=== PATIENT | male | born 1955 | race Hispanic/Latino ===

== ENCOUNTER 2018-06-04 12:25 | Inpatient (IN) | payer MEDICARE, BC ==
[2018-06-04] MEDS ORDERED: Pantoprazole 40 MG VIAL ONE (12:42)
[2018-06-04] MEDS ORDERED: Ondansetron PF 4 MG/2 ML Vial ONE (12:42)
[2018-06-04 13:24] LABS: #Eosinphils 0.1 thou/uL (0.0-0.7); #Lymphocytes 0.8 thou/uL (1.20-3.40); #Monocytes 0.7 thou/uL (0.11-0.59); #Neutrophils 13.8 thou/uL (1.40-6.50); %Basophils 0.2 % (0.0-1.0); %Eosinophils 0.3 % (0.0-10.0); %Lymphocytes 5.1 % (21.0-51.0); %Monocytes 4.3 % (0.0-10.0); Mean Corpuscular Hemoglobin 29.1 pg (27.0-31.0); Mean Corpuscular Volume 88.1 fL (78.0-98.0); Mean Platelet Volume 8.3 fL (7.4-10.4); Platelet Count 312 thou/uL (130-400); RBC Distribution Width 12.7 % (11.5-14.5); Red Blood Cell (RBC) Count 5.83 mill/uL (4.70-6.10); White Blood Cell (WBC) Count 15.4 thou/uL (4.8-10.8)
[2018-06-04 13:35] LABS: INR-International Normal Ratio 0.9; PTT 30.9 SEC (22.9-36.1); Prothrombin Time 12.5 SEC (12.0-14.7)
[2018-06-04 13:43] LABS: ALT (SGPT) 250 U/L (8-55); AST (SGOT) 314 U/L (5-34); Alkaline Phosphatase 118 U/L (40-150); Anion Gap 16 mmol/L (10-20); BUN (Urea Nitrogen) 14 mg/dL (8.4-25.7); Bilirubin, Total 1.5 mg/dL (0.2-1.2); Calc. Creatinine Clearance 0 mL/min (70-130); Calcium 10.7 mg/dL (7.8-10.44); Carbon Dioxide 29 mmol/L (23-31); Chloride 96 mmol/L (98-107); Estimated GFR-MDRD 68; Globulin 4.2 g/dL (2.4-3.5); Glucose 162 mg/dL (80-115); Potassium 3.4 mmol/L (3.5-5.1); Protein, Total 9.2 g/dL (5.8-8.1); Sodium 138 mmol/L (136-145)
[2018-06-04 13:58] LABS: Lipase 2498 U/L (8-78)
--- NOTE | 2018-06-04 14:09 | CT ---
CT ABDOMEN AND PELVIS WITH IV CONTRAST: Date: 06/04/18 HISTORY: Abdominal pain, distention, emesis, constipation. FINDINGS: There are dependent changes in the lung bases. There is fatty infiltration of the liver. The spleen, pancreas, adrenal glands, and kidneys appear normal. There is mild peripancreatic inflammatory change . No free air, free fluid, or lymphadenopathy seen in the abdomen or pelvis. No portosplenic thrombos is is seen. There are vascular calcifications without evidence of aneurysmal dilatation of the abdominal aorta. T he prostate is enlarged. There are degenerative changes in the spine. The small bowel loops are not abnormally dilated. A normal appearing appendix is present. A small hia garland hernia is present. No calcified gallstones are noted. IMPRESSION: 1. Fatty liver. 2. Small hiatal hernia. 3. Findings suspicious for pancreatitis. 4. Prostatic enlargement. Discussed over the telephone with ER physician, Dr. Justine Cooper, at 1330 hours. CODE CR. POS: [facility]
--- NOTE | 2018-06-04 14:52 | PDOC.FPRHP ---
- History of Present Illness Chief Complaint: Abdominal Pain History of Present Illness: 63yo male with pmh of Multiple sclerosis with right sided weakness, insulin depended DMII, HTN. Uses power wheel chair. Pt presents with 5-6 days of abdominal pain and began vomiting this AM. Last bowel movement 1 week ago. His sister is an RN, gave him an enema this morning with resulting small BM. Pain is worse after meals, has been avoiding food due to this. Hasn't been passing gas for last couple days. Denies fevers, chills, rashes. Has some new lower leg edema and left lower leg lesion. Reports has been drinking a lot of water, this helps with the pain. No hx of abdominal surgeries or pancreatitis. Does not drink alcohol. Years since last MS flare requiring steroids. Reports DMII hasn't been well controlled. Blood sugar 140 this AM - Allergies/Adverse Reactions Allergies Allergy/AdvReac Type Severity Reaction Status Date / Time acetaminophen [From Tylenol] Allergy Verified 06/04/18 16:12 codeine Allergy Verified 06/04/18 16:12 - Home Medications Medication Instructions Recorded Confirmed Type Baclofen 20 mg PO TID 06/04/18 06/04/18 History Cholecalciferol (Vitamin D3) 1 capsule PO DAILY 06/04/18 06/04/18 History [Vitamin D] Insulin Detemir [Levemir] 15 unit SQ DAILY 06/04/18 06/04/18 History Magnesium 250 mg PO INF 06/04/18 06/04/18 History Valsartan/Hydrochlorothiazide 1 tab DAILY 06/04/18 06/04/18 History [Valsartan-Hctz 160-25 mg Tab] - History PMHx: Multiple sclerosis, Insulin depended DMII, HTN PSHx: None FHx: Brother- NE, pacemaker Father- 3 NE's Social: 22 years of 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 No hx of IV drugs - Review of Systems General: denies: fever/chills ENT: denies: nasal congestion, rhinorrhea Respiratory: denies: cough, congestion, shortness of breath Cardiovascular: reports: edema. denies: chest pain Gastrointestinal: reports: nausea, vomiting, constipation, abdominal pain. denies: diarrhea Genitourinary: reports: incontinence. denies: dysuria Skin: reports: lesions. denies: rashes Musculoskeletal: reports: pain, arthritis/arthralgias Neurological: reports: weakness. denies: numbness, syncope Psychological: denies: anxiety, depression - Vital signs BP: 135/94 HR: 128 RR: 18 Tmax: 98.6 Pox: 94% on RmAir Wt: 113 kg - Physical Exam Constitutional: NAD, awake, alert and oriented, well developed HEENT: normocephalic and atraumatic, PERRLA, conjunctiva clear, grossly normal vision, grossly normal hearing -HEENT: dry mucous membranes, appears volume depleted Neck: supple, trachea midline Heart: normal S1/S2, no murmurs/rubs/gallops, pulses present -Heart: tachycardia 1+ pitting edema bilaterally Lungs: CTAB, no respiratory distress, good air movement, no wheezing Abdomen: bowel sounds present, no masses/distention -Abdomen: bilateral upper quadrant tenderness. Positive fletcher's. -Musculoskeletal: Decreased ROM and strength 2/5 on Right. Per patient is his baseline Neurological: CN II-XII intact, normal sensation -Neurological: No myoclonus Skin: capillary refill <2 seconds -Skin: RLE venous stasis vs old abrasion lesion to anterior bedolla Heme/Lymphatic: no unusual bruising or bleeding, no purpura Psychiatric: normal mood and affect, good judgment and insight, intact recent and remote memory FMR H&P: Results - Labs Result Diagrams: 06/05/18 07:46 06/05/18 07:46 Lab results: WBC 15.4 thou/uL (4.8-10.8) H 06/04/18 13:05 Hgb 17.0 g/dL (14.0-18.0) 06/04/18 13:05 Hct 51.4 % (42.0-52.0) 06/04/18 13:05 MCV 88.1 fL (78.0-98.0) 06/04/18 13:05 Plt Count 312 thou/uL (130-400) 06/04/18 13:05 Neutrophils % 90.0 % (42.0-75.0) H 06/04/18 13:05 Sodium 138 mmol/L (136-145) 06/04/18 12:33 Potassium 3.4 mmol/L (3.5-5.1) L 06/04/18 12:33 Chloride 96 mmol/L (98-107) L 06/04/18 12:33 Carbon Dioxide 29 mmol/L (23-31) 06/04/18 12:33 BUN 14 mg/dL (8.4-25.7) 06/04/18 12:33 Creatinine 1.10 mg/dL (0.7-1.3) 06/04/18 12:33 Glucose 162 mg/dL (80-115) H 06/04/18 12:33 Calcium 10.7 mg/dL (7.8-10.44) H 06/04/18 12:33 Total Bilirubin 1.5 mg/dL (0.2-1.2) H 06/04/18 12:33 AST 314 U/L (5-34) H 06/04/18 12:33 ALT 250 U/L (8-55) H 06/04/18 12:33 Alkaline Phosphatase 118 U/L (40-150) 06/04/18 12:33 Serum Total Protein 9.2 g/dL (5.8-8.1) H 06/04/18 12:33 Albumin 5.0 g/dL (3.4-4.8) H 06/04/18 12:33 Lipase 2498 U/L (8-78) H 06/04/18 12:33 - EKG Interpretation EK lead EKG shows, sinus tachycardia, Rate (beats per minute): 130, with no ectopics, Conduction normal, ST segments normal, T waves normal, Homer normal, No other findings, Clinical impression: Normal EKG. - Radiology Interpretation CT scan - abdomen Status: report reviewed by me Additional comment: Fatty liver, small hiatal hernia, pancreatitis, prostatic enlargement FMR H&P: A/P - Problem List (1) Pancreatitis Current Visit: Yes Status: Acute Code(s): K85.90 - ACUTE PANCREATITIS WITHOUT NECROSIS OR INFECTION, UNSP - Plan 63yo male with pmh of multiple sclerosis with right sided weakness, insulin depended DMII, and HTN. Pancreatitis - Leukocytosis, afebrile - CT: evidence of pancreatitis, elevated Lipase 2498 - No hx of alcohol use, will obtain fasting lipid to eval for hypertriglyceridemia as cause - Ordered RUQ to evaluate for gallstones - Consider consult GI in AM - Morphine 8mg q4hr for pain control - LR @200 - NPO - Admit to medical - Will LDH to risk stratify with Platte score Transaminitis - likely 2/2 fatty liver vs gallstone pancreatitis - Will obtain Hep panel and RUQ US as above Insulin Dependent DMII - Will hold home Levemir 15U in AM, Metformin HS due to NPO - HgbA1c 7.2% on 05/15/18 in clinic - Accuchecks q6hr - Will monitor Blood glucose and consider switching to D5 HTN - Hold Valsartan due to NPO and low BP MS - Holding Baclofen due to NPO Code Status: DNAR Diet: NPO DVT ppx: Lovenox Dispo: Likely >2 midnights FMR H&P: Upper Level - Pertinent history 63 yo male presents with 5 day history of abdominal pain. He states that he has since recently began having constipation and vomiting as well. Patient denies fevers, chills, or cough. He states that his sister gave him an enema this AM without much output. He states that he has had a lot of pain and hasn't been able to eat much during this time. He states that he does still have his gallbladder and he has never had anything like this before. Please see auditor internal note above for further documentation. Physical Exam General: Male appears stated age. Appears to be in mild pain Vitals: HEENT: Normocephalic and atraumatic CV: Tachycardic rate, regular rhythm. No murmurs Respiratory: CTA bilaterally, no wheezing Extremities: 1+ pitting edema bilaterally. Right sided weakness at baseline 2/5 strength Neuro: Alert and Oriented x3. No focal deficits - Plan Date/Time: 06/04/18 1450 IMario, have evaluated this patient and agree with findings/plan as outlined by auditor internal resident. Pertinent changes/additions are listed here. 1. Pancreatitis: - Will rule out Gallstone vs other causes - Pain control and IVF - NPO - RUQ US pending - Consider GI consultation when more studies known - Will complete Chari's score for risk stratification - Trend CBC, CMP - FLP in AM Transaminitis - Will obtain Hepatitis panel - trend ALT and AST Insulin Dependent DMII - Will hold home Levemir 15U in AM, Metformin HS due to NPO status - Accuchecks q6hr - Will monitor Blood glucose and consider switching to D5 if hypoglycemia occurs HTN - Hold Valsartan for now - Consider IV PRN BP medications MS - Hold Baclofen Disposition: Stable, will admit to inpatient medical services and continue current plan of care. Addendum - Attending - Attending Attestation Date/Time: 06/05/18 7875 I personally evaluated the patient and discussed the management with Dr. Hough I agree with the History, Examination, Assessment and Plan documented above with any addition or exceptions noted below - 63 yo male with h/o MS with residual right sided weakness, DM, and HTN presents c/o 1 week h/o progressive abdominal pain. Also developed nausea and vomiting in the last 1-2 days. Pain worse with eating. States that he has been constipated also and not passing gas. Denies any CP, SOB, hematemesis or hematochezia. PMH/PSH/Meds/All reviewed and agree with resident's documentation. Afebrile P119 BPO 139/64 RR 20 94% on RA. Exam repeated by and agree with resident's findings. Labs: WBC=15.4, H/H = 17/51.4, Plt= 312, Lt=133, K=3.4, Cl=96, CO2=29, BUN/Cr=14/1.10, Evqx=988, Ca= 10.7, t. bili=1.5, AST/WVY=335/250, Alk qumc=475, alb=5.0, TP=9.2. Hubxzd=[id number]. CT abd/pelvis- c/w pancreatitis. A/P: 1) Acute pancreatitis - Continue IV hydration, pain medications, NPO. Will check RUQ uSG to evaluate gallbladder. 2 ) DM- monitor accuchecks. 3) HTN- BP low normal; hold BP for now.
[2018-06-04 17:06] VITALS: BMI 37.5
[2018-06-04] MEDS ORDERED: Dextrose 50% Abboject 50 ML SYRINGE SLOW IVP PRN (17:34)
[2018-06-04] MEDS ORDERED: Dextrose 5% in Water 1,000 ML IV PRN (17:34)
[2018-06-04] MEDS: Ondansetron PF 4 MG/2 ML Vial IVP PRN (18:30)
[2018-06-04] MEDS: Morphine 4 MG/ML VIAL SLOW IVP PRN ×2 (18:32→22:40)
[2018-06-04] MEDS: Lactated Ringer's 1,000 ML IV SCH ×2 (18:34→22:40)
[2018-06-05] MEDS: Ondansetron PF 4 MG/2 ML Vial IVP PRN ×6 (02:46→23:15)
[2018-06-05] MEDS: Morphine 4 MG/ML VIAL SLOW IVP PRN ×6 (02:47→23:15)
[2018-06-05] MEDS: Lactated Ringer's 1,000 ML IV SCH ×5 (03:41→21:59)
--- NOTE | 2018-06-05 07:26 | PDOC.FM ---
- Subjective Subjective: Pt reports pain is somewhat improved and controlled with IV morphine. Complains of continued nausea. no cp/palpitations, no sob no cough - Objective MAR Reviewed: Yes Vital Signs & Weight: Vital Signs (12 hours) Temp Pulse Resp BP Pulse Ox 06/05/18 04:00 98.6 F 100 18 122/66 98 06/05/18 00:00 98.5 F 106 H 18 135/76 96 06/04/18 19:41 96 06/04/18 19:39 98.9 F 111 H 18 115/59 L 96 Weight Weight 108.7 kg I&O: 06/04/18 06/05/18 06/06/18 06:59 06:59 06:59 Intake Total 2400 Balance 2400 Result Diagrams: 06/05/18 07:46 06/05/18 07:46 Phys Exam - Physical Examination Constitutional: NAD HEENT: moist MMs, sclera anicteric Neck: no JVD, full ROM Respiratory: no wheezing, clear to auscultation bilateral Cardiovascular: RRR, no significant murmur Gastrointestinal: soft epigastric TTP Musculoskeletal: no edema, pulses present Neurological: normal sensation, moves all 4 limbs Psychiatric: normal affect, A&O x 3 Skin: no rash, normal turgor Dx/Plan (1) Diabetes mellitus Code(s): E11.9 - TYPE 2 DIABETES MELLITUS WITHOUT COMPLICATIONS Status: Acute (2) Pancreatitis Code(s): K85.90 - ACUTE PANCREATITIS WITHOUT NECROSIS OR INFECTION, UNSP Status: Acute (3) Multiple sclerosis Code(s): G35 - MULTIPLE SCLEROSIS Status: Acute - Plan Plan: 63yo male with pmh of multiple sclerosis with right sided weakness, insulin depended DMII, and HTN. Pancreatitis A- Leukocytosis, afebrile. CT: evidence of pancreatitis, elevated Lipase 2498. No alcohol in 22 years P- f/u RUQ US -f/u FLP - Morphine 8mg q4hr for pain control - zofran prn for nausea - LR @200 - NPO Transaminitis A- likely 2/2 fatty liver vs gallstone pancreatitis P- f/u Hep panel and RUQ US as above Insulin Dependent DMII A- HgbA1c 7.2% on 05/15/18 in clinic P- Will hold home Levemir 15U in AM, Metformin HS due to NPO - Accuchecks q6hr, will consider D5 and adding back home levemir if uncontrolled HTN - Hold Valsartan due to NPO and low BP MS - Holding Baclofen due to NPO Code Status: DNAR Diet: NPO DVT ppx: Lovenox Addendum - Attending - Attending Attestation Date/Time: 06/05/18 [id number] I personally evaluated the patient and discussed the management with Dr. Vazquez I agree with the History, Examination, Assessment and Plan documented above with any addition or exceptions noted below- Patient without complaints. States that abdoinal pain better. Still having some nausea; no vomiting. Afebrile VSS. A/P: 1) Pancreatitis- decrease IVF; trial of clear liquids this afternoon. On thiazide for BP- will stop this as a possible etiology for his pancreatitis. 2) DM- BG stable; continue to monitor.
--- NOTE | 2018-06-05 08:24 | ULT ---
EXAM: RIGHT UPPER QUADRANT ULTRASOUND: History: 63-year-old male with history of acute pancreatitis. FINDINGS: Heterogeneously course liver echogenicity, evidence for nonspecific diffuse hepatic parenchymal proce ss. Possible debris/sludge within the gallbladder, but the patient will not allow a decubitus or upri ght evaluation to evaluate for movement. Thus, this is a very limited examination. Common bile duct i s 0.4 cm. IMPRESSION: Limited examination because of body habitus and patient unable to roll or go upright, or lie complete ly flat. Possible minimal sludge or debris within the gallbladder. Consider short term follow up stud y whenever the patient can better cooperate. Heterogeneous liver echogenicity. POS: [facility]
[2018-06-05 08:26] LABS: #Lymphocytes 0.7 thou/uL (1.20-3.40); #Monocytes 0.8 thou/uL (0.11-0.59); #Neutrophils 13.3 thou/uL (1.40-6.50); %Basophils 0.2 % (0.0-1.0); %Eosinophils 0.3 % (0.0-10.0); %Lymphocytes 4.6 % (21.0-51.0); %Monocytes 5.4 % (0.0-10.0); %Neutrophils 89.4 % (42.0-75.0); Hemoglobin 13.6 g/dL (14.0-18.0); Mean Corpuscular HGB CONC 32.5 g/dL (32.0-36.0); Mean Corpuscular Volume 89.3 fL (78.0-98.0); Mean Platelet Volume 8.2 fL (7.4-10.4); Platelet Count 245 thou/uL (130-400); RBC Distribution Width 12.7 % (11.5-14.5); Red Blood Cell (RBC) Count 4.68 mill/uL (4.70-6.10); White Blood Cell (WBC) Count 14.8 thou/uL (4.8-10.8)
[2018-06-05 08:38] LABS: ALT (SGPT) 140 U/L (8-55); AST (SGOT) 55 U/L (5-34); Albumin 3.7 g/dL (3.4-4.8); Alkaline Phosphatase 79 U/L (40-150); Anion Gap 13 mmol/L (10-20); BUN (Urea Nitrogen) 13 mg/dL (8.4-25.7); Bilirubin, Total 0.5 mg/dL (0.2-1.2); Calc. Creatinine Clearance 74 mL/min (70-130); Calcium 9.1 mg/dL (7.8-10.44); Carbon Dioxide 27 mmol/L (23-31); Cardiac Risk 3.1 (Less than 4.5); Chloride 104 mmol/L (98-107); Cholesterol 141 mg/dl (< 200 Desired); Estimated GFR-MDRD 44; Glucose 167 mg/dL (80-115); HDL Cholesterol 45 mg/dL (>60 Neg Risk); LDL Cholesterol, Calculated 86 mg/dL; Potassium 3.9 mmol/L (3.5-5.1); Protein, Total 6.7 g/dL (5.8-8.1); Sodium 140 mmol/L (136-145); Triglycerides 50 mg/dL (Less than 150)
[2018-06-05] MEDS: Enoxaparin Sodium 40 MG/0.4 ML SYRINGE SC SCH (08:40)
[2018-06-05] MEDS: Pantoprazole 40 MG VIAL IVP SCH (08:40)
[2018-06-05 08:42] LABS: Hep A IgM AB Non-Reactive (NonReactive); Hep A IgM S/CO 0.12 S/CO (0-0.79); Hep C IgG Ab Non-Reactive (NonReactive); Hep C Index 0.08 S/CO (0-0.79)
[2018-06-05] MEDS ORDERED: Nystatin Powder 15 GM BOT TOP PRN (14:36)
[2018-06-06] MEDS: Ondansetron PF 4 MG/2 ML Vial IVP PRN ×5 (03:21→20:32)
[2018-06-06] MEDS: Morphine 4 MG/ML VIAL SLOW IVP PRN ×5 (03:22→20:32)
[2018-06-06] MEDS: Lactated Ringer's 1,000 ML IV SCH ×3 (04:36→17:41)
--- NOTE | 2018-06-06 06:33 | PDOC.FM ---
- Subjective Subjective: Patient reports feeling worse this morning. Patient states that he continues to feel nauseous, no vomiting episodes. Endorses feeling bloated. Patient advanced to clear liquids and has only had water. Patient states that he is having sharp stomach pains. The morphine has helped with the pain for about 5-6hours at a time but then the pain returns. The patient states that his breathing is improved and he is not wheezing or having increased resp effort. Patient has not had a bowel movement since 05/29/18. - Objective Vital Signs & Weight: Vital Signs (12 hours) Temp Pulse Resp BP Pulse Ox 06/06/18 03:45 99.1 F 116 H 20 158/67 H 95 06/05/18 23:52 99.0 F 115 H 20 139/67 95 06/05/18 20:00 99.4 F 111 H 16 129/65 99 Weight Admit Weight 108.7 kg Weight 108.7 kg I&O: 06/04/18 06/05/18 06/06/18 06:59 06:59 06:59 Intake Total 2400 2490 Balance 2400 2490 Result Diagrams: 06/06/18 08:29 06/06/18 07:25 Phys Exam - Physical Examination mild distress HEENT: PERRLA, moist MMs, sclera anicteric Neck: no JVD, supple, full ROM Respiratory: clear to auscultation bilateral Cardiovascular: RRR, no significant murmur, no rub Gastrointestinal: positive bowel sounds tense abdomen, moderately tender diffusely, more in left lower quadrant abdomen distended diffusely Musculoskeletal: no edema, pulses present Neurological: non-focal Psychiatric: A&O x 3 Skin: no rash Dx/Plan (1) Pancreatitis Code(s): K85.90 - ACUTE PANCREATITIS WITHOUT NECROSIS OR INFECTION, UNSP Status: Acute (2) Diabetes mellitus Code(s): E11.9 - TYPE 2 DIABETES MELLITUS WITHOUT COMPLICATIONS Status: Acute (3) Multiple sclerosis Code(s): G35 - MULTIPLE SCLEROSIS Status: Acute (4) Constipation Code(s): K59.00 - CONSTIPATION, UNSPECIFIED Status: Acute - Plan Plan: 63yo male with pmh of multiple sclerosis with right sided weakness, insulin depended DMII, and HTN here for pancreatitis. Pancreatitis - Leukocytosis, febrile on 06/06. Will obtain blood and urine cultures. - CT: evidence of pancreatitis, elevated Lipase 2498->12. - RUQ US: limited exam due to body habitus and inability for patient to roll onto side; possible debri/sludge within the gallbaldder. CBD 0.4cm. - FLP wnl - Morphine 8mg q4hr for pain control; will transition to PO if well controlled - zofran prn for nausea - clear liquid diet for now, will advance diet as tolerated Transaminitis - likely 2/2 fatty liver vs gallstone pancreatitis - Hep panel negative, RUQ US as above - liver enzyme levels downtrending Constipation - No BM since 05/29 - Will administer enema today and f/u - Will get CXR and KUB as patient is still having abdominal pain/distention - Will give laxative daily - RI until taking PO ZI - Cr 1.59 -> 3.76 - Will continue fluids - Will monitor w/ QD BMPs Insulin Dependent DMII - HgbA1c 7.2% on 05/15/18 in clinic - Will hold home Levemir 15U in AM, Metformin HS due to NPO - Accuchecks q6hr, will consider D5 and adding back home levemir if uncontrolled HTN - Hold Valsartan due to NPO and low BP MS - Holding Baclofen due to NPO Code Status: DNAR Diet: clear liquid DVT ppx: Lovenox Addendum - Attending - Attending Attestation Date/Time: 06/06/18 1118 I personally evaluated the patient and discussed the management with Dr. Chen I agree with the History, Examination, Assessment and Plan documented above with any addition or exceptions noted below - Patient reports contuinued nausea. Has tried ice chips but still having abdominal pain with the nausea. Tm 101.4 P116 A/P: 1) Pancreatitis- abdominal pain appears better less tender on exam but distended and has not had a bowel movement in >1 week. Will check abd series to evaluate for ileus/SBO. May need to consider NGT for decompression. 2 ) Fever- blood and urine cultgures collected; check CXR; pulmonary toilet. 3) ZI- worsening Cr. continue IVF. Check urine studies. May need nephrology consult.
[2018-06-06 08:05] LABS: ALT (SGPT) 83 U/L (8-55); AST (SGOT) 23 U/L (5-34); Albumin 3.4 g/dL (3.4-4.8); Alkaline Phosphatase 73 U/L (40-150); Anion Gap 19 mmol/L (10-20); BUN (Urea Nitrogen) 24 mg/dL (8.4-25.7); Bilirubin, Total 0.7 mg/dL (0.2-1.2); Calc. Creatinine Clearance 31 mL/min (70-130); Calcium 9.1 mg/dL (7.8-10.44); Carbon Dioxide 22 mmol/L (23-31); Chloride 104 mmol/L (98-107); Estimated GFR-MDRD 16; Globulin 3.3 g/dL (2.4-3.5); Glucose 121 mg/dL (80-115); Lipase 12 U/L (8-78); Potassium 4.6 mmol/L (3.5-5.1); Protein, Total 6.7 g/dL (5.8-8.1); Sodium 140 mmol/L (136-145)
[2018-06-06 08:46] LABS: Hemoglobin 12.5 g/dL (14.0-18.0); Mean Corpuscular HGB CONC 32.5 g/dL (32.0-36.0); Mean Corpuscular Hemoglobin 28.7 pg (27.0-31.0); Mean Corpuscular Volume 88.3 fL (78.0-98.0); Mean Platelet Volume 9.6 fL (7.4-10.4); Platelet Count 181 thou/uL (130-400); RBC Distribution Width 12.6 % (11.5-14.5); Red Blood Cell (RBC) Count 4.36 mill/uL (4.70-6.10); White Blood Cell (WBC) Count 17.6 thou/uL (4.8-10.8)
[2018-06-06] MEDS: Enoxaparin Sodium 40 MG/0.4 ML SYRINGE SC SCH (08:47)
[2018-06-06] MEDS: Pantoprazole 40 MG VIAL IVP SCH (08:48)
[2018-06-06 09:33] LABS: Band 3 % (5-11); Lymphocytes 10 % (21-51); MDiff Complete? YES; Monocytes 6 % (0-10); Neutrophil 81 % (42-75); RBC Morphology Normal
[2018-06-06] MEDS ORDERED: Fleet Enema 133 ML BOT FS SCH (11:30)
--- NOTE | 2018-06-06 12:47 | RAD ---
FRONTAL VIEW CHEST: INDICATIONS: Abdominal pain. COMPARISON: Reference made to 09/27/2016. FINDINGS: The lungs are hypoinflated with bibasilar opacity. There is enlargement of the cardiac silhouette an d prominence of the pulmonary vasculature. Surgical anchors are again seen at the left shoulder. IMPRESSION: Hypoinflated lungs with findings to indicate pleural fluid and adjacent edema, likely related to deco mpensated congestive heart failure. Recommend continued imaging followup. POS: [facility]
--- NOTE | 2018-06-06 12:48 | RAD ---
FRONTAL VIEW ABDOMEN: KUB: INDICATIONS: Abdominal pain. History of dyspnea. FINDINGS: The imaged abdomen reveals a nonspecific bowel gas pattern. There is contrast media within a moderat denys distended urinary bladder. There is decreased penetration of the abdomen due to overlying body w all soft tissue. IMPRESSION: Nonspecific bowel gas pattern. POS: [facility]
[2018-06-06 13:00] LABS: Bilirubin Negative (Negative); Blood, Urine Moderate (Negative); Clarity CLEAR (Clear); Glucose, Urine (Dipstick) Negative (Negative); Leukocyte Negative (Negative); Nitrite Negative (Negative); Protein, Urine (Dipstick) Negative (Neg-Trace); Specific Gravity, Urine 1.021 (1.002-1.036); Urobilinogen 0.2 mg/dL (0.2-1.0); pH, Urine 5.5 (5.0-9.0)
[2018-06-06 13:03] LABS: Bacteria/HPF None Seen HPF (None Seen); Hyaline Casts/LPF 0-3 HYALINE CAST LPF (0-3 Hyaline); Squamous Epithelial None Seen HPF (0-3); WBC/HPF 0-3 HPF (0-3)
[2018-06-06 13:06] LABS: Yeast-AUWi Flag 39.3 (0-25.0)
[2018-06-06 13:17] LABS: Yeast-All Forms None Seen HPF (None Seen)
[2018-06-06] MEDS ORDERED: Bisacodyl 10 MG SUPP PR PRN (15:42)
[2018-06-06] MEDS ORDERED: GoLYTELY 4,000 ml Bottle PO SCH ×2 (16:00→18:00)
[2018-06-06] MEDS ORDERED: Baclofen 10 MG TAB PO SCH (16:00)
[2018-06-06] MEDS: Baclofen 10 MG TAB PO SCH (20:31)
--- NOTE | 2018-06-07 00:50 | PDOC.EVN ---
Event Note - Event Note Event Note: Pt resting comfortably in bed, recent large bowel movement. denies CP, SOB, abdominal pain. PE: MMM, CTAB, RRR, S1/S2, NTTP Continue to monitor fluid status, continue LR 150ml/hr
[2018-06-07] MEDS: Lactated Ringer's 1,000 ML IV SCH ×2 (01:01→07:34)
--- NOTE | 2018-06-07 06:16 | PDOC.FM ---
Addendum entered and electronically signed by Klarissa Chen MD 06/07/18 08:43 : Will restart valsartan but will discontinue home HCTZ as this could be a possible cause of pancreatitis. Original Note: - Subjective Subjective: Overnight, patient had a large bowel movement resulting in the patient feeling much better.. Tolerating clear liquids. Patient states he is feeling much better today and is hungry. Patient requesting to advance diet. Patient denies abdominal pain or tenderness. Patient states he feels he is breathing at this baseline with no issues. - Objective Vital Signs & Weight: Vital Signs (12 hours) Temp Pulse Resp BP Pulse Ox 06/07/18 04:38 99.8 F H 107 H 18 134/69 94 L 06/07/18 03:56 99.5 F 06/07/18 00:00 99.2 F 107 H 20 140/65 92 L 06/06/18 20:00 95 06/06/18 19:47 98.7 F 110 H 20 125/58 L 95 Weight Admit Weight 108.7 kg Weight 108.7 kg I&O: 06/05/18 06/06/18 06/07/18 06:59 06:59 06:59 Intake Total 2400 2490 2715 Output Total 4450 Balance 2400 2490 -1735 Result Diagrams: 06/08/18 04:11 06/08/18 04:11 Phys Exam - Physical Examination Constitutional: NAD HEENT: PERRLA, moist MMs, sclera anicteric Neck: no JVD, supple, full ROM Respiratory: clear to auscultation bilateral Cardiovascular: RRR, no significant murmur, no rub Gastrointestinal: soft, non-tender, positive bowel sounds mild distention Musculoskeletal: no edema Neurological: non-focal Psychiatric: normal affect, A&O x 3 Skin: no rash Dx/Plan (1) Pancreatitis Code(s): K85.90 - ACUTE PANCREATITIS WITHOUT NECROSIS OR INFECTION, UNSP Status: Acute (2) Diabetes mellitus Code(s): E11.9 - TYPE 2 DIABETES MELLITUS WITHOUT COMPLICATIONS Status: Acute (3) Multiple sclerosis Code(s): G35 - MULTIPLE SCLEROSIS Status: Acute (4) Constipation Code(s): K59.00 - CONSTIPATION, UNSPECIFIED Status: Acute - Plan Plan: 63yo male with pmh of multiple sclerosis with right sided weakness, insulin depended DMII, and HTN here for pancreatitis. Pancreatitis - Leukocytosis, febrile on 06/06. Blood and urine cx pending. Afebrile since yesterday. - CT: evidence of pancreatitis, elevated Lipase 2498->12. - RUQ US: limited exam due to body habitus and inability for patient to roll onto side; possible debri/sludge within the gallbaldder. CBD 0.4cm. - FLP wnl - Morphine discontinued as patient no longer in pain - zofran prn for nausea - Full liquid diet for now, will advance diet at lunch if breakfast tolerated well Transaminitis - likely 2/2 fatty liver vs gallstone pancreatitis - Hep panel negative, RUQ US as above - liver enzyme levels downtrending Constipation - No BM since 05/29-> BM on 06/06 after golytely. - Imaging yesterday showed nonspecific bowel gas pattern; CXR showed possible pleural fluid w/ edema possibly related to CHF. BNP wnl. Pt has no signs of CHF on exam. - Will give laxative daily, patient tolerating PO ZI - Cr 1.59 -> 3.76 - Will continue fluids - Will monitor w/ QD BMPs Insulin Dependent DMII - HgbA1c 7.2% on 05/15/18 in clinic - Will restart home Levemir 15U in AM, Metformin HS - Accuchecks q6hr HTN - Will restart Valsartan as patient is tolerating PO MS - Will restart baclofen as patient is tolerating PO Code Status: DNAR Diet: clear liquid DVT ppx: Lovenox DISPO: possible discharge later today if diet tolerated well Addendum - Attending - Attending Attestation Date/Time: 06/12/18 1316 I personally evaluated the patient and discussed the management with Dr. Chen on 06/07/18 I agree with the History, Examination, Assessment and Plan documented above with any addition or exceptions noted below- Patient without complaints. Feeling much better. Tolerating clears. Afebrile VSS. A/P: 1) Pancreatitis- resolved. Advance diet. 2) Constipation- resolved. 3) DM- stable; resume insulin. 4) Urinary retention - bladder training through today; plan to remove millan if able to void.
[2018-06-07 07:36] LABS: #Eosinphils 0.3 thou/uL (0.0-0.7); #Lymphocytes 0.8 thou/uL (1.20-3.40); #Monocytes 0.9 thou/uL (0.11-0.59); #Neutrophils 10.6 thou/uL (1.40-6.50); %Basophils 0.2 % (0.0-1.0); %Eosinophils 2.1 % (0.0-10.0); %Lymphocytes 6.4 % (21.0-51.0); %Monocytes 6.9 % (0.0-10.0); %Neutrophils 84.4 % (42.0-75.0); Hemoglobin 12.7 g/dL (14.0-18.0); Mean Corpuscular HGB CONC 34.5 g/dL (32.0-36.0); Mean Corpuscular Hemoglobin 30.8 pg (27.0-31.0); Mean Corpuscular Volume 89.2 fL (78.0-98.0); Mean Platelet Volume 8.2 fL (7.4-10.4); Platelet Count 216 thou/uL (130-400); RBC Distribution Width 12.4 % (11.5-14.5); Red Blood Cell (RBC) Count 4.11 mill/uL (4.70-6.10); White Blood Cell (WBC) Count 12.6 thou/uL (4.8-10.8)
[2018-06-07] MEDS ORDERED: Morphine 4 MG/ML VIAL SLOW IVP PRN (07:36)
[2018-06-07 08:00] LABS: Anion Gap 14 mmol/L (10-20); BUN (Urea Nitrogen) 12 mg/dL (8.4-25.7); Calc. Creatinine Clearance 97 mL/min (70-130); Calcium 8.9 mg/dL (7.8-10.44); Carbon Dioxide 26 mmol/L (23-31); Chloride 103 mmol/L (98-107); Estimated GFR-MDRD 61; Glucose 132 mg/dL (80-115); Potassium 3.9 mmol/L (3.5-5.1); Sodium 139 mmol/L (136-145)
[2018-06-07] MEDS: Pantoprazole 40 MG VIAL IVP SCH (08:20)
[2018-06-07] MEDS: Enoxaparin Sodium 40 MG/0.4 ML SYRINGE SC SCH (08:20)
[2018-06-07] MEDS: Baclofen 10 MG TAB PO SCH ×3 (08:21→20:08)
[2018-06-07] MEDS: Polyethylene Glycol 3350 17 GM Packet PO SCH (08:21)
[2018-06-07] MEDS ORDERED: Non-Formulary Item 1 EACH (Magnesium [Magnesium] 250 MG) PO SCH (08:45)
[2018-06-07] MEDS ORDERED: Non-Formulary Item 1 EACH (Insulin Detemir [Levemir] 15 UNIT) SQ SCH (09:00)
[2018-06-07] MEDS ORDERED: Insulin Glargine 15 UNITS in Pre-Filled Syringe 1 EACH SC SCH (11:00)
[2018-06-07] MEDS: Valsartan 80 MG TAB PO SCH (11:24)
[2018-06-07 13:13] LABS: Hep B Surface AG-Rflx Sendout Negative (Negative); Hepatitis B Core IgM AB Negative (Negative); Hepatitis B Core Total Negative (Negative); Hepatitis B Surface AB-Sendout Non Reactive (.)
[2018-06-07] MEDS ORDERED: Baclofen 10 MG TAB PO SCH (15:00)
[2018-06-07] MEDS: diphenhydrAMINE 25 MG CAP PO PRN (18:20)
[2018-06-08 05:20] LABS: #Eosinphils 0.3 thou/uL (0.0-0.7); #Lymphocytes 0.8 thou/uL (1.20-3.40); #Monocytes 0.6 thou/uL (0.11-0.59); #Neutrophils 7.7 thou/uL (1.40-6.50); %Basophils 0.5 % (0.0-1.0); %Lymphocytes 8.5 % (21.0-51.0); %Neutrophils 82.1 % (42.0-75.0); Hemoglobin 12.4 g/dL (14.0-18.0); Mean Corpuscular HGB CONC 32.8 g/dL (32.0-36.0); Mean Corpuscular Hemoglobin 29.3 pg (27.0-31.0); Mean Corpuscular Volume 89.1 fL (78.0-98.0); Mean Platelet Volume 8.5 fL (7.4-10.4); Platelet Count 250 thou/uL (130-400); RBC Distribution Width 12.2 % (11.5-14.5); Red Blood Cell (RBC) Count 4.23 mill/uL (4.70-6.10); White Blood Cell (WBC) Count 9.3 thou/uL (4.8-10.8)
[2018-06-08 05:30] LABS: Anion Gap 14 mmol/L (10-20); BUN (Urea Nitrogen) 11 mg/dL (8.4-25.7); Calc. Creatinine Clearance 134 mL/min (70-130); Calcium 9.3 mg/dL (7.8-10.44); Carbon Dioxide 29 mmol/L (23-31); Chloride 101 mmol/L (98-107); Estimated GFR-MDRD 88; Glucose 148 mg/dL (80-115); Potassium 3.7 mmol/L (3.5-5.1); Sodium 140 mmol/L (136-145)
--- NOTE | 2018-06-08 05:52 | PDOC.FM ---
- Subjective Subjective: No events overnight. Patient tolerating diet well - states he ate meatloaf and some green beans last night with no issues. Patient endorses mild sharp abdominal pain that is improved from yesterday mostly on the left side. Patient denies abdominal pain, NVD, chest pain, LE swelling. Endorses headache relieved after benadryl. - Objective Vital Signs & Weight: Vital Signs (12 hours) Temp Pulse Resp BP Pulse Ox 06/07/18 20:00 94 L 06/07/18 19:47 99.2 F 108 H 20 134/73 94 L Weight Admit Weight 108.7 kg Weight 108.7 kg I&O: 06/06/18 06/07/18 06/08/18 06:59 06:59 06:59 Intake Total 2490 4515 1690 Output Total 4450 1700 Balance 2490 65 -10 Result Diagrams: 06/08/18 04:11 06/08/18 04:11 Phys Exam - Physical Examination Constitutional: NAD HEENT: PERRLA, moist MMs, sclera anicteric Neck: no JVD, supple, full ROM Respiratory: clear to auscultation bilateral Cardiovascular: RRR, no significant murmur, no rub Gastrointestinal: soft, no distention, positive bowel sounds left side tender to deep palpation Musculoskeletal: no edema Neurological: non-focal Psychiatric: normal affect, A&O x 3 Skin: no rash Dx/Plan (1) Pancreatitis Code(s): K85.90 - ACUTE PANCREATITIS WITHOUT NECROSIS OR INFECTION, UNSP Status: Acute (2) Diabetes mellitus Code(s): E11.9 - TYPE 2 DIABETES MELLITUS WITHOUT COMPLICATIONS Status: Acute (3) Multiple sclerosis Code(s): G35 - MULTIPLE SCLEROSIS Status: Acute (4) Constipation Code(s): K59.00 - CONSTIPATION, UNSPECIFIED Status: Acute (5) Urinary retention Code(s): R33.9 - RETENTION OF URINE, UNSPECIFIED Status: Acute - Plan Plan: 63yo male with pmh of multiple sclerosis with right sided weakness, insulin depended DMII, and HTN here for pancreatitis. Pancreatitis - Leukocytosis - now resolved. Febrile on 06/06. Afebrile since yesterday. Blood cx showed 1/2 staph epi - likely contaminant so will not treat at this time. - CT: evidence of pancreatitis, elevated Lipase 2498->12. - RUQ US: limited exam due to body habitus and inability for patient to roll onto side; possible debri/sludge within the gallbaldder. CBD 0.4cm. - FLP wnl - Morphine discontinued as patient no longer in pain - zofran prn for nausea - CC diet - patient tolerating diet well Urinary retention - Millan placed on 06/06 due to patient retention - bladder training started on 06/07 - pt not feeling urge to void. Will try again today. Can consider consulting urology as our clinic does not have millan supplies if patient needs to be sent home w/ millan. - likely 2/2 to severe constipation Transaminitis - likely 2/2 fatty liver vs gallstone pancreatitis - Hep panel negative, RUQ US as above - liver enzyme levels downtrending Constipation, resolved - No BM since 05/29-> BM on 06/06 after golytely. - Imaging yesterday showed nonspecific bowel gas pattern; CXR showed possible pleural fluid w/ edema possibly related to CHF. BNP wnl. Pt has no signs of CHF on exam. - Will give laxative daily, patient tolerating PO ZI, resolved - Cr 1.59 -> 3.76 -> 1.21 -> 0.88 - Will continue fluids - Will monitor w/ QD BMPs Insulin Dependent DMII - HgbA1c 7.2% on 05/15/18 in clinic - Will restart home Levemir 15U in AM, Metformin HS - Accuchecks q6hr HTN - Will restart Valsartan as patient is tolerating PO; will not restart HCTZ MS - Will restart baclofen as patient is tolerating PO Code Status: DNAR Diet: CC DVT ppx: Lovenox DISPO: discharge today if diet tolerated well Addendum - Attending - Attending Attestation Date/Time: 06/08/18 0829 I personally evaluated the patient and discussed the management with Dr. Chen I agree with the History, Examination, Assessment and Plan documented above with any addition or exceptions noted below.Abdomen positive BS nontender epigastrium , weaning off oxygen,bladder training concern neurogenic bladder with MS, hold thiazide as probable etiology pancreatitis. Patient should be ready for dismissal if continues stable care plan discussed with patient.
[2018-06-08] MEDS: Polyethylene Glycol 3350 17 GM Packet PO SCH (09:09)
[2018-06-08] MEDS: Pantoprazole 40 MG VIAL IVP SCH (09:09)
[2018-06-08] MEDS: Valsartan 80 MG TAB PO SCH (09:09)
[2018-06-08] MEDS: Baclofen 10 MG TAB PO SCH ×3 (09:09→20:30)
[2018-06-08] MEDS: Enoxaparin Sodium 40 MG/0.4 ML SYRINGE SC SCH (09:09)
[2018-06-08] MEDS: Senokot 8.6 MG TAB PO SCH ×2 (09:10→20:30)
[2018-06-08] MEDS: Tamsulosin HCl 0.4 MG CAP PO SCH (09:10)
[2018-06-08] MEDS: Insulin Glargine 15 UNITS in Pre-Filled Syringe 1 EACH SC SCH (09:11)
--- NOTE | 2018-06-08 17:16 | EKG ---
Test Reason : Blood Pressure : / mmHG Vent. Rate : 130 BPM Atrial Rate : 130 BPM P-R Int : 152 ms QRS Dur : 086 ms QT Int : 288 ms P-R-T Axes : 017 -07 -11 degrees QTc Int : 423 ms Sinus tachycardia Otherwise normal ECG Confirmed by YURI SCHOFIELD ([id number]), videotape editor DAVID BANERJEE ([id number]) on 06/08/2018 5:16:11 PM Referred By: Confirmed By:YURI SCHOFIELD
[2018-06-08] MEDS: diphenhydrAMINE 25 MG CAP PO PRN (20:30)
[2018-06-09] MEDS ORDERED: Labetalol HCl 100 MG/20 ML VIAL SLOW IVP PRN (00:54)
--- NOTE | 2018-06-09 06:14 | PDOC.FM ---
- Subjective Subjective: No overnight events. Patient has no complaints. Patient reports not feeling the urge to void despite bladder training. Reports recent bowel movement. Denies abdominal pain, SOB, chest pain, LE edema. - Objective Vital Signs & Weight: Vital Signs (12 hours) Temp Pulse Resp BP Pulse Ox 06/09/18 04:50 99 143/76 H 06/09/18 04:22 99.6 F 106 H 18 176/88 H 93 L 06/09/18 01:43 101 H 137/71 06/09/18 01:15 98 126/89 06/09/18 00:18 99.2 F 98 18 183/97 H 94 L 06/08/18 19:31 98.8 F 94 18 175/89 H 92 L 06/08/18 18:12 142/60 H 92 L Weight Admit Weight 108.7 kg Weight 108.7 kg I&O: 06/07/18 06/08/18 06/09/18 06:59 06:59 06:59 Intake Total 4515 1930 1330 Output Total 4450 3250 3450 Balance 65 -1320 -2120 Result Diagrams: 06/08/18 04:11 06/08/18 04:11 Phys Exam - Physical Examination Constitutional: NAD HEENT: PERRLA, moist MMs, sclera anicteric Neck: no JVD, supple, full ROM Respiratory: clear to auscultation bilateral Cardiovascular: RRR, no significant murmur, no rub Gastrointestinal: soft, non-tender, no distention, positive bowel sounds Musculoskeletal: no edema Neurological: non-focal Psychiatric: normal affect, A&O x 3 Skin: no rash Dx/Plan (1) Pancreatitis Code(s): K85.90 - ACUTE PANCREATITIS WITHOUT NECROSIS OR INFECTION, UNSP Status: Acute (2) Diabetes mellitus Code(s): E11.9 - TYPE 2 DIABETES MELLITUS WITHOUT COMPLICATIONS Status: Acute (3) Multiple sclerosis Code(s): G35 - MULTIPLE SCLEROSIS Status: Acute (4) Constipation Code(s): K59.00 - CONSTIPATION, UNSPECIFIED Status: Acute (5) Urinary retention Code(s): R33.9 - RETENTION OF URINE, UNSPECIFIED Status: Acute - Plan Plan: 63yo male with pmh of multiple sclerosis with right sided weakness, insulin depended DMII, and HTN here for pancreatitis. Pancreatitis - Leukocytosis - now resolved. Febrile on 12/27. Afebrile since yesterday. Blood cx showed 1/2 staph epi - likely contaminant so will not treat at this time. - CT: evidence of pancreatitis, elevated Lipase 2498->12. - RUQ US: limited exam due to body habitus and inability for patient to roll onto side; possible debri/sludge within the gallbaldder. CBD 0.4cm. - FLP wnl - Morphine discontinued as patient no longer in pain - zofran prn for nausea - CC diet - patient tolerating diet well Urinary retention - Millan placed on 06/06 due to patient retention - bladder training started on 06/07 - pt continues to not feel urge to void. Will attempt voiding trial this morning. If unsuccessful will consult urology as our clinic does not have millan supplies and patient will need follow up with a provider for millan care. Transaminitis - likely 2/2 fatty liver vs gallstone pancreatitis - Hep panel negative, RUQ US as above - liver enzyme levels downtrending Constipation, resolved - No BM since 05/29-> BM on 06/06 after golytely. - Imaging yesterday showed nonspecific bowel gas pattern; CXR showed possible pleural fluid w/ edema possibly related to CHF. BNP wnl. Pt has no signs of CHF on exam. - Will give laxative daily, patient tolerating PO ZI, resolved - Cr 1.59 -> 3.76 -> 1.21 -> 0.88 - Will monitor w/ QD BMPs Insulin Dependent DMII - HgbA1c 7.2% on 05/15/18 in clinic - Will restart home Levemir 15U in AM, Metformin HS - Accuchecks q6hr HTN - Restarted Valsartan as patient is tolerating PO; will not restart HCTZ as it is possible cause of pancreatits MS - Restarted baclofen as patient is tolerating PO Patient has been continuously weened off O2 throughout his stay. Patient now satting 93% on 1 L NC. Will attempt to ween completely today. Code Status: DNAR Diet: CC DVT ppx: Lovenox DISPO: possible discharge today pending weening from O2 and voiding trial - may need home O2 and millan care Addendum - Attending - Attending Attestation Date/Time: 06/09/18 1145 I personally evaluated the patient and discussed the management with Dr. Chen I agree with the History, Examination, Assessment and Plan documented above with any addition or exceptions noted below. Relief of pain s/p large BM discharge pending trial of voiding.
[2018-06-09] MEDS: Baclofen 10 MG TAB PO SCH ×3 (08:30→20:52)
[2018-06-09] MEDS: Valsartan 80 MG TAB PO SCH (08:30)
[2018-06-09] MEDS: Senokot 8.6 MG TAB PO SCH ×2 (08:30→20:52)
[2018-06-09] MEDS: Tamsulosin HCl 0.4 MG CAP PO SCH (08:30)
[2018-06-09] MEDS: Insulin Glargine 15 UNITS in Pre-Filled Syringe 1 EACH SC SCH (08:31)
[2018-06-09] MEDS: Pantoprazole 40 MG VIAL IVP SCH (08:31)
[2018-06-09] MEDS: Polyethylene Glycol 3350 17 GM Packet PO SCH (08:32)
[2018-06-09] MEDS: Enoxaparin Sodium 40 MG/0.4 ML SYRINGE SC SCH (08:32)
[2018-06-09] MEDS ORDERED: Valsartan 80 MG TAB PO SCH ×2 (08:53→09:00)
--- NOTE | 2018-06-09 09:29 | RAD ---
CHEST 1 VIEW: HISTORY: Dyspnea. Followup. COMPARISON: 06/06/2018. FINDINGS: Cardiac silhouette is magnified by projection. Shallow inspiration accentuates pulmonary markings wh ich remain upper limits of normal but significantly improved. Near-complete interval resolution of p atchy bibasilar infiltrates. Mediastinum is midline. NO evidence of pneumothorax. Postoperative ch anges left shoulder. IMPRESSION: Significant interval improvement in radiographic appearance of pulmonary vascular congestion. No clarence rid edema is evident. Borderline pulmonary vascular prominence. No new abnormalities. POS: [facility]
[2018-06-09] MEDS: Ibuprofen 600 MG TAB PO PRN (15:57)
[2018-06-10] MEDS: Ibuprofen 600 MG TAB PO PRN (05:52)
--- NOTE | 2018-06-10 06:21 | PDOC.FM ---
Addendum entered and electronically signed by Klarissa Chen MD 06/10/18 08:40 : Called urology - Dr. Reyes stated to discharge patient with indwelling millan catheter and have the patient follow up with her outpatient. Original Note: - Subjective Subjective: No acute overnight events. Patient state that he had a rough night last night due to uncomfortable positioning and not being cleaned after a BM for several hours. The patient states he is comfortable this morning though and is feeling ready for discharge. Patient state that he felt much better after the millan was inserted again after his voiding trial. Denies NVD, abdominal/chest pain, LE swelling. - Objective Vital Signs & Weight: Vital Signs (12 hours) Temp Pulse Resp BP Pulse Ox 06/10/18 04:00 98.1 F 96 16 171/83 H 94 L 06/09/18 23:46 98.1 F 107 H 16 163/83 H 93 L 06/09/18 19:55 98.5 F 110 H 16 140/85 92 L Weight Admit Weight 108.7 kg Weight 108.7 kg I&O: 06/08/18 06/09/18 06/10/18 06:59 06:59 06:59 Intake Total 1930 1330 1440 Output Total 3250 3650 2450 Balance -1320 -2320 -1010 Result Diagrams: 06/08/18 04:11 06/08/18 04:11 Phys Exam - Physical Examination Constitutional: NAD HEENT: PERRLA, moist MMs, sclera anicteric Neck: full ROM Respiratory: clear to auscultation bilateral Cardiovascular: RRR Gastrointestinal: soft, non-tender, no distention, positive bowel sounds Musculoskeletal: no edema Neurological: non-focal Psychiatric: normal affect, A&O x 3 Skin: no rash Dx/Plan (1) Pancreatitis Code(s): K85.90 - ACUTE PANCREATITIS WITHOUT NECROSIS OR INFECTION, UNSP Status: Acute (2) Diabetes mellitus Code(s): E11.9 - TYPE 2 DIABETES MELLITUS WITHOUT COMPLICATIONS Status: Acute (3) Multiple sclerosis Code(s): G35 - MULTIPLE SCLEROSIS Status: Acute (4) Constipation Code(s): K59.00 - CONSTIPATION, UNSPECIFIED Status: Acute (5) Urinary retention Code(s): R33.9 - RETENTION OF URINE, UNSPECIFIED Status: Acute - Plan Plan: 63yo male with pmh of multiple sclerosis with right sided weakness, insulin depended DMII, and HTN here for pancreatitis. Pancreatitis, resolved - Leukocytosis - now resolved. Febrile on 06/06. Afebrile since. Blood cx showed 1/2 staph epi - likely contaminant so will not treat at this time. - CT: evidence of pancreatitis, elevated Lipase 2498->12. - RUQ US: limited exam due to body habitus and inability for patient to roll onto side; possible debri/sludge within the gallbaldder. CBD 0.4cm. - zofran prn for nausea - CC diet - patient tolerating diet well Urinary retention - Millan placed on 06/06 due to patient retention - bladder training started on 06/07 - pt continues to not feel urge to void. Patient has not been successful at bladder training or voiding trial. Removed millan on 06/09 and did not urinary for 6+ hours, bladder scan showed 500ml, patient was straight cathed with return of 800ml. Will consult urology today so patient can have outpatient millan care. Transaminitis - likely 2/2 fatty liver vs gallstone pancreatitis - Hep panel negative, RUQ US as above - liver enzyme levels downtrending Constipation, resolved - No BM since 05/29-> BM on 06/06 after golytely and consistently since. - Imaging yesterday showed nonspecific bowel gas pattern; CXR showed possible pleural fluid w/ edema possibly related to CHF. BNP wnl. Pt has no signs of CHF on exam. Repeat CXR showed improvement from previous and no edema present. - Will give laxative daily, patient tolerating PO ZI, resolved - Cr 1.59 -> 3.76 -> 1.21 -> 0.88 - Will monitor w/ QD BMPs Insulin Dependent DMII - HgbA1c 7.2% on 05/15/18 in clinic - Will restart home Levemir 15U in AM, Metformin HS - Accuchecks q6hr HTN - Restarted Valsartan as patient is tolerating PO - increased dose on 06/09 as patient was having elevated BPs; will not restart HCTZ as it is possible cause of pancreatitis. May consider adding amlodipine if BP remains elevated. MS - Restarted baclofen as patient is tolerating PO Patient has been continuously weened off O2 throughout his stay. Patient now satting 93% on 1 L NC. Will attempt to ween completely today. Code Status: DNAR Diet: CC DVT ppx: Lovenox DISPO: possible discharge today - no need for home O2, but will need millan care Addendum - Attending - Attending Attestation Date/Time: 06/10/18 8140 I personally evaluated the patient and discussed the management with Dr. Chen I agree with the History, Examination, Assessment and Plan documented above with any addition or exceptions noted below. Patient taking po well normal BM Abdomen soft non tender repeat RUQ US initial suboptimal pancreatitis felt secondary to thiazide however prudent to repeat suboptimal study had significant urinary retention home with millan and f/u with Urologist outpatient.
[2018-06-10 07:06] VITALS: BP 127/60; TEMP 98.4
[2018-06-10] MEDS: Baclofen 10 MG TAB PO SCH ×2 (08:31→14:55)
[2018-06-10] MEDS: Pantoprazole 40 MG VIAL IVP SCH (08:33)
[2018-06-10] MEDS: Tamsulosin HCl 0.4 MG CAP PO SCH (08:33)
[2018-06-10] MEDS: Polyethylene Glycol 3350 17 GM Packet PO SCH (08:33)
[2018-06-10] MEDS: Enoxaparin Sodium 40 MG/0.4 ML SYRINGE SC SCH (08:33)
[2018-06-10] MEDS: Senokot 8.6 MG TAB PO SCH (08:33)
[2018-06-10] MEDS: Insulin Glargine 15 UNITS in Pre-Filled Syringe 1 EACH SC SCH (08:34)
[2018-06-10] MEDS ORDERED: Valsartan 80 MG TAB PO SCH (09:00)
--- NOTE | 2018-06-11 13:41 | DIS ---
DATE OF ADMISSION: 06/04/2018 DATE OF DISCHARGE: 06/10/2018 RESIDENT: Klarissa Chen MD. ADMITTING ATTENDING: Dr. Dash. DISCHARGE ATTENDING: Dr. Chamberlain. CONSULTS: Case Management, Palliative Care, PT, Spiritual Care, Wound Care. PROCEDURES: None. DISCHARGE MEDICATIONS: 1. MiraLAX 17 g oral daily. 2. Flomax 0.4 mg oral daily. 3. Valsartan 320 mg oral daily. 4. Levemir 15 units subcutaneous daily. 5. Baclofen 20 mg oral three times daily. 6. Vitamin D3 one capsule oral daily. 7. Magnesium 250 mg oral. Discontinued medications: Valsartan/hydrochlorothiazide one tablet daily. PRIMARY DIAGNOSES: Pancreatitis, transaminitis, urinary retention. SECONDARY DIAGNOSES: Diabetes type 2, insulin dependent; hypertension; multiple sclerosis. HISTORY OF PRESENT ILLNESS/HOSPITAL COURSE: This is a 63-year-old male with past medical history significant for multiple sclerosis with right-sided weakness, insulin-dependent diabetes type 2, and hypertension, who presented to the emergency department with abdominal pain, nausea, and vomiting. The patient also reported constipation at that time of about 1 week. The patient was found to have pancreatitis with a lipase of 2498 on admission. Lipase trended down, and on 06/06/2018, was a value of 12. The patient also had resolution of abdominal pain at that time. On admission, the patient reported history of constipation of 1 week. The patient was given a Fleet Enema as well as laxative per rectum and given GoLYTELY with successful bowel movement. The patient was then given daily laxative with regular bowel movements. The patient was also found to have urinary retention during his stay that comes from the constipation. The patient was given a [place] at that time. Bladder training was attempted for 2 days as well as a voiding trial that was unsuccessful. It is suspected that this may be due to his multiple sclerosis. Urology was called for the patient's urinary retention and Urology recommended to follow up with them as outpatient. On 06/06/2018, the patient's creatinine jumped from 1.59 to 3.76. The patient was started on fluids. The Del Real was placed after this with resolution of creatinine back to baseline. On admission, the patient was given supplemental oxygen and was put on a non-rebreather. Throughout his stay, the patient was weaned off oxygen, and on day of discharge, was saturating well on room air. DISPOSITION: Stable. DISCHARGE INSTRUCTIONS: 1. Location: Home with home health. 2. Activity: Ad song. 3. Diet: Consistent carbohydrate. 4. Follow up with PCP within 7 days and with Urology within 7 days. Job ID: [id number]
== END 2018-06-10 16:05 | disposition home or self-care (01) | DRG 439 ==
LOC: ERS 12:25 → ONC 14:58
PROVIDERS: ADMIT Family Medicine; ATTEND Family Medicine
DX: K85.90 Acute pancreatitis without necrosis or infection, unspecified (principal); N17.9 Acute kidney failure, unspecified; G35 Multiple sclerosis; E11.9 Type 2 diabetes mellitus without complications; I10 Essential (primary) hypertension; R74.0 Nonspecific elevation of levels of transaminase and lactic acid dehydrogenase [LDH]; R33.9 Retention of urine, unspecified; Z66 Do not resuscitate; K59.00 Constipation, unspecified; Z79.4 Long term (current) use of insulin; Z87.891 Personal history of nicotine dependence; Z82.49 Family history of ischemic heart disease and other diseases of the circulatory system
CPT/HCPCS: 36415; 36416; 71045; 74018; 74177; 76705; 80048; 80053; 80061; 81001; 83036; 83615; 83690; 83880; 84484; 85025; 85610; 85730; 86704; 86705; 86706; 86707; 86709; 86803; 87040; 87086; 87149; 87340; 87350; 93005; 94640; 96361; 96372; 96374; 96375; C9113; G8978-GP-CN; G8979-GP-CM; J1650; J2270; J2405; J7620

== ENCOUNTER 2018-06-20 16:27 | Inpatient (IN) | payer MEDICARE, BC ==
[2018-06-20 17:44] LABS: Hemoglobin 14.6 g/dL (14.0-18.0); Mean Corpuscular HGB CONC 33.5 g/dL (32.0-36.0); Mean Corpuscular Hemoglobin 29.1 pg (27.0-31.0); Mean Corpuscular Volume 86.7 fL (78.0-98.0); Mean Platelet Volume 7.9 fL (7.4-10.4); Platelet Count 339 thou/uL (130-400); RBC Distribution Width 12.8 % (11.5-14.5); Red Blood Cell (RBC) Count 5.02 mill/uL (4.70-6.10)
[2018-06-20 17:59] LABS: Band 7 % (5-11); Eosinophils 1 % (0-10); Lymphocytes 3 % (21-51); MDiff Complete? YES; Monocytes 1 % (0-10); Neutrophil 88 % (42-75); Platelet Morphology Comment Appears Adequate; RBC Morphology Normal; White Blood Cell (WBC) Count 18.2 thou/uL (4.8-10.8)
[2018-06-20 18:09] LABS: ALT (SGPT) 28 U/L (8-55); AST (SGOT) 13 U/L (5-34); Alkaline Phosphatase 89 U/L (40-150); Anion Gap 19 mmol/L (10-20); BUN (Urea Nitrogen) 8 mg/dL (8.4-25.7); Bilirubin, Total 0.8 mg/dL (0.2-1.2); Calc. Creatinine Clearance 0 mL/min (70-130); Calcium 9.7 mg/dL (7.8-10.44); Carbon Dioxide 19 mmol/L (23-31); Chloride 101 mmol/L (98-107); Estimated GFR-MDRD 78; Globulin 3.6 g/dL (2.4-3.5); Glucose 159 mg/dL (80-115); Lipase 22 U/L (8-78); Potassium 4.3 mmol/L (3.5-5.1); Protein, Total 7.6 g/dL (5.8-8.1); Sodium 135 mmol/L (136-145)
--- NOTE | 2018-06-20 18:48 | RAD ---
PORTABLE CHEST 06/20/18 PROVIDED CLINICAL HISTORY: Chest pain. COMPARISON: 06/06/18. Lungs are hypoinflated. Evaluation is limited by patient body habitus. The cardiac silhouette appears enlarged which may be at least partially on the basis of portable technique. No focal consolidation, pleural fluid or pneumothorax apparent. IMPRESSION: Hypoinflated exam. POS: [facility]
--- NOTE | 2018-06-20 19:09 | CT ---
CT BRAIN 06/20/18 PROVIDED CLINICAL HISTORY: Headache. FINDINGS: Comparison . The ventricular system appears normal in size and morphology. There is no evidence for intracranial h emorrhage or mass effect. The extracranial soft tissues and osseous structures demonstrate an unremar kable CT appearance. IMPRESSION: No evidence for intracranial hemorrhage or mass effect. POS: [facility]
[2018-06-20 19:51] LABS: Bilirubin Negative (Negative); Blood, Urine Large (Negative); Clarity CLOUDY (Clear); Glucose, Urine (Dipstick) Negative (Negative); Leukocyte Large (Negative); Nitrite Positive (Negative); Protein, Urine (Dipstick) 100 mg/dL (Neg-Trace); Specific Gravity, Urine 1.019 (1.002-1.036); Urobilinogen 0.2 mg/dL (0.2-1.0); pH, Urine 5.5 (5.0-9.0)
[2018-06-20 19:56] LABS: Bacteria/HPF 1+ HPF (None Seen); Hyaline Casts/LPF 0-3 HYALINE CAST LPF (0-3 Hyaline); Pathc Cast-AUWi Flag 0.58 (0-2.49); RBC/HPF GREATER THAN 50-TNTC HPF (0-3); Squamous Epithelial None Seen HPF (0-3)
[2018-06-20] MEDS ORDERED: Vancomycin HCl 1.5 GM in Sodium Chloride 0.9% 250 ML 300 ML IVPB ONE (21:00)
[2018-06-20 21:44] LABS: Troponin I Less than 0.010 ng/mL (< 0.028)
--- NOTE | 2018-06-20 21:56 | PDOC.FPRHP ---
- History of Present Illness Chief Complaint: dizziness History of Present Illness: The patient is a 63YOM with a PMH significant for MS and HTN who presented to the ED via EMS with a CC of dizziness that began around 14:00. The patient stated that he was just sitting in his recliner napping and when he woke up he felt like the room was spinning. He says this sensation lasted approximately 1 hour and endorsed some associated nausea but no vomiting as well as generalized fatigue. He also reports trying to transfer from the toilet back into his wheelchair during this time frame and reports falling but denies hitting his head or losing consciousness. He also denied any associated fever/chills, decreased appetite. The patient denies having any additional episodes of dizziness since this afternoon or since arriving to the ED. Of note, the patient was recently discharged from [facility] on after being admitted for pancreatitis. During that hospitalization, a millan catheter had to be placed 2/2 urinary retention and it was recommended that the catheter remain in place until the patient could be seen by Urology as an outpatient following his discharge. Per the patient and his sister, the same millan has been in place since 06/10/18 and has not been changed since. The patient therefore denied any dysuria but did report some intermittent hematuria since the millan placement. His sister reported that today she noted his urine was a dark edwar color and appeared to have more sediment than normal. ED Course: 1L NS, IV gentamicin 5mg/kg - Allergies/Adverse Reactions Allergies Allergy/AdvReac Type Severity Reaction Status Date / Time acetaminophen [From Tylenol] Allergy Verified 06/04/18 16:12 codeine Allergy Verified 06/04/18 16:12 - Home Medications Medication Instructions Recorded Confirmed Type Baclofen 20 mg PO TID 06/04/18 06/04/18 History Cholecalciferol (Vitamin D3) 1 capsule PO DAILY 06/04/18 06/04/18 History [Vitamin D] Insulin Detemir [Levemir] 15 unit SQ DAILY 06/04/18 06/04/18 History Magnesium 250 mg PO INF 06/04/18 06/04/18 History Polyethylene Glycol 3350 [Miralax] 17 gm PO DAILY #30 pk 06/09/18 Rx Tamsulosin HCl [Flomax] 0.4 mg PO DAILY #30 cap 06/09/18 Rx Valsartan [Diovan] 320 mg PO DAILY #30 tab 06/09/18 Rx - History PMHx: MS, HTN, IDDMII, chronic back pain PSHx: left shoulder and right leg surgery FHx: DMII in sister and parents HTN in father Social: Former smoker with a 40 pack year smoking history. Also a former heavy drinker. Endorses drinking a 12-pack/day for about 20 years as well. Quit smoking and drinking 20 years ago. Tried IV meth about 20 years ago. No illicit drug use since. Lives at home in [place] with his son who is his only child. - Review of Systems General: reports: fatigue. denies: fever/chills, weight/appetite/sleep changes Eyes: denies: eye pain, vision changes ENT: reports: other (no sore throat). denies: nasal congestion Respiratory: denies: cough, shortness of breath Cardiovascular: denies: chest pain, palpitation Gastrointestinal: reports: nausea. denies: vomiting, diarrhea, constipation, abdominal pain Skin: denies: rashes, itching Musculoskeletal: reports: pain, arthritis/arthralgias Neurological: denies: numbness, syncope, seizure Psychological: denies: anxiety, depression - Vital signs BP: 116/78 HR: 116 RR: 27 Tmax: 99.3F Pox: 96% on RA Wt: 107 kg - Physical Exam Constitutional: NAD, awake, alert and oriented, well developed HEENT: normocephalic and atraumatic, grossly normal vision, grossly normal hearing, oropharynx clear, other (poor dentition with slightly dry mucus membranes) Neck: supple, FROM, no LAD Heart: normal S1/S2, pulses present, other (mild nonpitting edema in B/L LEs) Lungs: CTAB, no respiratory distress, good air movement, no rales/rhonchi, no wheezing Abdomen: soft, non-tender, bowel sounds present Musculoskeletal: normal structure, other (inability to move right extremities B/ L 2/2 MS) Neurological: CN II-XII intact (grossly), other (impaired ROM & sensation in right extremities but 5/5 strength on normal sensation on the left) Skin: no rash/lesions, good turgor, no jaundice Heme/Lymphatic: no unusual bruising or bleeding, no purpura Psychiatric: normal mood and affect, good judgment and insight, intact recent and remote memory FMR H&P: Results - Labs Result Diagrams: 06/20/18 17:31 06/20/18 17:30 Lab results: WBC 18.2 thou/uL (4.8-10.8) H 06/20/18 17:31 Hgb 14.6 g/dL (14.0-18.0) 06/20/18 17:31 Hct 43.5 % (42.0-52.0) 06/20/18 17:31 MCV 86.7 fL (78.0-98.0) 06/20/18 17:31 Plt Count 339 thou/uL (130-400) 06/20/18 17:31 Band Neuts % (Manual) 7 % (5-11) 06/20/18 17:31 Sodium 135 mmol/L (136-145) L 06/20/18 17:30 Potassium 4.3 mmol/L (3.5-5.1) 06/20/18 17:30 Chloride 101 mmol/L (98-107) 06/20/18 17:30 Carbon Dioxide 19 mmol/L (23-31) L 06/20/18 17:30 BUN 8 mg/dL (8.4-25.7) L 06/20/18 17:30 Creatinine 0.98 mg/dL (0.7-1.3) 06/20/18 17:30 Glucose 159 mg/dL (80-115) H 06/20/18 17:30 Lactic Acid 1.1 mmol/L (0.5-2.2) 06/20/18 17:31 Calcium 9.7 mg/dL (7.8-10.44) 06/20/18 17:30 Total Bilirubin 0.8 mg/dL (0.2-1.2) 06/20/18 17:30 AST 13 U/L (5-34) 06/20/18 17:30 ALT 28 U/L (8-55) 06/20/18 17:30 Alkaline Phosphatase 89 U/L (40-150) 06/20/18 17:30 B-Natriuretic Peptide 12.1 pg/mL (0-100) 06/20/18 17:31 Serum Total Protein 7.6 g/dL (5.8-8.1) 06/20/18 17:30 Albumin 4.0 g/dL (3.4-4.8) 06/20/18 17:30 Lipase 22 U/L (8-78) 06/20/18 17:30 Urine Ketones > or equal to 80 mg/dL (Negative) H 06/20/18 19:34 Urine Blood Large (Negative) H 06/20/18 19:34 Urine Nitrite Positive (Negative) H 06/20/18 19:34 Ur Leukocyte Esterase Large (Negative) H 06/20/18 19:34 Urine RBC GREATER THAN 50-TNTC HPF (0-3) H 06/20/18 19:34 Urine WBC Greater Than 50-TNTC HPF (0-3) H 06/20/18 19:34 Ur Squamous Epith Cells None Seen HPF (0-3) 06/20/18 19:34 Urine Bacteria 1+ HPF (None Seen) H 06/20/18 19:34 Additional comment: troponin I >0.010 BNP 12.1 TSH 0.63 - EKG Interpretation EKG: sinus tachycardia w/ rate of 140 - Radiology Interpretation Chest x-ray Status: report reviewed by me (hypoinflated lungs) CT scan - head Status: report reviewed by me (no ICH or mass effect noted) FMR H&P: A/P - Problem List (1) Sepsis Current Visit: Yes Status: Acute Code(s): A41.9 - SEPSIS, UNSPECIFIED ORGANISM (2) UTI (urinary tract infection) Current Visit: Yes Status: Acute (3) Tachycardia Current Visit: Yes Status: Acute Code(s): R00.0 - TACHYCARDIA, UNSPECIFIED (4) HTN (hypertension) Current Visit: Yes Status: Acute Code(s): I10 - ESSENTIAL (PRIMARY) HYPERTENSION (5) Leukocytosis Current Visit: Yes Status: Acute Code(s): D72.829 - ELEVATED WHITE BLOOD CELL COUNT, UNSPECIFIED (6) Constipation Current Visit: No Status: Acute Code(s): K59.00 - CONSTIPATION, UNSPECIFIED (7) Diabetes mellitus Current Visit: No Status: Acute Code(s): E11.9 - TYPE 2 DIABETES MELLITUS WITHOUT COMPLICATIONS (8) Multiple sclerosis Current Visit: No Status: Acute Code(s): G35 - MULTIPLE SCLEROSIS (9) Urinary retention Current Visit: No Status: Acute Code(s): R33.9 - RETENTION OF URINE, UNSPECIFIED - Plan 63YOM with a PMH significant for MS and urinary retention requiring millan catheterization who presented to the ED via EMS with a CC of dizziness and was found to be septic 2/2 a catheter-associated UTI. Sepsis 2/2 catheter associated UTI: - Patient had a WBC of 18.2 and was tachycardic in the 140s on presentation w/ a UA significant for a UTI. Was therefore determined to be septic 2/2 a UTI and was given 1L of NS & IV gentamicin in the ED. - Will start on IV rocephin and consider adding a carbapenem in the AM since sepsis and recent hospitalization qualify patient for complicated UTI. - Will also continue IVFs w/ LR @ 150mL/hr and remove the millan and try bladder training again. Will get in & out caths PRN. - Blood and urine cultures pending. Urine gram stain also pending. - Repeat CBC and BMP in the AM. Sinus Tachycardia: - Aware, per clinic chart & documentation from last hospitalization, patient is tachycardic at baseline. However, slightly worse on presentation presumably 2/2 infection. - Baseline tachycardia likely 2/2 autonomic dysregulation from MS. Will treat infection as described above and continue to monitor closely on telemetry. Urinary retention: - Likely 2/2 MS. - Patient was discharged on [facility] with a millan in place and started on tamsulosin. Has an appt scheduled with Urology next Sunday. - Will consider consulting Urology while patient is in hospital now for further recommendations. In the meantime will remove the millna on the floor and give the patient a voiding trial. Will cath PRN if retention persists. MS: - Aware, will resume home meds. DMII: - Aware, will resume home Levemir dose and start on CC diet. - Will get ACHS accuchecks and order hyperglycemia protocol. HTN: - Aware, will resume home meds. Constipation: - Aware, patient was recently discharged on MARIANNE QD Miralax but has had to cut back due to diarrhea. - Will order PO Miralax and docusate PRN. General deconditioning: - PT and OT consulted. - CM also consulted and rehab screen placed as patient will likely benefit from a short rehab stay per the patient's PCP. PCP: Lucio Earl MD Code Status: Full Diet: CC, HH, low sodium DVT ppx: lovenox GI ppx: PRN tums Abx: Rocephin Dispo: Will admit to inpatient telemetry for IV antibiotics for UTI. Suspect a 2 -3 day hospital stay and will consult CM for discharge placement. FMR H&P: Upper Level - Pertinent history 63 yr old male with PMH of MS, DM and HTN who presents to ER with c/o malaise and dizziness. Started his afternoon laying down. Improved after getting to ER and getting bolus of IV fluids. He was found to have elevated WBC nad bacteruria. He was discharged from the hospital 12 days ago with a millan catheter due to urinary retention. He was to see urology next week. Otherwise he reports no other acute or change in symptoms. He denies fever. - Pertinent findings Vital signs as noted above Gen: NAD however he does fall asleep easily during examination Heart: RRR, no murmurs, rubs, gallops Lung: CTAB, no wheezes, rhales, rhonchi Abd: soft nontender to palpation, no suprapubic tenderness Ext: no edema bilateral LE Neuo: No focal deficits URINE: WBC: TNTC, 1+ BACTERIA, POS NITRITES - Plan Date/Time: 06/20/182155 I, [Lena Gaines], have evaluated this patient and agree with findings/plan as outlined by internal revenue service agent resident. Pertinent changes/additions are listed here. 63 yr old male with sepsis and findings c/w UTI Sepsis 2/2 Catheter associated UTI, present on admission -leukocytosis, tachycardia -s/p rocephin, gent, and vanc in ER -will cont rocephin -check urine gram stain and if gram positive, will cont vanc -urine and blood culture -daily CBC, BMP -cont maintenance IV fluids Urinary retention -given acute infection, will DC millan and have voiding trial -intermittent catheterization if needed -consider consulting urology if persists Sinus Tachycardia -significantly worsened on presentation but now appears to be around baseline -possibly 2/2 autonomic dysregulation 2/2 MS Insulin dependent diabetes -cont home levemir dose -check qACHS BG -PRN SSI HTN -cont home valsartan MS -cont home pain meds -does not appear to be in acute flair -avoid Tylenol per MS physician, causes severe transaminitis PCP: Lucio Earl MD Code Status: Full Diet: CC DVT ppx: lovenox GI ppx: PRN tums Dispo: admit to inpatient telemetry, suspect a 2-3 hospital stay for IV antibiotics and will consult case mgmt. for possible rehab vs SNF placement Addendum - Attending - Attending Attestation Date/Time: 06/20/18 9963 I personally evaluated the patient and discussed the management with Dr. John I agree with the History, Examination, Assessment and Plan documented above with any addition or exceptions noted below- 63 yo male with h/o MS, DM and HTN who presents to ER with c/o malaise and dizziness that started this afternoon. Denies any fever/chills. Denies any N?V, loss of appetite. Denies any abdominal pain. Patient recently hospitalized for pancreatitis and constipation. Also had urinary retention and was discharged with millan catheter after failing voiding trials. Was scheduled to see urology next week. PMH/PSH/Meds/All reviewed and agree with resident's documentation. Afebrile P107 Exam repeated by me and agree with resident's findings. Labs: WBC=18.2, H/H=14.6/43.5, Ako=419, JZ=870, K=4.3, Rk=620, CO2=19, BUN/Cr=8/0.98, Lcom=866, AST/ALT=13/28, TSH=0.6339, lactic acid=1.1, procal=1.02, CT brain negative, U/A= 1+prot, (+)ket, lg blood, (+) nitrites, lg LE, RBC>50, WBC>50, 1+bact. A/P: 1) Sepsis secondary to catheter associated UTI present on admission - pulse improved with fluid bolus, BP stable. Has h/o sinus tachycardia (baseline HR 95-110). Urine and blood cultures obtained. Continue IV abx. 2) DM- monitor accuchecks and continue home medications, 3) Urinary retention - consider voiding trial here.
[2018-06-21 00:42] LABS: Troponin I Less than 0.010 ng/mL (< 0.028)
[2018-06-21] MEDS ORDERED: Dextrose 50% Abboject 50 ML SYRINGE SLOW IVP PRN (02:04)
[2018-06-21] MEDS ORDERED: Ondansetron ODT 4 MG TAB PO PRN (02:04)
[2018-06-21] MEDS ORDERED: Dextrose 5% in Water 1,000 ML IV PRN (02:04)
[2018-06-21] MEDS: Lactated Ringer's 1,000 ML IV SCH ×4 (02:23→23:59)
[2018-06-21] MEDS ORDERED: cefTRIAXone\\ROCEPHIN 2 GM in Sodium Chloride 0.9% 100 ML IVPB SCH (02:30)
[2018-06-21 03:53] VITALS: BMI 34.4
[2018-06-21] MEDS ORDERED: Docusate 100 MG CAP PO PRN (04:37)
[2018-06-21 04:46] LABS: #Eosinphils 0.1 thou/uL (0.0-0.7); #Lymphocytes 1.2 thou/uL (1.20-3.40); #Monocytes 0.9 thou/uL (0.11-0.59); #Neutrophils 12.9 thou/uL (1.40-6.50); %Basophils 0.3 % (0.0-1.0); %Eosinophils 0.6 % (0.0-10.0); %Lymphocytes 7.9 % (21.0-51.0); %Neutrophils 85.3 % (42.0-75.0); Hemoglobin 12.8 g/dL (14.0-18.0); Mean Corpuscular HGB CONC 33.3 g/dL (32.0-36.0); Mean Corpuscular Hemoglobin 29.2 pg (27.0-31.0); Mean Corpuscular Volume 87.7 fL (78.0-98.0); Platelet Count 288 thou/uL (130-400); RBC Distribution Width 12.8 % (11.5-14.5); Red Blood Cell (RBC) Count 4.37 mill/uL (4.70-6.10); White Blood Cell (WBC) Count 15.1 thou/uL (4.8-10.8)
[2018-06-21 04:55] LABS: Anion Gap 13 mmol/L (10-20); BUN (Urea Nitrogen) 8 mg/dL (8.4-25.7); Calc. Creatinine Clearance 125 mL/min (70-130); Calcium 8.8 mg/dL (7.8-10.44); Carbon Dioxide 24 mmol/L (23-31); Chloride 105 mmol/L (98-107); Estimated GFR-MDRD 87; Glucose 146 mg/dL (80-115); Sodium 138 mmol/L (136-145)
--- NOTE | 2018-06-21 07:19 | PDOC.FM ---
- Subjective Subjective: Mr. Hill is resting comfortably in bed, bladder US with 800mL present. he reports feeling like he needs to urinate, he is not able to. - Objective Vital Signs & Weight: Vital Signs (12 hours) Temp Pulse Resp BP Pulse Ox 06/21/18 04:00 99.4 F 116 H 19 129/63 94 L 06/21/18 00:13 97 06/21/18 00:08 98.2 F 113 H 16 145/74 H 97 Weight Weight 102.875 kg I&O: 06/20/18 06/21/18 06/22/18 06:59 06:59 06:59 Output Total 200 Balance -200 Result Diagrams: 06/21/18 04:05 06/21/18 04:05 Phys Exam - Physical Examination Constitutional: NAD HEENT: moist MMs Neck: no nodes Respiratory: no wheezing, clear to auscultation bilateral Cardiovascular: RRR, no significant murmur Gastrointestinal: soft tender over suprapubic area Musculoskeletal: no edema, pulses present LE weakness Psychiatric: normal affect Skin: no rash Dx/Plan (1) Sepsis Code(s): A41.9 - SEPSIS, UNSPECIFIED ORGANISM Status: Acute (2) Tachycardia Code(s): R00.0 - TACHYCARDIA, UNSPECIFIED Status: Acute (3) UTI (urinary tract infection) Status: Acute (4) Diabetes mellitus Code(s): E11.9 - TYPE 2 DIABETES MELLITUS WITHOUT COMPLICATIONS Status: Acute (5) Multiple sclerosis Code(s): G35 - MULTIPLE SCLEROSIS Status: Acute (6) Urinary retention Code(s): R33.9 - RETENTION OF URINE, UNSPECIFIED Status: Acute - Plan Plan: Sepsis 2/2 catheter associated UTI: - WBC of 18.2, tachycardic, w/ a UA significant for a UTI. - s/p 1L of NS & IV gentamicin in the ED. - IV rocephin, consider adding carbapenem - IVFs w/ LR @ 150mL/hr - Blood and urine cultures pending. Urine gram stain also pending. - Monitor CBC and BMP in the AM. Sinus Tachycardia: - Aware, per clinic chart & documentation from last hospitalization, patient is tachycardic at baseline. However, slightly worse on presentation presumably 2/2 infection. - Baseline tachycardia likely 2/2 autonomic dysregulation from MS. Will treat infection as described above and continue to monitor closely on telemetry. Urinary retention: - Likely 2/2 MS. - remove the millan and try bladder training again. Will get in & out caths PRN. - Patient was discharged on 06/11/[address] with [address] in [address] and started on tamsulosin. Has an appt scheduled with Urology next Sunday. - Will consider consulting Urology while patient is in hospital now for further recommendations. In the meantime will remove the millan on the floor and give the patient a voiding trial. Will cath PRN if retention persists. MS: - Aware, will resume home meds. DMII: - Aware, will resume home Levemir dose and start on CC diet. - Will get ACHS accuchecks and order hyperglycemia protocol. HTN: - Aware, will resume home meds. Constipation: - Aware, patient was recently discharged on MARIANNE QD Miralax but has had to cut back due to diarrhea. - Will order PO Miralax and docusate PRN. General deconditioning: - PT and OT consulted. - CM also consulted and rehab screen placed as patient will likely benefit from a short rehab stay per the patient's PCP. Code: Full Diet: CC, HH, low sodium ppx: lovenox Abx: Rocephin Dispo: continue to treat for UTI, monitor vitals Addendum - Attending - Attending Attestation Date/Time: 06/21/18 4031 I personally evaluated the patient and discussed the management with Dr. Celeste. I agree with the History, Examination, Assessment and Plan documented above with any addition or exceptions noted below. The patient was admitted with sepsis 2/2 uti from indwelling millan catheter. Millan was removed. Pt on IV rocephin. Awaiting cultures. Pt has persistent urinary retention. Bladder scan this morning shows over 800 ml. I/O cath was performed. The original millan was placed around 06/11/18 for retention. Consulting urology for the urinary retention as well as neurology. We are unsure if the retention is due to worsening of MS or other causes.
[2018-06-21] MEDS: Magnesium Oxide 250 MG TAB PO SCH (08:54)
[2018-06-21] MEDS: Enoxaparin Sodium 40 MG/0.4 ML SYRINGE SC SCH (08:54)
[2018-06-21] MEDS: Valsartan 80 MG TAB PO SCH (08:54)
[2018-06-21] MEDS: Baclofen 10 MG TAB PO SCH ×3 (08:54→21:16)
[2018-06-21] MEDS: Tamsulosin HCl 0.4 MG CAP PO SCH (08:55)
[2018-06-21] MEDS ORDERED: Non-Formulary Item 1 EACH (Insulin Detemir [Levemir] 15 UNIT) SQ SCH (09:00)
[2018-06-21] MEDS ORDERED: Insulin Glargine 15 UNITS in Pre-Filled Syringe 1 EACH SC SCH (09:00)
[2018-06-21] MEDS: Polyethylene Glycol 3350 17 GM Packet PO PRN (09:00)
[2018-06-21] MEDS ORDERED: methylPREDNISolone Sod Succ 1 GM in Sodium Chloride 0.9% 250 ML 250 ML IVPB SCH (10:30)
[2018-06-21] MEDS ORDERED: methylPREDNISolone Sod Succ/PF 125 MG/2 ML VIAL IVP SCH (10:30)
[2018-06-21] MEDS: HumaLOG 300 UNITS/3 ML VIAL SC PRN ×3 (12:02→21:31)
[2018-06-21] MEDS: Cefepime 1 GM in Sodium Chloride 0.9% 100 ML IVPB SCH (21:16)
--- NOTE | 2018-06-21 23:55 | CON ---
DATE OF CONSULTATION: 06/21/2018 CONSULTING: Family Medicine. AUTOMOTIVE SALES PROFESSIONAL: Dr. Kuhn with Urology. REASON FOR CONSULTATION: Urinary retention with urosepsis. HISTORY OF PRESENT ILLNESS: Mr. Hill is a 63-year-old white male with a history of MS, who presented to the ED with symptoms of dizziness, malaise, and difficulty urinating. He felt like the room was spinning. After he was admitted initially, there was a concern that he may have had a stroke, but it was subsequently found out that he was septic with a catheter associated UTI. He had been able to urinate normally for the majority of his life despite his MS other than some minor overactive bladder, which had occurred in the past. However, approximately 2 to 3 weeks ago, the patient lost his ability to urinate and ended up with a [place] catheter. He had the catheter in for about a week or two before the symptoms developed and then presented to the hospital with the above-mentioned symptoms. He was started on antibiotics and the catheter was removed, however, the patient was still not able to void. The Family Medicine service began in and out catheterizations, but the patient reports that these are painful and uncomfortable. He still is not able to void on his own, is relying on catheters for drainage. He denies any prior history of urolithiasis. He has had some hematuria since the catheter placement, but has not had hematuria before this. He denies any previous urologic surgeries. He has never had urologist previously. ALLERGIES: 1. TYLENOL. 2. CODEINE. HOME MEDICATIONS: 1. Baclofen. 2. Vitamin D. 3. Insulin. 4. Magnesium. 5. MiraLAX. 6. Flomax. 7. Valsartan. PAST MEDICAL HISTORY: 1. MS. 2. Hypertension. 3. Type 2 diabetes. 4. Chronic back pain. PAST SURGICAL HISTORY: Left shoulder surgery and right leg surgery. FAMILY HISTORY: Significant for diabetes in his sister and parents and high blood pressure. SOCIAL HISTORY: The patient is a former smoker with 40-pack year smoking history. He also previously used to be a heavy drinker for about 20 years as well. He quit smoking and drinking about 20 years ago and has been clean since. He has used methamphetamines 20 years ago, but denies any other illicit drug use since then. He lives at home in [place] with his son. REVIEW OF SYSTEMS: A 12-point review of systems is currently negative. Other than the patient's slight discomfort in his bladder area, he denies any current malaise, dizziness, or ill feelings. The remainder of 12-point review of systems was reviewed and otherwise negative. PHYSICAL EXAMINATION: VITAL SIGNS: Temperature 99.4, pulse 109, respirations 16, blood pressure 120/71, saturation 92% on room air. GENERAL: No apparent distress, communicative and alert. HEENT: Sclerae nonicteric. Pupils symmetric and round. Moist mucous membranes. Trachea midline. CARDIOVASCULAR: Sinus tachycardia. Normal S1, S2. Symmetric pulses. CHEST: No increased work of breathing. Symmetric expansion of the lungs, clear anteriorly. ABDOMEN: Soft, nontender, nondistended. Positive bowel sounds. No organomegaly, rebound, or guarding. : Deferred at this time. EXTREMITIES: Somewhat wasted lower extremities without cyanosis or edema. There is mild clubbing. SKIN: Warm, dry, good turgor. No rashes or lesions. MUSCULOSKELETAL: Aforementioned lower extremity muscle wasting without joint deformities or joint irritation. Upper extremity range of motion is normal. Patient has limited use of his lower extremities. NEUROLOGIC: Cranial nerves 2 through 12 grossly intact. Again, lower extremities are weak, but patient is able to bear weight on them. Upper extremities are normal without focal sensory or motor deficits. PSYCHIATRIC: Alert and oriented x3. Appropriate mood and affect. LABORATORY DATA: On laboratory evaluation, the full set of labs are in the [facility] system which I have reviewed. Of note, the patient's white count is down to 15.1 from 18.2. Creatinine is currently 0.89. Urine culture is currently mixed with isolations in progress. Urinalysis demonstrates nitrite positive urine with large blood, greater than 50 rbc's and wbc's and 1+ bacteria. 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 His UTI is currently being treated and with this, his bladder should resolve in the course of about 5-7 days at which time, he may regain some of his bladder function. His generalized weakness which he has experienced now is probably also contributing to impaired bladder contractility. Since he is having so much discomfort from in and out catheterizations, I would recommend just leaving an indwelling catheter and at this time since he is already on antibiotics, he should not develop any further urinary tract infections. If he is going to rehab, he can be discharged with a catheter and I can always see him either during rehab or after his rehab for a void trial in my office and I will continue to follow him for potential neurogenic bladder sphincter dyssynergia issues or any other urologic problems that he may have. I would recommend at least a 7-14 day course of antibiotics depending on final cultures. I have given the patient my card for followup and I will see him on an outpatient basis. Job ID: [id number]
[2018-06-22 04:37] LABS: #Lymphocytes 0.5 thou/uL (1.20-3.40); #Monocytes 0.1 thou/uL (0.11-0.59); #Neutrophils 14.1 thou/uL (1.40-6.50); %Eosinophils 0.1 % (0.0-10.0); %Lymphocytes 3.6 % (21.0-51.0); %Monocytes 0.9 % (0.0-10.0); %Neutrophils 95.5 % (42.0-75.0); Hemoglobin 13.2 g/dL (14.0-18.0); Mean Corpuscular HGB CONC 33.7 g/dL (32.0-36.0); Mean Corpuscular Hemoglobin 29.3 pg (27.0-31.0); Platelet Count 331 thou/uL (130-400); RBC Distribution Width 12.5 % (11.5-14.5); Red Blood Cell (RBC) Count 4.49 mill/uL (4.70-6.10); White Blood Cell (WBC) Count 14.8 thou/uL (4.8-10.8)
[2018-06-22 04:58] LABS: Anion Gap 15 mmol/L (10-20); BUN (Urea Nitrogen) 17 mg/dL (8.4-25.7); Calc. Creatinine Clearance 113 mL/min (70-130); Calcium 9.5 mg/dL (7.8-10.44); Carbon Dioxide 24 mmol/L (23-31); Chloride 104 mmol/L (98-107); Estimated GFR-MDRD 77; Glucose 251 mg/dL (80-115); Potassium 3.8 mmol/L (3.5-5.1); Sodium 139 mmol/L (136-145)
[2018-06-22] MEDS: HumaLOG 300 UNITS/3 ML VIAL SC PRN ×3 (06:09→21:32)
--- NOTE | 2018-06-22 06:15 | PDOC.FM ---
- Subjective Subjective: Mr. Hill is resting comfortably in bed, he reports he had a large bowel movement and feels much better. denies fever/chills. - Objective Vital Signs & Weight: Vital Signs (12 hours) Temp Pulse Resp BP Pulse Ox 06/22/18 04:00 97.8 F 114 H 19 143/73 H 94 L 06/22/18 00:00 98.3 F 103 H 19 144/79 H 93 L 06/21/18 20:00 98.6 F 115 H 19 132/67 94 L Weight Weight 102.875 kg I&O: 06/20/18 06/21/18 06/22/18 06:59 06:59 06:59 Intake Total 480 Output Total 200 Balance -200 480 Result Diagrams: 06/22/18 04:25 06/22/18 04:25 Phys Exam - Physical Examination Constitutional: NAD HEENT: moist MMs Neck: no JVD Respiratory: clear to auscultation bilateral Cardiovascular: RRR Gastrointestinal: soft, non-tender Musculoskeletal: no edema Psychiatric: normal affect Skin: no rash Dx/Plan (1) Sepsis Code(s): A41.9 - SEPSIS, UNSPECIFIED ORGANISM Status: Acute (2) Tachycardia Code(s): R00.0 - TACHYCARDIA, UNSPECIFIED Status: Acute (3) UTI (urinary tract infection) Status: Acute (4) Diabetes mellitus Code(s): E11.9 - TYPE 2 DIABETES MELLITUS WITHOUT COMPLICATIONS Status: Acute (5) Multiple sclerosis Code(s): G35 - MULTIPLE SCLEROSIS Status: Acute (6) Urinary retention Code(s): R33.9 - RETENTION OF URINE, UNSPECIFIED Status: Acute - Plan Plan: Sepsis 2/2 catheter associated UTI: - WBC of 18.2, tachycardic, w/ a UA significant for a UTI POA - s/p 1L of NS & IV gentamicin in the ED. - Cefepime per cultures - IVFs w/ LR @ 150mL/hr - Blood and urine cultures pending. Urine gram stain also pending. - Monitor CBC and BMP in the AM. Sinus Tachycardia: - Aware, per clinic chart & documentation from last hospitalization, patient is tachycardic at baseline. However, slightly worse on presentation presumably 2/2 infection. - Baseline tachycardia likely 2/2 autonomic dysregulation from MS. Will treat infection as described above and continue to monitor closely on telemetry. Urinary retention: - Likely 2/2 MS. - replace millan per urology, follow up outpt MS: - Aware, will resume home meds. - possibly transitioning from primary progressive to relapsing remitting vs acute flare, - s/p 1g solumedrol - neurology consulted, appreciate recs DMII: - Aware, will resume home Levemir dose and start on CC diet. - Will get ACHS accuchecks and order hyperglycemia protocol. HTN: - Aware, will resume home meds. - pressure consistently high, consider adding additional medication today Constipation: - Aware, patient was recently discharged on MARIANNE QD Miralax but has had to cut back due to diarrhea. - Will order PO Miralax and docusate PRN. General deconditioning: - PT and OT consulted. - CM also consulted and rehab screen placed as patient will likely benefit from a short rehab stay per the patient's PCP. Code: Full Diet: CC, HH, low sodium ppx: lovenox Abx: Rocephin Dispo: continue to treat for UTI, await placement at rehab facility Addendum - Attending - Attending Attestation Date/Time: 06/22/18 1005 I personally evaluated the patient and discussed the management with Dr. Celeste. I agree with the History, Examination, Assessment and Plan documented above with any addition or exceptions noted below. The patient was seen by urology and has a millan in place. Her received 1 gm solumedrol per neuro recs and he will be seen today by neurology. Rehab screen has been placed.
[2018-06-22] MEDS ORDERED: Insulin Glargine 17 UNITS in Pre-Filled Syringe 1 EACH SC SCH (09:00)
[2018-06-22] MEDS: Enoxaparin Sodium 40 MG/0.4 ML SYRINGE SC SCH ×2 (09:28→09:31)
[2018-06-22] MEDS: Baclofen 10 MG TAB PO SCH ×3 (09:29→21:32)
[2018-06-22] MEDS: Magnesium Oxide 250 MG TAB PO SCH (09:30)
[2018-06-22] MEDS: Valsartan 80 MG TAB PO SCH (09:30)
[2018-06-22] MEDS: Tamsulosin HCl 0.4 MG CAP PO SCH (09:31)
[2018-06-22] MEDS: Insulin Glargine 15 UNITS in Pre-Filled Syringe 1 EACH SC SCH (09:32)
[2018-06-22] MEDS: Cefepime 1 GM in Sodium Chloride 0.9% 100 ML IVPB SCH ×2 (09:56→21:32)
--- NOTE | 2018-06-22 11:58 | CON ---
DATE OF CONSULTATION: 06/22/2018 NEUROLOGIC FOLLOWUP NOTE CONSULTING PHYSICIAN: [facility]. IMPRESSION: 1. Chronic progressive multiple sclerosis. 2. Urosepsis. PLAN: Office followup. HISTORY OF PRESENT ILLNESS: Mr. Hill is a 63-year-old man, who was seen in the past for his multiple sclerosis, has been following up in [place] over the recent past. He was treated with Betaseron briefly, but had markedly elevated liver enzymes. He was switched over to Copaxone, which was done for about a year and did not show any clinical benefit. His neurologist discontinued treatment. He gets around with the use of a wheelchair and a roller walker for brief intervals of standing. He has been having problems with both constipation and urinary retention. He was subsequently admitted for urosepsis. PAST MEDICAL HISTORY: Hypertension, diabetes, and multiple sclerosis. ALLERGIES: ACETAMINOPHEN, CODEINE. SOCIAL HISTORY: No tobacco or alcohol use. FAMILY HISTORY: Noncontributory. MEDICATIONS: Medication list is reviewed. REVIEW OF SYSTEMS: No complaint of headache, nausea, vomiting, vertigo, chest pain, or shortness of breath. Positive for abdominal pain. PHYSICAL EXAMINATION: VITAL SIGNS: Blood pressure 138/74, pulse 110, respirations 18, and temperature 98.8. HEENT: Pupils are equal and reactive. Conjunctivae are clear. Oropharynx clear. NECK: Supple. No lymphadenopathy. EXTREMITIES: No cyanosis, clubbing, or edema. NEUROLOGIC: He was alert and cooperative. His speech is fluent and clear. Cranial nerves II through XII are intact. Motor exam shows diminished strength in distal right upper extremity more so than proximally. He is weak in both lower extremities. Sensation is intact to light touch. No tremor or dysmetria is present. Gait was not tested. No abnormal movements were seen. LABORATORY STUDIES: White blood cell count was 18.2, hemoglobin 14.6. Glucoses run in the mid 100s to 200 range. Urine was consistent with a bladder infection with rbc's and wbc's too numerous to count. SUMMARY: This is a middle-age man with multiple sclerosis and secondary urinary retention resulting in a bladder infection. He probably need intermittent straight catheterizations. He received a gram of Solu-Medrol, but I doubt that he will have a great deal of impact on his neurologic status. I will be happy to follow up with him as an outpatient. Job ID: [id number]
[2018-06-22] MEDS: Lactated Ringer's 1,000 ML IV SCH ×2 (12:32→21:34)
--- NOTE | 2018-06-22 21:59 | EKG ---
Test Reason : Blood Pressure : / mmHG Vent. Rate : 140 BPM Atrial Rate : 140 BPM P-R Int : 142 ms QRS Dur : 068 ms QT Int : 266 ms P-R-T Axes : 033 -11 006 degrees QTc Int : 406 ms Sinus tachycardia with frequent Premature ventricular complexes and Fusion complexes Possible Anterolateral infarct , age undetermined Abnormal ECG Confirmed by LISA STUBBS DO ([id number]), mapping editor DAVID BANERJEE ([id number]) on 06/22/2018 9:59:13 PM Referred By: Confirmed By:LISA STUBBS DO
[2018-06-23 05:26] LABS: #Lymphocytes 1.4 thou/uL (1.20-3.40); #Monocytes 0.6 thou/uL (0.11-0.59); #Neutrophils 11.1 thou/uL (1.40-6.50); %Basophils 0.3 % (0.0-1.0); %Eosinophils 0.4 % (0.0-10.0); %Lymphocytes 10.6 % (21.0-51.0); %Monocytes 4.2 % (0.0-10.0); %Neutrophils 84.6 % (42.0-75.0); Hemoglobin 12.2 g/dL (14.0-18.0); Mean Corpuscular HGB CONC 33.1 g/dL (32.0-36.0); Mean Corpuscular Hemoglobin 29.1 pg (27.0-31.0); Mean Corpuscular Volume 87.9 fL (78.0-98.0); Mean Platelet Volume 8.4 fL (7.4-10.4); Platelet Count 327 thou/uL (130-400); RBC Distribution Width 12.6 % (11.5-14.5); White Blood Cell (WBC) Count 13.1 thou/uL (4.8-10.8)
[2018-06-23 05:53] LABS: Anion Gap 12 mmol/L (10-20); BUN (Urea Nitrogen) 18 mg/dL (8.4-25.7); Calc. Creatinine Clearance 116 mL/min (70-130); Calcium 9.3 mg/dL (7.8-10.44); Carbon Dioxide 27 mmol/L (23-31); Chloride 107 mmol/L (98-107); Estimated GFR-MDRD 79; Glucose 148 mg/dL (80-115); Potassium 3.5 mmol/L (3.5-5.1); Sodium 142 mmol/L (136-145)
--- NOTE | 2018-06-23 06:13 | PDOC.FM ---
- Subjective Subjective: Mr. Hill is resting comfortably in bed, he denies any fever/chills. no pain. - Objective Vital Signs & Weight: Vital Signs (12 hours) Temp Pulse Resp BP Pulse Ox 06/23/18 04:00 97.8 F 84 18 140/73 95 06/22/18 20:00 98.0 F 97 17 127/74 95 Weight Weight 102.875 kg I&O: 06/21/18 06/22/18 06/23/18 06:59 06:59 06:59 Intake Total 480 Output Total 200 1100 800 Balance -200 -620 -800 Result Diagrams: 06/23/18 04:44 06/23/18 04:44 Phys Exam - Physical Examination Constitutional: NAD HEENT: moist MMs Neck: no JVD Gastrointestinal: no distention Musculoskeletal: no edema at baseline Psychiatric: normal affect Skin: no rash Dx/Plan (1) Sepsis Code(s): A41.9 - SEPSIS, UNSPECIFIED ORGANISM Status: Acute (2) Tachycardia Code(s): R00.0 - TACHYCARDIA, UNSPECIFIED Status: Acute (3) UTI (urinary tract infection) Status: Acute (4) Diabetes mellitus Code(s): E11.9 - TYPE 2 DIABETES MELLITUS WITHOUT COMPLICATIONS Status: Acute (5) Multiple sclerosis Code(s): G35 - MULTIPLE SCLEROSIS Status: Acute (6) Urinary retention Code(s): R33.9 - RETENTION OF URINE, UNSPECIFIED Status: Acute - Plan Plan: Sepsis 2/2 catheter associated UTI: - WBC of 18.2, tachycardic, w/ a UA significant for a UTI POA - s/p 1L of NS & IV gentamicin in the ED. - Cefepime per cultures - Blood and urine cultures pending. Urine gram stain also pending. - Monitor daily CBC and BMP. Sinus Tachycardia: - Aware, per clinic chart & documentation from last hospitalization, patient is tachycardic at baseline. However, slightly worse on presentation presumably 2/2 infection. - Baseline tachycardia likely 2/2 autonomic dysregulation from MS. Will treat infection as described above and continue to monitor closely on telemetry. Urinary retention: - Likely 2/2 MS. - replace millan per urology, follow up outpt MS: - Aware, will resume home meds. - chronic progressive type - s/p 1g solumedrol - neurology consulted, follow up outpatient DMII: - Aware, will resume home Levemir dose and start on CC diet. - Will get ACHS accuchecks and order hyperglycemia protocol. HTN: - Aware, will resume home meds. - pressure consistently high, consider adding additional medication today Constipation: - Aware, patient was recently discharged on MARIANNE QD Miralax but has had to cut back due to diarrhea. - Will order PO Miralax and docusate PRN. General deconditioning: - PT and OT consulted. - CM also consulted and rehab screen placed as patient will likely benefit from a short rehab stay per the patient's PCP. Code: Full Diet: CC, HH, low sodium ppx: lovenox Abx: Rocephin Dispo: continue to treat for UTI, await placement at rehab facility Addendum - Attending - Attending Attestation Date/Time: 06/23/18 8271 I personally evaluated the patient and discussed the management with Dr. Celeste. I agree with the History, Examination, Assessment and Plan documented above with any addition or exceptions noted below. The pt will transition to po antibiotics. He will keep the millan until he follows up as an outpt with urology. Pt is waiting on placement at inpatient rehab.
[2018-06-23] MEDS: Enoxaparin Sodium 40 MG/0.4 ML SYRINGE SC SCH (11:27)
[2018-06-23] MEDS: Magnesium Oxide 250 MG TAB PO SCH (11:28)
[2018-06-23] MEDS: Baclofen 10 MG TAB PO SCH ×3 (11:29→20:51)
[2018-06-23] MEDS: Tamsulosin HCl 0.4 MG CAP PO SCH (11:29)
[2018-06-23] MEDS: Cefepime 1 GM in Sodium Chloride 0.9% 100 ML IVPB SCH (11:30)
[2018-06-23] MEDS: Valsartan 80 MG TAB PO SCH (11:31)
[2018-06-23] MEDS: Insulin Glargine 15 UNITS in Pre-Filled Syringe 1 EACH SC SCH (11:32)
[2018-06-23] MEDS: HumaLOG 300 UNITS/3 ML VIAL SC PRN ×2 (13:03→18:37)
[2018-06-23] MEDS: Polyethylene Glycol 3350 17 GM Packet PO PRN (13:04)
[2018-06-23] MEDS: Cipro 250 MG TAB PO SCH (20:51)
[2018-06-24 05:24] LABS: #Eosinphils 0.2 thou/uL (0.0-0.7); #Lymphocytes 1.2 thou/uL (1.20-3.40); #Monocytes 0.4 thou/uL (0.11-0.59); #Neutrophils 4.4 thou/uL (1.40-6.50); %Basophils 0.4 % (0.0-1.0); %Eosinophils 2.4 % (0.0-10.0); %Lymphocytes 19.8 % (21.0-51.0); %Monocytes 6.4 % (0.0-10.0); %Neutrophils 71.1 % (42.0-75.0); Hemoglobin 12.6 g/dL (14.0-18.0); Mean Corpuscular HGB CONC 33.3 g/dL (32.0-36.0); Mean Corpuscular Volume 87.1 fL (78.0-98.0); Mean Platelet Volume 7.7 fL (7.4-10.4); Platelet Count 328 thou/uL (130-400); RBC Distribution Width 12.6 % (11.5-14.5); Red Blood Cell (RBC) Count 4.35 mill/uL (4.70-6.10); White Blood Cell (WBC) Count 6.2 thou/uL (4.8-10.8)
--- NOTE | 2018-06-24 05:43 | PDOC.FM ---
- Subjective Subjective: No events overnight. Patient resting comfortably in bed. No concerns or complaints this AM. Patient states he feels well. He has been working with PT and is feeling stronger. States he felt the urge to void yesterday. Denies weakness, SOB, chest pain, fever/chills, NVD. - Objective Vital Signs & Weight: Vital Signs (12 hours) Temp Pulse Resp BP Pulse Ox 06/24/18 04:00 99.0 F 85 19 146/64 H 95 06/24/18 00:00 98.5 F 81 18 148/78 H 95 06/23/18 20:15 94 L 06/23/18 20:00 98.5 F 102 H 19 135/73 94 L Weight Weight 102.875 kg I&O: 06/22/18 06/23/18 06/24/18 06:59 06:59 06:59 Intake Total 480 1822 Output Total 9659 937 4402 Balance -620 -800 472 Result Diagrams: 06/24/18 04:58 06/24/18 04:58 Phys Exam - Physical Examination Constitutional: NAD HEENT: PERRLA, moist MMs, sclera anicteric Neck: supple Respiratory: clear to auscultation bilateral Cardiovascular: RRR Gastrointestinal: soft, non-tender, no distention, positive bowel sounds Musculoskeletal: no edema Neurological: moves all 4 limbs Psychiatric: normal affect, A&O x 3 Dx/Plan (1) HTN (hypertension) Code(s): I10 - ESSENTIAL (PRIMARY) HYPERTENSION Status: Acute (2) Sepsis Code(s): A41.9 - SEPSIS, UNSPECIFIED ORGANISM Status: Acute (3) Tachycardia Code(s): R00.0 - TACHYCARDIA, UNSPECIFIED Status: Acute (4) UTI (urinary tract infection) Status: Acute (5) Constipation Code(s): K59.00 - CONSTIPATION, UNSPECIFIED Status: Acute (6) Diabetes mellitus Code(s): E11.9 - TYPE 2 DIABETES MELLITUS WITHOUT COMPLICATIONS Status: Acute (7) Multiple sclerosis Code(s): G35 - MULTIPLE SCLEROSIS Status: Acute (8) Urinary retention Code(s): R33.9 - RETENTION OF URINE, UNSPECIFIED Status: Acute - Plan Plan: Sepsis 2/2 catheter associated UTI: - WBC of 18.2, tachycardic, w/ a UA significant for a UTI POA; WBC has downtrended to 6.2 on 06/24 - s/p 1L of NS & IV gentamicin in the ED - urine cx grew enterococcus and pseudomonas - sensitive to cipro. Will continue cipro. - Blood cx no growth to date; gram stain many WBCs, gram neg rods, and gram pos cocci in chains and pairs; will tx w/ abx as above - Monitor daily CBC and BMP Sinus Tachycardia: - Aware, per clinic chart & documentation from last hospitalization, patient is tachycardic at baseline. However, slightly worse on presentation presumably 2/2 infection. - Baseline tachycardia likely 2/2 autonomic dysregulation from MS. Will treat infection as described above and continue to monitor closely on telemetry. - HR 85-102; patient denies palpitations, will continue to monitor Urinary retention: - Likely 2/2 MS. - replace millan per urology, follow up outpt for voiding trial; urology agreed to see pt at rehab as well MS: - Aware, will resume home meds. - chronic progressive type - s/p 1g solumedrol - neurology consulted, follow up outpatient DMII: - Aware, will resume home Levemir dose and start on CC diet. - Will get ACHS accuchecks and order hyperglycemia protocol; glucose controlled HTN: - Aware, will resume home meds. - pressure consistently high, consider adding additional medication today Constipation: - Aware, patient was recently discharged on MARIANNE QD Miralax but has had to cut back due to diarrhea. - PO Miralax and docusate PRN General deconditioning: - PT and OT consulted - CM also consulted and rehab screen placed as patient will likely benefit from a short rehab stay per the patient's PCP. Code: Full Diet: CC, HH, low sodium ppx: lovenox Abx: Rocephin Dispo: continue to treat for UTI, await placement at rehab facility; Will transfer to medical if not placed at rehab today
[2018-06-24 05:47] LABS: Anion Gap 11 mmol/L (10-20); BUN (Urea Nitrogen) 17 mg/dL (8.4-25.7); Calc. Creatinine Clearance 136 mL/min (70-130); Calcium 9.1 mg/dL (7.8-10.44); Carbon Dioxide 30 mmol/L (23-31); Chloride 104 mmol/L (98-107); Estimated GFR-MDRD Greater than 90; Glucose 142 mg/dL (80-115); Potassium 3.6 mmol/L (3.5-5.1); Sodium 141 mmol/L (136-145)
[2018-06-24] MEDS: Cipro 250 MG TAB PO SCH ×2 (06:39→21:27)
[2018-06-24] MEDS ORDERED: Non-Formulary Item 1 EACH (Valsartan/Hydrochlorothiazide [Valsartan-Hctz 160-25 Mg Tab] 1 PO SCH (09:00)
[2018-06-24] MEDS: Enoxaparin Sodium 40 MG/0.4 ML SYRINGE SC SCH (10:05)
[2018-06-24] MEDS: Tamsulosin HCl 0.4 MG CAP PO SCH (10:06)
[2018-06-24] MEDS: Polyethylene Glycol 3350 17 GM Packet PO PRN (10:06)
[2018-06-24] MEDS: Valsartan 80 MG TAB PO SCH (10:07)
[2018-06-24] MEDS: Magnesium Oxide 250 MG TAB PO SCH (10:08)
[2018-06-24] MEDS: Hydrochlorothiazide 25 MG TAB PO SCH (10:08)
[2018-06-24] MEDS: Baclofen 10 MG TAB PO SCH ×3 (10:09→21:27)
[2018-06-24] MEDS: Insulin Glargine 15 UNITS in Pre-Filled Syringe 1 EACH SC SCH (12:25)
[2018-06-24] MEDS: HumaLOG 300 UNITS/3 ML VIAL SC PRN ×2 (12:25→21:26)
[2018-06-25] MEDS: HumaLOG 300 UNITS/3 ML VIAL SC PRN ×2 (05:24→20:51)
[2018-06-25] MEDS: Cipro 250 MG TAB PO SCH ×2 (05:24→20:50)
--- NOTE | 2018-06-25 06:42 | PDOC.FM ---
- Subjective Subjective: No events overnight. Patient has no issues or complaints this morning. - Objective Vital Signs & Weight: Vital Signs (12 hours) Temp Pulse Resp BP Pulse Ox 06/25/18 03:42 97.8 F 99 18 120/84 96 06/24/18 23:39 97.7 F 96 18 134/87 94 L 06/24/18 19:44 97.7 F 98 18 135/77 96 06/24/18 19:38 96 Weight Weight 102.875 kg I&O: 06/23/18 06/24/18 06/25/18 06:59 06:59 06:59 Intake Total 1822 970 Output Total 800 1350 2600 Balance -800 512 1630 Result Diagrams: 06/25/18 06:56 06/25/18 06:56 Phys Exam - Physical Examination Constitutional: NAD HEENT: PERRLA, moist MMs, sclera anicteric Neck: supple, full ROM Respiratory: clear to auscultation bilateral Cardiovascular: RRR Gastrointestinal: soft, non-tender, no distention, positive bowel sounds Neurological: moves all 4 limbs Psychiatric: normal affect, A&O x 3 Dx/Plan (1) HTN (hypertension) Code(s): I10 - ESSENTIAL (PRIMARY) HYPERTENSION Status: Acute (2) Sepsis Code(s): A41.9 - SEPSIS, UNSPECIFIED ORGANISM Status: Acute (3) Tachycardia Code(s): R00.0 - TACHYCARDIA, UNSPECIFIED Status: Acute (4) UTI (urinary tract infection) Status: Acute (5) Constipation Code(s): K59.00 - CONSTIPATION, UNSPECIFIED Status: Acute (6) Diabetes mellitus Code(s): E11.9 - TYPE 2 DIABETES MELLITUS WITHOUT COMPLICATIONS Status: Acute (7) Multiple sclerosis Code(s): G35 - MULTIPLE SCLEROSIS Status: Acute (8) Urinary retention Code(s): R33.9 - RETENTION OF URINE, UNSPECIFIED Status: Acute - Plan Plan: Sepsis 2/2 catheter associated UTI: - WBC of 18.2, tachycardic, w/ a UA significant for a UTI POA; WBC has downtrended to 6.2 on 06/24 - s/p 1L of NS & IV gentamicin in the ED - urine cx grew enterococcus and pseudomonas - sensitive to cipro. Will continue cipro. Discussed risks with patient - Blood cx no growth to date; gram stain many WBCs, gram neg rods, and gram pos cocci in chains and pairs; will tx w/ abx as above Sinus Tachycardia: - Aware, per clinic chart & documentation from last hospitalization, patient is tachycardic at baseline. However, slightly worse on presentation presumably 2/2 infection. - Baseline tachycardia likely 2/2 autonomic dysregulation from MS. Will treat infection as described above and continue to monitor closely on telemetry. - HR 85-102; patient denies palpitations, will continue to monitor Urinary retention: - Likely 2/2 MS. - replace millan per urology, follow up outpt for voiding trial; urology agreed to see pt at rehab as well MS: - Aware, will resume home meds. - chronic progressive type - s/p 1g solumedrol - neurology consulted, follow up outpatient DMII: - Aware, will resume home Levemir dose and start on CC diet. - Will get ACHS accuchecks and order hyperglycemia protocol; glucose controlled HTN: - Aware, will resume home meds. - pressure consistently high, consider adding additional medication today Constipation: - Aware, patient was recently discharged on MARIANNE QD Miralax but has had to cut back due to diarrhea. - PO Miralax and docusate PRN General deconditioning: - PT and OT consulted - CM also consulted and rehab screen placed as patient will likely benefit from a short rehab stay per the patient's PCP. Code: Full Diet: CC, HH, low sodium ppx: lovenox Dispo: continue to treat for UTI, await placement at rehab facility; Will transfer to medical if not placed at rehab today Addendum - Attending - Attending Attestation Date/Time: 06/25/18 1220 I personally evaluated the patient and discussed the management with Dr. Chen I agree with the History, Examination, Assessment and Plan documented above with any addition or exceptions noted below. D/C pending placement millan and f/ u Urology d/c with flouroquinolone counseled risks benefits.
[2018-06-25 07:43] LABS: #Eosinphils 0.3 thou/uL (0.0-0.7); #Lymphocytes 1.3 thou/uL (1.20-3.40); #Monocytes 0.6 thou/uL (0.11-0.59); #Neutrophils 5.8 thou/uL (1.40-6.50); %Basophils 0.6 % (0.0-1.0); %Eosinophils 3.5 % (0.0-10.0); %Lymphocytes 16.8 % (21.0-51.0); %Neutrophils 72.2 % (42.0-75.0); Hemoglobin 14.8 g/dL (14.0-18.0); Mean Corpuscular HGB CONC 32.4 g/dL (32.0-36.0); Mean Corpuscular Hemoglobin 28.1 pg (27.0-31.0); Mean Corpuscular Volume 86.8 fL (78.0-98.0); Mean Platelet Volume 7.9 fL (7.4-10.4); Platelet Count 373 thou/uL (130-400); RBC Distribution Width 12.4 % (11.5-14.5); Red Blood Cell (RBC) Count 5.27 mill/uL (4.70-6.10)
[2018-06-25] MEDS: Enoxaparin Sodium 40 MG/0.4 ML SYRINGE SC SCH (08:13)
[2018-06-25] MEDS: Baclofen 10 MG TAB PO SCH ×3 (08:14→20:50)
[2018-06-25] MEDS: Tamsulosin HCl 0.4 MG CAP PO SCH (08:14)
[2018-06-25] MEDS: Hydrochlorothiazide 25 MG TAB PO SCH (08:14)
[2018-06-25] MEDS: Magnesium Oxide 250 MG TAB PO SCH (08:15)
[2018-06-25] MEDS: Insulin Glargine 15 UNITS in Pre-Filled Syringe 1 EACH SC SCH (08:15)
[2018-06-25 08:33] LABS: Anion Gap 13 mmol/L (10-20); BUN (Urea Nitrogen) 15 mg/dL (8.4-25.7); Calc. Creatinine Clearance 108 mL/min (70-130); Calcium 10.5 mg/dL (7.8-10.44); Carbon Dioxide 32 mmol/L (23-31); Chloride 97 mmol/L (98-107); Estimated GFR-MDRD 73; Glucose 171 mg/dL (80-115); Potassium 4.2 mmol/L (3.5-5.1); Sodium 138 mmol/L (136-145)
[2018-06-25] MEDS: Valsartan 80 MG TAB PO SCH (10:18)
[2018-06-25] MEDS ORDERED: diphenhydrAMINE 25 MG CAP PO SCH (15:45)
[2018-06-26] MEDS: Cipro 250 MG TAB PO SCH ×2 (06:08→23:07)
[2018-06-26] MEDS: HumaLOG 300 UNITS/3 ML VIAL SC PRN ×3 (06:10→23:19)
--- NOTE | 2018-06-26 06:22 | PDOC.FM ---
- Subjective Subjective: No overnight events. Patient is doing well and states he is ready to go to rehab. States he feels stronger each day with PT. No issues or complaints. - Objective MAR Reviewed: Yes Vital Signs & Weight: Vital Signs (12 hours) Temp Pulse Resp BP Pulse Ox 06/26/18 04:00 98.3 F 96 20 113/83 93 L 06/26/18 00:00 98.3 F 103 H 20 106/76 94 L 06/25/18 20:00 98.2 F 112 H 20 112/78 94 L Weight Admit Weight 102.875 kg Weight 102.875 kg I&O: 06/24/18 06/25/18 06/26/18 06:59 06:59 06:59 Intake Total 1822 970 Output Total 1350 2600 Balance 472 -1630 Result Diagrams: 06/26/18 16:58 06/26/18 16:58 Phys Exam - Physical Examination Constitutional: NAD HEENT: moist MMs, sclera anicteric Neck: supple, full ROM Respiratory: clear to auscultation bilateral Cardiovascular: RRR Gastrointestinal: soft, no distention Musculoskeletal: no edema Neurological: non-focal Psychiatric: normal affect, A&O x 3 Dx/Plan (1) HTN (hypertension) Code(s): I10 - ESSENTIAL (PRIMARY) HYPERTENSION Status: Acute (2) Sepsis Code(s): A41.9 - SEPSIS, UNSPECIFIED ORGANISM Status: Acute (3) Tachycardia Code(s): R00.0 - TACHYCARDIA, UNSPECIFIED Status: Acute (4) UTI (urinary tract infection) Status: Acute (5) Constipation Code(s): K59.00 - CONSTIPATION, UNSPECIFIED Status: Acute (6) Diabetes mellitus Code(s): E11.9 - TYPE 2 DIABETES MELLITUS WITHOUT COMPLICATIONS Status: Acute (7) Multiple sclerosis Code(s): G35 - MULTIPLE SCLEROSIS Status: Acute (8) Urinary retention Code(s): R33.9 - RETENTION OF URINE, UNSPECIFIED Status: Acute - Plan Plan: Sepsis (resolved) 2/2 catheter associated UTI - WBC of 18.2, tachycardic, w/ a UA significant for a UTI POA; WBC has downtrended to 6.2 on 06/24 - s/p 1L of NS & IV gentamicin in the ED - urine cx grew enterococcus and pseudomonas - sensitive to cipro. Will continue cipro. Discussed risks with patient - Blood cx no growth to date; gram stain many WBCs, gram neg rods, and gram pos cocci in chains and pairs; will tx w/ abx as above Sinus Tachycardia - Aware, per clinic chart & documentation from last hospitalization, patient is tachycardic at baseline. However, slightly worse on presentation presumably 2/2 infection. - Baseline tachycardia likely 2/2 autonomic dysregulation from MS. Will treat infection as described above and continue to monitor closely on telemetry. - HR 85-102; patient denies palpitations, will continue to monitor, pt remains asymptomatic Urinary retention - Likely 2/2 MS - patient endorses feeling urge to void occasionally over the last 2 days - replace millan per urology, follow up outpt for voiding trial; urology agreed to see pt at rehab as well MS - Aware, will resume home meds. - chronic progressive type - s/p 1g solumedrol - neurology consulted, follow up outpatient DMII - Aware, will resume home Levemir dose and start on CC diet. - Will get ACHS accuchecks and order hyperglycemia protocol; glucose controlled HTN - Aware, will resume home meds. - pressure consistently high, consider adding additional medication today Constipation - Aware, patient was recently discharged on MARIANNE QD Miralax but has had to cut back due to diarrhea. - PO Miralax and docusate PRN General deconditioning: - PT and OT consulted - CM consulted - pt accepted to rehab Code: Full Diet: CC, HH, low sodium ppx: lovenox Dispo: pt accepted to rehab, will be discharged today Addendum - Attending - Attending Attestation Date/Time: 06/26/182019 I personally evaluated the patient and discussed the management with Dr. Chen I agree with the History, Examination, Assessment and Plan documented above with any addition or exceptions noted below.
[2018-06-26] MEDS: Insulin Glargine 15 UNITS in Pre-Filled Syringe 1 EACH SC SCH (09:15)
[2018-06-26] MEDS: Hydrochlorothiazide 25 MG TAB PO SCH (09:15)
[2018-06-26] MEDS: Baclofen 10 MG TAB PO SCH ×3 (09:16→23:07)
[2018-06-26] MEDS: Valsartan 80 MG TAB PO SCH (09:17)
[2018-06-26] MEDS: Magnesium Oxide 250 MG TAB PO SCH (09:18)
[2018-06-26] MEDS: Tamsulosin HCl 0.4 MG CAP PO SCH (09:21)
[2018-06-26] MEDS: Enoxaparin Sodium 40 MG/0.4 ML SYRINGE SC SCH (09:26)
[2018-06-26 17:06] LABS: #Basophils 0.1 thou/uL (0.0-0.2); #Eosinphils 0.4 thou/uL (0.0-0.7); #Monocytes 0.7 thou/uL (0.11-0.59); #Neutrophils 9.7 thou/uL (1.40-6.50); %Basophils 0.5 % (0.0-1.0); %Eosinophils 2.9 % (0.0-10.0); %Lymphocytes 15.6 % (21.0-51.0); %Monocytes 5.6 % (0.0-10.0); %Neutrophils 75.4 % (42.0-75.0); Hemoglobin 16.2 g/dL (14.0-18.0); Mean Corpuscular HGB CONC 33.4 g/dL (32.0-36.0); Mean Corpuscular Hemoglobin 29.2 pg (27.0-31.0); Mean Corpuscular Volume 87.3 fL (78.0-98.0); Mean Platelet Volume 7.7 fL (7.4-10.4); Platelet Count 451 thou/uL (130-400); RBC Distribution Width 12.8 % (11.5-14.5); Red Blood Cell (RBC) Count 5.55 mill/uL (4.70-6.10); White Blood Cell (WBC) Count 12.9 thou/uL (4.8-10.8)
[2018-06-26 17:21] LABS: ALT (SGPT) 55 U/L (8-55); AST (SGOT) 23 U/L (5-34); Alkaline Phosphatase 80 U/L (40-150); Anion Gap 14 mmol/L (10-20); BUN (Urea Nitrogen) 30 mg/dL (8.4-25.7); Bilirubin, Total 0.4 mg/dL (0.2-1.2); CK (CPK) 28 U/L (30-200); Calc. Creatinine Clearance 74 mL/min (70-130); Calcium 10.6 mg/dL (7.8-10.44); Carbon Dioxide 31 mmol/L (23-31); Chloride 100 mmol/L (98-107); Estimated GFR-MDRD 47; Globulin 3.7 g/dL (2.4-3.5); Glucose 172 mg/dL (80-115); Potassium 4.7 mmol/L (3.5-5.1); Protein, Total 7.7 g/dL (5.8-8.1); Sodium 140 mmol/L (136-145)
[2018-06-26] MEDS ORDERED: Lactated Ringer's 1,000 ML IV SCH ×2 (17:45→21:30)
--- NOTE | 2018-06-26 17:54 | PDOC.EVN ---
Event Note - Event Note Event Note: Called by nursing staff patients pulse was 130 and BP was 70s/50s. Went to examine him. Patient was complaining of blurry vision an palpitations but was otherwise asymptomatic. On exam, patient had tachycardic rate regular rhythm, no new murmur, and lungs CTA bilaterally. Ordered CBC, CMP, CXR, EKG, Trop, lactic acid, BNP, D-Dimer. Evaluation thus far significant for negative D-dimer , EKG showing sinus tachycardia with no ST changes and normal intervals, WBC of 12 (elevated from last check), and Cr of 1.5 (elevated from last check). Will re -culture, check UA with reflex culture, and give LR 1L. Night team to f/u Lactic acid and CXR. TSH was normal on 06/20. Discussed with Dr. Chamberlain.
--- NOTE | 2018-06-26 19:38 | RAD ---
RADIOGRAPH CHEST 1 VIEW: HISTORY: A 63-year-old male with palpitations. FINDINGS: There is no air space density, pulmonary edema, or pneumothorax. The lateral costophrenic angles are sharp. IMPRESSION: No acute pulmonary findings. sara [] POS: KEYSHA
[2018-06-27] MEDS: HumaLOG 300 UNITS/3 ML VIAL SC PRN ×2 (05:56→11:54)
[2018-06-27 06:06] LABS: Bilirubin Negative (Negative); Blood, Urine Moderate (Negative); Clarity CLEAR (Clear); Glucose, Urine (Dipstick) Negative (Negative); Leukocyte Small (Negative); Nitrite Negative (Negative); Protein, Urine (Dipstick) Negative (Neg-Trace); Specific Gravity, Urine 1.015 (1.002-1.036); Urobilinogen 0.2 mg/dL (0.2-1.0)
[2018-06-27 06:09] LABS: Bacteria/HPF None Seen HPF (None Seen); Hyaline Casts/LPF 0-3 HYALINE CAST LPF (0-3 Hyaline); Pathc Cast-AUWi Flag 0.43 (0-2.49); Squamous Epithelial None Seen HPF (0-3)
[2018-06-27 06:21] LABS: Urine Culture Reflex Yes Yes
--- NOTE | 2018-06-27 06:29 | PDOC.FM ---
Addendum entered and electronically signed by Klarissa Chen MD 06/27/18 11:47 : Added low dose beta teresa due to patient's tachycardia. Discussed with patient to have cardiology follow up outpatient. Original Note: - Subjective Subjective: No events overnight. Yesterday afternoon, patient found to be tachycardic complaining of palpitations and blurry vision. CXR performed that was normal. CBC showed slightly elevated WBC. Patient given IVF. This morning patient reports feeling well, no issues or complaints. States his blurry vision has resolved. Roddy palpitations. - Objective MAR Reviewed: Yes Vital Signs & Weight: Vital Signs (12 hours) Temp Pulse Resp BP BP Pulse Ox 06/27/18 04:00 97.5 F L 105 H 14 134/77 97 06/27/18 00:00 97.9 F 105 H 22 H 80/61 L 95 06/26/18 20:00 95 06/26/18 19:01 123 H 87/73 L 06/26/18 19:00 98.2 F 120 H 18 90/50 L 95 06/26/18 18:35 98.6 F 127 H 18 74/48 L 92 L Weight Admit Weight 102.875 kg Weight 102.875 kg I&O: 06/25/18 06/26/18 06/27/18 06:59 06:59 06:59 Intake Total 970 300 Output Total 2600 500 Balance -1630 -200 Result Diagrams: 06/27/18 05:52 06/27/18 05:52 Phys Exam - Physical Examination Constitutional: NAD HEENT: moist MMs, sclera anicteric Neck: supple, full ROM Respiratory: clear to auscultation bilateral Cardiovascular: RRR Gastrointestinal: soft, non-tender, no distention, positive bowel sounds Musculoskeletal: no edema Neurological: non-focal, moves all 4 limbs Psychiatric: normal affect, A&O x 3 Dx/Plan (1) HTN (hypertension) Code(s): I10 - ESSENTIAL (PRIMARY) HYPERTENSION Status: Acute (2) Sepsis Code(s): A41.9 - SEPSIS, UNSPECIFIED ORGANISM Status: Acute (3) Tachycardia Code(s): R00.0 - TACHYCARDIA, UNSPECIFIED Status: Acute (4) UTI (urinary tract infection) Status: Acute (5) Constipation Code(s): K59.00 - CONSTIPATION, UNSPECIFIED Status: Acute (6) Diabetes mellitus Code(s): E11.9 - TYPE 2 DIABETES MELLITUS WITHOUT COMPLICATIONS Status: Acute (7) Multiple sclerosis Code(s): G35 - MULTIPLE SCLEROSIS Status: Acute (8) Urinary retention Code(s): R33.9 - RETENTION OF URINE, UNSPECIFIED Status: Acute - Plan Plan: Sepsis (resolved) 2/2 catheter associated UTI - WBC of 18.2, tachycardic, w/ a UA significant for a UTI POA; WBC has downtrended to 6.2 on 06/24 - s/p 1L of NS & IV gentamicin in the ED - urine cx grew enterococcus and pseudomonas - sensitive to cipro. Will continue cipro for a total 14 day course. Discussed risks with patient - Blood cx no growth to date; gram stain many WBCs, gram neg rods, and gram pos cocci in chains and pairs; will tx w/ abx as above - 06/26/18 - Cr 1.5; improved to 1.2 on 06/27. Patient given 2L IVF, encourage PO hydration. Sinus Tachycardia - Aware, per clinic chart & documentation from last hospitalization, patient is tachycardic at baseline. However, slightly worse on presentation presumably 2/2 infection. - Baseline tachycardia likely 2/2 autonomic dysregulation from MS. Will treat infection as described above and continue to monitor closely on telemetry. - HR 105-130 over the last 12 hours; patient complained of blurry vision/ palpitations which has since resolved. Patient given IVF. HR lowered this morning and resolution of symptoms. Urinary retention - Likely 2/2 MS - patient endorses feeling urge to void occasionally over the last 2 days - replace millan per urology, follow up outpt for voiding trial; urology agreed to see pt at rehab as well MS - Aware, will resume home meds. - chronic progressive type - s/p 1g solumedrol - neurology consulted, follow up outpatient DMII - Aware, will resume home Levemir dose and start on CC diet. - Will get ACHS accuchecks and order hyperglycemia protocol; glucose controlled HTN - Aware, will resume home meds. - episodes of low blood pressure; will decrease valsartan to half the dose Constipation - Aware, patient was recently discharged on MARIANNE QD Miralax but has had to cut back due to diarrhea. - PO Miralax and docusate PRN General deconditioning: - PT and OT consulted - CM consulted - pt accepted to rehab Code: Full Diet: CC, HH, low sodium ppx: lovenox Dispo: pt accepted to rehab, possible discharge later today if HR improved Addendum - Attending - Attending Attestation Date/Time: 06/27/18 [id number] I personally evaluated the patient and discussed the management with Dr. Chen I agree with the History, Examination, Assessment and Plan documented above with any addition or exceptions noted below. Patient with w/u sinus tachycardia last pm delaying dismissal responded to IV fluids He has long standing elevated pulse rate. Stable to dismiss PE,IHD, Anemia ,sepsis ruled out as underlying etiology dismiss with outpat cardiology f /u. Home with ricky
[2018-06-27 06:42] LABS: #Eosinphils 0.4 thou/uL (0.0-0.7); #Lymphocytes 1.6 thou/uL (1.20-3.40); #Monocytes 0.7 thou/uL (0.11-0.59); #Neutrophils 7.5 thou/uL (1.40-6.50); %Basophils 0.4 % (0.0-1.0); %Eosinophils 3.8 % (0.0-10.0); %Lymphocytes 15.7 % (21.0-51.0); %Monocytes 7.1 % (0.0-10.0); Hemoglobin 14.3 g/dL (14.0-18.0); Mean Corpuscular HGB CONC 33.2 g/dL (32.0-36.0); Mean Corpuscular Volume 87.4 fL (78.0-98.0); Platelet Count 361 thou/uL (130-400); RBC Distribution Width 12.9 % (11.5-14.5); Red Blood Cell (RBC) Count 4.94 mill/uL (4.70-6.10); White Blood Cell (WBC) Count 10.2 thou/uL (4.8-10.8)
[2018-06-27 06:58] LABS: Anion Gap 13 mmol/L (10-20); BUN (Urea Nitrogen) 24 mg/dL (8.4-25.7); Calc. Creatinine Clearance 93 mL/min (70-130); Carbon Dioxide 31 mmol/L (23-31); Chloride 101 mmol/L (98-107); Estimated GFR-MDRD 61; Glucose 169 mg/dL (80-115); Potassium 3.9 mmol/L (3.5-5.1); Sodium 141 mmol/L (136-145)
[2018-06-27] MEDS ORDERED: Cipro 250 MG TAB PO SCH ×2 (09:30→20:00)
[2018-06-27] MEDS: Insulin Glargine 15 UNITS in Pre-Filled Syringe 1 EACH SC SCH (09:48)
[2018-06-27] MEDS: Enoxaparin Sodium 40 MG/0.4 ML SYRINGE SC SCH (09:49)
[2018-06-27] MEDS: Tamsulosin HCl 0.4 MG CAP PO SCH (09:49)
[2018-06-27] MEDS: Baclofen 10 MG TAB PO SCH ×2 (09:49→13:50)
[2018-06-27] MEDS: Magnesium Oxide 250 MG TAB PO SCH (09:49)
[2018-06-27] MEDS: Hydrochlorothiazide 25 MG TAB PO SCH (09:50)
[2018-06-27 11:42] VITALS: TEMP 97.8
[2018-06-27 11:53] VITALS: BP 105/53
[2018-06-27] MEDS: Valsartan 80 MG TAB PO SCH (12:27)
[2018-06-28] MEDS ORDERED: Valsartan 80 MG TAB PO SCH (09:00)
--- NOTE | 2018-06-28 10:46 | DIS ---
DATE OF ADMISSION: 06/21/2018 DATE OF DISCHARGE: 06/27/2018 RESIDENT: Klarissa Chen MD ADMITTING ATTENDING: Farnaz Dash MD DISCHARGE ATTENDING: Austin Chamberlain MD. CONSULTS: Case Management, PT/OT, Rehab Screen, Wound Care, Urology, and Neurology. PROCEDURES: None. PRIMARY DIAGNOSES: 1. Sepsis, resolved, secondary to catheter associated urinary tract infection. 2. Sinus tachycardia. 3. Urinary retention. SECONDARY DIAGNOSES: 1. Multiple sclerosis. 2. Diabetes type 2. 3. Hypertension. 4. Constipation. 5. General deconditioning. DISCHARGE MEDICATIONS: 1. Cipro 250 mg oral b.i.d. 2. Levemir 15 units subcutaneous daily. 3. Baclofen 20 mg oral 3 times daily. 4. Vitamin D3 one capsule oral daily. 5. Magnesium 250 mg oral continuous infusion. 6. MiraLAX 17 g oral daily. 7. Flomax 0.4 mg oral daily. 8. Valsartan 80 mg oral daily. 9. Metoprolol 25 mg daily. DISCONTINUED MEDICATIONS: Valsartan 160. HISTORY OF PRESENT ILLNESS AND HOSPITAL COURSE: This is a 63-year-old male with a past medical history significant for multiple sclerosis and hypertension, who presented to the emergency department with a chief complaint of dizziness. The patient states that the room was spinning upon presentation. This, as per patient, lasted approximately 1 hour and the patient had associated nausea with the episode. The patient reported falling, but denies any hitting his head or losing consciousness. The patient was recently discharged from [facility] on 06/10/2018, after being admitted for pancreatitis. During that hospitalization, a Del Real catheter was placed secondary to urinary retention until the patient could be seen by Urology on an outpatient basis. The Del Real had not been changed since that discharge date. On presentation, the patient denied any dysuria and did report some intermittent hematuria since the Del Real has been placed. In the ED, the patient was given normal saline and IV gentamicin. The patient was found to have a white blood cell count of 18.2. The patient's urine was positive for blood, nitrites, leukocyte esterase, rbc's greater than 50, and wbc's greater than 50, as well as bacteria 1+. The patient was found to be tachycardic at a rate of 140 on presentation. The patient was started on IV Rocephin and was eventually transitioned to p.o. Cipro. The patient's urine culture grew back Pseudomonas aeruginosa, Enterobacter aerogenes, Enterococcus faecalis. Blood culture showed no growth after 5 days. The patient has been tachycardic on previous admission in the low 100s. The patient had an episode of tachycardia with heart rate in the 130s as well as blurry vision on 06/26/2018. This resolved within an hour. The patient was started on low-dose beta teresa for his heart rate. Discussed with patient to follow up closely with Cardiology for this issue. Urology was consulted for patient's urinary retention. Urinary retention is likely a combination of the patient's multiple sclerosis as well as BPH. Per Urology, the patient is to keep the Del Real in place until following up with Urology outpatient. Urology offered to meet patient at rehab to begin a voiding trial there. During this hospitalization, the patient's diabetes remained controlled. The patient was given MiraLAX and docusate for his constipation and had regular bowel movements. The patient participated in PT/OT throughout his stay and per the patient, improved his strength. DISPOSITION: Home. DISCHARGE INSTRUCTIONS: 1. Location: Rehab inpatient. 2. Activity: Ad-song with PT/OT. 3. Diet: Consistent carbohydrate and heart healthy. 4. Followup: With PCP within 1 week, with Urology within 1 week, and Cardiology within 1 month. Job ID: [id number]
--- NOTE | 2018-06-28 20:52 | EKG ---
Test Reason : Blood Pressure : / mmHG Vent. Rate : 129 BPM Atrial Rate : 129 BPM P-R Int : 136 ms QRS Dur : 078 ms QT Int : 300 ms P-R-T Axes : 026 004 -06 degrees QTc Int : 439 ms Sinus tachycardia Otherwise normal ECG When compared with ECG of 20-JUN-2018 16:44, Fusion complexes are no longer Present Premature ventricular complexes are no longer Present Confirmed by Iris JENSEN ([id number]) on 06/28/2018 8:51:30 PM Referred By: Confirmed By:Iris JENSEN
== END 2018-06-27 14:04 | DRG 698 ==
LOC: ERS 16:27 → 2SE 06-21 00:06 → T4-A 06-24 18:31 → 2SE 06-26 18:46
PROVIDERS: ADMIT Family Medicine; ATTEND Family Medicine
DX: T83.511A Infection and inflammatory reaction due to indwelling urethral catheter, initial encounter (principal); A41.9 Sepsis, unspecified organism; N39.0 Urinary tract infection, site not specified; I10 Essential (primary) hypertension; E11.9 Type 2 diabetes mellitus without complications; M54.9 Dorsalgia, unspecified; G89.29 Other chronic pain; K59.00 Constipation, unspecified; G35 Multiple sclerosis; R00.0 Tachycardia, unspecified; N40.1 Benign prostatic hyperplasia with lower urinary tract symptoms; R33.8 Other retention of urine; Z79.4 Long term (current) use of insulin; Z87.891 Personal history of nicotine dependence; Z83.3 Family history of diabetes mellitus
CPT/HCPCS: 36415; 36416; 70450; 71045; 80048; 80053; 81001; 81003; 81015; 82550; 83605; 83690; 83880; 84145; 84443; 84484; 85025; 85379; 87040; 87077; 87086; 87186; 87205; 93005; 93010; 96361; 96365; 96367; J0692; J0696; J1580; J1650; J2930; J3370; J7050

== ENCOUNTER 2018-07-01 17:07 | Inpatient (IN) | payer MEDICARE, BC ==
[~2018-07-01 17:07] MED LIST: ISOVUE-370 76%-LOCM 1 ML ONE
[2018-07-01 17:46] LABS: Bilirubin Negative (Negative); Blood, Urine Moderate (Negative); Clarity CLEAR (Clear); Glucose, Urine (Dipstick) 100 mg/dL (Negative); Leukocyte Negative (Negative); Nitrite Negative (Negative); Protein, Urine (Dipstick) Trace mg/dL (Neg-Trace); Specific Gravity, Urine 1.021 (1.002-1.036); Urobilinogen 0.2 mg/dL (0.2-1.0); pH, Urine 6.5 (5.0-9.0)
[2018-07-01 17:47] LABS: Bacteria/HPF None Seen HPF (None Seen); Hyaline Casts/LPF 4-6 HYALINE CAST LPF (0-3 Hyaline); Pathc Cast-AUWi Flag 0.72 (0-2.49); RBC/HPF 21-50 HPF (0-3); Squamous Epithelial 0-3 HPF (0-3); WBC/HPF 0-3 HPF (0-3)
[2018-07-01] MEDS ORDERED: Sodium Chloride 0.9% 100 ML ONE (17:51)
[2018-07-01] MEDS ORDERED: Piperacillin/Tazobactam 4.5 GM VIAL ONE (17:51)
[2018-07-01 18:08] LABS: Hemoglobin 14.6 g/dL (14.0-18.0); Mean Corpuscular HGB CONC 32.2 g/dL (32.0-36.0); Mean Corpuscular Volume 90.3 fL (78.0-98.0); Mean Platelet Volume 8.4 fL (7.4-10.4); Platelet Count 264 thou/uL (130-400); Red Blood Cell (RBC) Count 5.02 mill/uL (4.70-6.10); White Blood Cell (WBC) Count 18.2 thou/uL (4.8-10.8)
[2018-07-01 18:19] LABS: Base Excess-Venous 2.9 mmol/L (0 (+/- 2.5)); CO2 Tension (PvCO2) 49.5 mmHg (41.0-51.0); O2 Tension (PvO2) 39.4 mmHg (35.0-45.0); Potassium 3.9 mmol/L (3.4-4.7); T. Carbon Dioxide 30.6 mmol/L (1.0-85.0); pH (Venous) 7.376 (7.35-7.45); vO2 Saturation-calc 72.1 % (94-98)
[2018-07-01 18:28] LABS: ALT (SGPT) 495 U/L (8-55); AST (SGOT) 120 U/L (5-34); Albumin 3.6 g/dL (3.4-4.8); Alkaline Phosphatase 134 U/L (40-150); Anion Gap 15 mmol/L (10-20); BUN (Urea Nitrogen) 30 mg/dL (8.4-25.7); Bilirubin, Total 0.8 mg/dL (0.2-1.2); CK (CPK) 30 U/L (30-200); Calc. Creatinine Clearance 0 mL/min (70-130); Calcium 9.6 mg/dL (7.8-10.44); Carbon Dioxide 23 mmol/L (23-31); Chloride 98 mmol/L (98-107); Estimated GFR-MDRD 59; Globulin 3.3 g/dL (2.4-3.5); Glucose 226 mg/dL (80-115); Lipase 402 U/L (8-78); Potassium 4.2 mmol/L (3.5-5.1); Protein, Total 6.9 g/dL (5.8-8.1); Sodium 132 mmol/L (136-145)
[2018-07-01 18:34] LABS: Band 20 % (5-11); Eosinophils 2 % (0-10); Lymphocytes 6 % (21-51); MDiff Complete? YES; Monocytes 2 % (0-10); Neutrophil 70 % (42-75)
[2018-07-01] MEDS ORDERED: Morphine 4 MG/ML VIAL ONE (18:38)
[2018-07-01] MEDS ORDERED: Ondansetron PF 4 MG/2 ML Vial ONE (18:39)
--- NOTE | 2018-07-01 19:07 | RAD ---
FRONTAL RADIOGRAPH CHEST: 07/01/2018 HISTORY: Abdominal pain and sepsis. COMPARISON: 06/20/2018 FINDINGS: Shallow inspiration and body habitus limit detailed assessment of the lung bases. Volume loss or inf iltrate in the lung bases cannot be excluded, left more so than right. No pneumothorax or alveolar e juan. IMPRESSION: Mild nonspecific increased density in the lung bases, which could signify infiltrate, volume loss, or could be technical in nature. POS: KEYSHA
--- NOTE | 2018-07-01 19:38 | CT ---
CT ABDOMEN AND PELVIS: 07/01/2018 HISTORY: Abdominal pain. Sepsis. COMPARISON: 06/04/2018 TECHNIQUE: Axial CT imaging obtained at 5 mm intervals, from the lung bases through the pubic symphysis, with IV contrast. Coronal reformatted imaging obtained. FINDINGS: The imaged lung bases demonstrate mild increased density in both lower lobes, left greater than right , suggesting volume loss. There is no free intraperitoneal air or fluid evident. There is a Del Real c atheter within the urinary bladder. The liver, spleen, gallbladder, adrenal glands, and kidneys appear grossly unremarkable. The pancrea s is slightly ill-defined, and there is stranding of the peripancreatic fat, with small-volume peripa ncreatic fluid. These findings have worsened significantly since the prior examination and suggest p ancreatitis. Evaluation of the bowel demonstrates no evidence for focal inflammatory change or obstruction. The a ppendix appears grossly unremarkable. There is scattered atherosclerotic calcification of the infrar enal abdominal aorta. No lymphadenopathy is evident. Review of the osseous structures demonstrates no acute findings. Multilevel degenerative change noted within the imaged thoracic and lumbar spine, with disk space narrowing, degenerative endplate change, and anterior-lateral osteophyte formation. IMPRESSION: Findings suggesting interval worsening of pancreatic inflammatory change, evidence of pancreatitis. POS: KEYSHA
--- NOTE | 2018-07-01 19:58 | PDOC.FPRHP ---
- History of Present Illness Chief Complaint: abdominal pain History of Present Illness: 63yo M with pmh of MS and recent hospitalization for sepsis 2/2 millan catheter associated UTI (DC on 06/27). Today he presents from inpatient rehab with complaint of abdominal pain x1day that is diffuse, sharp in nature, and severe. Pt has associated subjective chills. No nausea/vomiting/diarrhea/constipation. ED Course: 4L IVF, vanc, zosyn, cipro, Central Line - Allergies/Adverse Reactions Allergies Allergy/AdvReac Type Severity Reaction Status Date / Time acetaminophen [From Tylenol] Allergy Verified 07/02/18 02:03 codeine Allergy Verified 07/02/18 02:03 - Home Medications Medication Instructions Recorded Confirmed Type Baclofen 20 mg PO TID 06/04/18 07/02/18 History Cholecalciferol (Vitamin D3) 1 capsule PO DAILY 06/04/18 07/02/18 History [Vitamin D] Insulin Detemir [Levemir] 15 unit SQ DAILY 06/04/18 07/02/18 History Magnesium 250 mg PO INF 06/04/18 07/01/18 History Polyethylene Glycol 3350 [Miralax] 17 gm PO DAILY #30 pk 06/09/18 07/02/18 Rx Tamsulosin HCl [Flomax] 0.4 mg PO DAILY #30 cap 06/09/18 07/02/18 Rx Metoprolol Succinate [Toprol XL] 25 mg PO DAILY #30 tab 06/27/18 07/02/18 Rx Benzocaine/Menthol [Cepacol Sore 1 hannah PO BID PRN 07/02/18 07/02/18 History Throat Lozenge] Bisacodyl [Biscolax] 10 mg ID DAILY PRN 07/02/18 07/02/18 History Calcium Carbonate [Tums] 1,000 mg PO QID PRN 07/02/18 07/02/18 History Cipro 250 mg PO ASDIR 07/02/18 07/02/18 History Dextrose 50% 50 ml IV ASDIR PRN 07/02/18 07/02/18 History Docusate [Colace] 100 mg PO BID 07/02/18 07/02/18 History Enoxaparin Sodium [Lovenox] 40 mg SC DAILY 07/02/18 07/02/18 History Famotidine [Pepcid] 20 mg PO BID 07/02/18 07/02/18 History Glucagon 1 mg IM ONE PRN 07/02/18 07/02/18 History Insulin Lispro [Humalog Chandler 100 unit SC ASDIR PRN 07/02/18 07/02/18 History Kwikpen] Lactulose 20 gm PO TID PRN 07/02/18 07/02/18 History Loperamide HCl [Loperamide] 2 mg PO ASDIR PRN 07/02/18 07/02/18 History Losartan [Cozaar] 100 mg PO DAILY 07/02/18 07/02/18 History Magnesium Hydroxide [Milk of 2,400 mg PO DAILY PRN 07/02/18 07/02/18 History Magnesia] Magnesium Oxide 400 mg PO DAILY 07/02/18 07/02/18 History Multivitamin [Multivitamins] 1 cap PO DAILY 07/02/18 07/02/18 History Ondansetron HCl [Zofran] 4 mg PO Q6H PRN 07/02/18 07/02/18 History Polyethylene Glycol 3350 1,700 gm PO DAILY 07/02/18 07/02/18 History [Laxaclear] Sennosides [Senna] 8.6 mg PO DAILY PRN 07/02/18 07/02/18 History Sodium Phosphates [Fleet Enema] 133 ml ID DAILY PRN 07/02/18 07/02/18 History Valsartan/Hydrochlorothiazide 1 each PO DAILY 07/02/18 07/02/18 History [Valsartan-Hctz 160-25 mg Tab] cloNIDine [Catapres] 1 tab PO Q6H PRN 07/02/18 07/02/18 History diphenhydrAMINE [Benadryl] 1 cap PO Q6H PRN 07/02/18 07/02/18 History guaiFENesin [Guaifenesin] 100 mg PO Q4H PRN 07/02/18 07/02/18 History traMADol HCl [Tramadol HCl] 50 mg PO Q6H PRN 07/02/18 07/02/18 History - History PMHx: MS, HTN, DMII, chronic back pain PSHx: left shoulder and right leg surgery FHx: DMII in sister and parents, HTN in father Social: Former smoker with a 40 pack year smoking history. Also a former heavy drinker. Endorses drinking a 12-pack/day for about 20 years as well. Quit smoking and drinking 20 years ago. Tried IV meth about 20 years ago. No illicit drug use since. Lives at home in [place] with his son who is his only child. - Review of Systems General: reports: fever/chills, fatigue Eyes: denies: vision changes ENT: denies: nasal congestion Respiratory: denies: cough, congestion, shortness of breath Cardiovascular: denies: chest pain, palpitation Gastrointestinal: reports: abdominal pain. denies: nausea, vomiting, diarrhea, constipation Genitourinary: denies: dysuria, polyuria Skin: denies: rashes, lesions Musculoskeletal: denies: tenderness, stiffness Neurological: denies: syncope, seizure Psychological: denies: anxiety, depression - Vital signs BP: [91/62] HR: [117] RR: [20] Tmax: [98.7] Pox: [93]% on [ra] Wt: [102kg] - Physical Exam Constitutional: awake, alert and oriented -Constitutional: moderate distress 2/2 abdominal pain HEENT: normocephalic and atraumatic, EOMI, conjunctiva clear, MMM Neck: trachea midline, no JVD Chest: no-tender to palpation Heart: RRR, normal S1/S2 Lungs: CTAB, no respiratory distress Abdomen: soft, other (diffuse TTP, no guarding, no rebound tenderness) Musculoskeletal: normal structure, normal tone -Neurological: A&O x3, vision/hearing grossly intact Skin: no rash/lesions, good turgor, capillary refill <2 seconds Heme/Lymphatic: no unusual bruising or bleeding, no purpura Psychiatric: normal mood and affect, good judgment and insight FMR H&P: Results - Labs Result Diagrams: 07/02/18 04:18 07/02/18 04:18 Lab results: WBC 18.2 thou/uL (4.8-10.8) H 07/01/18 17:49 Hgb 14.6 g/dL (14.0-18.0) 07/01/18 17:49 Hct 45.4 % (42.0-52.0) 07/01/18 17:49 MCV 90.3 fL (78.0-98.0) 07/01/18 17:49 Plt Count 264 thou/uL (130-400) 07/01/18 17:49 Band Neuts % (Manual) 20 % (5-11) H 07/01/18 17:49 VBG pCO2 49.5 mmHg (41.0-51.0) 07/01/18 18:16 VBG pO2 39.4 mmHg (35.0-45.0) 07/01/18 18:16 Sodium 132 mmol/L (136-145) L 07/01/18 17:49 Potassium 4.2 mmol/L (3.5-5.1) 07/01/18 17:49 Chloride 98 mmol/L (98-107) 07/01/18 17:49 Carbon Dioxide 23 mmol/L (23-31) 07/01/18 17:49 BUN 30 mg/dL (8.4-25.7) H 07/01/18 17:49 Creatinine 1.24 mg/dL (0.7-1.3) 07/01/18 17:49 Glucose 226 mg/dL (80-115) H 07/01/18 17:49 Lactic Acid 1.2 mmol/L (0.5-2.2) 07/01/18 17:50 Calcium 9.6 mg/dL (7.8-10.44) 07/01/18 17:49 Total Bilirubin 0.8 mg/dL (0.2-1.2) 07/01/18 17:49 AST 120 U/L (5-34) H 07/01/18 17:49 ALT 495 U/L (8-55) H 07/01/18 17:49 Alkaline Phosphatase 134 U/L (40-150) 07/01/18 17:49 Creatine Kinase 30 U/L (30-200) 07/01/18 17:49 Serum Total Protein 6.9 g/dL (5.8-8.1) 07/01/18 17:49 Albumin 3.6 g/dL (3.4-4.8) 07/01/18 17:49 Lipase 402 U/L (8-78) H 07/01/18 17:49 Urine Ketones Negative mg/dL (Negative) 07/01/18 17:20 Urine Blood Moderate (Negative) H 07/01/18 17:20 Urine Nitrite Negative (Negative) 07/01/18 17:20 Ur Leukocyte Esterase Negative (Negative) 07/01/18 17:20 Urine RBC 21-50 HPF (0-3) H 07/01/18 17:20 Urine WBC 0-3 HPF (0-3) 07/01/18 17:20 Ur Squamous Epith Cells 0-3 HPF (0-3) 07/01/18 17:20 Urine Bacteria None Seen HPF (None Seen) 07/01/18 17:20 FMR H&P: A/P - Problem List (1) Sepsis Current Visit: No Status: Acute Code(s): A41.9 - SEPSIS, UNSPECIFIED ORGANISM (2) Cholangitis Current Visit: Yes Status: Acute Code(s): K83.09 - OTHER CHOLANGITIS (3) Diabetes mellitus Current Visit: No Status: Acute Code(s): E11.9 - TYPE 2 DIABETES MELLITUS WITHOUT COMPLICATIONS (4) HTN (hypertension) Current Visit: No Status: Acute Code(s): I10 - ESSENTIAL (PRIMARY) HYPERTENSION (5) Multiple sclerosis Current Visit: No Status: Acute Code(s): G35 - MULTIPLE SCLEROSIS (6) Pancreatitis Current Visit: No Status: Acute Code(s): K85.90 - ACUTE PANCREATITIS WITHOUT NECROSIS OR INFECTION, UNSP (7) Urinary retention Current Visit: No Status: Acute Code(s): R33.9 - RETENTION OF URINE, UNSPECIFIED - Plan Sepsis 2/2 cholangitis A- Pt meeting sirs criteria on admission by tachycardia and WBC 18.2 with bandemia. Pt BPs borderline hypotensive in ED and is s/p 4L NS and Central line placement in anticipation of possible need for pressors though that is not necessary at this time. cholelithiasis seen on CT and CBD dilation noted on RUQ US up to 5mm. Pt s/p vanc, zosyn, and cipro in ED. procal .63 P- admit to IMCU - Continue Zosyn - LR at 125ml/hr - consult GI or surgery in AM Gallstone pancreatitis A- Stones seen on abdominal CT as stated above with CBD dilation. No gall bladder wall thickening or inflamation noted. Lipase 400, ALT 778->495 on admission. P- IVF per plan above -NPO -morphine to controll pain -zofran prn -GI/surgery consult per plan above MS A- MD aware P- PT and OT consulted Urinary retention A- Pt has millan as placed from last admission. Had plans for f/u with urology P- consider urology consult in AM vs voiding trial HTN -hold home meds for now DM2 -hold home insulin as pt is NPO CODE: DNAR dispo: inpt, anticipate greater than 2 midnights PPx: lovenox FMR H&P: Upper Level - Pertinent history 63 yo CM with a PMH of MS, HTN, DM2 and two recent hospitalizations for acute pancreatitis and sepsis 2/2 CAUTI presenting from inpatient rehab. Pt notes that he went for a RUQ US this AM. He returned to rehab and complained of epigastric abdominal pain and constipation. Pt had not had a BM for about 4-5 days then received an enema at rehab and had a large BM. They noted, however, that his BP was low and his HR was up so sent him for evaluation. On presentation, the pt had bouts of hypoTN, tachycardia, leukocytosis, and significant epigastric abdominal pain. Pt was given 4L of NS, Vancomycin 2g, Cipro 400 mg, Zosyn 4.5g, morphine 4mg, zofran and protonix. Pt also had left IJ CVC placed under US guidance. - Pertinent findings BP 91/67, HR 117, Tmax 99.6 Gen: obese in NAD CV: tachycardic, no murmurs Resp: unlabored, CTAB Abd: mildly distended, BS+, voluntary guarding, significant epigastric TTP, no rebound/fluid wave - Plan Date/Time: 07/01/181957 I, Fadi Panchal MD PGY3, have evaluated this patient and agree with findings/ plan as outlined by international flight attendant resident. Pertinent changes/additions are listed here. 1. Sepsis 2/2 possible mild acute cholangitis complicated by gallstone pancreatitis -Pt presents with hypoTN, tachycardia, leukocytosis, elevated LFTs, US evidence of cholelithiasis, and CT abd evidence of worsening pancreatic fat stranding consistent with pancreatitis. Although pt's alkaline phosphatase and bilirubin are within normal limits, pt meets diagnostic criteria for mild acute cholangitis. -Pt's blood pressure have improved with aggressive IVF resuscitation. Left IJ CVC has been placed. -We will continue IVF and abx coverage with Zosyn at this time for intra- abdominal infection. -Consider GI vs general surgery consultation in AM, recommendations greatly appreciated regarding ERCP vs surgical intervention. -No evidence for severe suppurative cholangitis at this time. Obtain coagulation studies to rule out hepatic dysfunction and closely monitor need for pharmacologic cardiovascular support. -Bowel rest and pain control. -Trend AM labs including CBC, CMP, and lipase. 2. ZI on CKD2 -IVF and trend. 3. Urinary retention 2/2 neurogenic bladder -Pt has indwelling millan per urology recommendations during last hospitalization. Thought to be due to BPH and worsening MS. -Pt has not yet followed up with urology outpatient, consider inpatient consultation vs voiding trial. See international flight attendant note for other chronic medical issues. DNAR Code Status PPx: Lovenox for VTE, Famotidine for GI disposition: Admit to inpatient IMCU for anticipated length of stay greater than two midnights, pending clinical course. Addendum - Attending - Attending Attestation Date/Time: 07/01/182041 I personally evaluated the patient and discussed the management with Dr. Vazquez and Dr. Panchal I agree with the History, Examination, Assessment and Plan documented above with any addition or exceptions noted below. 63 yo male with history of primary relapsing MS, HTN, DM and two recent hospitalizations for acute pancreatitis and sepsis 2/2 CAUTI presenting from inpatient rehab for evaluation of severe abdominal pain. Patient underwent RUQ imaging earlier. Returned to Rehab with abdominal pain thinking it was related to constipation. Received laxative with large BM. Initially received relief but abdominal pain returned. Intensity was worse. Quality was different than before. Reports constant. Noted to have low blood pressure and elevated HR at rehab. Transferred to ER for evaluation. Unable to tolerate PO intake. No N/V. Denies F/C. Fragoso pain. Largely epigastric and RUQ but does report generalized pain as well. VS, Labs, Imaging reviewed. Exam repeated. Agree with documentation above. -- moderate abdominal tenderness , no rebound, voluntary/involuntary guarding, no skin changes. 1. Sepsis likely 2/2 acute cholangitis, complicated by gallstone pancreatitis: Imaging reviewed (RUQ sono and CT scan). Noted to have dilated CBD, significant abdominal pain, and elevated WBC. No evidence of infectious pancreatitis. Noted to be hypotensive in ER. Responded with MAP of 70 s/p 3.5L. Sinus tachycardia noted as well. Cultures obtained. IV antibiotics for GI sources continued. Monitor in IMCU. Trend labs. Procal = 2. Trend lactic acid inorder to verfy perfusion along with BP and I/Os. Consult GI/Gen surg. 2. Primary relapsing MS: Monitor closely for flare. Continue home meds. Limited on ADLS. PT consulted. Onur
[2018-07-01] MEDS ORDERED: Ondansetron ODT 4 MG TAB PO PRN (22:19)
[2018-07-01] MEDS ORDERED: Dextrose 50% Abboject 50 ML SYRINGE SLOW IVP PRN (22:19)
[2018-07-01] MEDS ORDERED: Ondansetron PF 4 MG/2 ML Vial IVP PRN (22:19)
[2018-07-01] MEDS ORDERED: Pantoprazole 40 MG VIAL ONE (22:19)
[2018-07-01] MEDS ORDERED: Dextrose 5% in Water 1,000 ML IV PRN (22:19)
[2018-07-01] MEDS ORDERED: HumaLOG 300 UNITS/3 ML VIAL SC PRN (22:24)
[2018-07-01] MEDS ORDERED: Morphine 4 MG/ML VIAL SLOW IVP PRN (22:26)
--- NOTE | 2018-07-01 22:51 | RAD ---
SUPINE PORTABLE FRONTAL CHEST RADIOGRAPH: 07/01/2018 HISTORY: Central line placement. COMPARISON: 06/26/2018 FINDINGS: Supine imaging is provided, limiting assessment for pneumothorax and pleural fluid. There is a left- sided vascular catheter, distal tip overlying the expected location of the cavoatrial junction. IMPRESSION: Vascular catheter as above. POS: [facility]
[2018-07-01 23:20] LABS: INR-International Normal Ratio 1.1; Prothrombin Time 14.6 SEC (12.0-14.7)
[2018-07-01 23:21] LABS: PTT 38.7 SEC (22.9-36.1)
[2018-07-02] MEDS: Piperacillin/Tazobactam 3.375 GM in Sodium Chloride 0.9% 100 ML IVPB SCH ×4 (01:06→17:37)
[2018-07-02] MEDS: Lactated Ringer's 1,000 ML IV SCH ×2 (01:49→08:15)
[2018-07-02 02:06] VITALS: BMI 34.8
[2018-07-02 04:34] LABS: #Eosinphils 0.3 thou/uL (0.0-0.7); #Lymphocytes 0.9 thou/uL (1.20-3.40); #Monocytes 0.8 thou/uL (0.11-0.59); #Neutrophils 13.4 thou/uL (1.40-6.50); %Basophils 0.2 % (0.0-1.0); %Eosinophils 2.1 % (0.0-10.0); %Monocytes 5.1 % (0.0-10.0); %Neutrophils 86.6 % (42.0-75.0); Hemoglobin 12.3 g/dL (14.0-18.0); Mean Corpuscular HGB CONC 31.4 g/dL (32.0-36.0); Mean Corpuscular Hemoglobin 28.3 pg (27.0-31.0); Mean Corpuscular Volume 90.1 fL (78.0-98.0); Mean Platelet Volume 8.1 fL (7.4-10.4); Platelet Count 205 thou/uL (130-400); RBC Distribution Width 12.8 % (11.5-14.5); Red Blood Cell (RBC) Count 4.35 mill/uL (4.70-6.10); White Blood Cell (WBC) Count 15.4 thou/uL (4.8-10.8)
[2018-07-02 04:43] LABS: ALT (SGPT) 318 U/L (8-55); AST (SGOT) 50 U/L (5-34); Alkaline Phosphatase 99 U/L (40-150); Anion Gap 12 mmol/L (10-20); BUN (Urea Nitrogen) 17 mg/dL (8.4-25.7); Bilirubin, Total 0.7 mg/dL (0.2-1.2); Calc. Creatinine Clearance 114 mL/min (70-130); Calcium 8.5 mg/dL (7.8-10.44); Carbon Dioxide 22 mmol/L (23-31); Chloride 105 mmol/L (98-107); Estimated GFR-MDRD 77; Globulin 2.8 g/dL (2.4-3.5); Glucose 162 mg/dL (80-115); Lipase 101 U/L (8-78); Potassium 4.1 mmol/L (3.5-5.1); Protein, Total 5.8 g/dL (5.8-8.1); Sodium 135 mmol/L (136-145)
--- NOTE | 2018-07-02 05:46 | PDOC.FM ---
- Subjective Subjective: NAEO. Patient states that he feels tired this morning. He states that he is still experiencing abdominal pain, improved from yesterday. Denies SOB, chest pain, palpitations, NVD. - Objective MAR Reviewed: Yes Vital Signs & Weight: Vital Signs (12 hours) Temp Pulse Resp BP Pulse Ox 07/02/18 04:00 99.5 F 115 H 23 H 112/76 97 07/02/18 02:31 95 07/02/18 01:35 98.5 F 114 H 16 106/70 95 Weight Weight 103.918 kg Result Diagrams: 07/02/18 04:18 07/02/18 04:18 Phys Exam - Physical Examination Constitutional: NAD HEENT: PERRLA, moist MMs, sclera anicteric Neck: supple, full ROM Respiratory: clear to auscultation bilateral Cardiovascular: RRR Gastrointestinal: soft, no distention, positive bowel sounds tender in mid epigastrium w/ palpation Musculoskeletal: no edema Neurological: non-focal, moves all 4 limbs Psychiatric: normal affect, A&O x 3 Deviation from normal: seborrheic dermatitis on face Dx/Plan (1) Cholangitis Code(s): K83.09 - OTHER CHOLANGITIS Status: Acute (2) Constipation Code(s): K59.00 - CONSTIPATION, UNSPECIFIED Status: Acute (3) Diabetes mellitus Code(s): E11.9 - TYPE 2 DIABETES MELLITUS WITHOUT COMPLICATIONS Status: Acute (4) HTN (hypertension) Code(s): I10 - ESSENTIAL (PRIMARY) HYPERTENSION Status: Acute (5) Leukocytosis Code(s): D72.829 - ELEVATED WHITE BLOOD CELL COUNT, UNSPECIFIED Status: Acute (6) Multiple sclerosis Code(s): G35 - MULTIPLE SCLEROSIS Status: Acute (7) Pancreatitis Code(s): K85.90 - ACUTE PANCREATITIS WITHOUT NECROSIS OR INFECTION, UNSP Status: Acute (8) Sepsis Code(s): A41.9 - SEPSIS, UNSPECIFIED ORGANISM Status: Acute (9) Tachycardia Code(s): R00.0 - TACHYCARDIA, UNSPECIFIED Status: Acute (10) Urinary retention Code(s): R33.9 - RETENTION OF URINE, UNSPECIFIED Status: Acute - Plan Plan: Sepsis 2/2 cholangitis Pt meeting sirs criteria on admission by tachycardia and WBC 18.2 with bandemia. Pt BPs borderline hypotensive in ED and is s/p 4L NS and Central line placement in anticipation of possible need for pressors though that is not necessary at this time. Bp stable for now. Cholelithiasis seen on CT and CBD dilation noted on RUQ US up to 5mm. Pt s/p vanc, zosyn, and cipro in ED. Procal 0.63. - Continue Zosyn - LR at 140ml/hr - consult GI this AM, appreciate recommendations Gallstone pancreatitis Stones seen on abdominal CT as stated above with CBD dilation. No gall bladder wall thickening or inflammation noted. Lipase 400 -> 101, OTF649-> 318 - IVF per plan above - NPO in anticipation of GI procedure - morphine to control pain - zofran prn - GI consult per plan above MS aware - PT and OT consulted Urinary retention - Pt has millan as placed from last admission. Had plans for f/u with urology HTN - hold home meds for now DM2 - hold home insulin as pt is NPO Hx of Tachycardia - previous admissions patient has been in sinus tachycardia, present again this admission; sinus; HR 114-115 - Pt asymptomatic; will result metoprolol and continue to monitor CODE: DNAR dispo: GI consulted, will follow up their recommendations PPx: lovenox Addendum - Attending - Attending Attestation Date/Time: 07/02/18 [id number] I personally evaluated the patient and discussed the management with Dr. Chen I agree with the History, Examination, Assessment and Plan documented above with any addition or exceptions noted below. Sepsis secondary to acute cholecysitis and possible mild ascending cholangitis- on zosyn and IVF. Gallstone pancreatitis-NPO Elevated transaminases- secondary to above- appreciate GI recs. downtrending this am. Continue IMCU care for now.
--- NOTE | 2018-07-02 07:07 | PDOC.PULCN ---
Pulmonology Consult: HPI - Date of Consult Date: 07/02/18 Time: 13:00 - Consult Details Reason for Consult: IMCU stay for acute pancreatitis Requesting Physician: Fadi Panchal - History of Present Illness HPI: ISRAEL SANTACRUZ is a 63 year-old M 63 year old male with PMH DM type II, MS, and HTN that presented from rehab with persistent, severe epigastric pain with sudden onset yesterday. Patient reportedly started to have abdominal pain while at rehab and was sent for a RUQ ultrasound and lab work. He was found to have elevated LFT's and biliary sludge with gallstone shadowing. The abdominal pain persisted so he was taken to the ER. He was noted to be tachypneic and tachycardic. There was concern that he may become hyoptensive and in need of pressors, so a central line was placed in the ED. Patient has been afrebrile. He does have a history of pancreatitis treated during a previous hospitalization. Patient states that the only change in medications at that time was increase in dose of Valsartan. He was recently discharged from the hospital on 06/27 after being treated for catheter associated UTI. The valsartan dose at that time was decreased and patient was sent back to facility to complete course of Cipro. Patient endorses nausea and decreased appetite yesterday. However, today he states that he has a great appetite and would like to eat. He is still in a significant amount of pain, particularly with palpation. Pulmonology Consult: ROS - Review of Systems All systems: reviewed and no additional remarkable complaints except as stated Constitutional: negative: fever Cardiovascular: negative: chest pain, edema Respiratory: negative: congestion, cough, non-productive cough, short of breath Pulmonology Consult: PMH Source: patient Past Medical History: PMH: HTN, MS, DM type II, Chronic back pain, Indwelling millan catheter for urinary retention since 06/2018 Surgical History: Left shoulder surgery, Right leg surgery - Family History Family history: reviewed and not pertinent - Social History Smoking Status: Never smoker Alcohol Use: none Drug Use History: none Pulmonology Consult: Meds - Medications MAR Reviewed: Yes Medications: Current Medications Dextrose/Water (Dextrose 50%) 25 gm SLOW IVP PRN PRN PRN Reason: Hypoglycemia Enoxaparin Sodium (Lovenox) 40 mg SC 0900 [facility] Famotidine (Pepcid) 20 mg SLOW IVP Q12HR [facility] Glucagon (Glucagon) 1 mg IM PRN PRN PRN Reason: Hypoglycemia Dextrose/Water (D5w) 1,000 mls @ 0 mls/hr IV .Q0M PRN PRN Reason: Hypoglycemia Piperacillin Sod/Tazobactam (Sod 3.375 gm/ Sodium Chloride) 100 mls @ 200 mls/ hr IVPB Q6HR [facility] Last Admin: 07/02/18 05:40 Dose: 100 mls Lactated Ringer's (Lactated Ringer's) 1,000 mls @ 125 mls/hr IV .Q8H [facility] Last Admin: 07/02/18 01:49 Dose: 1,000 mls Insulin Human Lispro (Humalog) 0 units SC .MILD SLIDING SCALE PRN PRN Reason: Mild Correctional Scale Insulin Human Lispro (Humalog) 0 units SC .BEDTIME SLIDING SC PRN PRN Reason: Bedtime Correctional Scale Morphine Sulfate (Morphine) 4 mg SLOW IVP Q4H PRN PRN Reason: Moderate to Severe Pain (6-10) Ondansetron HCl (Zofran Odt) 4 mg PO Q6H PRN PRN Reason: Nausea/Vomiting Ondansetron HCl (Zofran) 4 mg IVP Q6H PRN PRN Reason: Nausea/Vomiting Sodium Chloride (Flush - Normal Saline) 10 ml IVF PRN PRN PRN Reason: Saline Flush - Allergies Allergies/Adverse Reactions: Allergies Allergy/AdvReac Type Severity Reaction Status Date / Time acetaminophen [From Tylenol] Allergy Verified 07/02/18 02:03 codeine Allergy Verified 07/02/18 02:03 Pulmonology Consult: PE - Physical Exam Constitutional: NAD HEENT: moist MMs Cardiovascular: no significant murmur Deviation from normal: Tachycardic Respiratory: clear to auscultation anteriorly. negative: accessory muscle use, respiratory distress Gastrointestinal: soft Deviation from normal: Tender to palpation diffusely, but worse in epigastric region Deviation from normal: Trace bilateral LE edema Neurological: non-focal, moves all 4 limbs Psychiatric: normal affect, A&O x 3 Skin: cap refill <2 seconds Pulmonology Consult: Results - Labs Result Diagrams: 07/04/18 05:12 07/04/18 05:12 - ABG Interpretation ABG Results: POC Bicarbonate Calc 29.0 mmol/L (22.0-29.0) 07/01/18 18:16 - Radiology Interpretation CT scan - abdomen Status: report reviewed by me Additional comments: Peripancreatic fat stranding evident US - abdomen Status: report reviewed by me Additional comments: 5 cm CBD with biliary sludge and gallstone shadowing. Pulmonology Consult: A/P - Problem (1) SIRS (systemic inflammatory response syndrome) Current Visit: Yes Code(s): R65.10 - SIRS OF NON-INFECTIOUS ORIGIN W/O ACUTE ORGAN DYSFUNCTION Status: Acute (2) Acute pancreatitis Current Visit: Yes Code(s): K85.90 - ACUTE PANCREATITIS WITHOUT NECROSIS OR INFECTION, UNSP Status: Acute (3) Cholelithiasis Current Visit: Yes Code(s): K80.20 - CALCULUS OF GALLBLADDER W/O CHOLECYSTITIS W/O OBSTRUCTION Status: Acute (4) Diabetes mellitus Current Visit: No Code(s): E11.9 - TYPE 2 DIABETES MELLITUS WITHOUT COMPLICATIONS Status: Chronic Qualifiers: Diabetes mellitus type: type 2 (5) HTN (hypertension) Current Visit: No Code(s): I10 - ESSENTIAL (PRIMARY) HYPERTENSION Status: Chronic (6) Multiple sclerosis Current Visit: No Code(s): G35 - MULTIPLE SCLEROSIS Status: Chronic (7) Urinary retention Current Visit: No Code(s): R33.9 - RETENTION OF URINE, UNSPECIFIED Status: Acute (8) Transaminitis Current Visit: Yes Code(s): R74.0 - NONSPEC ELEV OF LEVELS OF TRANSAMNS & LACTIC ACID DEHYDRGNSE Status: Acute - Time Time: 50% of the time was spent in coordination of care (as documented) at patient's floor/unit and/or counseling patient. Time with Patient: greater than 70 minutes - Plan Plan: Acute Pancreatitis Patient does not drink alcohol. TG's 64. Evidence of cholelithiasis on RUQ sono performed yesterday. GI has been consulted. Recommend aggressive fluid hydration with NS. Rate increased to 200 mL/hr. If patient starts to show signs of overload, recommend intermittent use of lasix. Early feeding within 48 hours recommended. If GI does not plan for procedure today, would recommend introduction of clear liquid diet. Would consider workup for autoimmune pancreatitis. Would consider fentanyl for pain control as opposed to morphine due to theoretical sphincter of oddi dysfunction associated with morphine. Strict I&O's. Zofran PRN for nausea. SIRS: Likely 2/2 acute pancreatitis. Does not appear to be source of infection at this time. Patient with elevated WBC, tachycardia (although tachycardic at baseline), and mildly tachypneic with RR >20. Goal is to continue IVF at aggressive rate. Will switch to NS from LR. Antibiotics may not be necessary at this time. Cholelithiasis: As evidenced by RUFern dean. GI has been consulted. Transaminitis: Likely related to acute pancreatitis 2/2 cholelithiasis. See plan as above. LFT' s have downtrended during course of stay. Type II DM: Continue home insulin regimen. Goal BG <180. HTN: Consider discontinuing valsartan as potential contributor to pancreatitis and transitioning to other BP medication. MS: Patient not currently on therapy for MS. Recent urinary retention likely 2/2 MS flare requiring indwelling millan catheter. Urinary retention: Patient with millan catheter. Monitor I&O's. Massiel Rangel, DO PGY-2 Addendum - Attending - Attending Attestation Date/Time: 07/04/18 7859 I personally evaluated the patient and discussed the management with Dr. Rangel. I agree with the History, Examination, Assessment and Plan documented above with any addition or exceptions noted below. 70 minutes have been devoted to this patient in various activities. I personally reviewed all imaging studies and laboratory data noted within this document. For fifty percent of this time, I was interacting with the patient at the bedside or coordinating care with the care team. For the remainder of the time I was immediately available to the patient in the hospital unit.
[2018-07-02] MEDS ORDERED: Lactated Ringer's 1,000 ML IV SCH (07:49)
[2018-07-02] MEDS: Famotidine/PF 20 mg/2ml Vial SLOW IVP SCH ×2 (09:07→21:53)
[2018-07-02] MEDS: Enoxaparin Sodium 40 MG/0.4 ML SYRINGE SC SCH (09:13)
[2018-07-02] MEDS: Sodium Chloride 0.9% 1,000 ML IV SCH ×2 (15:30→21:53)
--- NOTE | 2018-07-02 20:48 | CON ---
DATE OF CONSULTATION: 07/02/2018 CHIEF COMPLAINT: Abdominal pain. HISTORY OF PRESENT ILLNESS: Mr. Hill is a 63-year-old man who was admitted with abdominal pain and elevated pancreatic enzymes consistent with acute pancreatitis. He was just hospitalized back at the end of May on with acute pancreatitis and elevated liver tests at that time. He had an ultrasound of the abdomen that was of poor quality due to body habitus at that time. He had a followup ultrasound yesterday that did show cholelithiasis and fatty liver. His common bile duct was 5 mm. With the previous hospitalization, he was discharged on 06/10/2018, with resolution of his pancreatitis with medical management with IV fluids. He was having constipation and was treated with MiraLAX. His pain resolved prior to hospital discharge with his prior pancreatitis. Yesterday, he developed sharp epigastric pain that radiates down toward the right lower quadrant. The pain started yesterday morning. He had been constipated for 5-7 days and received an enema. He had a large bowel movement; however, this did not resolve the pain. The pain worsened and he came to the emergency room for further care and admitted again with acute pancreatitis and IV fluids. His pain has persisted, but is improving slowly. He feels nauseated, but he has no vomiting. No blood in the stool. No fever. He was noted to have an elevated white blood cell count. He had blood cultures obtained that were negative so far. He does report some cough. PAST MEDICAL HISTORY: MS, recent acute pancreatitis, urinary tract infection, diabetes mellitus type 2, chronic back pain. PAST SURGICAL HISTORY: Shoulder surgery and leg surgery. FAMILY HISTORY: Negative for GI malignancy. SOCIAL HISTORY: He quit alcohol 22 years ago. He drank 12-pack a day for 20 years prior to that. He is a former smoker. He experimented with drugs in the past including IV drugs in the remote past, but did test negative for hepatitis C and hepatitis B recently. ALLERGIES: ACETAMINOPHEN AND CODEINE. MEDICATIONS: Include enoxaparin, metoprolol, Zosyn. REVIEW OF SYSTEMS: Negative x10 systems reviewed except as stated in history of present illness. PHYSICAL EXAMINATION: VITAL SIGNS: Temperature 98.4, pulse 119, oxygen saturation 94%, blood pressure 113/71. GENERAL: He is in no acute distress. He is alert and oriented x3. HEENT: Eyes have no scleral icterus. Oropharynx is clear without lesions. No cervical or supraclavicular lymphadenopathy. LUNGS: Clear to auscultation bilaterally. HEART: Tachycardic, S1, S2. No murmur. ABDOMEN: Soft. He is tender to palpation in the epigastric region and right lower quadrant. He does not guard. His bowel sounds are present. EXTREMITIES: Trace lower extremity edema with some skin breaks in his lower extremities. LABORATORY DATA: White blood cell count 15.4, down from 18.2 yesterday. Hemoglobin is 12.3, down from 14.6 last night after hydration, platelets 205. INR 1.1. Creatinine 0.99, bilirubin 0.7, AST 50, ALT 318, alkaline phosphatase 99. When he was hospitalized back on June 04, his bilirubin was 1.5 associated with the lipase over 1999. His ALT was 250 at that time. Today, his lipase is 101, last night his lipase was 402, and yesterday afternoon lipase was 657. IMPRESSION: Recurrent gallstone pancreatitis. His ALT, and on previous admission, bilirubin and alkaline phosphatase bumped with the episode of acute pancreatitis. His ultrasound does show cholelithiasis. He most likely passed a stone given that his bilirubin is normal and his alkaline phosphatase is normal and I would think that cholangitis is not the most likely source for his elevated white blood cell count given the normal bilirubin. His blood cultures are negative. His common bile duct was only 5 mm by ultrasound. There was some questionable infiltrate in the lung bases. He also reports a cough. RECOMMENDATIONS: 1. Given that his bilirubin and alkaline phosphatase are normal, with only a 5-mm common bile duct, I would suspect that he passed a small stone. Next step should likely be intraoperative cholangiogram along with laparoscopic cholecystectomy. If the intraoperative cholangiogram shows the stone, then we can follow with ERCP. If he starts showing more significant signs to suggest cholangitis, then ERCP can be performed more urgently. 2. I will consult General Surgery. Job ID: [id number]
[2018-07-02] MEDS ORDERED: Ibuprofen 600 MG TAB PO PRN (21:29)
[2018-07-02] MEDS: Ibuprofen 200 MG TAB PO PRN (22:47)
--- NOTE | 2018-07-03 00:27 | CON ---
DATE OF CONSULTATION: 07/02/2018 CHIEF COMPLAINT: Gallstone pancreatitis. HISTORY OF PRESENT ILLNESS: This is a 63-year-old male, who, this is his second visit to the hospital for pancreatitis. Looking back, he had gallstone pancreatitis before. He presented this time with elevation of his liver function tests, severe epigastric pain that is now improved slightly. Now he is having more right upper quadrant pain. Previous ultrasound showed gallstones with normal common bile duct. His liver function tests have now trended down. His bilirubin is normal. He remains tachycardic, and he is having borderline temperatures. CT scan yesterday showed significant skinny-inflammatory changes to the pancreas. The patient denies previous abdominal surgery. PAST MEDICAL HISTORY: Includes hypertension, diabetes mellitus type 2, and chronic back pain. SURGICAL HISTORY: Left shoulder, right leg. FAMILY HISTORY: Noncontributory. SOCIAL HISTORY: Former smoker. Former heavy drinker, but no drinking or smoking for the past 10 years. No active illicit drug use. REVIEW OF SYSTEMS: A 10-system review of systems otherwise negative. PHYSICAL EXAMINATION: VITAL SIGNS: Pulse 117, respirations 20, temperature 99.8, and blood pressure 116/72. Urine output is adequate at 550 for shift. CHEST: Clear. HEART: Increased rate, regular rhythm. ABDOMEN: Soft with fairly significant diffuse tenderness especially in the right side of the abdomen in the epigastric area. EXTREMITIES: No edema or ischemia to extremities. LABORATORY DATA: White blood cell count is 15, hemoglobin 12, platelet count is 205, bilirubin normal 0.7. AST and ALT are 50 and 318. His lipase is 101, alkaline phosphatase 99. Previous ultrasound showed gallstones, [address] bile duct[address] CT scan shows fairly significant pancreatic inflammation. ASSESSMENT: Gallstone pancreatitis, [id number] likely with severe retroperitoneal inflammatory change. PLAN: Although his liver function test is normalized, I do not think he is ready for surgery. I think he needs more time. Surgery would be high risk at this point. Recommend supportive care. I will allow him clear liquids. Continue to follow clinically, surgery within the next few days, if his abdominal pain is significantly improved. Job ID: [id number]
[2018-07-03] MEDS: Piperacillin/Tazobactam 3.375 GM in Sodium Chloride 0.9% 100 ML IVPB SCH ×5 (01:09→23:39)
[2018-07-03] MEDS: Sodium Chloride 0.9% 1,000 ML IV SCH ×4 (04:27→16:23)
[2018-07-03 04:42] LABS: #Eosinphils 0.6 thou/uL (0.0-0.7); #Lymphocytes 1.2 thou/uL (1.20-3.40); #Monocytes 0.7 thou/uL (0.11-0.59); #Neutrophils 9.2 thou/uL (1.40-6.50); %Basophils 0.3 % (0.0-1.0); %Eosinophils 4.7 % (0.0-10.0); %Lymphocytes 10.3 % (21.0-51.0); %Monocytes 5.7 % (0.0-10.0); %Neutrophils 78.9 % (42.0-75.0); Hemoglobin 10.9 g/dL (14.0-18.0); Mean Corpuscular HGB CONC 32.2 g/dL (32.0-36.0); Mean Corpuscular Hemoglobin 29.3 pg (27.0-31.0); Mean Corpuscular Volume 90.8 fL (78.0-98.0); Mean Platelet Volume 8.2 fL (7.4-10.4); Platelet Count 176 thou/uL (130-400); RBC Distribution Width 12.8 % (11.5-14.5); Red Blood Cell (RBC) Count 3.71 mill/uL (4.70-6.10); White Blood Cell (WBC) Count 11.7 thou/uL (4.8-10.8)
[2018-07-03 05:10] LABS: ALT (SGPT) 171 U/L (8-55); AST (SGOT) 19 U/L (5-34); Albumin 2.8 g/dL (3.4-4.8); Alkaline Phosphatase 78 U/L (40-150); Anion Gap 12 mmol/L (10-20); BUN (Urea Nitrogen) 10 mg/dL (8.4-25.7); Bilirubin, Total 0.6 mg/dL (0.2-1.2); Calc. Creatinine Clearance 124 mL/min (70-130); Calcium 8.8 mg/dL (7.8-10.44); Carbon Dioxide 25 mmol/L (23-31); Chloride 105 mmol/L (98-107); Estimated GFR-MDRD 84; Globulin 2.8 g/dL (2.4-3.5); Glucose 117 mg/dL (80-115); Potassium 3.8 mmol/L (3.5-5.1); Protein, Total 5.6 g/dL (5.8-8.1); Sodium 138 mmol/L (136-145)
--- NOTE | 2018-07-03 06:12 | PDOC.FM ---
- Subjective Subjective: Patient did have a temperature of 101.2 overnight and was given ibuprofen with resolution of fever. Patient reports continued abdominal pain. Reports no appetite. States it is mildly improved from yesterday. States he has not had a BM in about 3 days. Denies chest pain, SOB, headache, fever/chills. - Objective MAR Reviewed: Yes Vital Signs & Weight: Vital Signs (12 hours) Temp Pulse Resp BP Pulse Ox 07/03/18 04:00 98.5 F 95 23 H 101/57 L 94 L 07/03/18 00:00 99.5 F 104 H 24 H 101/57 L 93 L 07/02/18 20:00 99 07/02/18 19:37 101.2 F H 110 H 26 H 103/58 L 95 Weight Weight 103.918 kg I&O: 07/01/18 07/02/18 07/03/18 06:59 06:59 06:59 Intake Total 610 2650 Output Total 550 1400 Balance 60 1250 Result Diagrams: 07/03/18 04:23 07/03/18 04:23 Phys Exam - Physical Examination Constitutional: NAD HEENT: PERRLA, moist MMs, sclera anicteric Neck: supple, full ROM Respiratory: clear to auscultation bilateral Cardiovascular: RRR Gastrointestinal: soft, no distention, positive bowel sounds TTP in RUQ and midepigastrium, guarding, no rebound tenderness Musculoskeletal: no edema Neurological: non-focal, moves all 4 limbs Psychiatric: normal affect, A&O x 3 Dx/Plan (1) Cholangitis Code(s): K83.09 - OTHER CHOLANGITIS Status: Acute (2) Constipation Code(s): K59.00 - CONSTIPATION, UNSPECIFIED Status: Acute (3) Diabetes mellitus Code(s): E11.9 - TYPE 2 DIABETES MELLITUS WITHOUT COMPLICATIONS Status: Chronic Qualifiers: Diabetes mellitus type: type 2 (4) HTN (hypertension) Code(s): I10 - ESSENTIAL (PRIMARY) HYPERTENSION Status: Chronic (5) Leukocytosis Code(s): D72.829 - ELEVATED WHITE BLOOD CELL COUNT, UNSPECIFIED Status: Acute (6) Multiple sclerosis Code(s): G35 - MULTIPLE SCLEROSIS Status: Chronic (7) Pancreatitis Code(s): K85.90 - ACUTE PANCREATITIS WITHOUT NECROSIS OR INFECTION, UNSP Status: Acute (8) Sepsis Code(s): A41.9 - SEPSIS, UNSPECIFIED ORGANISM Status: Acute (9) Tachycardia Code(s): R00.0 - TACHYCARDIA, UNSPECIFIED Status: Acute (10) Urinary retention Code(s): R33.9 - RETENTION OF URINE, UNSPECIFIED Status: Acute - Plan Plan: Acute Pancreatitis Patient does not drink alcohol. TG's 64. Evidence of cholelithiasis on RUQ sono performed yesterday. GI has been consulted. - Recommend aggressive fluid hydration with NS. Rate increased to 200 mL/hr. If patient starts to show signs of overload, recommend intermittent use of lasix. - Early feeding within 48 hours recommended. No procedure planned for today, patient started on clear liquid diet. Will monitor symptoms. - Pain is currently controlled on ibuprofen. No morphine use since 07/02 @ 10am. Will d/c morphine and use fentanyl for breakthrough pain. - Strict I&O's. - Zofran PRN for nausea. SIRS - Likely 2/2 acute pancreatitis. Does not appear to be source of infection at this time. Patient with elevated WBC, tachycardia (although tachycardic at baseline), and mildly tachypneic with RR >20. Goal is to continue IVF at aggressive rate. - Continue IVF, patient switched from LR to NS per pulm recs. Appreciate recommendations. Cholelithiasis - As evidenced by RUQ sono. GI has been consulted- recommend intraoperative cholangiogram w/ lap lucina. Gen surg has been consulted. At this point, surgery would be high risk. Will start patient on clear liquid diet with hopeful improvement in abdominal pain. Surgery within the next few days per gen surg. Appreciate recommendations. Transaminitis - Likely related to acute pancreatitis 2/2 cholelithiasis. See plan as above. - LFT's continue to downtrend; alk phos WNL Constipation chronic issue for patient - will schedule miralax and senokot Hx of Tachycardia - previous admissions patient has been in sinus tachycardia, present again this admission; sinus; HR 114-115 - Pt asymptomatic; will result metoprolol and continue to monitor Type II DM - Continue home insulin regimen. Goal BG <180. HTN - Will hold BP meds for now - Consider discontinuing valsartan as potential contributor to pancreatitis and transitioning to other BP medication. MS - Patient not currently on therapy for MS. - Recent urinary retention likely 2/2 MS flare requiring indwelling millan catheter - Pt to follow up outpatient with neurology Urinary retention - Patient with millan catheter. Monitor I&O's. - urology to follow up outpatient for voiding trial Code: DNAR Dispo: continue to monitor, surgery within the next few days Addendum - Attending - Attending Attestation Date/Time: 07/03/18 2072 I personally evaluated the patient and discussed the management with Dr. Chen I agree with the History, Examination, Assessment and Plan documented above with any addition or exceptions noted below. Sepsis secondary to acute cholecystits Gallstone pancreatitis -Continue IVF, CLD, pain control. Appreciate surgery recs. Constipation-bowel regimen.
[2018-07-03] MEDS ORDERED: Fentanyl 100 MCG/2 ML VIAL SLOW IVP PRN (06:13)
[2018-07-03] MEDS ORDERED: Senokot 8.6 MG TAB PO SCH (08:30)
[2018-07-03] MEDS: Famotidine/PF 20 mg/2ml Vial SLOW IVP SCH ×2 (09:52→21:57)
[2018-07-03] MEDS: Enoxaparin Sodium 40 MG/0.4 ML SYRINGE SC SCH (09:52)
[2018-07-03] MEDS: Polyethylene Glycol 3350 17 GM Packet PO SCH (09:52)
--- NOTE | 2018-07-03 10:05 | PRG ---
DATE OF SERVICE: 07/03/2018 SERVICE: Pulmonary Medicine. SUBJECTIVE: The patient is doing fine from respiratory standpoint. He is breathing comfortably. He is tolerating very small amounts of p.o. He has significant amount of gas last night. He has had a bowel movement, however. He denies any current fevers, chills, nausea, or vomiting. Otherwise, there were no overnight events. OBJECTIVE: VITAL SIGNS: Afebrile with a T-max of 101.2, pulse 100, blood pressure 113/71, respirations 17, and saturations 96% on room air. GENERAL: The patient is awake and alert, in no apparent distress. LUNGS: Excellent air entry. Minimal dependent crackles are noted. No prolonged expiratory phase or wheezing appreciated. HEART: Normal rate, regular. ABDOMEN: Distended, but much softer today. There is a little bit of rebound, particularly in the right lower quadrant. Epigastric discomfort, and left-sided abdominal pain have improved significantly. MUSCULOSKELETAL: No cyanosis or clubbing. There is 1 to 2+ pitting in the bilateral lower extremities. NEUROLOGIC: Grossly nonfocal. : Del Real catheter in place. LABORATORY DATA: WBC 11.7, hemoglobin 10.9, and platelets 176,000. INR 1.1. Basic metabolic profile is completely unremarkable. His creatinine is trending downward. AST and ALT are trending to a normal level, bilirubin is low. Triglyceride is unremarkable. Lipase is trended down pneumatically. Blood cultures x2 and urine culture unremarkable. ASSESSMENT: 1. Acute pancreatitis. 2. Cholelithiasis. 3. Systemic inflammatory response syndrome. 4. Multiple sclerosis. DISCUSSION AND PLAN: We will continue our supportive measures. I think he is clearing his inflammatory profile. As such, I think it is reasonable to transition him out of the IMCU to the medical unit. I will decrease his rate on his IV fluids ever so slightly. If he starts having increasing oxygen requirements, a dose of Lasix will be considered. Pulmonary Critical Care will continue to follow along for the time being. Surgical intervention and plus or minus ERCP is being considered. Job ID: [id number]
--- NOTE | 2018-07-03 13:32 | PRG ---
DATE OF SERVICE: 07/03/2018 SUBJECTIVE: Mr. Hill feel slightly improved today. He had a bowel movement. Denies nausea. He is tolerating the liquids without difficulty. OBJECTIVE: VITAL SIGNS: Pulse 107, blood pressure is 139/87, temperature 99.8. Urine output is adequate. ABDOMEN: Soft, persistently tender in the right upper side; however, it is improved. LABORATORY DATA: White blood cell count today is 11, hemoglobin is 10. LFTs still normal, except for ALT, which is 171. ASSESSMENT: Gallstone pancreatitis, resolving, although CT scan shows moderate amount of inflammatory change around the pancreas. PLAN: My plan would be to continue supportive care, allow liquid diet, laparoscopic cholecystectomy with cholangiogram once his pain improved somewhat. Job ID: [id number]
--- NOTE | 2018-07-03 16:47 | PRG ---
DATE OF SERVICE: SUBJECTIVE: Mr. Hill feels much better today. He had a couple of bowel movements today. His abdominal pain has significantly improved. OBJECTIVE: VITAL SIGNS: Temperature 99.8, pulse 104, blood pressure 139/87. GENERAL: He is in no acute distress. Alert and oriented x3. LUNGS: Clear to auscultation bilaterally. HEART: Regular rate and rhythm without murmur. ABDOMEN: Soft, bottom steep tender in the right abdomen, but significantly less so than yesterday. Bowel sounds are present. EXTREMITIES: 1+ pitting lower extremity edema. LABORATORY DATA: White blood cell count is down to 11.7 from 18.2 two days ago. His hemoglobin is down to 10.9. Creatinine 0.91. Bilirubin 0.6; AST 19; ALT 171, down from 318; alkaline phosphatase 78. IMPRESSION: 1. Gallstone pancreatitis. This appears to be mild pancreatitis overall without evidence of secondary organ failure. He is clinically improving. 2. Abnormal liver function tests. His LFTs are improving, consistent with having passed a stone. RECOMMENDATIONS: Once his pancreatitis is adequately improved, then the plan is for laparoscopic cholecystectomy with intraoperative cholangiogram. If the IOC shows choledocholithiasis, we will plan ERCP. Job ID: [id number]
[2018-07-04] MEDS: Sodium Chloride 0.9% 1,000 ML IV SCH ×2 (01:49→12:14)
[2018-07-04] MEDS: Piperacillin/Tazobactam 3.375 GM in Sodium Chloride 0.9% 100 ML IVPB SCH ×4 (05:12→23:45)
[2018-07-04 05:21] LABS: #Eosinphils 0.4 thou/uL (0.0-0.7); #Monocytes 0.5 thou/uL (0.11-0.59); #Neutrophils 7.2 thou/uL (1.40-6.50); %Basophils 0.2 % (0.0-1.0); %Eosinophils 4.7 % (0.0-10.0); %Lymphocytes 11.2 % (21.0-51.0); %Monocytes 5.1 % (0.0-10.0); %Neutrophils 78.8 % (42.0-75.0); Hemoglobin 11.1 g/dL (14.0-18.0); Mean Corpuscular HGB CONC 33.3 g/dL (32.0-36.0); Mean Corpuscular Hemoglobin 29.6 pg (27.0-31.0); Mean Platelet Volume 8.3 fL (7.4-10.4); Platelet Count 226 thou/uL (130-400); RBC Distribution Width 12.4 % (11.5-14.5); Red Blood Cell (RBC) Count 3.76 mill/uL (4.70-6.10); White Blood Cell (WBC) Count 9.2 thou/uL (4.8-10.8)
[2018-07-04 05:41] LABS: ALT (SGPT) 112 U/L (8-55); AST (SGOT) 19 U/L (5-34); Albumin 2.9 g/dL (3.4-4.8); Alkaline Phosphatase 75 U/L (40-150); Anion Gap 13 mmol/L (10-20); BUN (Urea Nitrogen) 7 mg/dL (8.4-25.7); Bilirubin, Total 0.4 mg/dL (0.2-1.2); Calc. Creatinine Clearance 120 mL/min (70-130); Calcium 9.1 mg/dL (7.8-10.44); Carbon Dioxide 24 mmol/L (23-31); Chloride 104 mmol/L (98-107); Estimated GFR-MDRD 81; Glucose 142 mg/dL (80-115); Potassium 3.4 mmol/L (3.5-5.1); Protein, Total 5.9 g/dL (5.8-8.1); Sodium 138 mmol/L (136-145)
--- NOTE | 2018-07-04 06:29 | PDOC.FM ---
- Subjective Subjective: NAEO. Patient reports he is feeling better today. States abdominal pain is minimal. He was able to eat broth and tolerated well. Denies fever/chills, chest pain, SOB. - Objective MAR Reviewed: Yes Vital Signs & Weight: Vital Signs (12 hours) Temp Pulse Resp BP Pulse Ox 07/04/18 00:15 98.5 F 104 H 16 147/84 H 96 07/03/18 21:50 98.2 F 102 H 16 166/83 H 94 L Weight Weight 103.918 kg I&O: 07/02/18 07/03/18 07/04/18 06:59 06:59 06:59 Intake Total 610 2650 3420 Output Total 550 1400 4275 Balance 60 1250 -855 Result Diagrams: 07/04/18 05:12 07/04/18 05:12 Phys Exam - Physical Examination Constitutional: NAD HEENT: PERRLA, moist MMs, sclera anicteric Neck: supple, full ROM Respiratory: clear to auscultation bilateral Cardiovascular: RRR Gastrointestinal: soft, non-tender, no distention, positive bowel sounds Musculoskeletal: no edema Neurological: non-focal Psychiatric: normal affect, A&O x 3 Dx/Plan (1) Constipation Code(s): K59.00 - CONSTIPATION, UNSPECIFIED Status: Acute (2) Diabetes mellitus Code(s): E11.9 - TYPE 2 DIABETES MELLITUS WITHOUT COMPLICATIONS Status: Chronic Qualifiers: Diabetes mellitus type: type 2 (3) HTN (hypertension) Code(s): I10 - ESSENTIAL (PRIMARY) HYPERTENSION Status: Chronic (4) Leukocytosis Code(s): D72.829 - ELEVATED WHITE BLOOD CELL COUNT, UNSPECIFIED Status: Acute (5) Multiple sclerosis Code(s): G35 - MULTIPLE SCLEROSIS Status: Chronic (6) Pancreatitis Code(s): K85.90 - ACUTE PANCREATITIS WITHOUT NECROSIS OR INFECTION, UNSP Status: Acute (7) Sepsis Code(s): A41.9 - SEPSIS, UNSPECIFIED ORGANISM Status: Acute (8) Tachycardia Code(s): R00.0 - TACHYCARDIA, UNSPECIFIED Status: Acute (9) Urinary retention Code(s): R33.9 - RETENTION OF URINE, UNSPECIFIED Status: Acute (10) Cholelithiasis Code(s): K80.20 - CALCULUS OF GALLBLADDER W/O CHOLECYSTITIS W/O OBSTRUCTION Status: Acute (11) Transaminitis Code(s): R74.0 - NONSPEC ELEV OF LEVELS OF TRANSAMNS & LACTIC ACID DEHYDRGNSE Status: Acute - Plan Plan: Acute Pancreatitis Patient does not drink alcohol. TG's 64. Evidence of cholelithiasis on RUQ sono performed yesterday. GI has been consulted. - Recommend aggressive fluid hydration with NS. Rate increased to 200 mL/hr. If patient starts to show signs of overload, recommend intermittent use of lasix. - Early feeding within 48 hours recommended. Patient started on clear liquid diet. Symptoms improved. Possible procedure 07/[address] Galvan. - Pain is currently controlled on ibuprofen. No morphine use since 07/02 @ 10am. Will d/c morphine and use fentanyl for breakthrough pain. - Strict I&O's. - Zofran PRN for nausea. SIRS - Likely 2/2 acute pancreatitis. Does not appear to be source of infection at this time. Patient with elevated WBC, tachycardia (although tachycardic at baseline), and mildly tachypneic with RR >20. Goal is to continue IVF at aggressive rate. - Continue IVF, patient switched from LR to NS per pulm recs. Appreciate recommendations. Cholelithiasis - As evidenced by RUQ sono. GI has been consulted- recommend intraoperative cholangiogram w/ lap lucina and possible ERCP. Gen surg has been consulted. At this point, surgery would be high risk. Patient on clear liquid diet with improving abdominal pain. Surgery within the next couple days per gen surg. Appreciate recommendations. Transaminitis - Likely related to acute pancreatitis 2/2 cholelithiasis. See plan as above. - LFT's continue to downtrend; alk phos WNL Constipation Chronic issue for patient - will schedule miralax and senokot Hx of Tachycardia - previous admissions patient has been in sinus tachycardia, present again this admission; sinus; HR 102-105 - Pt asymptomatic; will result metoprolol and continue to monitor Type II DM - Continue home insulin regimen. Goal BG <180. HTN - Will hold BP meds for now - Consider discontinuing valsartan as potential contributor to pancreatitis and transitioning to other BP medication. MS - Patient not currently on therapy for MS. - Recent urinary retention likely 2/2 MS flare requiring indwelling millan catheter - Pt to follow up outpatient with neurology Urinary retention - Patient with millan catheter. Monitor I&O's. - urology to follow up outpatient for voiding trial Code: DNAR Dispo: continue to monitor, surgery within the next couple days Addendum - Attending - Attending Attestation Date/Time: 07/04/18 8865 I personally evaluated the patient and discussed the management with Dr. Chen I agree with the History, Examination, Assessment and Plan documented above with any addition or exceptions noted below. Acute cystitis and gallstone pancreatitis- continue CLD, zosyn, and lap lucina when surgery approves constipation- resolved and now with loose stools tachycardia- at baseline
[2018-07-04] MEDS: Enoxaparin Sodium 40 MG/0.4 ML SYRINGE SC SCH (08:59)
[2018-07-04] MEDS: Famotidine/PF 20 mg/2ml Vial SLOW IVP SCH ×2 (08:59→20:46)
[2018-07-04] MEDS: Polyethylene Glycol 3350 17 GM Packet PO SCH (09:00)
[2018-07-04] MEDS ORDERED: Potassium Chloride 20 MEQ TAB PO SCH (10:15)
[2018-07-04] MEDS ORDERED: Cepastat Lozenges 1 LOZ PO PRN (10:16)
--- NOTE | 2018-07-04 13:00 | PRG ---
DATE OF SERVICE: 07/04/2018 SERVICE: Pulmonary Medicine. INTERVAL HISTORY: The patient is doing fine from respiratory standpoint. Breathing comfortably. There has been no interval change to his condition. He indicates his abdominal discomfort is dramatically improved. He is tolerating p.o. Otherwise, he has no complaints. PHYSICAL EXAMINATION: VITAL SIGNS: Pulse 103, blood pressure 148/94, respirations 22, and saturation 95% on room air. GENERAL: The patient is awake and alert, in no apparent distress. LUNGS: Excellent air entry without prolonged expiratory phase, wheezing, rhonchi, or crackles. HEART: Normal rate and regular. ABDOMEN: Soft. There is no rebound or guarding present. Bowel sounds are present. MUSCULOSKELETAL: No cyanosis or clubbing. No pitting in the bilateral lower extremities. NEUROLOGIC: Grossly nonfocal. LABORATORY DATA: WBC is 9.2, hemoglobin 11.1, and platelets 226,000. Potassium 3.4. Basic metabolic profile and liver function studies are otherwise unremarkable. Blood cultures x2 and urine culture are unremarkable. ASSESSMENT: 1. Acute pancreatitis. 2. Cholelithiasis. 3. Systemic inflammatory response syndrome. 4. Multiple sclerosis. DISCUSSION AND PLAN: The patient's inflammatory profile has essentially resolved. He is tolerating p.o. We will continue our mobilization efforts, pushes his diet to a full liquid diet, and interrupt his IV fluids. At this point, he has no further requirements for inpatient Pulmonary Critical Care opinion. We will follow him if he lands back in the ICU or gets into more trouble. Hopefully, he will be going for a surgical intervention in the short term. Job ID: [id number]
[2018-07-04] MEDS: Baclofen 10 MG TAB PO SCH ×2 (15:26→20:46)
--- NOTE | 2018-07-04 17:04 | PRG ---
DATE OF SERVICE: 07/04/2018 SUBJECTIVE: Mr. Hill states that his pain is much improved. He is tolerating liquid diet and he is hungry. OBJECTIVE: VITAL SIGNS: He is afebrile. Vital signs are stable. ABDOMEN: Softer, less distended with no significant abdominal pain. ASSESSMENT: Resolving pancreatitis, likely secondary to gallstones. PLAN: Laparoscopic cholecystectomy with intraoperative cholangiogram tomorrow. Risks, benefits, and alternatives were discussed, and he gives consent. Job ID: [id number]
--- NOTE | 2018-07-04 23:01 | PRG ---
DATE OF SERVICE: 07/04/2018 SUBJECTIVE: Mr. Hill has no abdominal pain. He is tolerating a full liquid diet. He has no other complaints currently. OBJECTIVE: VITAL SIGNS: Temperature is 98.5, pulse 105, blood pressure 152/84. GENERAL: He is in no acute distress. Alert and oriented x3. LUNGS: Clear to auscultation bilaterally. HEART: Regular rate and rhythm without murmur. ABDOMEN: Minimal tenderness. Bowel sounds are present. EXTREMITIES: Trace lower extremity edema. LABORATORY DATA: White blood cell count 9.2, hemoglobin 11.1, platelets 226, creatinine 0.94, bilirubin 0.4, AST 19, ALT 112, alkaline phosphatase 75, albumin 2.9. IMPRESSION: Acute recurrent gallstone pancreatitis. This is mild pancreatitis overall without secondary organ failure. His pancreatitis is improving and no plan is for surgery tomorrow. RECOMMENDATIONS: He is scheduled for laparoscopic cholecystectomy with intraoperative cholangiogram for tomorrow. If the intraoperative cholangiogram shows choledocholithiasis, we can proceed with ERCP. Job ID: [id number]
[2018-07-05] MEDS: Piperacillin/Tazobactam 3.375 GM in Sodium Chloride 0.9% 100 ML IVPB SCH ×4 (05:46→23:48)
[2018-07-05 06:14] LABS: #Eosinphils 0.5 thou/uL (0.0-0.7); #Monocytes 0.5 thou/uL (0.11-0.59); #Neutrophils 6.2 thou/uL (1.40-6.50); %Basophils 0.5 % (0.0-1.0); %Eosinophils 5.9 % (0.0-10.0); %Lymphocytes 12.2 % (21.0-51.0); %Monocytes 5.9 % (0.0-10.0); %Neutrophils 75.6 % (42.0-75.0); Hemoglobin 11.6 g/dL (14.0-18.0); Mean Corpuscular HGB CONC 32.6 g/dL (32.0-36.0); Mean Corpuscular Hemoglobin 28.9 pg (27.0-31.0); Mean Corpuscular Volume 88.7 fL (78.0-98.0); Mean Platelet Volume 7.9 fL (7.4-10.4); Platelet Count 276 thou/uL (130-400); RBC Distribution Width 12.4 % (11.5-14.5); White Blood Cell (WBC) Count 8.2 thou/uL (4.8-10.8)
[2018-07-05 06:51] LABS: ALT (SGPT) 86 U/L (8-55); AST (SGOT) 18 U/L (5-34); Alkaline Phosphatase 69 U/L (40-150); Anion Gap 13 mmol/L (10-20); BUN (Urea Nitrogen) 6 mg/dL (8.4-25.7); Bilirubin, Total 0.4 mg/dL (0.2-1.2); Calc. Creatinine Clearance 122 mL/min (70-130); Calcium 9.2 mg/dL (7.8-10.44); Carbon Dioxide 25 mmol/L (23-31); Chloride 106 mmol/L (98-107); Estimated GFR-MDRD 83; Globulin 3.3 g/dL (2.4-3.5); Glucose 121 mg/dL (80-115); Potassium 3.6 mmol/L (3.5-5.1); Protein, Total 6.3 g/dL (5.8-8.1); Sodium 140 mmol/L (136-145)
--- NOTE | 2018-07-05 06:54 | PDOC.FM ---
- Subjective Subjective: NAEO. Patient states he feels well this morning, except he is hungry. Patient is ready for surgery. Denies abdominal pain, chest pain, SOB, NVD. - Objective MAR Reviewed: Yes Vital Signs & Weight: Vital Signs (12 hours) Temp Pulse Resp BP Pulse Ox 07/05/18 04:00 97.6 F 100 20 158/91 H 98 07/05/18 00:00 98 F 110 H 20 138/87 96 07/04/18 20:46 94 L 07/04/18 20:00 98.5 F 105 H 20 152/84 H 94 L Weight Weight 103.918 kg I&O: 07/03/18 07/04/18 07/05/18 06:59 06:59 06:59 Intake Total 2650 5040 1850 Output Total 1400 5525 2100 Balance 1250 -709 -250 Result Diagrams: 07/05/18 06:07 07/05/18 06:07 Phys Exam - Physical Examination Constitutional: NAD HEENT: PERRLA, moist MMs, sclera anicteric Neck: full ROM Respiratory: clear to auscultation bilateral Cardiovascular: RRR Gastrointestinal: soft, non-tender, no distention, positive bowel sounds Musculoskeletal: no edema Neurological: non-focal Psychiatric: normal affect, A&O x 3 Skin: no rash Dx/Plan (1) Constipation Code(s): K59.00 - CONSTIPATION, UNSPECIFIED Status: Acute (2) Diabetes mellitus Code(s): E11.9 - TYPE 2 DIABETES MELLITUS WITHOUT COMPLICATIONS Status: Chronic Qualifiers: Diabetes mellitus type: type 2 (3) HTN (hypertension) Code(s): I10 - ESSENTIAL (PRIMARY) HYPERTENSION Status: Chronic (4) Leukocytosis Code(s): D72.829 - ELEVATED WHITE BLOOD CELL COUNT, UNSPECIFIED Status: Acute (5) Multiple sclerosis Code(s): G35 - MULTIPLE SCLEROSIS Status: Chronic (6) Pancreatitis Code(s): K85.90 - ACUTE PANCREATITIS WITHOUT NECROSIS OR INFECTION, UNSP Status: Acute (7) Sepsis Code(s): A41.9 - SEPSIS, UNSPECIFIED ORGANISM Status: Acute (8) Tachycardia Code(s): R00.0 - TACHYCARDIA, UNSPECIFIED Status: Acute (9) Urinary retention Code(s): R33.9 - RETENTION OF URINE, UNSPECIFIED Status: Acute (10) Cholelithiasis Code(s): K80.20 - CALCULUS OF GALLBLADDER W/O CHOLECYSTITIS W/O OBSTRUCTION Status: Acute (11) Transaminitis Code(s): R74.0 - NONSPEC ELEV OF LEVELS OF TRANSAMNS & LACTIC ACID DEHYDRGNSE Status: Acute - Plan Plan: Acute Pancreatitis Patient does not drink alcohol. TG's 64. Evidence of cholelithiasis on RUQ sono performed yesterday. GI has been consulted. - Recommend aggressive fluid hydration with NS. Rate increased to 200 mL/hr. If patient starts to show signs of overload, recommend intermittent use of lasix. - Early feeding within 48 hours recommended. Patient started on clear liquid diet. Symptoms improved. - Pain is currently controlled on ibuprofen. No morphine use since 07/02 @ 10am. Will d/c morphine and use fentanyl for breakthrough pain. - Strict I&O's. - Zofran PRN for nausea. Cholelithiasis As evidenced by RUQ sono. Likely source for pancreatitis -GI and Gen surgery have been consulted. Plan for laparoscopic cholecystectomy with intraoperative cholangiogram on 07/05 with possible ERCP if choledocholiathiasis found. All questions have been asked and answered and patient is ready to proceed with the procedure. SIRS, resolved - Likely 2/2 acute pancreatitis. Does not appear to be source of infection at this time. Patient with elevated WBC, tachycardia (although tachycardic at baseline), and mildly tachypneic with RR >20. Goal is to continue IVF at aggressive rate. - Continue IVF, patient switched from LR to NS per pulm recs. Appreciate recommendations. Transaminitis - Likely related to acute pancreatitis 2/2 cholelithiasis. See plan as above. - LFT's continue to downtrend; alk phos WNL Constipation Chronic issue for patient - will schedule miralax and senokot Hx of Tachycardia - previous admissions patient has been in sinus tachycardia, present again this admission; sinus; HR 102-105 - Pt asymptomatic; will result metoprolol and continue to monitor Type II DM - Continue home insulin regimen. Goal BG <180. HTN - Will hold BP meds for now - Consider discontinuing valsartan as potential contributor to pancreatitis and transitioning to other BP medication. MS - Patient not currently on therapy for MS. - Recent urinary retention likely 2/2 MS flare requiring indwelling millan catheter - Pt to follow up outpatient with neurology Urinary retention - Patient with millan catheter. Monitor I&O's. - urology to follow up outpatient for voiding trial Code: DNAR Dispo: continue to monitor, surgery today, d/c in 1-2 days Addendum - Attending - Attending Attestation Date/Time: 07/05/18 7077 I personally evaluated the patient and discussed the management with Dr. Chen. I agree with the History, Examination, Assessment and Plan documented above with any addition or exceptions noted below. Patient much improved and going for lap lucina today. Expect d/c in a few days back to inpatient rehab.
[2018-07-05] MEDS: Famotidine/PF 20 mg/2ml Vial SLOW IVP SCH ×2 (07:52→21:32)
[2018-07-05] MEDS: Baclofen 10 MG TAB PO SCH ×3 (07:52→21:31)
[2018-07-05] MEDS ORDERED: Bupivacaine HCl 0.25%/Epi 0.0005/PF 10 ML VIAL FS ONE (11:22)
[2018-07-05] MEDS ORDERED: Iothalamate Meglumine 60% 50 ML VIAL FS ONE (11:22)
[2018-07-05] MEDS ORDERED: Glycopyrrolate 0.2 MG/ML 5 ML SYRINGE ONE (11:35)
[2018-07-05] MEDS ORDERED: Rocuronium Bromide 10 MG/ML (10ML VIAL) ONE (11:35)
[2018-07-05] MEDS ORDERED: PROPOFOL 200 MG/20 ML VIAL ONE (11:35)
[2018-07-05] MEDS ORDERED: Lidocaine 1% PF 5 ML VIAL ONE (11:35)
[2018-07-05] MEDS ORDERED: Ondansetron PF 4 MG/2 ML Vial ONE (11:35)
[2018-07-05] MEDS ORDERED: Fentanyl 250 MCG/5 ML VIAL ONE (12:50)
--- NOTE | 2018-07-05 12:58 | PQF ---
CLINICAL DOCUMENTATION IMPROVEMENT CLARIFICATION FORM: ICD-10 Updated PLEASE DO AN ADDENDUM TO THE PROGRESS NOTE WITH ANY DOCUMENTATION UPDATES OR ADDITIONS AND CARRY THROUGH TO DC SUMMARY. THANK YOU. DATE: 07/05/18 ATTN: Dr. Chen/ Attending Dr. Vang Please exercise your independent, professional judgment in responding to the clarification form. Clinical indicators are provided on the bottom of this form for your review Please check appropriate box(es): [ X] Sepsis due to: __gallstone pancreatitis [ ] SIRS due to non-infectious process (please specify etiology) _ [ ] with organ dysfunction [ ] without organ dysfunction [ ] Localized infection without sepsis [ ] Other diagnosis [ ] Unable to determine In addition, please specify: Present on Admission (POA): [ X ] Yes [ ] No [ ] Unable to determine For continuity of documentation, please document condition throughout progress notes and discharge summary. Thank You. CLINICAL INDICATORS - SIGNS / SYMPTOMS / LABS ED Record 07/01: Pulse 133, Resp 20, Temp 99.6 Resp -24 Doctor Notes: Concern for sepsis, given 3L NS with persistent tachycardia. DX: Gallstone pancreatitis. Additional: Sepsis, Tachycardia PN 07/03: Temp 101.2 Pulse 110 Resp - Dx/Plan: Sepsis Plan: SIRS likely 2/2 acute pancreatitis. Does not appear to be source of infection at this time. Attending: Sepsis secondary to acute cholecystitis PN 07/04 (Justin): Systemic inflammatory response syndrome. The pt's inflammatory profile has essentially resolved. PN 07/05: Dx/Plan: Sepsis Plan: SIRS, resolved. Likely 2/2 acute pancreatitis. 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 UTI. Hx HTN. DM II. GI Consult 07/02: Recurrent gallstone pancreatitis. TREATMENT: Order 07/01: Zosyn 3.375 gm IV Q6 hrs. Order 07/02-07/03: NS IV 200 mls/hr Thank you, Jessica (This form is maintained as a part of the permanent medical record) 2015 [employer], [place]. All Rights Reserved Jessica Donald RN, BSN [email or web address] Office: [phone] [facility]
[2018-07-05] MEDS ORDERED: Ondansetron HCl/PF 4 MG/2 ML Vial IVP PRN (14:40)
[2018-07-05] MEDS ORDERED: Promethazine HCl 25 MG/ML VIAL IM PRN (14:40)
[2018-07-05] MEDS ORDERED: Promethazine HCl 25 MG/ML VIAL SLOW IVP PRN (14:40)
[2018-07-05] MEDS ORDERED: hydrALAZINE 20 MG/ML VIAL ONE (14:48)
[2018-07-05] MEDS ORDERED: traMADol HCl 50 MG TAB PO PRN ×2 (15:18)
--- NOTE | 2018-07-05 15:48 | PRG ---
DATE OF SERVICE: 07/05/2018 SUBJECTIVE: Mr. Hill underwent cholecystectomy today. He has minimal ongoing pain. Intraoperative cholangiogram did show persistent filling defects in the common bile duct. OBJECTIVE: VITAL SIGNS: Temperature 98.0, pulse 97, blood pressure 156/88. GENERAL: He is in no acute distress. Alert and oriented x3. LUNGS: Clear to auscultation bilaterally. He does have a prolonged expiratory phase. HEART: Regular rate and rhythm without murmur. ABDOMEN: Soft. Minimal tenderness in lower abdomen without guarding. Bowel sounds are present. LABORATORY DATA: White blood cell count is 8.2, hemoglobin of 11.6. Creatinine 0.92, bilirubin is down to 0.4, AST 18, ALT 86, alkaline phosphatase 69. IMPRESSION: 1. Gallstone pancreatitis, resolving. 2. Cholelithiasis, status post cholecystectomy. 3. Choledocholithiasis without evidence of cholangitis. His liver tests have markedly improved. RECOMMENDATIONS: ERCP tomorrow. Job ID: [id number]
--- NOTE | 2018-07-05 15:49 | RAD ---
INTRAOPERATIVE CHOLANGIOGRAM 4 VIEWS: DATE: 07/05/2018. HISTORY: A 63-year-old male with cholelithiasis and epigastric pain. FINDINGS: A total of 4 intraoperative fluoroscopic spot images obtained with C-arm. Injection of contrast material into the cystic duct stump. Tiny filling defect at the nondilated cys tic duct stump, perhaps air bubble. A cluster of a few small filling defects in the lumen of the com mon duct, slightly superior to and slightly inferior to, the cystic duct origin. There is contrast m aterial entering into the mildly dilated pancreatic duct and ampulla, and into the duodenal lumen. T he common bile duct, common hepatic duct, and the left and right hepatic ducts, are all diffusely mil dly dilated. No abrupt stenosis. No filling defect visualized in the lower portion of the common bi le duct. IMPRESSION: 1. Diffuse mild ectasia of extrahepatic bile ducts. 2. Small filling defects in the common duct. It is uncertain whether these represent air bubbles, a rtifact, or choledocholithiasis. POS: KEYSHA
[2018-07-05] MEDS: Ibuprofen 200 MG TAB PO PRN (15:56)
[2018-07-05] MEDS: Polyethylene Glycol 3350 17 GM Packet PO SCH (17:14)
[2018-07-06] MEDS: Piperacillin/Tazobactam 3.375 GM in Sodium Chloride 0.9% 100 ML IVPB SCH ×3 (06:34→19:49)
--- NOTE | 2018-07-06 06:44 | PDOC.FM ---
- Subjective Subjective: NAEO. Patient states he feels well today. Has concerns about going back to inpatient rehab. Denies chest pain, SOB, abdominal pain, NVD. States ERCP is scheduled for 1000. - Objective MAR Reviewed: Yes Vital Signs & Weight: Vital Signs (12 hours) Temp Pulse Resp BP Pulse Ox 07/06/18 04:00 98.4 F 93 16 137/86 97 07/06/18 00:00 97.8 F 104 H 16 138/77 97 07/05/18 21:32 98 07/05/18 20:00 98.9 F 111 H 14 127/79 98 Weight Weight 103.918 kg I&O: 07/04/18 07/05/18 07/06/18 06:59 06:59 06:59 Intake Total 5040 3230 780 Output Total 5525 3100 900 Balance -485 130 -120 Result Diagrams: 07/06/18 06:40 07/06/18 06:40 Phys Exam - Physical Examination Constitutional: NAD HEENT: PERRLA, moist MMs, sclera anicteric Neck: supple, full ROM Respiratory: clear to auscultation bilateral Cardiovascular: RRR Gastrointestinal: soft, non-tender Musculoskeletal: no edema Neurological: non-focal, moves all 4 limbs Psychiatric: normal affect, A&O x 3 Dx/Plan (1) Constipation Code(s): K59.00 - CONSTIPATION, UNSPECIFIED Status: Acute (2) Diabetes mellitus Code(s): E11.9 - TYPE 2 DIABETES MELLITUS WITHOUT COMPLICATIONS Status: Chronic Qualifiers: Diabetes mellitus type: type 2 (3) HTN (hypertension) Code(s): I10 - ESSENTIAL (PRIMARY) HYPERTENSION Status: Chronic (4) Leukocytosis Code(s): D72.829 - ELEVATED WHITE BLOOD CELL COUNT, UNSPECIFIED Status: Acute (5) Multiple sclerosis Code(s): G35 - MULTIPLE SCLEROSIS Status: Chronic (6) Pancreatitis Code(s): K85.90 - ACUTE PANCREATITIS WITHOUT NECROSIS OR INFECTION, UNSP Status: Acute (7) Sepsis Code(s): A41.9 - SEPSIS, UNSPECIFIED ORGANISM Status: Acute (8) Tachycardia Code(s): R00.0 - TACHYCARDIA, UNSPECIFIED Status: Acute (9) Urinary retention Code(s): R33.9 - RETENTION OF URINE, UNSPECIFIED Status: Acute (10) Cholelithiasis Code(s): K80.20 - CALCULUS OF GALLBLADDER W/O CHOLECYSTITIS W/O OBSTRUCTION Status: Acute (11) Transaminitis Code(s): R74.0 - NONSPEC ELEV OF LEVELS OF TRANSAMNS & LACTIC ACID DEHYDRGNSE Status: Acute - Plan Plan: Acute Pancreatitis Patient does not drink alcohol. TG's 64. Evidence of cholelithiasis on RUQ sono. GI has been consulted. - Pain is currently controlled on ibuprofen. No morphine use since 07/02 @ 10am. Will d/c morphine and use fentanyl for breakthrough pain. - s/p cholecystectomy on 07/05. ERCP planned for 07/06. - Strict I&O's. - Zofran PRN for nausea. Cholelithiasis As evidenced by RUQ sono. Likely source for pancreatitis -GI and Gen surgery have been consulted. Laparoscopic cholecystectomy with intraoperative cholangiogram on 07/05 with showing filling defects. ERCP planned for 07/06. SIRS, resolved - Likely 2/2 acute pancreatitis. Does not appear to be source of infection at this time. Patient with elevated WBC, tachycardia (although tachycardic at baseline), and mildly tachypneic with RR >20. Goal is to continue IVF at aggressive rate. - Continue IVF, patient switched from LR to NS per pulm recs. Appreciate recommendations. Transaminitis - Likely related to acute pancreatitis 2/2 cholelithiasis. See plan as above. - LFT's continue to downtrend; alk phos WNL Constipation Chronic issue for patient - will schedule miralax and senokot Hx of Tachycardia - previous admissions patient has been in sinus tachycardia, present again this admission; sinus; HR 102-105 - Pt asymptomatic; will result metoprolol and continue to monitor Type II DM - Continue home insulin regimen. Goal BG <180. HTN - Will hold BP meds for now - Consider discontinuing valsartan as potential contributor to pancreatitis and transitioning to other BP medication. MS - Patient not currently on therapy for MS. - Recent urinary retention likely 2/2 MS flare requiring indwelling millan catheter - Pt to follow up outpatient with neurology Urinary retention - Patient with millan catheter. Monitor I&O's. - urology to follow up outpatient for voiding trial Code: DNAR Dispo: continue to monitor, ERCP 07/06, d/c in 1-2 days Addendum - Attending - Attending Attestation Date/Time: 07/06/182131 I personally evaluated the patient and discussed the management with Dr. Chen I agree with the History, Examination, Assessment and Plan documented above with any addition or exceptions noted below. pod #1 s/p lap lucina and pod#0 from ERCP with sphincterotomy and sludge extraction- patient feels great and recovering well. Continue to monitor and expect d/c to inpatient rehab in the next few days (once bed available)
[2018-07-06 06:50] LABS: #Eosinphils 0.2 thou/uL (0.0-0.7); #Lymphocytes 0.8 thou/uL (1.20-3.40); #Monocytes 0.7 thou/uL (0.11-0.59); #Neutrophils 7.2 thou/uL (1.40-6.50); %Basophils 0.4 % (0.0-1.0); %Eosinophils 2.7 % (0.0-10.0); %Lymphocytes 9.3 % (21.0-51.0); %Monocytes 7.4 % (0.0-10.0); %Neutrophils 80.3 % (42.0-75.0); Hemoglobin 11.7 g/dL (14.0-18.0); Mean Corpuscular HGB CONC 32.3 g/dL (32.0-36.0); Mean Corpuscular Hemoglobin 28.7 pg (27.0-31.0); Mean Corpuscular Volume 88.8 fL (78.0-98.0); Mean Platelet Volume 7.6 fL (7.4-10.4); Platelet Count 302 thou/uL (130-400); RBC Distribution Width 12.5 % (11.5-14.5); Red Blood Cell (RBC) Count 4.06 mill/uL (4.70-6.10)
[2018-07-06 07:16] LABS: ALT (SGPT) 81 U/L (8-55); AST (SGOT) 30 U/L (5-34); Albumin 3.1 g/dL (3.4-4.8); Alkaline Phosphatase 63 U/L (40-150); Anion Gap 13 mmol/L (10-20); BUN (Urea Nitrogen) 6 mg/dL (8.4-25.7); Bilirubin, Total 0.4 mg/dL (0.2-1.2); Calc. Creatinine Clearance 119 mL/min (70-130); Calcium 9.3 mg/dL (7.8-10.44); Carbon Dioxide 24 mmol/L (23-31); Chloride 108 mmol/L (98-107); Estimated GFR-MDRD 80; Globulin 3.2 g/dL (2.4-3.5); Glucose 138 mg/dL (80-115); Potassium 3.8 mmol/L (3.5-5.1); Protein, Total 6.3 g/dL (5.8-8.1); Sodium 141 mmol/L (136-145)
[2018-07-06] MEDS ORDERED: Ondansetron ODT 4 MG TAB ONE (09:17)
[2018-07-06] MEDS ORDERED: Fentanyl 100 MCG/2 ML VIAL ONE (09:17)
[2018-07-06] MEDS ORDERED: Iothalamate Meglumine 60% 50 ML VIAL FS ONE (09:19)
[2018-07-06] MEDS ORDERED: Indomethacin 50 MG SUPP ONE (09:22)
[2018-07-06] MEDS ORDERED: Lidocaine 1% PF 5 ML VIAL ONE (10:35)
[2018-07-06] MEDS ORDERED: Ondansetron PF 4 MG/2 ML Vial ONE (10:35)
[2018-07-06] MEDS ORDERED: Rocuronium Bromide 10 MG/ML (10ML VIAL) ONE (10:35)
[2018-07-06] MEDS ORDERED: Glycopyrrolate 0.2 MG/ML 5 ML SYRINGE ONE (10:35)
[2018-07-06] MEDS ORDERED: PROPOFOL 200 MG/20 ML VIAL ONE (10:35)
--- NOTE | 2018-07-06 11:22 | OP ---
DATE OF PROCEDURE: 07/06/2018 This is a GI endoscopy note. 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 PROCEDURE: Endoscopic retrograde cholangiopancreatography with biliary sphincterotomy and balloon extraction of biliary sludge. INDICATION: Choledocholithiasis, based on positive intraoperative cholangiogram in the context of recent gallstone pancreatitis. MEDICATIONS: 1. See Anesthesia record. 2. Indomethacin 100 mg per rectum, for prophylaxis against post ERCP pancreatitis. FINDINGS: After discussion of the risks, benefits, and alternatives of the procedure, informed consent was obtained and witnessed. Pre-endoscopic cardiopulmonary examination was satisfactory. Time-out was performed before sedation was achieved. Sedation was achieved with Anesthesia assistance in the endoscopy unit. The patient was placed in a semi-prone position on the fluoroscopy table. A Pentax adult duodenoscope was inserted into the mouth and passed beyond the esophagus and stomach and into the second portion of the duodenum. The ampulla was brought into view with the endoscope in the short position. The ampulla is very small, but otherwise appears normal. There is spontaneous flow of bile from the ampulla. Using a triple lumen dome-tipped sphincterotome and a 0.035 guidewire, we selectively cannulated the common bile duct and the wire was passed up into the right intrahepatic system. Cholangiogram was then performed. This demonstrated very mild dilation of the common bile duct with normal intrahepatic ducts. No evidence of any bile leak. There were a few nonspecific very small possible filling defects in the distal common bile duct, but otherwise the common bile duct appeared normal. We did proceed with biliary sphincterotomy. Following sphincterotomy, I made several passes with a 12-mm balloon fully inflated. In this fashion, I was able to extract a small amount of sludge from the common bile duct. Following this, the working apparatus was completely withdrawn and the endoscope was withdrawn suctioning out excess air and fluid. Postprocedure fluoroscopic images demonstrated no retroperitoneal or subdiaphragmatic free air. The procedure was then complete. The patient tolerated the procedure well. There were no immediate postprocedure complications. IMPRESSION: Small amount of biliary sludge in the common bile duct, now successfully removed with biliary sphincterotomy and balloon extraction. RECOMMENDATIONS: 1. Advance diet as tolerated. 2. Monitor for any potential complications including post ERCP pancreatitis. Please call back anytime with questions or concerns. Job ID: [id number]
--- NOTE | 2018-07-06 12:55 | PDOC.GSPN ---
Surgery Progress Note: Subj - Subjective Narrative: Patient is feeling good. He has minimal postoperative pain. No nausea and has been tolerating liquids. He had his ERCP this morning with extraction of sludge from the distal common bile duct. His abdomen is soft and nondistended with minimal appropriate skinny-incisional tenderness. His incisions are healing well. His labs this morning are unremarkable except for very mild elevation in his ALT. Assessment and plan: Doing well status post laparoscopic cholecystectomy. Ready for discharge from a general surgical standpoint. I'm signing off and he can follow up with Dr. canseco as an outpatient. Please call if any questions or concerns Surgery Progress Note: Obj - Vital signs Vital signs: Vital Signs - Most Recent Temp Pulse Resp BP Pulse Ox 98 F 104 H 20 143/88 H 96 07/06/18 07:45 07/06/18 07:45 07/06/18 07:45 07/06/18 07:45 07/06/18 07:45 Surgery Progress Note: Results - Labs Result Diagrams: 07/06/18 06:40 07/06/18 06:40 Lab results: Laboratory Results - last 24 hr 07/06/18 07/06/18 07/06/18 05:29 06:40 06:40 WBC 9.0 RBC 4.06 L Hgb 11.7 L Hct 36.0 L MCV 88.8 MCH 28.7 MCHC 32.3 RDW 12.5 Plt Count 302 MPV 7.6 Neutrophils % 80.3 H Lymphocytes % 9.3 L Monocytes % 7.4 Eosinophils % 2.7 Basophils % 0.4 Neutrophils # 7.2 H Lymphocytes # 0.8 L Monocytes # 0.7 H Eosinophils # 0.2 Basophils # 0.0 Sodium 141 Potassium 3.8 Chloride 108 H Carbon Dioxide 24 Anion Gap 13 BUN 6 L Creatinine 0.95 Estimated GFR (MDRD) 80 Glucose 138 H POC Glucose 135 H Calcium 9.3 Total Bilirubin 0.4 AST 30 ALT 81 H Alkaline Phosphatase 63 Serum Total Protein 6.3 Albumin 3.1 L Globulin 3.2 Albumin/Globulin Ratio 1.0 L 07/06/18 11:02 WBC RBC Hgb Hct MCV MCH MCHC RDW Plt Count MPV Neutrophils % Lymphocytes % Monocytes % Eosinophils % Basophils % Neutrophils # Lymphocytes # Monocytes # Eosinophils # Basophils # Sodium Potassium Chloride Carbon Dioxide Anion Gap BUN Creatinine Estimated GFR (MDRD) Glucose POC Glucose 133 H Calcium Total Bilirubin AST ALT Alkaline Phosphatase Serum Total Protein Albumin Globulin Albumin/Globulin Ratio - Radiology Interpretation CT scan - abdomen Status: report reviewed by me US - abdomen Status: report reviewed by me
--- NOTE | 2018-07-06 13:21 | RAD ---
ERCP 1 VIEW: DATE: 07/06/2018. TIME: 10:31 a.m. HISTORY: A 63-year-old male with right upper quadrant abdominal pain and abnormal liver enzymes. FINDINGS: There is diffuse mild dilation of the common bile duct and common hepatic duct. There are cholecyste ctomy clips. There is diffuse mild dilation of what appears to be the right hepatic duct. The left hepatic duct does not fill with contrast, unlike on the intraoperative cholangiogram of yesterday. N o filling defect is identified currently. IMPRESSION: Diffuse ectasia of the common duct. POS: KEYSHA
[2018-07-06] MEDS: Baclofen 10 MG TAB PO SCH ×3 (14:36→20:07)
[2018-07-06] MEDS: Famotidine/PF 20 mg/2ml Vial SLOW IVP SCH ×2 (16:02→20:07)
[2018-07-06] MEDS: Polyethylene Glycol 3350 17 GM Packet PO SCH (16:03)
[2018-07-07] MEDS: Piperacillin/Tazobactam 3.375 GM in Sodium Chloride 0.9% 100 ML IVPB SCH ×5 (01:11→23:20)
--- NOTE | 2018-07-07 06:32 | PDOC.FM ---
- Subjective Subjective: NAEO. Patient tolerating liquids. Doing well after ERCP yesterday. Denies abdominal pain. Denies chest pain, palpitations, NVD, SOB. States he is ready to give rehab another try to gain strength. - Objective MAR Reviewed: Yes Vital Signs & Weight: Vital Signs (12 hours) Temp Pulse Resp BP Pulse Ox 07/07/18 04:30 98.3 F 102 H 20 153/93 H 95 07/07/18 00:18 98.7 F 107 H 16 143/78 H 94 L 07/06/18 20:45 98.3 F 94 20 135/84 94 L 07/06/18 20:10 94 L Weight Weight 103.918 kg I&O: 07/05/18 07/06/18 07/07/18 06:59 06:59 06:59 Intake Total 3230 780 800 Output Total 3100 900 2600 Balance 130 -120 -1800 Result Diagrams: 07/06/18 06:40 07/07/18 09:01 Phys Exam - Physical Examination Constitutional: NAD HEENT: PERRLA, moist MMs, sclera anicteric Neck: supple Respiratory: clear to auscultation bilateral Cardiovascular: RRR Gastrointestinal: soft, non-tender, no distention, positive bowel sounds appropriate tenderness to palpation of incisions Musculoskeletal: no edema Neurological: non-focal Psychiatric: normal affect, A&O x 3 Dx/Plan (1) Constipation Code(s): K59.00 - CONSTIPATION, UNSPECIFIED Status: Acute (2) Diabetes mellitus Code(s): E11.9 - TYPE 2 DIABETES MELLITUS WITHOUT COMPLICATIONS Status: Chronic Qualifiers: Diabetes mellitus type: type 2 (3) HTN (hypertension) Code(s): I10 - ESSENTIAL (PRIMARY) HYPERTENSION Status: Chronic (4) Leukocytosis Code(s): D72.829 - ELEVATED WHITE BLOOD CELL COUNT, UNSPECIFIED Status: Acute (5) Multiple sclerosis Code(s): G35 - MULTIPLE SCLEROSIS Status: Chronic (6) Pancreatitis Code(s): K85.90 - ACUTE PANCREATITIS WITHOUT NECROSIS OR INFECTION, UNSP Status: Acute (7) Sepsis Code(s): A41.9 - SEPSIS, UNSPECIFIED ORGANISM Status: Acute (8) Tachycardia Code(s): R00.0 - TACHYCARDIA, UNSPECIFIED Status: Acute (9) Urinary retention Code(s): R33.9 - RETENTION OF URINE, UNSPECIFIED Status: Acute (10) Cholelithiasis Code(s): K80.20 - CALCULUS OF GALLBLADDER W/O CHOLECYSTITIS W/O OBSTRUCTION Status: Acute (11) Transaminitis Code(s): R74.0 - NONSPEC ELEV OF LEVELS OF TRANSAMNS & LACTIC ACID DEHYDRGNSE Status: Acute - Plan Plan: Acute Pancreatitis Patient does not drink alcohol. TG's 64. Evidence of cholelithiasis on RUQ sono. GI has been consulted. - Pain is currently controlled on ibuprofen. No morphine use since 07/02 @ 10am. Will d/c morphine and use fentanyl for breakthrough pain. - s/p cholecystectomy on 07/05. ERCP planned for 07/06. Patient doing well s/p procedures. Tolerating liquids and pain controlled. Rehab pending. - Strict I&O's. - Zofran PRN for nausea. Cholelithiasis As evidenced by RUQ sono. Likely source for pancreatitis -GI and Gen surgery have been consulted. Laparoscopic cholecystectomy with intraoperative cholangiogram on 07/05 with showing filling defects. ERCP planned for 07/06. Patient tolerated procedure well. Pain controlled and tolerating liquids. Rehab pending. Gen surg has signed off. Appreciate recommendations. SIRS, resolved - Likely 2/2 acute pancreatitis. Does not appear to be source of infection at this time. Patient with elevated WBC, tachycardia (although tachycardic at baseline), and mildly tachypneic with RR >20. Goal is to continue IVF at aggressive rate. IVF d/c. PO hydration encouraged. Transaminitis - Likely related to acute pancreatitis 2/2 cholelithiasis. See plan as above. - LFT's continue to downtrend; alk phos WNL Constipation Chronic issue for patient - will schedule miralax and senokot Hx of Tachycardia - previous admissions patient has been in sinus tachycardia, present again this admission; sinus; HR 102-105 - Pt asymptomatic; will result metoprolol and continue to monitor Type II DM - Continue home insulin regimen. Goal BG <180. HTN - Will hold BP meds for now - Consider discontinuing valsartan as potential contributor to pancreatitis and transitioning to other BP medication. MS - Patient not currently on therapy for MS. - Recent urinary retention likely 2/2 MS flare requiring indwelling millan catheter - Pt to follow up outpatient with neurology Urinary retention - Patient with millan catheter. Monitor I&O's. - urology to follow up outpatient for voiding trial Code: DNAR Dispo: pending rehab placement Addendum - Attending - Attending Attestation Date/Time: 07/07/182118 I personally evaluated the patient at 0905 am and discussed the management with Dr. Chen. I agree with the History, Examination, Assessment and Plan documented above with any addition or exceptions noted below. Recovering well from surgery and ERCP- stable for transfer back to inpatient rehab once set up.
[2018-07-07] MEDS: Baclofen 10 MG TAB PO SCH ×3 (07:57→20:36)
[2018-07-07] MEDS: Famotidine/PF 20 mg/2ml Vial SLOW IVP SCH ×2 (07:58→20:36)
[2018-07-07] MEDS: Polyethylene Glycol 3350 17 GM Packet PO SCH (07:59)
[2018-07-07 09:33] LABS: ALT (SGPT) 66 U/L (8-55); AST (SGOT) 20 U/L (5-34); Albumin 3.4 g/dL (3.4-4.8); Alkaline Phosphatase 62 U/L (40-150); Anion Gap 14 mmol/L (10-20); BUN (Urea Nitrogen) 7 mg/dL (8.4-25.7); Bilirubin, Total 0.4 mg/dL (0.2-1.2); Calc. Creatinine Clearance 115 mL/min (70-130); Calcium 9.9 mg/dL (7.8-10.44); Carbon Dioxide 27 mmol/L (23-31); Chloride 104 mmol/L (98-107); Estimated GFR-MDRD 78; Globulin 3.4 g/dL (2.4-3.5); Glucose 159 mg/dL (80-115); Potassium 3.8 mmol/L (3.5-5.1); Protein, Total 6.8 g/dL (5.8-8.1); Sodium 141 mmol/L (136-145)
[2018-07-07] MEDS: HumaLOG 300 UNITS/3 ML VIAL SC PRN (11:24)
--- NOTE | 2018-07-07 12:54 | PRG ---
DATE OF SERVICE: 07/07/2018 SUBJECTIVE: Mr. Hill is feeling very well. No abdominal pain or nausea. He is tolerating his diet well. PHYSICAL EXAMINATION: VITAL SIGNS: Temperature 98.5, pulse 99, blood pressure 136/93, and 94% oxygen saturation on room air. GENERAL: No acute distress. HEART: Regular rate and rhythm. LUNGS: Clear to auscultation bilaterally. ABDOMEN: Nondistended. Bowel sounds present. Soft and nontender to palpation. EXTREMITIES: No peripheral edema. LABORATORY STUDIES: Sodium 141, potassium 3.8, BUN 7, creatinine 0.98, glucose 200, total bilirubin 0.4, alkaline phosphatase 62, AST 20, and ALT 66. ASSESSMENT AND PLAN: 1. Choledocholithiasis, now status post successful endoscopic retrograde cholangiopancreatography with biliary sphincterotomy and sludge extraction. 2. Biliary pancreatitis, resolved. The patient is doing well following endoscopic retrograde cholangiopancreatography. No evidence of post endoscopic retrograde cholangiopancreatography or pancreatitis. His initial pancreatitis appears to have resolved. GI will sign off. Please call back anytime with questions or concerns. Job ID: [id number]
--- NOTE | 2018-07-07 18:57 | PDOC.EVN ---
Event Note - Event Note Event Note: Transition of Care This is a 63 yo M here for CC of abdominal pain sent over from inpatient rehab facility. The patient has a significant PMH of MS, pancreatitis, DM2, and chronic back pain. The patient was previously admitted earlier this month with pancreatitis but it was thought to be medication induced at that time since stones were not seen on RUQ US in the gallbladder at that time. On admission, the patient was found to have a lipase of 657. AST/ALT were elevated. He was tachypneic, tachycardic, and had a an elevated white count. He was found to be septic 2/[address] abdomen/pelvis showed stranding of the peripancreatic fat and small volume peripancreatic fluid indicating worsening pancreatitis from previous studies. RUQ US showed gallbladder sludge with stones. GI and General Surgery were consulted. The patient was deemed a high surgical risk and therefore the patient was allowed to have a liquid diet while his abdominal pain improved prior to surgeyr. The patient underwent cholecystectomy w/ intraoperative cholangiogram on 07/05/18 followed by ERCP on . The patient's lipase and AST/ALT have downtrended. The patient's abdominal pain has resolved with only appropriate tenderness to the incision sites. The patient has been tolerating PO well. The plan is for the patient to return to inpatient rehab to continue PT/OT. Gen Surgery has signed off. As a side note, the patient has a hx of urinary retention and was previously sent out with a millan in place. The millan has remained in place throughout this hospitalization with the plan to follow up with urology in the outpatient setting.
--- NOTE | 2018-07-08 06:41 | PDOC.FM ---
- Subjective Subjective: Mr. Hill is resting comfortably in bed, he has no pain, fever/chills - Objective Vital Signs & Weight: Vital Signs (12 hours) Temp Pulse Resp BP Pulse Ox 07/08/18 04:00 98.2 F 92 18 148/86 H 95 07/08/18 00:00 98.5 F 93 18 143/85 H 95 07/07/18 20:00 98.4 F 97 18 153/85 H 97 Weight Weight 103.918 kg I&O: 07/06/18 07/07/18 07/08/18 06:59 06:59 06:59 Intake Total 523 500 5457 Output Total 900 2600 1500 Balance -120 -1800 -248 Result Diagrams: 07/06/18 06:40 07/07/18 09:01 Phys Exam - Physical Examination Constitutional: NAD HEENT: moist MMs Neck: no nodes Respiratory: clear to auscultation bilateral Cardiovascular: RRR, no significant murmur Gastrointestinal: soft, non-tender incision c/d/i Musculoskeletal: no edema, pulses present Neurological: moves all 4 limbs Psychiatric: normal affect Skin: no rash Dx/Plan (1) Acute pancreatitis Code(s): K85.90 - ACUTE PANCREATITIS WITHOUT NECROSIS OR INFECTION, UNSP Status: Acute (2) Cholangitis Code(s): K83.09 - OTHER CHOLANGITIS Status: Acute (3) Diabetes mellitus Code(s): E11.9 - TYPE 2 DIABETES MELLITUS WITHOUT COMPLICATIONS Status: Chronic Qualifiers: Diabetes mellitus type: type 2 (4) HTN (hypertension) Code(s): I10 - ESSENTIAL (PRIMARY) HYPERTENSION Status: Chronic (5) Multiple sclerosis Code(s): G35 - MULTIPLE SCLEROSIS Status: Chronic - Plan Plan: Acute Pancreatitis Patient does not drink alcohol. TG's 64. Evidence of cholelithiasis on RUQ sono. GI consulted. - Pain is currently controlled on ibuprofen. No morphine use since 07/02 @ 10am. Will d/c morphine and use fentanyl for breakthrough pain. - s/p cholecystectomy on 07/05. ERCP on 07/06. Patient doing well s/p procedures. Tolerating liquids and pain controlled. Rehab pending. - Strict I&O's. - Zofran PRN for nausea. Cholelithiasis As evidenced by RUQ sono. Likely source for pancreatitis -GI and Gen surgery have been consulted. Laparoscopic cholecystectomy with intraoperative cholangiogram on 07/05 with showing filling defects. ERCP 07/06. Patient tolerated procedure well. Pain controlled and tolerating liquids. Rehab pending. Gen surg has signed off. Appreciate recommendations. SIRS, resolved - Likely 2/2 acute pancreatitis. Does not appear to be source of infection at this time. Patient with elevated WBC, tachycardia (although tachycardic at baseline), and mildly tachypneic with RR >20. Goal is to continue IVF at aggressive rate. IVF d/c. PO hydration encouraged. Transaminitis - Likely related to acute pancreatitis 2/2 cholelithiasis. See plan as above. - LFT's continue to downtrend; alk phos WNL Constipation Chronic issue for patient - will schedule miralax and senokot Hx of Tachycardia - previous admissions patient has been in sinus tachycardia, present again this admission; sinus; HR 102-105 - Pt asymptomatic; will result metoprolol and continue to monitor Type II DM - Continue home insulin regimen. Goal BG <180. HTN - Will hold BP meds for now - Consider discontinuing valsartan as potential contributor to pancreatitis and transitioning to other BP medication. MS - Patient not currently on therapy for MS. - Recent urinary retention likely 2/2 MS flare requiring indwelling millan catheter - Pt to follow up outpatient with neurology Urinary retention - Patient with millan catheter. Monitor I&O's. - urology to follow up outpatient for voiding trial Code: DNAR Dispo: pending rehab placement Addendum - Attending - Attending Attestation Date/Time: 07/08/18 0118 I personally evaluated the patient and discussed the management with Dr. Celeste I agree with the History, Examination, Assessment and Plan documented above with any addition or exceptions noted below - Patient without complaints. Ready to go back to rehab. Afebrile VSS. A/P: 1) Pancreatitis secondary to cholelithiasis- resolved; tolerating diet. 2) DM- [place], 3) Urinary retention- continue millan. 4) D/C planning- awaiting acceptance by rehab. .
[2018-07-08] MEDS: Piperacillin/Tazobactam 3.375 GM in Sodium Chloride 0.9% 100 ML IVPB SCH (06:51)
[2018-07-08] MEDS: HumaLOG 300 UNITS/3 ML VIAL SC PRN ×3 (06:57→19:01)
[2018-07-08] MEDS: Baclofen 10 MG TAB PO SCH ×3 (09:33→20:10)
[2018-07-08] MEDS: Polyethylene Glycol 3350 17 GM Packet PO SCH (09:34)
[2018-07-08] MEDS: Famotidine/PF 20 mg/2ml Vial SLOW IVP SCH (09:35)
--- NOTE | 2018-07-09 06:58 | PDOC.FM ---
- Subjective Subjective: pt is resting comfortably in bed, he denies pain, fever/chills. He is ready to go to rehab, he reports he talked with Dr. Coates yesterday and he would like to see him in the hospital before he goes to rehab - Objective Vital Signs & Weight: Vital Signs (12 hours) Temp Pulse Resp BP Pulse Ox 07/09/18 04:00 98 F 91 16 152/97 H 92 L 07/09/18 00:00 98.5 F 95 16 142/82 H 95 07/08/18 20:10 95 07/08/18 20:00 98.1 F 95 16 136/89 95 Weight Weight 103.918 kg I&O: 07/07/18 07/08/18 07/09/18 06:59 06:59 06:59 Intake Total 800 1352 2920 Output Total 2600 1500 2800 Balance -1800 -148 120 Result Diagrams: 07/06/18 06:40 07/07/18 09:01 Phys Exam - Physical Examination Constitutional: NAD HEENT: moist MMs Neck: no JVD Gastrointestinal: no distention Musculoskeletal: no edema Psychiatric: normal affect Skin: no rash Dx/Plan (1) Acute pancreatitis Code(s): K85.90 - ACUTE PANCREATITIS WITHOUT NECROSIS OR INFECTION, UNSP Status: Acute (2) Cholangitis Code(s): K83.09 - OTHER CHOLANGITIS Status: Acute (3) Diabetes mellitus Code(s): E11.9 - TYPE 2 DIABETES MELLITUS WITHOUT COMPLICATIONS Status: Chronic Qualifiers: Diabetes mellitus type: type 2 (4) HTN (hypertension) Code(s): I10 - ESSENTIAL (PRIMARY) HYPERTENSION Status: Chronic (5) Multiple sclerosis Code(s): G35 - MULTIPLE SCLEROSIS Status: Chronic - Plan Plan: Acute Pancreatitis Patient does not drink alcohol. TG's 64. Evidence of cholelithiasis on RUQ sono. GI consulted. - Pain is currently controlled on ibuprofen. No morphine use since 07/02 @ 10am. Will d/c morphine and use fentanyl for breakthrough pain. - s/p cholecystectomy on 07/05. ERCP on 07/06. Patient doing well s/p procedures. Tolerating liquids and pain controlled. Rehab pending. - Strict I&O's. - Zofran PRN for nausea. Cholelithiasis As evidenced by RUQ sono. Likely source for pancreatitis -GI and Gen surgery have been consulted. Laparoscopic cholecystectomy with intraoperative cholangiogram on 07/05 with showing filling defects. ERCP 07/06. Patient tolerated procedure well. Pain controlled and tolerating liquids. Rehab pending. Gen surg has signed off. Appreciate recommendations. SIRS, resolved - Likely 2/2 acute pancreatitis. Does not appear to be source of infection at this time. Patient with elevated WBC, tachycardia (although tachycardic at baseline), and mildly tachypneic with RR >20. Goal is to continue IVF at aggressive rate. IVF d/c. PO hydration encouraged. Transaminitis - Likely related to acute pancreatitis 2/2 cholelithiasis. See plan as above. - LFT's continue to downtrend; alk phos WNL Constipation Chronic issue for patient - will schedule miralax and senokot Hx of Tachycardia - previous admissions patient has been in sinus tachycardia, present again this admission; sinus; HR 102-105 - Pt asymptomatic; will result metoprolol and continue to monitor Type II DM - Continue home insulin regimen. Goal BG <180. HTN - Will hold BP meds for now - Consider discontinuing valsartan as potential contributor to pancreatitis and transitioning to other BP medication. MS - Patient not currently on therapy for MS. - Recent urinary retention likely 2/2 MS flare requiring indwelling millan catheter - will follow up with urology 07/09 for possible consultation - Pt to follow up outpatient with neurology Urinary retention - Patient with millan catheter. Monitor I&O's. - urology to follow up outpatient for voiding trial Code: DNAR Dispo: DC to rehab today, follow up with urology Addendum - Attending - Attending Attestation Date/Time: 07/09/18 2433 I personally evaluated the patient and discussed the management with Dr. Celeste I agree with the History, Examination, Assessment and Plan documented above with any addition or exceptions noted below- Patient without complaints. Ready to go to rehab. Afebrile VSS. A/P: 1) Pancreatitis secondary to cholelithiasis - resolved. 2) Urinary retnetion- continue folwy; follow-up with urology as outpatient. 3) DM- stable. 4) D/c planning- awaiting approval for rehab.
[2018-07-09] MEDS: Polyethylene Glycol 3350 17 GM Packet PO SCH (09:12)
[2018-07-09] MEDS: Baclofen 10 MG TAB PO SCH ×3 (09:12→20:38)
--- NOTE | 2018-07-10 06:37 | PDOC.FM ---
- Subjective Subjective: Mr. Hill is resting comfortably in bed, denies CP or SOB. He is awaiting a bed to open at rehab. - Objective Vital Signs & Weight: Vital Signs (12 hours) Temp Pulse Resp BP Pulse Ox 07/10/18 04:00 98.2 F 102 H 18 136/89 96 07/10/18 00:00 98 F 100 18 140/95 H 96 07/09/18 20:38 98.5 F 104 H 16 128/92 H 95 Weight Weight 103.918 kg I&O: 07/08/18 07/09/18 07/10/18 06:59 06:59 06:59 Intake Total 1352 2920 Output Total 1500 2800 425 Balance -148 120 -425 Result Diagrams: 07/06/18 06:40 07/07/18 09:01 Phys Exam - Physical Examination Constitutional: NAD HEENT: moist MMs Neck: no JVD Gastrointestinal: no distention Musculoskeletal: no edema Psychiatric: normal affect Skin: no rash Dx/Plan (1) Acute pancreatitis Code(s): K85.90 - ACUTE PANCREATITIS WITHOUT NECROSIS OR INFECTION, UNSP Status: Acute (2) Cholangitis Code(s): K83.09 - OTHER CHOLANGITIS Status: Acute (3) Diabetes mellitus Code(s): E11.9 - TYPE 2 DIABETES MELLITUS WITHOUT COMPLICATIONS Status: Chronic Qualifiers: Diabetes mellitus type: type 2 (4) HTN (hypertension) Code(s): I10 - ESSENTIAL (PRIMARY) HYPERTENSION Status: Chronic (5) Multiple sclerosis Code(s): G35 - MULTIPLE SCLEROSIS Status: Chronic - Plan Plan: Acute Pancreatitis Patient does not drink alcohol. TG's 64. Evidence of cholelithiasis on RUQ sono. GI consulted. - Pain is currently controlled on ibuprofen. No morphine use since 07/02 @ 10am. Will d/c morphine and use fentanyl for breakthrough pain. - s/p cholecystectomy on 07/05. ERCP on 07/06. Patient doing well s/p procedures. Tolerating liquids and pain controlled. Rehab pending. - Strict I&O's. - Zofran PRN for nausea. Cholelithiasis As evidenced by RUQ sono. Likely source for pancreatitis -GI and Gen surgery have been consulted. Laparoscopic cholecystectomy with intraoperative cholangiogram on 07/05 with showing filling defects. ERCP 1/26. Patient tolerated procedure well. Pain controlled and tolerating liquids. Rehab pending. Gen surg has signed off. Appreciate recommendations. SIRS, resolved - Likely 2/2 acute pancreatitis. Does not appear to be source of infection at this time. Patient with elevated WBC, tachycardia (although tachycardic at baseline), and mildly tachypneic with RR >20. Goal is to continue IVF at aggressive rate. IVF d/c. PO hydration encouraged. Transaminitis - Likely related to acute pancreatitis 2/2 cholelithiasis. See plan as above. - LFT's continue to downtrend; alk phos WNL Constipation Chronic issue for patient - will schedule miralax and senokot Hx of Tachycardia - previous admissions patient has been in sinus tachycardia, present again this admission; sinus; HR 102-105 - Pt asymptomatic; will resume metoprolol and continue to monitor Type II DM - Continue home insulin regimen. Goal BG <180. HTN - mildly elevated - consider restarting additional home BP meds today MS - Patient not currently on therapy for MS. - Recent urinary retention likely 2/2 MS flare requiring indwelling millan catheter - will follow up with urology 07/09 for possible consultation - Pt to follow up outpatient with neurology Urinary retention - Patient with millan catheter. Monitor I&O's. - urology to follow up outpatient for voiding trial Code: DNAR Dispo: DC to rehab today, follow up with urology Addendum - Attending - Attending Attestation Date/Time: 07/11/18 [id number] I personally evaluated the patient and discussed the management with Dr. Celeste on 07/10/2018 I agree with the History, Examination, Assessment and Plan documented above with any addition or exceptions noted below - Patient without complaints. Afebrile VSS. A/P: 1) Pancreatitis -resolved. s/p cholecystectomy. 2) DM- stable. 3) Deconditioning- continue PT; awaiting SNF/rehab placement.
[2018-07-10] MEDS: Baclofen 10 MG TAB PO SCH ×2 (09:16→15:02)
[2018-07-10] MEDS ORDERED: diphenhydrAMINE 25 MG CAP PO PRN ×2 (09:17→09:44)
[2018-07-10] MEDS ORDERED: Loperamide HCl 2 MG CAP PO PRN (09:17)
[2018-07-10] MEDS ORDERED: INSULIN LISPRO 100 UNIT SC PRN (09:17)
[2018-07-10] MEDS ORDERED: Calcium Carbonate 500 MG ChewTAB PO PRN (09:17)
[2018-07-10] MEDS ORDERED: Bisacodyl 10 MG SUPP PR PRN (09:17)
[2018-07-10] MEDS ORDERED: MAGNESIUM HYDROXIDE 2400 MG PO PRN (09:17)
[2018-07-10] MEDS ORDERED: cloNIDine 0.1 MG TAB PO PRN ×2 (09:17→09:44)
[2018-07-10] MEDS ORDERED: traMADol HCl 50 MG TAB PO PRN (09:17)
[2018-07-10] MEDS ORDERED: guaiFENesin 100 MG/5 ML UDCUP PO PRN (09:17)
[2018-07-10] MEDS: Polyethylene Glycol 3350 17 GM Packet PO SCH (09:34)
[2018-07-10] MEDS ORDERED: Milk Of Magnesia 30 ML UDCUP PO PRN (09:48)
[2018-07-10] MEDS: HumaLOG 300 UNITS/3 ML VIAL SC PRN (11:10)
[2018-07-10 16:08] VITALS: BP 160/72; TEMP 98.1
[2018-07-10] MEDS ORDERED: Insulin Glargine 10 UNITS in Pre-Filled Syringe 1 EACH SC SCH (21:00)
[2018-07-10] MEDS ORDERED: Docusate 100 MG CAP PO SCH (21:00)
[2018-07-11] MEDS ORDERED: Tamsulosin HCl 0.4 MG CAP PO SCH (09:00)
[2018-07-11] MEDS ORDERED: CHOLECALCIFEROL PO SCH (09:00)
[2018-07-11] MEDS ORDERED: Losartan 25 MG TAB PO SCH (09:00)
[2018-07-11] MEDS ORDERED: Non-Formulary Item 1 EACH (Multivitamin [Multivitamins] 1 CAP) PO SCH (09:00)
[2018-07-11] MEDS ORDERED: Non-Formulary Item 1 EACH (Insulin Detemir [Levemir] 10 UNIT) SQ SCH (09:00)
[2018-07-11] MEDS ORDERED: Multivit, Therapeutic 1 TAB PO SCH (09:00)
--- NOTE | 2018-07-11 14:09 | DIS ---
DATE OF ADMISSION: 07/01/2018 DATE OF DISCHARGE: 07/10/2018 ADMITTING ATTENDING: Komal Santos MD DISCHARGE ATTENDING: Farnaz Dash MD. CONSULTS: 1. Dr. Osbaldo Anderson, Pulmonology. 2. Dr. Reynold Galvan, General Surgery. 3. Dr. Alvaro Newby, Gastroenterology. PROCEDURES: 1. Operative cholangiogram, significant for diffuse mild ectasia of the extrahepatic bile ducts. 2. Small filling defects in the common duct. It is uncertain whether these represent air bubbles or in fact a choledocholithiasis. 3. ERCP x-ray significant for diffuse ectasia of the common duct. 4. ERCP with biliary sphincterotomy and balloon extraction of biliary sludge significant for small amount of biliary sludge in the common bile duct, now successfully removed with biliary sphincterotomy and balloon extraction. 5. Laparoscopic cholecystectomy without complication. IMAGING: Abdomen/pelvis CT significant for findings suggestive of interval worsening of pancreatic inflammatory changes, evidence of pancreatitis. PRIMARY DIAGNOSES: Acute pancreatitis. SECONDARY DIAGNOSES: 1. Cholelithiasis. 2. Systemic inflammatory response syndrome. 3. Transaminitis. 4. Constipation. 5. History of tachycardia. 6. Type 2 diabetes mellitus. 7. Hypertension. 8. Multiple sclerosis. 9. Urinary retention. DISCHARGE MEDICATIONS: 1. Levemir 15 units subcutaneous daily. 2. Baclofen 20 mg p.o. t.i.d. 3. Vitamin D3 one capsule p.o. daily. 4. Magnesium 250 mg p.o. 5. MiraLAX 17 g p.o. daily. 6. Flomax 0.4 mg p.o. daily. 7. Toprol-XL 25 mg p.o. daily. 8. Fleet enema 133 mL [place] daily p.r.n. 9. Senna p.o. daily p.r.n. 10. Zofran 4 mg p.o. q.6 p.r.n. 11. LaxaClear 1700 grams p.o. daily p.r.n. 12. Multivitamins one cap p.o. daily. 13. Loperamide 2 mg p.o. as directed p.r.n. 14. Milk of magnesia 2400 mg p.o. daily p.r.n. 15. Lactulose 20 g p.o. t.i.d. p.r.n. 16. Humalog Chandler KwikPen 100 units subcutaneous as directed p.r.n. 17. Guaifenesin 100 mg p.o. q.4 p.r.n. 18. Glucagon 1 mg IM p.r.n. 19. Famotidine 20 mg p.o. b.i.d. 20. Lovenox 40 mg subcutaneous daily. 21. Benadryl 1 cap p.o. q.6 hours p.r.n. 22. Colace 100 mg p.o. b.i.d. 23. Bisacodyl 10 mg [place] daily p.r.n. 24. Clonidine one tab p.o. q.6 p.r.n. 25. Tums 1000 mg p.o. q.i.d. p.r.n. 26. Benzocaine menthol one lozenge p.o. b.i.d. p.r.n. 27. Tramadol 50 mg p.o. q.6 hours p.r.n. 28. Cozaar 100 mg p.o. daily. 29. Cipro 250 mg p.o. as directed. Discontinued medications, valsartan/hydrochlorothiazide. New medications, valsartan 160 mg p.o. daily. HISTORY OF PRESENT ILLNESS/HOSPITAL COURSE: See transition of care document by Dr. Chen on 07/07/2018. Transition of care was completed on 07/08/[address] Renny Celeste. At this time, patient has been stabilized medically. Vital signs are within normal limits. Patient does not complain of pain. Tolerating a regular diabetic diet. Awaiting bed to open up in an inpatient rehab so that he may return there. Patient continued to do well throughout his hospital stay and on 07/10/2018, was discharged in stable conditions. DISCHARGE INSTRUCTIONS: Location, inpatient rehab. Diet, diabetic. Activity, PT/OT as tolerated. Follow up with inpatient rehab and Dr. Lucio Earl, PCP in [address] Galvan in 3 to 4 weeks. Job ID: [id number] [facility]
--- NOTE | 2018-07-11 14:09 | OP ---
DATE OF PROCEDURE: 07/05/2018 PREOPERATIVE DIAGNOSIS: Gallstone pancreatitis. POSTOPERATIVE DIAGNOSIS: Gallstone pancreatitis. PROCEDURE PERFORMED: Laparoscopic cholecystectomy with intraoperative cholangiogram. ANESTHESIA: General. ESTIMATED BLOOD LOSS: Minimal. COMPLICATIONS: None. SPECIMEN: Gallbladder. FINDINGS: Multiple filling defects in the mid common duct consistent with common duct stones. There is free passage of contrast into the duodenum. DESCRIPTION OF PROCEDURE: The patient was taken to the operating room and laid supine on the operating room table. After general anesthetic was obtained, the abdomen was shaved, prepped, and draped in a sterile fashion. A curved incision was made below the umbilicus. Cautery was dissected down to and score the fascia. Abdominal cavity was entered bluntly using a Kim clamp. Holding stitch of PDS was placed on each side of the fascia. Donaldo trocar was placed. High-flow pneumoperitoneum was obtained. Upper midline 5 mm port and two right upper quadrant 5 mm ports were placed under direct visualization. Gallbladder was retracted from the gallbladder fossa. The peritoneum was opened anteriorly and posteriorly. The critical view triangle was seen showing only the cystic duct and cystic artery branching from medial to lateral. There were no other branching structures. A clip was placed on the cystic duct. A small ductotomy was made just proximal to that. A cholangiocatheter was brought in through a separate stab incision and placed in the cystic duct and cholangiogram was performed, which shows good contrast flow into the duodenum. There are few filling defects in the mid common bile duct that could not be flushed through. Two clips were placed proximally on the cystic duct and it was cut using laparoscopic scissors. Cystic artery was taken using two clips proximally and one clip distally, cut using laparoscopic scissors. Cautery was used to dissect the gallbladder out of the gallbladder fossa. The gallbladder was placed in an Endo Catch bag and brought out through the Donaldo. All port sites were infiltrated using local anesthetic. All ports were removed under direct visualization. Pneumoperitoneum was let down. Incisions were irrigated and closed using 4-0 Monocryl and Dermabond. The patient was sent to Recovery in stable condition. All sponge counts, needle counts, and lap counts were correct. Job ID: [id number]
== END 2018-07-10 18:15 | DRG 853 ==
LOC: ERS 17:07 → ERHOLD 18:45 → IMCU/EMU 07-02 01:40 → SJJU 07-03 16:03
PROVIDERS: ADMIT Student in an Organized Health Care Education/Training Program; ATTEND Student in an Organized Health Care Education/Training Program
PROC: 0FT44ZZ Resection of Gallbladder, Percutaneous Endoscopic Approach (ICD-10-PCS; principal; 2018-07-05)
PROC: BF100ZZ Fluoroscopy of Bile Ducts using High Osmolar Contrast (ICD-10-PCS; 2018-07-05)
PROC: 0F798ZZ Dilation of Common Bile Duct, Via Natural or Artificial Opening Endoscopic (ICD-10-PCS; 2018-07-06)
DX: A41.9 Sepsis, unspecified organism (principal); K85.10 Biliary acute pancreatitis without necrosis or infection; K80.20 Calculus of gallbladder without cholecystitis without obstruction; G35 Multiple sclerosis; E11.9 Type 2 diabetes mellitus without complications; G89.29 Other chronic pain; M54.9 Dorsalgia, unspecified; K59.00 Constipation, unspecified; I10 Essential (primary) hypertension; R33.9 Retention of urine, unspecified; N31.9 Neuromuscular dysfunction of bladder, unspecified; Z87.891 Personal history of nicotine dependence; Z88.6 Allergy status to analgesic agent; Z88.5 Allergy status to narcotic agent; Z79.4 Long term (current) use of insulin; Z79.899 Other long term (current) drug therapy
CPT/HCPCS: 36415; 36416; 36556; 47532; 71045; 74177; 74330; 80053; 81003; 81015; 82330; 82550; 82803; 83605; 83690; 84145; 84478; 84484; 85025; 85610; 85730; 87040; 87086; 88304; 93005; 96361; 96365; 96366; 96374; 96375; C9113; J0360; J0744; J1610; J1650; J1825; J2001; J2270; J2405; J2543; J2704; J3010; J3370; J7050; Q0162; Q9961; Q9966; S0028

== ENCOUNTER 2018-07-26 18:55 | Inpatient (IN) | payer MEDICARE, BC ==
[2018-07-26] MEDS ORDERED: Adenosine 6 MG/2 ML VIAL IVP SCH (19:15)
[2018-07-26] MEDS ORDERED: Adenosine 6 MG/2 ML VIAL ONE (19:16)
[2018-07-26] MEDS ORDERED: Ondansetron PF 4 MG/2 ML Vial ONE (19:40)
[2018-07-26 20:04] LABS: Hemoglobin 13.8 g/dL (14.0-18.0); Mean Corpuscular HGB CONC 32.4 g/dL (32.0-36.0); Mean Corpuscular Hemoglobin 28.7 pg (27.0-31.0); Mean Corpuscular Volume 88.3 fL (78.0-98.0); Mean Platelet Volume 8.4 fL (7.4-10.4); Platelet Count 325 thou/uL (130-400); Red Blood Cell (RBC) Count 4.83 mill/uL (4.70-6.10); White Blood Cell (WBC) Count 23.8 thou/uL (4.8-10.8)
[2018-07-26 20:12] LABS: ALT (SGPT) 34 U/L (8-55); AST (SGOT) 18 U/L (5-34); Alkaline Phosphatase 87 U/L (40-150); Anion Gap 16 mmol/L (10-20); BUN (Urea Nitrogen) 16 mg/dL (8.4-25.7); Bilirubin, Total 0.4 mg/dL (0.2-1.2); Calc. Creatinine Clearance 0 mL/min (70-130); Calcium 10.2 mg/dL (7.8-10.44); Carbon Dioxide 24 mmol/L (23-31); Chloride 102 mmol/L (98-107); Estimated GFR-MDRD 72; Globulin 3.6 g/dL (2.4-3.5); Glucose 174 mg/dL (80-115); Magnesium 1.9 mg/dL (1.6-2.6); Potassium 4.2 mmol/L (3.5-5.1); Protein, Total 7.6 g/dL (5.8-8.1); Sodium 138 mmol/L (136-145)
[2018-07-26 20:20] LABS: Band 12 % (5-11); Lymphocytes 5 % (21-51); MDiff Complete? YES; Monocytes 6 % (0-10); Neutrophil 77 % (42-75)
--- NOTE | 2018-07-26 20:51 | RAD ---
PORTABLE CHEST ONE VIEW: 07/26/18 at 6:58 p.m. HISTORY: Chest pain. FINDINGS/IMPRESSION: Comparison made with the exam of 07/01/18. The heart size is normal. There is elevation of the right hemidiaphragm. No lobar consolidation, pneu mothoraces, or large effusions are seen. There is mild atelectatic changes versus minimal infiltrate in the left lung base. POS: [facility]
--- NOTE | 2018-07-26 21:15 | CT ---
CT PULMONARY ANGIOGRAM WITH IV CONTRAST AND 3D POSTPROCESSING 07/26/18 HISTORY: Shortness of breath and chest pain. FINDINGS: The thoracic aorta is better opacified than the pulmonary artery vasculature. No thoracic aortic aneu rysmal dissection is seen. No filling defects are seen in the main pulmonary arteries. Possibility of embolism in the pulmonary arterial branches cannot be excluded on this study. No pleural or pericard ial effusions are seen. No pneumothoraces, lobar consolidation, or lung masses identified. There are mild dependent changes in the lung bases. There are postop changes of cholecystectomy and intrabiliar y air. Degenerative changes are seen in the spine. IMPRESSION: 1. No CT evidence of thoracic aortic aneurysm or dissection. 2. Exam limited for evaluation of pulmonary embolism. POS: [facility]
--- NOTE | 2018-07-26 22:05 | CT ---
CT ABDOMEN AND PELVIS WITHOUT CONTRAST: 07/26/18 HISTORY: Severe abdominal pain, hypotension. FINDINGS: Comparison made with exam of 07/01/18. There is contrast in the pelvicalyceal systems, ureters, and urinary bladder from recent injection du ring an earlier CT pulmonary angiogram. There are mild dependent changes in the lung bases. Absence of IV contrast reduces the sensitivity of exam particularly for evaluation of solid organs. Interval changes of cholecystectomy is seen with intrahepatic biliary air. Calcified granuloma is see n in the spleen. Peripancreatic inflammatory changes have resolved. No free air or free fluid is seen in the abdomen or pelvis. There is contrast in the urinary bladder with a suprapubic catheter in roseanne ce. A normal appearing appendix is seen. The small bowel loops are not abnormally dilated. No hydrour eteronephrosis is seen. There are vascular calcifications without evidence of aneurysmal dilatation o f the abdominal aorta. the prostate is enlarged. There are degenerative changes in the spine. IMPRESSION: 1. Interval resolution of pancreatitis since 07/01/18. 2. No evidence of urinary tract obstruction. 3. Prostatic enlargement. POS: [facility]
[2018-07-26] MEDS ORDERED: Piperacillin/Tazobactam 3.375 GM VIAL ONE (22:20)
[2018-07-26 22:28] LABS: Bilirubin Small (Negative); Blood, Urine Large (Negative); Clarity TURBID (Clear); Glucose, Urine (Dipstick) Negative (Negative); Leukocyte Large (Negative); Nitrite Positive (Negative); Protein, Urine (Dipstick) 100 mg/dL (Neg-Trace); pH, Urine 5.5 (5.0-9.0)
[2018-07-26 22:31] LABS: Hyaline Casts/LPF 0-3 HYALINE CAST LPF (0-3 Hyaline); Pathc Cast-AUWi Flag 0.73 (0-2.49); RBC/HPF GREATER THAN 50-TNTC HPF (0-3); Squamous Epithelial None Seen HPF (0-3); Yeast-AUWi Flag 2117.4 (0-25.0)
[2018-07-26 22:32] LABS: Specific Gravity, Urine Greater than 1.060 (1.002-1.036)
[2018-07-26 22:34] LABS: Bacteria/HPF 1+ HPF (None Seen); Yeast-All Forms None Seen HPF (None Seen)
[2018-07-27] MEDS ORDERED: HumaLOG 300 UNITS/3 ML VIAL SC PRN (00:26)
[2018-07-27] MEDS ORDERED: Ondansetron PF 4 MG/2 ML Vial IVP PRN (00:26)
[2018-07-27] MEDS ORDERED: Dextrose 50% Abboject 50 ML SYRINGE SLOW IVP PRN (00:26)
[2018-07-27] MEDS ORDERED: Ondansetron ODT 4 MG TAB PO PRN (00:26)
[2018-07-27] MEDS ORDERED: Dextrose 5% in Water 1,000 ML IV PRN (00:26)
[2018-07-27] MEDS ORDERED: Sodium Chloride 0.9% 1,000 ML IV SCH ×2 (00:26→08:30)
[2018-07-27] MEDS ORDERED: Ondansetron ODT 4 MG TAB SL PRN (00:26)
[2018-07-27] MEDS: Sodium Chloride 0.9% 1,000 ML IV SCH ×2 (01:21→04:57)
--- NOTE | 2018-07-27 01:42 | PDOC.FPRHP ---
- History of Present Illness Chief Complaint: Weakness History of Present Illness: 63 yo M with PMH HTN, MS and suprapubic catheter placement yesterday presents for weakness. Patient was recently hospitalized for pancreatitis and had cholecystectomy. Had urine culture 07/22 with no growth. Suprapubic cath placed 07/25/18. Was in [facility] but medicare ran out so he was discharged home today with son. Patient said he was extremely weak and cannot manage at home, considering SNF placement. Said today he was especially weak and felt confused, dizzy, hands shaking so came to ED. Denies cough, CP, SOB, fever. EMS vital were 120/78, pulse 160. In ED patient found to have SVT with pulse in 130s, given adenosine x2 doses. Patient was since in sinus tachycardia, pulse 115. BP continued to drop to 80s/60s but MAP never below 65, R femoral central line place in the case of need for pressors. Receiving 4th liter of NS. ED Course: Adenosine 6mg then 12 mg, 4L IVF, vanc, zosyn, ondansetron - Allergies/Adverse Reactions Allergies Allergy/AdvReac Type Severity Reaction Status Date / Time acetaminophen [From Tylenol] Allergy Verified 07/24/18 15:32 adhesive Allergy Verified 07/27/18 00:58 codeine Allergy Verified 07/24/18 15:32 - Home Medications Medication Instructions Recorded Confirmed Type Baclofen 20 mg PO TID 06/04/18 07/02/18 History Cholecalciferol (Vitamin D3) 1 capsule PO DAILY 06/04/18 07/24/18 History [Vitamin D] Insulin Detemir [Levemir] 15 unit SQ DAILY 06/04/18 07/24/18 History Tamsulosin HCl [Flomax] 0.4 mg PO DAILY #30 cap 06/09/18 07/24/18 Rx Metoprolol Succinate [Toprol XL] 25 mg PO DAILY #30 tab 06/27/18 07/24/18 Rx Benzocaine/Menthol [Cepacol Sore 1 hannah PO BID PRN 07/02/18 07/24/18 History Throat Lozenge] Bisacodyl [Biscolax] 10 mg CA DAILY PRN 07/02/18 07/24/18 History Calcium Carbonate [Tums] 1,000 mg PO QID PRN 07/02/18 07/24/18 History Cipro 250 mg PO ASDIR 07/02/18 07/02/18 History Dextrose 50% 50 ml IV ASDIR PRN 07/02/18 07/24/18 History Docusate [Colace] 100 mg PO BID 07/02/18 07/24/18 History Enoxaparin Sodium [Lovenox] 40 mg SC DAILY 07/02/18 07/24/18 History Famotidine [Pepcid] 20 mg PO BID 07/02/18 07/24/18 History Glucagon 1 mg IM ONE PRN 07/02/18 07/24/18 History Insulin Lispro [Humalog Chandler 100 unit SC ASDIR PRN 07/02/18 07/24/18 History Kwikpen] Lactulose 20 gm PO TID PRN 07/02/18 07/24/18 History Loperamide HCl [Loperamide] 2 mg PO ASDIR PRN 07/02/18 07/24/18 History Losartan [Cozaar] 100 mg PO DAILY 07/02/18 07/24/18 History Magnesium Hydroxide [Milk of 2,400 mg PO DAILY PRN 07/02/18 07/24/18 History Magnesia] Magnesium Oxide 400 mg PO DAILY 07/02/18 07/24/18 History Multivitamin [Multivitamins] 1 cap PO DAILY 07/02/18 07/24/18 History Ondansetron HCl [Zofran] 4 mg PO Q6H PRN 07/02/18 07/24/18 History Sennosides [Senna] 8.6 mg PO DAILY PRN 07/02/18 07/24/18 History Sodium Phosphates [Fleet Enema] 133 ml CA DAILY PRN 07/02/18 07/24/18 History Valsartan/Hydrochlorothiazide 1 each PO DAILY 07/02/18 07/24/18 History [Valsartan-Hctz 160-25 mg Tab] cloNIDine [Catapres] 1 tab PO Q6H PRN 07/02/18 07/24/18 History diphenhydrAMINE [Benadryl] 1 cap PO Q6H PRN 07/02/18 07/24/18 History guaiFENesin [Guaifenesin] 100 mg PO Q4H PRN 07/02/18 07/24/18 History traMADol HCl [Tramadol HCl] 50 mg PO Q6H PRN 07/02/18 07/24/18 History Polyethylene Glycol 3350 [Miralax] 17 gm PO DAILY #30 pk 07/08/18 07/24/18 Rx Sennosides [Senokot] 2 tab PO HSPRN #60 tab 07/08/18 07/24/18 Rx - History PMHx: MS, HTN, DM2, chronic back pain PSHx: cholecystectomy, left shoulder, R leg, suprapubic catheter (07/25/18) FHx: father-HTN, DM2 in sister and parents Social: Former heavy drinker (12 pack/day x 20 years) and smoker (40 pack years ) - quit 22 years ago. Tried IV meth 20 years ago, no drug use since. Lives at home in [place] with son who is his only child. - Review of Systems General: reports: fatigue. denies: fever/chills Eyes: denies: vision changes ENT: denies: nasal congestion, rhinorrhea Respiratory: denies: cough, shortness of breath Cardiovascular: denies: chest pain, palpitation Gastrointestinal: reports: abdominal pain (post surgical tenderness). denies: nausea, vomiting, diarrhea Genitourinary: reports: other (cloudy, bloody urine) Skin: reports: lesions (L thigh skin abrasion from surgery). denies: rashes Musculoskeletal: denies: pain, swelling Neurological: reports: weakness. denies: numbness - Vital signs BP: 87/59 HR: 113 RR: 25 Tmax: 98.0 Pox: 96% on 2: Wt: 99 kg - Physical Exam Constitutional: NAD, awake, alert and oriented, well developed (obese) HEENT: normocephalic and atraumatic, PERRLA, EOMI, MMM, oropharynx clear Heart: RRR, no murmurs/rubs/gallops, no edema Lungs: CTAB, good air movement, no wheezing Abdomen: soft, bowel sounds present, other (post-op bandage clean, dry, intact) Neurological: CN II-XII intact, other (4/5 muscle strength RLE, 5/5 strenth BUE , LLE. decreased sensation RLE. all at baseline. Normal finger to nose.) Skin: other (cap refill delayed. skin abrasion R thigh) Heme/Lymphatic: no unusual bruising or bleeding Psychiatric: normal mood and affect FMR H&P: Results - Labs Result Diagrams: 07/27/18 01:46 07/27/18 01:46 Lab results: WBC 23.8 thou/uL (4.8-10.8) H 07/26/18 18:59 Hgb 13.8 g/dL (14.0-18.0) L 07/26/18 18:59 Hct 42.6 % (42.0-52.0) 07/26/18 18:59 MCV 88.3 fL (78.0-98.0) 07/26/18 18:59 Plt Count 325 thou/uL (130-400) 07/26/18 18:59 Band Neuts % (Manual) 12 % (5-11) H 07/26/18 18:59 Sodium 138 mmol/L (136-145) 07/26/18 18:59 Potassium 4.2 mmol/L (3.5-5.1) 07/26/18 18:59 Chloride 102 mmol/L (98-107) 07/26/18 18:59 Carbon Dioxide 24 mmol/L (23-31) 07/26/18 18:59 BUN 16 mg/dL (8.4-25.7) 07/26/18 18:59 Creatinine 1.05 mg/dL (0.7-1.3) 07/26/18 18:59 Glucose 174 mg/dL (80-115) H 07/26/18 18:59 Lactic Acid 1.0 mmol/L (0.5-2.2) 07/26/18 20:08 Calcium 10.2 mg/dL (7.8-10.44) 07/26/18 18:59 Total Bilirubin 0.4 mg/dL (0.2-1.2) 07/26/18 18:59 AST 18 U/L (5-34) 07/26/18 18:59 ALT 34 U/L (8-55) 07/26/18 18:59 Alkaline Phosphatase 87 U/L (40-150) 07/26/18 18:59 Serum Total Protein 7.6 g/dL (5.8-8.1) 07/26/18 18:59 Albumin 4.0 g/dL (3.4-4.8) 07/26/18 18:59 Urine Ketones Trace mg/dL (Negative) H 07/26/18 22:14 Urine Blood Large (Negative) H 07/26/18 22:14 Urine Nitrite Positive (Negative) H 07/26/18 22:14 Ur Leukocyte Esterase Large (Negative) H 07/26/18 22:14 Urine RBC GREATER THAN 50-TNTC HPF (0-3) H 07/26/18 22:14 Urine WBC Greater Than 50-TNTC HPF (0-3) H 07/26/18 22:14 Ur Squamous Epith Cells None Seen HPF (0-3) 07/26/18 22:14 Urine Bacteria 1+ HPF (None Seen) H 07/26/18 22:14 FMR H&P: A/P - Problem List (1) Sepsis Current Visit: Yes Status: Acute Code(s): A41.9 - SEPSIS, UNSPECIFIED ORGANISM (2) Tachycardia Current Visit: Yes Status: Acute Code(s): R00.0 - TACHYCARDIA, UNSPECIFIED (3) UTI (urinary tract infection) Current Visit: Yes Status: Acute (4) Urinary retention Current Visit: Yes Status: Acute Code(s): R33.9 - RETENTION OF URINE, UNSPECIFIED (5) Diabetes mellitus Current Visit: Yes Status: Chronic Code(s): E11.9 - TYPE 2 DIABETES MELLITUS WITHOUT COMPLICATIONS Qualifiers: Diabetes mellitus type: type 2 (6) HTN (hypertension) Current Visit: Yes Status: Chronic Code(s): I10 - ESSENTIAL (PRIMARY) HYPERTENSION (7) Multiple sclerosis Current Visit: Yes Status: Chronic Code(s): G35 - MULTIPLE SCLEROSIS - Plan Sepsis 2/2 UTI - tachycardia, WBC 23.8, hypotension - POD #1 s/p suprapubic catheter placement - CXR showed mild atelectic change, small infiltrate LLL base - CTA no dissection, exam limited for PE but negative - CT abdomen resolved pancreattits, no urine tract obstruction, prostate enlargement - Urine cx 07/22 showed no growth - vanc, zosyn in ED (07/26), will continue for now - UA with large blood, large leuk esterase, positive nitrite, WBC TNTC. Urine culture pending - MAP has been > 65 since admission, however will continue to monitor BP closely and start vasopressor if necessary - s/p 4L, continue IVF @ 150 SVT, resolved - s/p adenosine 6mg, 12 mg - now in sinus tachycardia Chronic urinary retention - failed indwelling millan now s/p suprapubic catheter - consider urology consult in am DM2 - continue home insulin - SSI, acchuchecks HTN - hold home meds GERD - continue home famotidine Hx of MS Diet: CC Ppx: Lovenox PCP: UYEN Chen Dispo: admit to [facility] inpatient FMR H&P: Upper Level - Pertinent history Mr. Hill is a 63 yr old male with significant PMH of chronic indwelling catheter with recently placed suprapubic catheter yesterday 2/2 urinary retention likely 2/2 BPH and MS presenting with weakness. He states he had to go home from rehab today despite not feeling physically ready bc of medicare limitations to his stay. When he arrived home, he felt weak and like the room was spinning. He denies fever. Some abdominal pain. Suprapubic catheter placed yesterday, 07/25. Urine cx performed on 07/22 has NGTD. - Pertinent findings Gen: no acute distress, obese, unable to perform gross body movements due to generalized weakness Heart: RRR, no M/R/G Lungs: CTAB, no W/R/R Abd: mild tender near site of suprapubic catheter Neuro: alert and oriented x 4. 4/5 strength on LUE/LLE. 5/5 strength in RUE/RLE - Plan Date/Time: 07/27/18 [email or web address] I, [Lena Gaines], have evaluated this patient and agree with findings/plan as outlined by academic intern resident. Pertinent changes/additions are listed here. 63 yr od male Sepsis 2/2 UTI present on admission -leukocytosis, tachycardia, hypotension which has responded to 4 lt NS resuscitation. - map now above 65 but will continue to monitor closely and if falls < 65, will start pressors as needed -mostly likely sepsis 2/2 recently placed suprapubic catheter as aspirate reveals nitrites, LE, bacteria, TNTC WBC/RBC, and 1+ bacteria -cont on vanc and zosyn -await blood and urine cx -most recent urine cx prior to suprapubic catheter placement reveals no growth -admit to [facility] Chronic urinary retention 2/2 neurogenic bladder vs BPH -call urology in AM -may need to remove suprapubic catheter SVT on presentation -most likely 2/2 sepsis -resolved with adenosine See academic intern note for other chronic medical problems. Dispo: admit to IMCU, likely DC in 2-3 days pending clinical course PCP: Rachel Chen MD Code status: DNAR Diet:CC Addendum - Attending - Attending Attestation Date/Time: 07/27/18 [id number] I personally evaluated the patient and discussed the management with Dr. Ventura /Eder I agree with the History, Examination, Assessment and Plan documented above with any addition or exceptions noted below.63 yo male with MS recently dismissed from rehab to home with vertigo and weakness. Patient ER with SVT and severe sepsis due to urosepsis POD # 1 suprapubic cath placement. Patient fliud resuscitated and given adenosine in ER and fluid resuscitation will transfer to ICU continue monitor hemodynamic and vasopressor if develop septic shock.
[2018-07-27 02:39] LABS: Band 9 % (5-11); Hemoglobin 11.3 g/dL (14.0-18.0); Lymphocytes 7 % (21-51); MDiff Complete? YES; Mean Corpuscular HGB CONC 32.2 g/dL (32.0-36.0); Mean Corpuscular Hemoglobin 28.8 pg (27.0-31.0); Mean Corpuscular Volume 89.3 fL (78.0-98.0); Mean Platelet Volume 8.1 fL (7.4-10.4); Monocytes 6 % (0-10); Neutrophil 78 % (42-75); Platelet Count 273 thou/uL (130-400); Red Blood Cell (RBC) Count 3.92 mill/uL (4.70-6.10); White Blood Cell (WBC) Count 21.9 thou/uL (4.8-10.8)
[2018-07-27 02:49] LABS: Anion Gap 11 mmol/L (10-20); BUN (Urea Nitrogen) 12 mg/dL (8.4-25.7); Calc. Creatinine Clearance 112 mL/min (70-130); Calcium 8.6 mg/dL (7.8-10.44); Carbon Dioxide 23 mmol/L (23-31); Chloride 109 mmol/L (98-107); Estimated GFR-MDRD 79; Glucose 173 mg/dL (80-115); Potassium 4.1 mmol/L (3.5-5.1); Sodium 139 mmol/L (136-145)
[2018-07-27] MEDS: Piperacillin/Tazobactam 3.375 GM in Sodium Chloride 0.9% 100 ML IVPB SCH ×4 (03:31→23:01)
[2018-07-27] MEDS: Vancomycin HCl 1.5 GM in Sodium Chloride 0.9% 250 ML 300 ML IVPB SCH ×2 (04:56→17:11)
--- NOTE | 2018-07-27 06:26 | PDOC.FM ---
- Subjective Subjective: Not feeling well this morning. Although he is eating a muffin and reports good appetite. Sees Dr Elias outpt for urology. Reports still feeling weak. Denies fever, shortness of breath. - Objective MAR Reviewed: Yes Vital Signs & Weight: Vital Signs (12 hours) Temp 07/27/18 04:00 99.8 F H 07/26/18 23:56 98.5 F Weight Weight 99.155 kg Most Recent Monitor Data Heart Rate from ECG 112 NIBP 106/62 NIBP BP-Mean 76 Respiration from ECG 23 SpO2 99 I&O: 07/25/18 07/26/18 07/27/18 06:59 06:59 06:59 Output Total 400 Balance -400 Result Diagrams: 07/27/18 01:46 07/27/18 01:46 Phys Exam - Physical Examination Constitutional: NAD HEENT: moist MMs Neck: supple Respiratory: no wheezing, clear to auscultation bilateral Cardiovascular: RRR, no significant murmur Gastrointestinal: soft, non-tender, positive bowel sounds Musculoskeletal: no edema Neurological: non-focal, moves all 4 limbs Psychiatric: normal affect, A&O x 3 Dx/Plan (1) Sepsis Code(s): A41.9 - SEPSIS, UNSPECIFIED ORGANISM Status: Acute (2) Tachycardia Code(s): R00.0 - TACHYCARDIA, UNSPECIFIED Status: Acute (3) UTI (urinary tract infection) Status: Acute (4) Urinary retention Code(s): R33.9 - RETENTION OF URINE, UNSPECIFIED Status: Acute (5) Diabetes mellitus Code(s): E11.9 - TYPE 2 DIABETES MELLITUS WITHOUT COMPLICATIONS Status: Chronic Qualifiers: Diabetes mellitus type: type 2 (6) HTN (hypertension) Code(s): I10 - ESSENTIAL (PRIMARY) HYPERTENSION Status: Chronic (7) Leukocytosis Code(s): D72.829 - ELEVATED WHITE BLOOD CELL COUNT, UNSPECIFIED Status: Acute - Plan Plan: 63yo male presents for sepsis 2/2 UTI Sepsis 2/2 UTI - tachycardia, WBC 23.8, hypotension - POD #1 s/p suprapubic catheter placement - CXR: mild atelectic change, small infiltrate LLL base - CTA: no dissection, exam limited for PE but negative - CT abdomen: resolved pancreatitis, no urine tract obstruction, prostate enlargement - Urine cx 07/22: no growth - UA: large blood, large leuk esterase, positive nitrite, WBC TNTC. Culture pending - MAP has been > 65 since admission, Continue to monitor BP, start vasopressor if necessary - s/p 4L, continue IVF @ 150 - Curbside consult to Urology, will leave in suprapubic cath for healing and treat infection - Ordered renal US - Continue Vanc/Zosyn SVT, resolved - s/p adenosine 6mg, 12 mg - now in sinus tachycardia Chronic urinary retention - failed indwelling millan now s/p suprapubic catheter DM2 - Continue home Lantus 15U - SSI, acchuchecks - Hypoglycemic protocol - CC diet HTN - hold home meds GERD - continue home famotidine Hx of MS Lines: Right femoral central line Code Status: DNR DVT ppx: Lovenox PCP: UYEN Chen Addendum - Attending - Attending Attestation Date/Time: 07/27/18 [id number] I personally evaluated the patient and discussed the management with Dr. Hough I agree with the History, Examination, Assessment and Plan documented above with any addition or exceptions noted below. MAP borderline but staying above 65 good urine output would not change suprapubic cath this soon post op unless urology feels appropriate.
[2018-07-27] MEDS ORDERED: Non-Formulary Item 1 EACH (Insulin Detemir [Levemir] 15 UNIT) SQ SCH (09:00)
[2018-07-27] MEDS: Docusate 100 MG CAP PO SCH ×2 (09:26→22:55)
[2018-07-27] MEDS: Polyethylene Glycol 3350 17 GM Packet PO SCH (09:27)
[2018-07-27] MEDS: Enoxaparin Sodium 40 MG/0.4 ML SYRINGE SC SCH (09:27)
[2018-07-27] MEDS: Insulin Glargine 15 UNITS in Pre-Filled Syringe 1 EACH SC SCH (09:27)
[2018-07-27] MEDS: Lactated Ringer's 1,000 ML IV SCH ×3 (09:45→23:02)
--- NOTE | 2018-07-27 15:32 | ULT ---
RENAL SONOGRAM 07/27/18 HISTORY: UTI and sepsis. Suprapubic catheter in place. FINDINGS: The kidneys demonstrate a normal sonographic appearance bilaterally without evidence of hydronephrosi s, renal mass, or renal calculus. The right kidney measures 10.7 cm x 5.6 cm with the left kidney nick suring 11.8 cm x 6.2 cm. The urinary bladder is decompressed with suprapubic catheter noted in place. IMPRESSION: Normal appearance of the bilateral kidneys without evidence of hydronephrosis. POS: KEYSHA
[2018-07-28] MEDS: Piperacillin/Tazobactam 3.375 GM in Sodium Chloride 0.9% 100 ML IVPB SCH ×4 (03:41→22:01)
[2018-07-28 04:08] LABS: #Eosinphils 0.1 thou/uL (0.0-0.7); #Lymphocytes 1.4 thou/uL (1.20-3.40); #Monocytes 1.1 thou/uL (0.11-0.59); #Neutrophils 16.7 thou/uL (1.40-6.50); %Basophils 0.1 % (0.0-1.0); %Eosinophils 0.7 % (0.0-10.0); %Lymphocytes 7.3 % (21.0-51.0); %Monocytes 5.5 % (0.0-10.0); %Neutrophils 86.3 % (42.0-75.0); Hemoglobin 8.7 g/dL (14.0-18.0); Mean Corpuscular HGB CONC 32.1 g/dL (32.0-36.0); Mean Corpuscular Hemoglobin 28.7 pg (27.0-31.0); Mean Corpuscular Volume 89.7 fL (78.0-98.0); Platelet Count 250 thou/uL (130-400); RBC Distribution Width 12.9 % (11.5-14.5); Red Blood Cell (RBC) Count 3.04 mill/uL (4.70-6.10); White Blood Cell (WBC) Count 19.3 thou/uL (4.8-10.8)
[2018-07-28 04:20] LABS: Anion Gap 10 mmol/L (10-20); BUN (Urea Nitrogen) 7 mg/dL (8.4-25.7); Calc. Creatinine Clearance 125 mL/min (70-130); Carbon Dioxide 27 mmol/L (23-31); Chloride 106 mmol/L (98-107); Estimated GFR-MDRD 90; Glucose 109 mg/dL (80-115); Potassium 3.5 mmol/L (3.5-5.1); Sodium 139 mmol/L (136-145)
--- NOTE | 2018-07-28 05:49 | PDOC.FM ---
- Subjective Subjective: Feeling bad this morning. Reports not sleeping well due to subrapubic pain that starts if he doesn't "empty is catheter" by raising and lowering the drainage tube. Denies fevers, chills, SOB. Reports it takes 2-3 people out of bed and he would struggle if he went back home with ADLs. No overnight events. - Objective MAR Reviewed: Yes Vital Signs & Weight: Vital Signs (12 hours) Temp Pulse Ox 07/28/18 03:43 98.5 F 07/27/18 23:56 99.6 F 07/27/18 20:00 97 07/27/18 19:58 99.0 F Weight Admit Weight 99.155 kg Weight 99.155 kg Most Recent Monitor Data Heart Rate from ECG 112 NIBP 113/65 NIBP BP-Mean 81 Respiration from ECG 26 SpO2 93 I&O: 07/26/18 07/27/18 07/28/18 06:59 06:59 06:59 Intake Total 3900 Output Total 400 800 Balance -400 3100 Result Diagrams: 07/28/18 03:50 07/28/18 03:50 Phys Exam - Physical Examination Constitutional: NAD HEENT: moist MMs Neck: supple Respiratory: no wheezing, clear to auscultation bilateral Cardiovascular: RRR, no significant murmur Gastrointestinal: soft, non-tender, positive bowel sounds Musculoskeletal: no edema Neurological: moves all 4 limbs Psychiatric: normal affect, A&O x 3 Skin: cap refill <2 seconds Dx/Plan (1) Sepsis Code(s): A41.9 - SEPSIS, UNSPECIFIED ORGANISM Status: Acute (2) Tachycardia Code(s): R00.0 - TACHYCARDIA, UNSPECIFIED Status: Acute (3) UTI (urinary tract infection) Status: Acute (4) Urinary retention Code(s): R33.9 - RETENTION OF URINE, UNSPECIFIED Status: Acute (5) Diabetes mellitus Code(s): E11.9 - TYPE 2 DIABETES MELLITUS WITHOUT COMPLICATIONS Status: Chronic Qualifiers: Diabetes mellitus type: type 2 (6) HTN (hypertension) Code(s): I10 - ESSENTIAL (PRIMARY) HYPERTENSION Status: Chronic (7) Leukocytosis Code(s): D72.829 - ELEVATED WHITE BLOOD CELL COUNT, UNSPECIFIED Status: Acute - Plan Plan: 63yo male presents for sepsis 2/2 UTI Sepsis 2/2 UTI - Initial tachycardia, WBC 23.8, hypotension - POD #2 s/p suprapubic catheter placement - CXR: mild atelectic change, small infiltrate LLL base - CTA: no dissection, exam limited for PE but negative - CT abdomen: resolved pancreatitis, no urine tract obstruction, prostate enlargement - Urine cx 2/: no growth - UA: large blood, large leuk esterase, positive nitrite, WBC TNTC. Culture Staph Aureus 50-75K - MAP has been > 65 since admission - s/p 4L - Curbside consult to Urology, will leave in suprapubic cath for healing and treat infection - Renal US- no signs of hydronephrosis - Blood cultures- 1/2 Enterococcus, MRSA Plan: - Continue Vanc/Zosyn - Continue IVF @ 150 - Continue to monitor BP, start vasopressor if necessary - Remove Fem line, transfer to [facility] Physical Deconditioning - PT/OT - OT rec Home with - consult for placement SVT, resolved - s/p adenosine 6mg, 12 mg - now in sinus tachycardia Chronic urinary retention - failed indwelling millan now s/p suprapubic catheter DM2 - Continue home Lantus 15U - SSI, acchuchecks - Hypoglycemic protocol - CC diet HTN - hold home meds GERD - continue home famotidine Hx of MS Lines: Right femoral central line Code Status: DNR DVT ppx: Lovenox PCP: UYEN Chen Addendum - Attending - Attending Attestation Date/Time: 07/28/18 1500 I personally evaluated the patient and discussed the management with Dr. Hough I agree with the History, Examination, Assessment and Plan documented above with any addition or exceptions noted below. Patient doing well BP normal cultures noted rec f/c central femoral line ok transfer to lower level of care continue current antibiotics for now. known history SVT start back BB and expectant management
[2018-07-28] MEDS: Vancomycin HCl 1.5 GM in Sodium Chloride 0.9% 250 ML 300 ML IVPB SCH ×2 (06:05→18:26)
[2018-07-28] MEDS: Lactated Ringer's 1,000 ML IV SCH ×4 (06:49→22:01)
[2018-07-28] MEDS ORDERED: ISOVUE-370 76%-LOCM 1 ML ONE (10:00)
[2018-07-28] MEDS: Insulin Glargine 15 UNITS in Pre-Filled Syringe 1 EACH SC SCH (10:34)
[2018-07-28] MEDS: Docusate 100 MG CAP PO SCH ×2 (10:35→22:01)
[2018-07-28] MEDS: Enoxaparin Sodium 40 MG/0.4 ML SYRINGE SC SCH (10:35)
[2018-07-28] MEDS: Polyethylene Glycol 3350 17 GM Packet PO SCH (11:14)
[2018-07-28] MEDS ORDERED: Morphine 2 MG/ML SYRINGE SLOW IVP PRN (12:50)
--- NOTE | 2018-07-28 14:32 | CT ---
CT ABDOMEN AND PELVIS WITH IV CONTRAST: Date: 07/28/18 HISTORY: Lower abdominal pain post suprapubic catheter placement. COMPARISON: Study on 07/26/18 and 07/01/18. FINDINGS: There is miniscule left pleural effusion with minimal bibasilar atelectasis. There is pneumobilia again present. Post cholecystectomy changes are noted. Liver otherwise has a nor mal appearance. The pancreas, spleen, bilateral adrenal glands, and kidneys demonstrate a normal CT appearance. 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 While this does extend to near the region of the pancreas, this is not thought to be related to peripancreatic inflammatory changes related to pancreatitis, although would be better assessed with laboratory values. A suprapubic catheter is noted in place with the distal balloon within the urinary bladder. There is stranding in the subcutaneous soft tissues adjacent to the catheter with small focus of increased den sity seen just anterior to the urinary bladder at the location of the suprapubic catheter, which is u nchanged when compared to prior studies, including study on 07/25/18. The urinary bladder is distende d on today's exam. There is heterogeneity of the prostate gland with a low density area within the left aspect of the pr ostate gland measures approximately 2.4 cm x 2.2 cm. Prostate gland is mildly prominent in size, corona uring 5.0 cm in transverse dimensions. The low density areas within the left aspect of the prostate g land were not definitely seen on the prior exams, although study on 07/26/18 was obtained in a delaye d phase of imaging which limits evaluation. There is mild inflammatory stranding seen in a presacral location. There is no free fluid or fluid collection seen in the abdomen or pelvis. Postsurgical changes are seen in the midline, likely related to scarring. Degenerative changes are present in the spine. IMPRESSION: 1. Lobulated low density area within the central and left aspect of the prostate gland, not definiti vely seen on prior exams. Greatest dimension is 2.4 cm. Infection associated with the prostate gland is not entirely excluded. Clinical correlation for prostatitis/infection within the prostate gland is a consideration. 2. Suprapubic catheter noted in place with stranding adjacent to the site of the suprapubic catheter , and increased density seen anterior to the urinary bladder, which is stable compared to prior exams and is likely related to sequelae of recent catheter placement. There is slight thickening of the an terior wall of the urinary bladder. Urinary bladder is mildly distended. 3. Mild inflammatory stranding seen adjacent to the urinary bladder and in the pelvis. Developing cy stitis is a consideration, although there is no significant thickening of the urinary bladder seymour. 4. 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 This does extend to the level of the pancreas, but is not thoug ht to be related to peripancreatic stranding secondary to pancreatitis, but this would be better eval uated with evaluation of pancreatic enzymes. 5. Additional incidental findings are as described above. POS: KEYSHA
--- NOTE | 2018-07-28 16:37 | CON ---
DATE OF CONSULTATION: 07/28/2018 HISTORY OF PRESENT ILLNESS: The patient is a patient of Dr. Kuhn, who recently had an SP tube placed on the . He had it irrigated at rehab on the before being discharged to home,. Shortly thereafter he became more dizzy and confused and he was brought to the ER, where he was found to have concerns for urosepsis. The admitting team actually called me on Sunday to discuss whether the SP tube should be removed. I said it should not and they did not want a consult at that time. They called back today with concerns for further abdominal distention and pain. I asked him to get a CT scan and document that there was no concern for hematoma or some other issue; this was done just before I saw him. It showed the SP tube in good position with a full bladder. As stated, he was followed by Dr. Kuhn with urinary retention secondary to neurogenic bladder and urethral Del Real was causing difficulty and urethral erosion, so we set up for an SP tube, which he got on the and it was uncomplicated. CT scan when he arrived showed no concerns with the SP tube and it was in good position and the bladder was no distended, so the full bladder was a new finding on today 's CT. PAST MEDICAL HISTORY: Significant for hypertension, MS, gallstone pancreatitis , for which he recently had surgery, and back pain. PAST SURGICAL HISTORY: Includes gallbladder on the July 05 of this year, left shoulder surgery, and multiple surgeries on his right lower extremity for tib- fib injury. MEDICATIONS: Include; 1. Metoprolol. 2. Denies any blood thinners. 3. He also takes pravastatin and previously valsartan. ALLERGIES: INCLUDE TYLENOL, WHICH IS HARD ON HIS LIVER AND CODEINE WHICH CAUSES NAUSEA AND VOMITING. SOCIAL HISTORY: A 12 pack a day history for 20 years, but quit 22 years ago. In addition to a smoking history, which he had a 40 pack year history and he quit in 1996 as well. Remote IV meth use in the , but otherwise no IV drug abuse. REVIEW OF SYSTEMS: Reveals no chest pain. No cough. No shortness of breath. No fever, but he did have chills or shaking when he was first arrived and dizziness with confusion, but that is significantly better. He had constipation since Sunday, but he did have a bowel movement this morning and he has been eating okay. No diarrhea. His abdomen is being uncomfortable and full like he had to urinate just since this morning and reports the tube was not draining well. The patient reports he is not aware of PSAs, but he has never had a prostate biopsy. FAMILY HISTORY: Father at 93 of kidney failure secondary to diabetes and mother of diabetes complications at age 62. No cancers. PHYSICAL EXAMINATION: GENERAL: He is a little uncomfortable in the bed initially. VITAL SIGNS: T-max 101.8 when he first came in and in the past 24 hours, it is 99.6 and 98.9 now. Heart rate remains tachycardic at 115, blood pressure 116/69, and saturating 92% on room air. HEAD/NECK: normocephalic, no JVD HEART: Regular rhythm. Borderline tachycardic. No obvious murmurs, gallops, or rubs. LUNGS: Clear to auscultation bilaterally. ABDOMEN: Soft with tenderness in the left lower quadrant and partially into the left upper quadrant, but that resolved after I drained his bladder. The SP tube was a small caliber Faroese, but appeared to be kinked in the cath secure as soon as I released it from the cath secure, copious amounts of clear yellow urine started draining since a small catheter took a while, but more than 150mL had already released; it was clear with no clots. PELVIC: His testes were descended bilaterally without masses. Phallus was circumcised without lesions. He had some scabs and abrasions on his lower extremities, but no obvious edema. AVEL deferred LABORATORY DATA: CBC shows a still elevated white count that is coming down to 19.3 with bands down to 9 from 12. BUN and creatinine are 7 and 0.86. Urinalysis from admission showed too numerous to count wbc's, too numerous to count rbc's, 1+ bacteria, no squamous cells, and the culture showing MRSA. Urine culture from the was negative. Urinalysis from last month showed hematuria only and a week prior to that on 06/20/2018, there was a low-grade infection with Pseudomonas enterobacter and enterococcus faecalis. Blood culture from this day shows MRSA and enterococcus faecalis. I have no PSAs. CT scan with contrast today revealed only a full bladder without any obvious clot or hematuria and the SP tube in good position with no urethral Del Real. Renal ultrasound 07/27 showed no hydro, stones, or masses in the SP tube in a decompressed bladder. 07/26 CT scan showed delayed contrast only, but so could rule out stones, but never noticed on today's scan and there was no hydronephrosis or masses. The SP tube was in good position without any hematuria around the bladder. It was not significantly full with the SP tube in place. A CT from 05/31/2019 showed no stones, hydro, masses in the urethral Del Real in a decompressed bladder. ASSESSMENT AND PLAN: We have a 63-year-old male with sepsis and bacteremia from the urine after SP tube placement, who now had abdominal pain that was related to bladder distention because the catheter had been kinked and feels significantly better now--after draining bladder. I will relay all of this to Dr. Kuhn. For now, continue IV antibiotics and he will need a total of 4 weeks based on the positive blood cultures. Job ID: [id number] [facility]
--- NOTE | 2018-07-28 20:15 | CON ---
DATE OF CONSULTATION: 07/28/2018 HISTORY OF PRESENT ILLNESS: Mr. Hill was seen by me this morning because of his presence on the intermediate care unit. Reviewing notes, he has recently had a suprapubic catheter placed. He is complaining of feeling bad all over, but stating that his lower abdomen hurts more than he thought it should. PAST MEDICAL HISTORY: Remarkable for; 1. Pancreatitis, which led to a cholecystectomy. 2. Status post CT-guided suprapubic catheter placement on 07/25/2018. 3. Extreme deconditioning essentially bedridden from what I can tell from the notes. 4. History of multiple sclerosis. 5. History of hypertension. 6. Diabetes. 7. Recent hospitalization, discharged on July 11 and admitted July 01 with his complaints of abdominal pain. 8. History of chronic indwelling Del Real, which led to some damage to his penis, which led to a suprapubic catheter. 9. Cholangitis with his pancreatitis. 10. History of urinary retention leading to the above. FAMILY HISTORY: Negative for lung disease in early age. SOCIAL HISTORY: He is not a daily smoker. He certainly not drinking now. ALLERGIES: HE HAS A CODEINE ALLERGY. REVIEW OF SYSTEMS: Ten points are remarkable only for saying that he hurts all over. PHYSICAL EXAMINATION: GENERAL: He is afebrile. Heart rate was 112 this afternoon, oximetry is 96% on room air, and blood pressure 132/61. HEENT: Pupils are equal. Sclerae are anicteric. NECK: Supple. LUNGS: Completely clear. HEART: Regular rhythm. S1 and S2 are normal. ABDOMEN: Not tender in his upper abdomen, but he was tender in his suprapubic area around the catheter. Seems to be more tender than I would expect after suprapubic catheter placement. LABORATORY DATA: White count 19.3, hemoglobin 8.7, and platelets 250. Electrolytes are unremarkable. CT of his abdomen and pelvis was ordered. Also discussed this with the radiologist and the urologist. CT did not show any obvious abscess or hematoma. He still has air in his biliary tree. He has mesenteric stranding, which seen on past CTs, which is not felt to be related to his pancreatitis. His bladder was distended when he had his CAT scan. We ultrasounded his bladder before. He went for CT and he had a most, 290 mL urine in his bladder. He had prostate abnormalities seen on his CT. We would further review the CT report. IMPRESSION AND PLAN: 1. ? Urinary retention with suprapubic catheter may be occluded with blood clot. Urology is being consulted. 2. Abdominal discomfort out of proportion from what I would expect, but no obvious infection or hematoma in that area on CT scanning. He is stable to move out of the intermediate care unit to the Telemetry Unit. Pulmonary will sign off once he transfers out. Job ID: [id number] [facility]
[2018-07-29] MEDS: Lactated Ringer's 1,000 ML IV SCH ×5 (01:06→23:52)
[2018-07-29] MEDS ORDERED: Baclofen 10 MG TAB PO SCH (02:30)
[2018-07-29] MEDS: Vancomycin HCl 1.5 GM in Sodium Chloride 0.9% 250 ML 300 ML IVPB SCH ×2 (04:57→17:42)
[2018-07-29] MEDS: Piperacillin/Tazobactam 3.375 GM in Sodium Chloride 0.9% 100 ML IVPB SCH ×2 (04:58→10:25)
[2018-07-29 05:41] LABS: #Eosinphils 0.2 thou/uL (0.0-0.7); #Lymphocytes 0.5 thou/uL (1.20-3.40); #Monocytes 0.5 thou/uL (0.11-0.59); #Neutrophils 10.5 thou/uL (1.40-6.50); %Eosinophils 2.1 % (0.0-10.0); %Lymphocytes 4.6 % (21.0-51.0); %Monocytes 4.4 % (0.0-10.0); %Neutrophils 88.9 % (42.0-75.0); Hemoglobin 11.2 g/dL (14.0-18.0); Mean Corpuscular HGB CONC 31.5 g/dL (32.0-36.0); Mean Corpuscular Hemoglobin 28.4 pg (27.0-31.0); Mean Corpuscular Volume 90.2 fL (78.0-98.0); Mean Platelet Volume 8.4 fL (7.4-10.4); Platelet Count 246 thou/uL (130-400); RBC Distribution Width 12.7 % (11.5-14.5); Red Blood Cell (RBC) Count 3.96 mill/uL (4.70-6.10); White Blood Cell (WBC) Count 11.8 thou/uL (4.8-10.8)
[2018-07-29 05:57] LABS: Anion Gap 15 mmol/L (10-20); BUN (Urea Nitrogen) 4 mg/dL (8.4-25.7); Calc. Creatinine Clearance 130 mL/min (70-130); Calcium 9.1 mg/dL (7.8-10.44); Carbon Dioxide 22 mmol/L (23-31); Chloride 106 mmol/L (98-107); Estimated GFR-MDRD Greater than 90; Glucose 117 mg/dL (80-115); Potassium 3.8 mmol/L (3.5-5.1); Sodium 139 mmol/L (136-145)
[2018-07-29] MEDS ORDERED: Ondansetron ODT 4 MG TAB PO SCH (06:00)
--- NOTE | 2018-07-29 06:28 | PDOC.FM ---
- Subjective Subjective: Feeling better today other than diarrhea. He has had 5-6 episodes this morning. Denies fevers, chills. No overnight events. - Objective MAR Reviewed: Yes Vital Signs & Weight: Vital Signs (12 hours) Temp Pulse Resp BP Pulse Ox 07/29/18 04:50 99.7 F H 110 H 134/67 94 L 07/28/18 20:00 99.6 F 111 H 18 135/66 94 L Weight Admit Weight 99.155 kg Weight 101.65 kg Most Recent Monitor Data Heart Rate from ECG 114 NIBP 137/82 NIBP BP-Mean 100 Respiration from ECG 25 SpO2 94 I&O: 07/27/18 07/28/18 07/29/18 06:59 06:59 06:59 Intake Total 4892 1055 Output Total 400 2400 2000 Balance -400 5606 -980 Result Diagrams: 07/29/18 05:20 07/29/18 05:20 Phys Exam - Physical Examination Constitutional: NAD HEENT: moist MMs Neck: supple Respiratory: no wheezing, clear to auscultation bilateral Cardiovascular: no significant murmur Tachycardic Gastrointestinal: soft, non-tender Musculoskeletal: no edema Neurological: non-focal Psychiatric: normal affect, A&O x 3 Skin: cap refill <2 seconds Dx/Plan (1) Sepsis Code(s): A41.9 - SEPSIS, UNSPECIFIED ORGANISM Status: Acute (2) Tachycardia Code(s): R00.0 - TACHYCARDIA, UNSPECIFIED Status: Acute (3) UTI (urinary tract infection) Status: Acute (4) Urinary retention Code(s): R33.9 - RETENTION OF URINE, UNSPECIFIED Status: Acute (5) Diabetes mellitus Code(s): E11.9 - TYPE 2 DIABETES MELLITUS WITHOUT COMPLICATIONS Status: Chronic Qualifiers: Diabetes mellitus type: type 2 (6) HTN (hypertension) Code(s): I10 - ESSENTIAL (PRIMARY) HYPERTENSION Status: Chronic (7) Leukocytosis Code(s): D72.829 - ELEVATED WHITE BLOOD CELL COUNT, UNSPECIFIED Status: Acute - Plan Plan: 63yo male presents for sepsis 2/2 UTI Sepsis 2/2 UTI - Initial tachycardia, WBC 23.8, hypotension. MAPs currently >65. Fem line removed. - POD #3 s/p suprapubic catheter placement - Urine cx 07/22: no growth - UA: large blood, large leuk esterase, positive nitrite, WBC TNTC. Culture Staph Aureus 50-75K - Curbside consult to Urology, will leave in suprapubic cath for healing and treat infection - Renal US- no signs of hydronephrosis - Blood cultures- 1/2 Enterococcus, MRSA. Sensitives resulted Plan: - Discontinue Zosyn, Will attempt to switch from Vanc to oral agent today. Will need 4 weeks antibiotics - Continue IVF @150 Physical Deconditioning - PT/OT - OT rec Home with - consult for placement Diarrhea - Stool studies ordered SVT, resolved - s/p adenosine 6mg, 12 mg - now in sinus tachycardia - Continue Metoprolol 12.5mg Chronic urinary retention - failed indwelling millan now s/p suprapubic catheter DM2 - Continue home Lantus 15U - SSI, acchuchecks - Hypoglycemic protocol - CC diet HTN - hold home meds GERD - continue home famotidine Hx of MS Lines: Right femoral central line Code Status: DNR DVT ppx: Lovenox PCP: UYEN Chen Addendum - Attending - Attending Attestation Date/Time: 07/29/18 1300 I personally evaluated the patient and discussed the management with Dr. Hough. I agree with the History, Examination, Assessment and Plan documented above with any addition or exceptions noted below. Patient clinically improved but has begun having diarrhea overnight. Stool studies pending. His WBC is downtrending and has been afebrile. Continues on treatment for multi-organism UTI causing sepsis. Will work on single agent that can treat both organisms. Continues to be tachycardic which has been worked up previously. Will increase Metoprolol to get under better control.
[2018-07-29] MEDS: Baclofen 10 MG TAB PO SCH ×3 (08:42→20:44)
[2018-07-29] MEDS: Insulin Glargine 15 UNITS in Pre-Filled Syringe 1 EACH SC SCH (08:43)
[2018-07-29] MEDS: Enoxaparin Sodium 40 MG/0.4 ML SYRINGE SC SCH (08:43)
[2018-07-29] MEDS: Docusate 100 MG CAP PO SCH ×2 (08:43→20:48)
[2018-07-29] MEDS: Polyethylene Glycol 3350 17 GM Packet PO SCH (08:45)
[2018-07-29] MEDS ORDERED: Promethazine HCl 25 MG/ML VIAL IM/IV PRN (09:18)
[2018-07-29] MEDS: Ibuprofen 800 MG TAB PO PRN (14:28)
[2018-07-29] MEDS ORDERED: Loperamide HCl 2 MG CAP PO SCH (15:45)
[2018-07-30] MEDS: Vancomycin HCl 1.5 GM in Sodium Chloride 0.9% 250 ML 300 ML IVPB SCH ×2 (05:07→16:26)
[2018-07-30] MEDS: Lactated Ringer's 1,000 ML IV SCH (05:12)
[2018-07-30 06:08] LABS: #Eosinphils 0.3 thou/uL (0.0-0.7); #Monocytes 0.5 thou/uL (0.11-0.59); #Neutrophils 4.5 thou/uL (1.40-6.50); %Eosinophils 4.7 % (0.0-10.0); %Lymphocytes 15.5 % (21.0-51.0); %Monocytes 8.6 % (0.0-10.0); %Neutrophils 71.2 % (42.0-75.0); Hemoglobin 10.8 g/dL (14.0-18.0); Mean Corpuscular Hemoglobin 28.6 pg (27.0-31.0); Mean Corpuscular Volume 89.3 fL (78.0-98.0); Mean Platelet Volume 7.9 fL (7.4-10.4); Platelet Count 241 thou/uL (130-400); RBC Distribution Width 12.7 % (11.5-14.5); White Blood Cell (WBC) Count 6.3 thou/uL (4.8-10.8)
[2018-07-30 06:20] LABS: Anion Gap 13 mmol/L (10-20); BUN (Urea Nitrogen) 4 mg/dL (8.4-25.7); Calc. Creatinine Clearance 133 mL/min (70-130); Calcium 9.1 mg/dL (7.8-10.44); Carbon Dioxide 25 mmol/L (23-31); Chloride 107 mmol/L (98-107); Estimated GFR-MDRD Greater than 90; Glucose 119 mg/dL (80-115); Potassium 3.5 mmol/L (3.5-5.1); Sodium 141 mmol/L (136-145)
--- NOTE | 2018-07-30 06:42 | PDOC.FM ---
- Subjective Subjective: Feeling much better this morning. Only one BM overnight. Diarrhea resolved with imodium. Interested in SNIF placement for discharge. Denies fevers, chills. Nausea improved. - Objective MAR Reviewed: Yes Vital Signs & Weight: Vital Signs (12 hours) Temp Pulse Resp BP Pulse Ox 07/30/18 04:00 99.7 F H 103 H 18 134/73 94 L 07/30/18 00:00 98.8 F 97 20 129/59 L 95 07/29/18 20:00 98.6 F 106 H 18 137/93 H 94 L Weight Admit Weight 99.155 kg Weight 99.337 kg Most Recent Monitor Data Heart Rate from ECG 114 NIBP 137/82 NIBP BP-Mean 100 Respiration from ECG 25 SpO2 94 I&O: 07/28/18 07/29/18 07/30/18 06:59 06:59 06:59 Intake Total 4892 3155 3630 Output Total 2400 3700 2440 Balance 2492 -545 1190 Result Diagrams: 07/30/18 05:43 07/30/18 05:43 Phys Exam - Physical Examination Constitutional: NAD HEENT: moist MMs Neck: supple Respiratory: no wheezing, clear to auscultation bilateral Cardiovascular: RRR, no significant murmur Gastrointestinal: soft, positive bowel sounds Musculoskeletal: no edema Psychiatric: normal affect, A&O x 3 Skin: normal turgor Dx/Plan (1) Sepsis Code(s): A41.9 - SEPSIS, UNSPECIFIED ORGANISM Status: Acute (2) Tachycardia Code(s): R00.0 - TACHYCARDIA, UNSPECIFIED Status: Acute (3) UTI (urinary tract infection) Status: Acute (4) Urinary retention Code(s): R33.9 - RETENTION OF URINE, UNSPECIFIED Status: Acute (5) Diabetes mellitus Code(s): E11.9 - TYPE 2 DIABETES MELLITUS WITHOUT COMPLICATIONS Status: Chronic Qualifiers: Diabetes mellitus type: type 2 (6) HTN (hypertension) Code(s): I10 - ESSENTIAL (PRIMARY) HYPERTENSION Status: Chronic (7) Leukocytosis Code(s): D72.829 - ELEVATED WHITE BLOOD CELL COUNT, UNSPECIFIED Status: Acute - Plan Plan: 63yo male presents for sepsis 2/2 UTI Sepsis 2/2 UTI - Initial tachycardia, WBC 23.8, hypotension. MAPs currently >65. Fem line removed. - POD #3 s/p suprapubic catheter placement - Urine Culture: MRSA 50-75K - Renal US- no signs of hydronephrosis - Blood cultures- 1/2 Enterococcus, MRSA. Sensitives resulted Plan: - Continue Vanc with plan to transition to Doxy and Augmentin. Will need 4 weeks antibiotics - Discontinue fluids, pt tolerating PO and diarrhea resolved. Physical Deconditioning - PT/OT - CM consult for placement. May qualify for SNIF Diarrhea - Stool studies neg including C diff - Imodium PRN SVT, resolved - s/p adenosine 6mg, 12 mg - now in sinus tachycardia - Continue Metoprolol 12.5mg, consider increasing to 25mg Chronic urinary retention - failed indwelling millan now s/p suprapubic catheter DM2 - Continue home Lantus 15U - SSI, acchuchecks - Hypoglycemic protocol - CC diet HTN - hold home meds GERD - continue home famotidine Hx of MS Lines: Right femoral central line Code Status: DNR DVT ppx: Lovenox PCP: UYEN Chen Addendum - Attending - Attending Attestation Date/Time: 07/30/18 1342 I personally evaluated the patient and discussed the management with Dr. Hough. I agree with the History, Examination, Assessment and Plan documented above with any addition or exceptions noted below. Patient improved this morning. Stool studies negative and improved with Imodium. He has had some return of the loose stool and we will continue Imodium for now. Had some nausea yesterday and therefore likely has some mild gastroenteritis. Continues on Vanc for his bacteremia. Mild fever yesterday but that would not be unexpected given his severe infection. WBC downtrending and stable, other labs reassuring. Hopeful for Rehab versus SNR placement to help with deconditioning and medication assistance.
[2018-07-30] MEDS: Baclofen 10 MG TAB PO SCH ×3 (09:23→20:20)
[2018-07-30] MEDS: Insulin Glargine 15 UNITS in Pre-Filled Syringe 1 EACH SC SCH (09:24)
[2018-07-30] MEDS: Enoxaparin Sodium 40 MG/0.4 ML SYRINGE SC SCH (09:24)
[2018-07-30] MEDS ORDERED: Lactinex Tablet PO SCH (15:45)
[2018-07-30 16:07] LABS: Vancomycin, Trough 21.8 ug/mL
[2018-07-30] MEDS: Ibuprofen 800 MG TAB PO PRN (17:02)
[2018-07-31 04:52] LABS: #Eosinphils 0.3 thou/uL (0.0-0.7); #Lymphocytes 0.8 thou/uL (1.20-3.40); #Monocytes 0.6 thou/uL (0.11-0.59); %Basophils 0.4 % (0.0-1.0); %Eosinophils 4.4 % (0.0-10.0); %Lymphocytes 14.4 % (21.0-51.0); %Monocytes 10.3 % (0.0-10.0); %Neutrophils 70.5 % (42.0-75.0); Hemoglobin 11.4 g/dL (14.0-18.0); Mean Corpuscular HGB CONC 32.9 g/dL (32.0-36.0); Mean Corpuscular Hemoglobin 28.8 pg (27.0-31.0); Mean Corpuscular Volume 87.5 fL (78.0-98.0); Mean Platelet Volume 7.7 fL (7.4-10.4); Platelet Count 254 thou/uL (130-400); RBC Distribution Width 12.7 % (11.5-14.5); Red Blood Cell (RBC) Count 3.95 mill/uL (4.70-6.10); White Blood Cell (WBC) Count 5.7 thou/uL (4.8-10.8)
[2018-07-31] MEDS ORDERED: Vancomycin HCl 1.25 GM in Sodium Chloride 0.9% 250 ML 250 ML IVPB SCH (05:00)
[2018-07-31 05:11] LABS: Anion Gap 12 mmol/L (10-20); BUN (Urea Nitrogen) 6 mg/dL (8.4-25.7); Calc. Creatinine Clearance 145 mL/min (70-130); Calcium 9.2 mg/dL (7.8-10.44); Carbon Dioxide 27 mmol/L (23-31); Chloride 107 mmol/L (98-107); Estimated GFR-MDRD Greater than 90; Glucose 103 mg/dL (80-115); Potassium 3.3 mmol/L (3.5-5.1); Sodium 143 mmol/L (136-145)
--- NOTE | 2018-07-31 06:20 | PDOC.FM ---
- Subjective Subjective: Feeling good this morning. No overnight events. Only 1 BM overnight, nohemi continues to help. He worked with PT yesterday and said it went really well. Denies fevers, chills. BPs are elevated today. - Objective MAR Reviewed: Yes Vital Signs & Weight: Vital Signs (12 hours) Temp Pulse Resp BP Pulse Ox 07/31/18 04:00 99.6 F 90 18 154/76 H 95 07/30/18 20:00 96 07/30/18 19:52 98.5 F 94 14 152/78 H 96 Weight Admit Weight 99.155 kg Weight 97.296 kg Most Recent Monitor Data Heart Rate from ECG 114 NIBP 137/82 NIBP BP-Mean 100 Respiration from ECG 25 SpO2 94 I&O: 07/29/18 07/30/18 07/31/18 06:59 06:59 06:59 Intake Total 3155 3630 1410 Output Total 3700 2440 2575 Balance -545 1190 -1165 Result Diagrams: 07/31/18 04:23 07/31/18 04:23 Phys Exam - Physical Examination Constitutional: NAD HEENT: moist MMs Neck: supple Respiratory: no wheezing, clear to auscultation bilateral Cardiovascular: RRR, no significant murmur Gastrointestinal: soft, non-tender Musculoskeletal: no edema Psychiatric: normal affect, A&O x 3 Skin: normal turgor Dx/Plan (1) Sepsis Code(s): A41.9 - SEPSIS, UNSPECIFIED ORGANISM Status: Acute (2) Tachycardia Code(s): R00.0 - TACHYCARDIA, UNSPECIFIED Status: Acute (3) UTI (urinary tract infection) Status: Acute (4) Urinary retention Code(s): R33.9 - RETENTION OF URINE, UNSPECIFIED Status: Acute (5) Diabetes mellitus Code(s): E11.9 - TYPE 2 DIABETES MELLITUS WITHOUT COMPLICATIONS Status: Chronic Qualifiers: Diabetes mellitus type: type 2 (6) HTN (hypertension) Code(s): I10 - ESSENTIAL (PRIMARY) HYPERTENSION Status: Chronic (7) Leukocytosis Code(s): D72.829 - ELEVATED WHITE BLOOD CELL COUNT, UNSPECIFIED Status: Acute - Plan Plan: 63yo male presents for sepsis 2/2 UTI Sepsis 2/2 UTI - Initial tachycardia, WBC 23.8, hypotension. MAPs currently >65. Fem line removed. - POD #3 s/p suprapubic catheter placement - Urine Culture: MRSA 50-75K - Renal US- no signs of hydronephrosis - Blood cultures- 1/2 Enterococcus, MRSA. Sensitives resulted Plan: - Continue Vanc with plan to transition to Doxy and Augmentin. Will need 4 weeks antibiotics Physical Deconditioning - PT/OT - CM consult for placement. May qualify for SNIF Diarrhea - Stool studies neg including C diff - Imodium PRN SVT, resolved - s/p adenosine 6mg, 12 mg - now in sinus tachycardia - Continue Metoprolol 25mg Chronic urinary retention - Failed indwelling millan now s/p suprapubic catheter DM2 - Continue home Lantus 15U - SSI, acchuchecks - Hypoglycemic protocol - CC diet HTN - Restart Valsartan-HCTZ at half home dose GERD - continue home famotidine Hx of MS Lines: Right femoral central line Code Status: DNR DVT ppx: Lovenox PCP: UYEN Chen Addendum - Attending - Attending Attestation Date/Time: 07/31/18 1114 I personally evaluated the patient and discussed the management with Dr. Hough. I agree with the History, Examination, Assessment and Plan documented above with any addition or exceptions noted below. Patient doing well this morning, about to work with PT. He reports a desire to return to SNF or rehab for continued conditioning. He will be transitioned to PO abx today for treatment of his bacteremia. Diarrhea improved and no evidence of bacterial etiology. Tachycardia improved. Once placement arranged, he should be stable for discharge.
[2018-07-31] MEDS: Potassium Chloride 20 MEQ TAB PO SCH ×2 (08:46→16:47)
[2018-07-31] MEDS: Enoxaparin Sodium 40 MG/0.4 ML SYRINGE SC SCH (08:46)
[2018-07-31] MEDS: Baclofen 10 MG TAB PO SCH ×3 (08:46→20:42)
[2018-07-31] MEDS: Lactinex Tablet PO SCH (08:48)
[2018-07-31] MEDS: Insulin Glargine 15 UNITS in Pre-Filled Syringe 1 EACH SC SCH (08:48)
[2018-07-31] MEDS ORDERED: Valsartan 80 MG TAB PO SCH (09:00)
[2018-07-31] MEDS ORDERED: Hydrochlorothiazide 25 MG TAB PO SCH (09:00)
[2018-07-31 13:13] VITALS: BMI 33.5
[2018-07-31] MEDS: Doxycycline 100 MG CAP PO SCH (20:42)
[2018-07-31] MEDS: Amoxicillin/Potassium Clav 500 MG TAB PO SCH (20:42)
[2018-08-01 05:09] LABS: Anion Gap 14 mmol/L (10-20); BUN (Urea Nitrogen) 8 mg/dL (8.4-25.7); Calc. Creatinine Clearance 123 mL/min (70-130); Calcium 10.1 mg/dL (7.8-10.44); Carbon Dioxide 25 mmol/L (23-31); Chloride 104 mmol/L (98-107); Estimated GFR-MDRD 90; Glucose 116 mg/dL (80-115); Sodium 139 mmol/L (136-145)
--- NOTE | 2018-08-01 06:09 | PDOC.FM ---
- Subjective Subjective: Feeling well. Has been working well with PT/OT. No overnight events. Denies diarrhea, pain, fever, chills. - Objective MAR Reviewed: Yes Vital Signs & Weight: Vital Signs (12 hours) Temp Pulse Resp BP Pulse Ox 08/01/18 04:15 98.9 F 106 H 17 135/84 94 L 07/31/18 20:14 96 07/31/18 20:04 99.3 F 107 H 14 140/76 92 L Weight Admit Weight 99.155 kg Weight 96.797 kg Most Recent Monitor Data Heart Rate from ECG 114 NIBP 137/82 NIBP BP-Mean 100 Respiration from ECG 25 SpO2 94 I&O: 07/30/18 07/31/18 08/01/18 06:59 06:59 06:59 Intake Total 3630 1410 1360 Output Total 2440 2575 2900 Balance 1190 -0958 -6190 Result Diagrams: 07/31/18 04:23 08/01/18 04:26 Phys Exam - Physical Examination Constitutional: NAD HEENT: moist MMs Neck: supple Respiratory: no wheezing, clear to auscultation bilateral Cardiovascular: RRR, no significant murmur Gastrointestinal: soft, positive bowel sounds mild LLQ tenderness Musculoskeletal: no edema Neurological: non-focal Psychiatric: normal affect, A&O x 3 Skin: normal turgor Dx/Plan (1) Sepsis Code(s): A41.9 - SEPSIS, UNSPECIFIED ORGANISM Status: Acute (2) Tachycardia Code(s): R00.0 - TACHYCARDIA, UNSPECIFIED Status: Acute (3) UTI (urinary tract infection) Status: Acute (4) Urinary retention Code(s): R33.9 - RETENTION OF URINE, UNSPECIFIED Status: Acute (5) Diabetes mellitus Code(s): E11.9 - TYPE 2 DIABETES MELLITUS WITHOUT COMPLICATIONS Status: Chronic Qualifiers: Diabetes mellitus type: type 2 (6) HTN (hypertension) Code(s): I10 - ESSENTIAL (PRIMARY) HYPERTENSION Status: Chronic (7) Leukocytosis Code(s): D72.829 - ELEVATED WHITE BLOOD CELL COUNT, UNSPECIFIED Status: Acute - Plan Plan: 63yo male presents for sepsis 2/2 UTI UTI - Sepsis, resolved - Initial tachycardia, WBC 23.8, hypotension. MAPs currently >65. Fem line removed. - POD #3 s/p suprapubic catheter placement - Urine Culture: MRSA 50-75K - Renal US- no signs of hydronephrosis - Blood cultures- 1/2 Enterococcus, MRSA. Sensitives resulted Plan: - Continue Doxy and Augmentin. Will need total 4 weeks antibiotics Physical Deconditioning - PT/OT - CM consult for placement. May qualify for SNIF Diarrhea - Stool studies neg including C diff - Imodium PRN SVT, resolved - s/p adenosine 6mg, 12 mg - now in sinus tachycardia - Continue Metoprolol 25mg Chronic urinary retention - Failed indwelling millan now s/p suprapubic catheter DM2 - Continue home Lantus 15U - SSI, acchuchecks - Hypoglycemic protocol - CC diet HTN - Restart Valsartan-HCTZ at half home dose GERD - continue home famotidine Sepsis, Resolved Hx of MS Lines: Right femoral central line Code Status: DNR DVT ppx: Lovenox Dispo: Awaiting placement, SNIF at [facility] PCP: UYEN Chen Addendum - Attending - Attending Attestation Date/Time: 08/01/18 1230 I personally evaluated the patient and discussed the management with Dr. Hough. I agree with the History, Examination, Assessment and Plan documented above with any addition or exceptions noted below. Patient doing well. No fevers, labs stable. On oral abx for bacteremia at this time. Awaiting placement, continue therapy while here.
[2018-08-01] MEDS ORDERED: Valsartan 80 MG TAB PO SCH (09:00)
[2018-08-01] MEDS ORDERED: Hydrochlorothiazide 25 MG TAB PO SCH (09:00)
[2018-08-01] MEDS: Amoxicillin/Potassium Clav 500 MG TAB PO SCH (09:47)
[2018-08-01] MEDS: Baclofen 10 MG TAB PO SCH ×2 (09:47→15:59)
[2018-08-01] MEDS: Doxycycline 100 MG CAP PO SCH (09:48)
[2018-08-01] MEDS: Lactinex Tablet PO SCH (09:48)
[2018-08-01] MEDS: Enoxaparin Sodium 40 MG/0.4 ML SYRINGE SC SCH (09:48)
[2018-08-01] MEDS: Insulin Glargine 15 UNITS in Pre-Filled Syringe 1 EACH SC SCH (12:02)
[2018-08-01 15:51] VITALS: BP 126/76; TEMP 98
--- NOTE | 2018-08-02 14:08 | DIS ---
DATE OF ADMISSION: 07/26/2018 DATE OF DISCHARGE: 08/01/2018 RESIDENT: Dilma Hough MD, PGY-1 ADMITTING ATTENDING: Austin Chamberlain MD DISCHARGE ATTENDING: Shawn Craig MD CONSULTS: 1. Pulmonology. 2. Urology. PROCEDURES: 1. Chest x-ray, the heart size is normal. There is elevation of the right hemidiaphragm. No lobar consolidation, pneumothoraces, or large effusions are seen. There is mild atelectatic changes versus minimal infiltrate in the left lung base. 2. Chest/thorax CTA. No CT evidence of thoracic aortic aneurysm or dissection. Exam limited for evaluation of pulmonary embolism. 3. Abdomen and pelvis CT: a. Interval resolution of pancreatitis since 07/01/2018. No evidence of urinary tract obstruction. Prostatic enlargement. 4. Renal ultrasound, normal appearance of bilateral kidneys without evidence of hydronephrosis. 5. Abdomen and pelvis CT, lobulated low-density area within the central and left aspect of the prostate gland, not definitely seen on prior exams. Greatest dimension is 2.4 cm. Infection associated with the prostate gland is not entirely excluded. Clinical correlation for prostatitis infection within the prostate gland is consideration. Suprapubic catheter noted in place with stranding adjacent to the side of the suprapubic catheter and increased density seen in anterior urinary bladder, which is stable compared to prior exams and likely related to sequela of recent catheter placement. There is slight thickening of the anterior wall of the urinary bladder. Urinary bladder is mildly distended. Mild inflammatory stranding seen adjacent to the urinary bladder and in pelvis. Developing cystitis is consideration, although, there is no significant thickening of the urinary bladder seymour. 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 This has not been to the level of the pancreas, but is not thought to be related to peripancreatic stranding secondary to pancreatitis, but this would be better evaluated with an evaluation of pancreatic enzymes. Additional incidental findings are as described above. PRIMARY DIAGNOSES: 1. Sepsis secondary to urinary tract infection, resolved. 2. Urinary tract infection. SECONDARY DIAGNOSES: 1. Physical deconditioning. 2. Diarrhea, resolved. 3. Supraventricular tachycardia, resolved. 4. Chronic urinary retention. 5. Type 2 diabetes. 6. Hypertension. 7. Gastroesophageal reflux disease. 8. Multiple sclerosis. DISCHARGE MEDICATIONS: 1. Augmentin 500 mg q.12 hours x22 days. 2. Baclofen 10 mg t.i.d. 3. Vitamin D3 of 1500 mg daily. 4. Doxycycline 100 mg b.i.d. x22 days. 5. Glucagon 1 mg IM p.r.n. 6. Hydrochlorothiazide 25 mg daily. 7. Levemir 15 units subcu daily. 8. Glargine 15 units q.a.m. 9. Lispro 100 units subcu as directed. 10. Lactobacillus 1 tablet daily. 11. Magnesium oxide 500 mg daily. 12. Toprol-XL 25 mg daily. 13. Multivitamin 1 tablet daily. 14. Zofran 4 mg q.6 hours p.r.n. 15. Tamsulosin 0.4 mg daily. 16. Valsartan 160 mg daily. HISTORY OF PRESENT ILLNESS/HOSPITAL COURSE: Mr. Hill is a very sweet 63-year-old male with past medical history of hypertension, MS, and recent suprapubic catheter placement, presenting with weakness. His suprapubic catheter was placed on 07/25/2018. He was then in [facility] and ran out of Medicare days. Therefore, was discharged home on 07/27/2018 the day of admission. In EMS, his pulse was noted to be 160 with vital signs 120/78. He was noted to be in SVT given adenosine x2 and has since been in fact sinus tachycardia prior to . When arriving in the ED, right femoral central line was placed, in case the patient needed pressors as blood pressure was 80s/60s, but his MAP remained over 65 throughout the course of the hospitalization. He received 4 L of normal saline, vancomycin, Zosyn, and Zofran. As stated above, her UA was drawn that showed large blood, large leukocyte esterase, and positive nitrites. White blood cell too numerous to count. Urine culture grew out E. coli. He was initially started on vancomycin and Zosyn, but antibiotics were narrowed to vancomycin when urine and blood culture grew out MRSA. Blood culture also notable for enterococcus faecalis. When he was ready to be transitioned to oral antibiotics, he was switched to doxycycline and Augmentin for a total of 4 weeks as blood cultures were positive. He was transferred out of the IMCU due to improvement in blood pressures and did not need pressors. Although during MICU stay, he did have abdominal discomfort and urinary retention. Urology was consulted. They would recommend leaving in the catheter and treating with the IV antibiotics. The bladder was flushed and had good return flow after the patient denies breathing problems with suprapubic catheter throughout the course of his stay. Of note on admission, his white blood cell count was 23.8, trended down to 5.7 prior to discharge. He was evaluated by PT and OT, who thought he would benefit from SNF placement. Case Management was consulted and this was arranged prior to discharge. He began to have diarrhea a couple days after admission. There was concern for C. diff versus other infectious cause. Stool studies were obtained that were ultimately negative and his diarrhea was controlled and resolved with Imodium. He has been hospitalized before with a workup for his tachycardia. As we resumed his home medications including blood pressure medications that were held due to hypotension, his tachycardia did decrease with metoprolol 25 mg, which is home dose. He does have chronic urinary retention and failed indwelling [place], where he recently had a suprapubic catheter placement. His type 2 diabetes was controlled with home dose of Lantus, sliding scale insulin, and diet. We were able to restart his high blood pressure medication after his sepsis resolved with IV antibiotics. GERD was treated with home famotidine and was stable throughout the course of his hospitalization. DISPOSITION: Stable. DISCHARGE INSTRUCTIONS: 1. Location: [facility]. 2. Diet with consistent carb. 3. Activity with assistance. 4. Follow up with within 3 to 7 days. Job ID: [id number]
--- NOTE | 2018-08-03 17:05 | EKG ---
Test Reason : SVT Blood Pressure : / mmHG Vent. Rate : 160 BPM Atrial Rate : 160 BPM P-R Int : 000 ms QRS Dur : 080 ms QT Int : 320 ms P-R-T Axes : 000 -30 019 degrees QTc Int : 522 ms Sinus tachycardia with short MI with occasional Premature ventricular complexes Left axis deviation Cannot rule out Anterior infarct , age undetermined Abnormal ECG Confirmed by BRITTANY SOTO D.O. ([id number]), commercial production editor DAVID BANERJEE ([id number]) on 08/03/2018 5:04:37 PM Referred By: Confirmed By:BRITTANY SOTO D.O.
== END 2018-08-01 17:00 | DRG 698 ==
LOC: ERS 18:55 → IMCU/EMU 22:20 → 2NO 07-28 17:06
PROVIDERS: ADMIT Family Medicine; ATTEND Family Medicine
PROC: 06HM33Z Insertion of Infusion Device into Right Femoral Vein, Percutaneous Approach (ICD-10-PCS; principal; 2018-07-26)
DX: T83.511A Infection and inflammatory reaction due to indwelling urethral catheter, initial encounter (principal); A41.9 Sepsis, unspecified organism; I47.1 Supraventricular tachycardia; I10 Essential (primary) hypertension; N39.0 Urinary tract infection, site not specified; G35 Multiple sclerosis; E11.9 Type 2 diabetes mellitus without complications; M54.9 Dorsalgia, unspecified; G89.29 Other chronic pain; R33.9 Retention of urine, unspecified; R19.7 Diarrhea, unspecified; K21.9 Gastro-esophageal reflux disease without esophagitis; Z66 Do not resuscitate; Z79.4 Long term (current) use of insulin; Z87.891 Personal history of nicotine dependence; Z90.49 Acquired absence of other specified parts of digestive tract; Z82.49 Family history of ischemic heart disease and other diseases of the circulatory system; Z83.3 Family history of diabetes mellitus
CPT/HCPCS: 36415; 36416; 36556; 71045; 71275; 74176; 74177; 76770; 80048; 80053; 80202; 81003; 81015; 83605; 83735; 84443; 84484; 85025; 87040; 87045; 87046; 87077; 87086; 87149; 87186; 87324; 87449; 87899; 93005; 96361; 96365; 96367; 96375; J0153; J1650; J1825; J2270; J2405; J2543; J2550; J3370; J7050; Q0162; Q9966

== ENCOUNTER 2018-09-13 10:03 | Emergency (ER) | payer MEDICARE, BC ==
[2018-09-13 10:46] LABS: Bilirubin Negative (Negative); Blood, Urine Trace (Negative); Glucose, Urine (Dipstick) Negative (Negative); Leukocyte Large (Negative); Nitrite Positive (Negative); Protein, Urine (Dipstick) Trace mg/dL (Neg-Trace); Specific Gravity, Urine 1.015 (1.005-1.030); Urobilinogen 0.2 mg/dL (0.2-1.0)
[2018-09-13 10:47] LABS: #Eosinphils 0.1 thou/uL (0.0-0.7); #Lymphocytes 1.2 thou/uL (1.20-3.40); #Monocytes 0.6 thou/uL (0.11-0.59); #Neutrophils 9.1 thou/uL (1.40-6.50); %Basophils 0.3 % (0.0-1.0); %Eosinophils 0.5 % (0.0-10.0); %Lymphocytes 10.5 % (21.0-51.0); %Monocytes 5.6 % (0.0-10.0); %Neutrophils 83.1 % (42.0-75.0); Hemoglobin 13.5 g/dL (14.0-18.0); Mean Corpuscular HGB CONC 32.7 g/dL (32.0-36.0); Mean Corpuscular Hemoglobin 28.6 pg (27.0-31.0); Mean Corpuscular Volume 87.6 fL (78.0-98.0); Platelet Count 294 thou/uL (130-400); RBC Distribution Width 14.6 % (11.5-14.5); White Blood Cell (WBC) Count 10.9 thou/uL (4.8-10.8)
[2018-09-13 10:50] LABS: Clarity Hazy (Clear)
[2018-09-13 10:54] LABS: Other Microscopic Description Less than 2 mL rec'd
[2018-09-13 10:55] LABS: Bacteria/HPF Rare-Few HPF (None Seen); Hyaline Casts/LPF NONE SEEN LPF (0-3 Hyaline); RBC/HPF 0-3 HPF (0-3); Squamous Epithelial None Seen HPF (0-3); WBC/HPF 21-50 HPF (0-3); Yeast-All Forms 1+ HPF (None Seen)
[2018-09-13 11:12] LABS: ALT (SGPT) 23 U/L (8-55); AST (SGOT) 13 U/L (5-34); Albumin 4.1 g/dL (3.4-4.8); Alkaline Phosphatase 76 U/L (40-150); Anion Gap 12 mmol/L (10-20); BUN (Urea Nitrogen) 16 mg/dL (8.4-25.7); Bilirubin, Total 0.7 mg/dL (0.2-1.2); Calc. Creatinine Clearance 0 mL/min (70-130); Calcium 9.7 mg/dL (7.8-10.44); Carbon Dioxide 28 mmol/L (23-31); Chloride 104 mmol/L (98-107); Estimated GFR-MDRD 68; Globulin 2.9 g/dL (2.4-3.5); Glucose 145 mg/dL (80-115); Lipase 10 U/L (8-78); Potassium 4.2 mmol/L (3.5-5.1); Sodium 140 mmol/L (136-145)
[2018-09-13] MEDS ORDERED: cefTRIAXone\\ROCEPHIN 2 GM VIAL ONE (11:12)
--- NOTE | 2018-09-21 16:09 | EKG ---
Test Reason : WEAKNESS Blood Pressure : / mmHG Vent. Rate : 120 BPM Atrial Rate : 120 BPM P-R Int : 146 ms QRS Dur : 078 ms QT Int : 308 ms P-R-T Axes : 030 -07 002 degrees QTc Int : 435 ms Sinus tachycardia Otherwise normal ECG Confirmed by OZZIE RAI, KEITH ([id number]), desk editor JESSICA SANABRIA ([id number]) on 09/21/2018 4:08:44 PM Referred By: Confirmed By:KEITH HORNE MD
== END 2018-09-13 13:40 | disposition home or self-care (01) ==
LOC: ERS 10:03
DX: N30.90 Cystitis, unspecified without hematuria (principal); R53.1 Weakness; G35 Multiple sclerosis; E11.9 Type 2 diabetes mellitus without complications; I10 Essential (primary) hypertension; Z79.899 Other long term (current) drug therapy; Z79.4 Long term (current) use of insulin
CPT/HCPCS: 36415; 80053; 81003; 81015; 83605; 83690; 84484; 85025; 87077; 87086; 87186; 93005; 96365; J0696

== ENCOUNTER 2018-09-26 08:23 | Observation (INO) | payer MEDICARE, BC ==
[2018-09-26 09:14] LABS: #Eosinphils 0.1 thou/uL (0.0-0.7); #Lymphocytes 0.8 thou/uL (1.20-3.40); #Monocytes 0.7 thou/uL (0.11-0.59); %Basophils 0.1 % (0.0-1.0); %Eosinophils 0.5 % (0.0-10.0); %Lymphocytes 6.3 % (21.0-51.0); %Monocytes 5.7 % (0.0-10.0); %Neutrophils 87.4 % (42.0-75.0); Hemoglobin 13.2 g/dL (14.0-18.0); Mean Corpuscular Hemoglobin 28.7 pg (27.0-31.0); Mean Corpuscular Volume 87.1 fL (78.0-98.0); Mean Platelet Volume 7.8 fL (7.4-10.4); Platelet Count 291 thou/uL (130-400); RBC Distribution Width 14.3 % (11.5-14.5); Red Blood Cell (RBC) Count 4.58 mill/uL (4.70-6.10); White Blood Cell (WBC) Count 12.5 thou/uL (4.8-10.8)
[2018-09-26 09:15] LABS: Bilirubin Negative (Negative); Blood, Urine Trace (Negative); Clarity TURBID (Clear); Glucose, Urine (Dipstick) Negative (Negative); Leukocyte Moderate (Negative); Nitrite Positive (Negative); Protein, Urine (Dipstick) Negative (Neg-Trace); Specific Gravity, Urine 1.018 (1.002-1.036); Urobilinogen 0.2 mg/dL (0.2-1.0); pH, Urine 5.5 (5.0-9.0)
[2018-09-26 09:19] LABS: Bacteria/HPF 4+ HPF (None Seen); RBC/HPF 0-3 HPF (0-3); Squamous Epithelial 0-3 HPF (0-3); Yeast-AUWi Flag 16.4 (0-25.0)
[2018-09-26 09:30] LABS: ALT (SGPT) 26 U/L (8-55); AST (SGOT) 13 U/L (5-34); Alkaline Phosphatase 67 U/L (40-150); Anion Gap 12 mmol/L (10-20); BUN (Urea Nitrogen) 13 mg/dL (8.4-25.7); Bilirubin, Total 0.6 mg/dL (0.2-1.2); Calc. Creatinine Clearance 0 mL/min (70-130); Calcium 9.6 mg/dL (7.8-10.44); Carbon Dioxide 29 mmol/L (23-31); Chloride 103 mmol/L (98-107); Estimated GFR-MDRD 83; Globulin 3.1 g/dL (2.4-3.5); Glucose 126 mg/dL (80-115); Protein, Total 7.1 g/dL (5.8-8.1); Sodium 140 mmol/L (136-145)
[2018-09-26 09:40] LABS: Hyaline Casts/LPF NONE SEEN LPF (0-3 Hyaline); Other Casts/LPF None Seen LPF (0-3 Hyaline)
[2018-09-26 09:41] LABS: Crystals/HPF 1+ URIC ACID HPF (Negative); Yeast-All Forms 1+ HPF (None Seen)
[2018-09-26] MEDS ORDERED: cefTRIAXone\\ROCEPHIN 2 GM VIAL ONE (10:37)
--- NOTE | 2018-09-26 11:38 | PDOC.FPRHP ---
- History of Present Illness Chief Complaint: UTI/weakness History of Present Illness: This is a 63 yo M presenting to the ED with CC of weakness and dizziness upon waking this morning. Patient has a PMH significant for MS, neurogenic bladder with suprapubic catheter in place, and DMII. Reports feeling bad this morning at 2 am. He reports weakness and dizziness. Reports diarrhea 7-8x per day, non bloody. Has suprapubic catheter with normal urine. Roddy any dysuria or abdominal pain. Denies fever, chills, confusion. Came to the ER several days ago and was given fluids and 5 day course of antibiotics for UTI and discharged home. He finished PO abx. antibiotics given in ED and was doing well since. Urine culture at that time grew klebsiella sensitive to rocephin. Patient endorses drinking plenty of fluids at home. Has appt with [facility] next Sunday to replace with larger suprapubic cath tube. Previously was doing well ambulating at home with walker until this happened. ED Course: Rocephin and IVF given - Allergies/Adverse Reactions Allergies Allergy/AdvReac Type Severity Reaction Status Date / Time codeine Allergy Intermediate Rash Verified 09/26/18 12:22 adhesive Allergy Verified 09/26/18 12:22 acetaminophen [From Tylenol] AdvReac Verified 09/26/18 12:22 - Home Medications Medication Instructions Recorded Confirmed Type Cholecalciferol (Vitamin D3) 1,500 mg PO DAILY 06/04/18 09/26/18 History [Vitamin D] Insulin Detemir [Levemir] 15 unit SQ DAILY 06/04/18 09/26/18 History Tamsulosin HCl [Flomax] 0.4 mg PO DAILY #30 cap 06/09/18 09/26/18 Rx Magnesium Oxide 500 mg PO DAILY 07/02/18 09/26/18 History Valsartan/Hydrochlorothiazide 1 each PO DAILY 07/02/18 09/26/18 History [Valsartan-Hctz 160-25 mg Tab] Baclofen [Lioresal] 20 mg PO TID tab 08/01/18 09/26/18 Rx - History PMHx: MS, HTN, DM2, Chronic back pain PSHx: choleycystectomy, left shoulder, R leg, suprapubic catheter (07/25/18) FHx: Father - HTN, DM2 in sister and parents Social: Former heavy drinker (12 pack/day x 20 yrs) and smoker (40 pack years) - quit 22 years ago. Tried IV met 20 years ago, no drug use since. Lives at home in [place] with son who is only child. - Review of Systems General: reports: fatigue. denies: fever/chills, weight/appetite/sleep changes Eyes: denies: vision changes Respiratory: denies: cough, congestion, shortness of breath Cardiovascular: denies: chest pain, palpitation Gastrointestinal: reports: diarrhea. denies: nausea, vomiting, constipation, abdominal pain Skin: denies: rashes Musculoskeletal: denies: swelling Neurological: reports: weakness - Vital signs BP: 128/88, Pulse: 119, Resp: 19, Temp: 98.5 (Oral), Pain: 2, O2 sat: 96 on Room Air, Time: 09/26/2018 08:34. BP: 125/86, Pulse: 108, Resp: 23, Temp: 99.5 (Oral), O2 sat: 97 on Room Air, Time: 09/26/2018 11:29. - Physical Exam Constitutional: NAD, awake, alert and oriented HEENT: normocephalic and atraumatic, other (mucous membranes dry) Neck: supple, FROM Chest: no-tender to palpation, no lesions Heart: RRR, normal S1/S2, no murmurs/rubs/gallops Lungs: CTAB, no respiratory distress, good air movement Abdomen: soft, non-tender, bowel sounds present Musculoskeletal: normal structure, normal tone Neurological: no focal deficit Skin: other (prolonged cap refill) Heme/Lymphatic: no unusual bruising or bleeding FMR H&P: Results - Labs Result Diagrams: 09/26/18 09:00 09/26/18 09:00 Lab results: WBC 12.5 thou/uL (4.8-10.8) H 09/26/18 09:00 Hgb 13.2 g/dL (14.0-18.0) L 09/26/18 09:00 Hct 39.9 % (42.0-52.0) L 09/26/18 09:00 MCV 87.1 fL (78.0-98.0) 09/26/18 09:00 Plt Count 291 thou/uL (130-400) 09/26/18 09:00 Neutrophils % 87.4 % (42.0-75.0) H 09/26/18 09:00 Sodium 140 mmol/L (136-145) 09/26/18 09:00 Potassium 4.0 mmol/L (3.5-5.1) 09/26/18 09:00 Chloride 103 mmol/L (98-107) 09/26/18 09:00 Carbon Dioxide 29 mmol/L (23-31) 09/26/18 09:00 BUN 13 mg/dL (8.4-25.7) 09/26/18 09:00 Creatinine 0.92 mg/dL (0.7-1.3) 09/26/18 09:00 Glucose 126 mg/dL (80-115) H 09/26/18 09:00 Lactic Acid 1.9 mmol/L (0.5-2.2) 09/26/18 10:46 Calcium 9.6 mg/dL (7.8-10.44) 09/26/18 09:00 Total Bilirubin 0.6 mg/dL (0.2-1.2) 09/26/18 09:00 AST 13 U/L (5-34) 09/26/18 09:00 ALT 26 U/L (8-55) 09/26/18 09:00 Alkaline Phosphatase 67 U/L (40-150) 09/26/18 09:00 Serum Total Protein 7.1 g/dL (5.8-8.1) 09/26/18 09:00 Albumin 4.0 g/dL (3.4-4.8) 09/26/18 09:00 Urine Ketones Negative mg/dL (Negative) 09/26/18 08:45 Urine Blood Trace (Negative) H 09/26/18 08:45 Urine Nitrite Positive (Negative) H 09/26/18 08:45 Ur Leukocyte Esterase Moderate (Negative) H 09/26/18 08:45 Urine RBC 0-3 HPF (0-3) 09/26/18 08:45 Urine WBC Greater Than 50-TNTC HPF (0-3) H 09/26/18 08:45 Ur Squamous Epith Cells 0-3 HPF (0-3) 09/26/18 08:45 Urine Bacteria 4+ HPF (None Seen) H 09/26/18 08:45 FMR H&P: A/P - Problem List (1) Tachycardia Current Visit: No Status: Acute Code(s): R00.0 - TACHYCARDIA, UNSPECIFIED (2) UTI (urinary tract infection) Current Visit: No Status: Acute (3) Diabetes mellitus Current Visit: No Status: Chronic Code(s): E11.9 - TYPE 2 DIABETES MELLITUS WITHOUT COMPLICATIONS Qualifiers: Diabetes mellitus type: type 2 (4) HTN (hypertension) Current Visit: No Status: Chronic Code(s): I10 - ESSENTIAL (PRIMARY) HYPERTENSION (5) Multiple sclerosis Current Visit: No Status: Chronic Code(s): G35 - MULTIPLE SCLEROSIS - Plan Sepsis 2/2 UTI s/p suprapubic catheter - present on admission: tachycardia, WBC 12.5, source: UTI - s/p rocephin in the ED and IVF - UA: + nitrites, leukocytes, WBC, bacteria; Urine cx pending - Will continue rocephin and transition to PO in next day or two - Pt dry on exam, will continue mIVF - consider urology consult Diarrhea - pt w/ increase episodes of diarrhea s/p abx - Will order stool studies: lactoferrin and c diff Hx of MS - aware, will obtain records. Consider steroid dose and consult to neurology. DMII - Continue home insulin regimen - mild SSI, accuchecks HTN - aware, continue home meds GERD - aware, continue home famotidine Code: DNAR DISPO: admit to med, obs for IV abx Case discussed with Dr. Cadena FMR H&P: Upper Level - Pertinent history 63 yo male here for dizziness, weakness starting yesterday. Patient has had similar episodes in the past, most recently a couple weeks ago. Patient was discharged home from ER after receiving a dose of rocephin and given levaquin x5days. Sensitive for both. Pt endorses compliance. Yesterday he reports having weakness. Denies fever, CP, SOB. Also reports 7-8 episodes of diarrhea, non- bloody. Pt has hx of suprapubic cath, MS, DMII. Dr. Kuhn is urologist, appt next week. - Pertinent findings VSS GEN: NAD PULM: CTAB CARD: RRR, no mgr ABD: suprapubic cath in place SKIN: prolonged cap refill WBC: 12.5 - Plan Date/Time: 09/26/18 1134 I, Marcos Hope DO, have evaluated this patient and agree with findings/plan as outlined by internet cafe manager resident. Pertinent changes/additions are listed here. #sepsis 2/2 UTI s/p suprapubic cath -suspected failed outpatient treatment vs non-compliance -received rocephin in ER, will continue at this time -blood, urine cx #diarrhea -fluid replacement #Hx of MS -not on any control medications per pt and prev d/c summary #DMII #HTN #GERD Addendum - Attending - Attending Attestation Date/Time: 09/26/18 1318 I personally evaluated the patient and discussed the management with Dr. Chen and team. I agree with and repeated the History, Examination, Assessment and Plan documented above with any addition or exceptions noted below. Patient tells me he feels exactly like when he had his last UTI. Denies new or worsening deficits, no decreased vision, eye pain, focal weakness. He denies fever, flank pain, or other complaint. On exam he is tired appearing, no distress; tachy, regular, without murmur or edema; ctab s w/r/r; BS+, NTTP; suprapubic site looks healthy; his RUE is 4/5, LUE 5/5; LLE 4/5, RLE 3/5, SILT throughout. Continue antibiotics, await cultures.
[2018-09-26] MEDS ORDERED: Ondansetron PF 4 MG/2 ML Vial IVP PRN (12:00)
[2018-09-26] MEDS ORDERED: Ondansetron ODT 4 MG TAB PO PRN (12:00)
[2018-09-26] MEDS ORDERED: Loperamide HCl 2 MG CAP PO PRN (12:00)
[2018-09-26] MEDS ORDERED: Dextrose 5% in Water 1,000 ML IV PRN (12:02)
[2018-09-26] MEDS ORDERED: Dextrose 50% Abboject 50 ML SYRINGE SLOW IVP PRN (12:02)
[2018-09-26] MEDS ORDERED: HumaLOG 300 UNITS/3 ML VIAL SC PRN (12:02)
[2018-09-26] MEDS: Lactated Ringer's 1,000 ML IV SCH ×2 (13:01→20:43)
[2018-09-26 13:29] VITALS: BMI 32.4
[2018-09-26] MEDS: Baclofen 10 MG TAB PO SCH (20:27)
[2018-09-27] MEDS: Lactated Ringer's 1,000 ML IV SCH (04:49)
[2018-09-27 06:39] LABS: #Eosinphils 0.2 thou/uL (0.0-0.7); #Lymphocytes 1.3 thou/uL (1.20-3.40); #Monocytes 0.7 thou/uL (0.11-0.59); #Neutrophils 6.7 thou/uL (1.40-6.50); %Basophils 0.1 % (0.0-1.0); %Lymphocytes 14.8 % (21.0-51.0); %Monocytes 7.8 % (0.0-10.0); %Neutrophils 75.2 % (42.0-75.0); Hemoglobin 11.8 g/dL (14.0-18.0); Mean Corpuscular HGB CONC 31.9 g/dL (32.0-36.0); Mean Corpuscular Hemoglobin 27.6 pg (27.0-31.0); Mean Corpuscular Volume 86.3 fL (78.0-98.0); Mean Platelet Volume 8.1 fL (7.4-10.4); Platelet Count 242 thou/uL (130-400); RBC Distribution Width 14.2 % (11.5-14.5); Red Blood Cell (RBC) Count 4.28 mill/uL (4.70-6.10); White Blood Cell (WBC) Count 8.9 thou/uL (4.8-10.8)
[2018-09-27 06:52] LABS: Anion Gap 14 mmol/L (10-20); BUN (Urea Nitrogen) 9 mg/dL (8.4-25.7); Calc. Creatinine Clearance 117 mL/min (70-130); Calcium 9.2 mg/dL (7.8-10.44); Carbon Dioxide 24 mmol/L (23-31); Chloride 106 mmol/L (98-107); Estimated GFR-MDRD 89; Glucose 117 mg/dL (80-115); Sodium 140 mmol/L (136-145)
--- NOTE | 2018-09-27 07:22 | PDOC.FM ---
- Subjective Subjective: NAEO. Patient doing well this morning. Requesting to go home. He states he feels back to baseline and strong. He denies fever/chills, chest pain, NVD, or abdominal pain. - Objective MAR Reviewed: Yes Vital Signs & Weight: Vital Signs (12 hours) Temp Pulse Resp BP BP Pulse Ox 09/27/18 04:00 98.6 F 101 H 20 152/84 H 09/27/18 00:00 98.6 F 20 136/84 96 09/26/18 19:44 98.7 F 108 H 20 121/77 96 09/26/18 19:36 98.7 F 108 H 20 121/77 96 Weight Weight 93.894 kg I&O: 09/26/18 09/27/18 09/28/18 06:59 06:59 06:59 Intake Total 3389 Output Total 0 Balance 1339 Result Diagrams: 09/27/18 06:29 09/27/18 06:29 Phys Exam - Physical Examination Constitutional: NAD HEENT: PERRLA, moist MMs, sclera anicteric Neck: supple, full ROM Respiratory: clear to auscultation bilateral Cardiovascular: RRR Gastrointestinal: soft, non-tender, no distention, positive bowel sounds Neurological: moves all 4 limbs Psychiatric: normal affect, A&O x 3 Skin: no rash, normal turgor, cap refill <2 seconds Dx/Plan (1) Tachycardia Code(s): R00.0 - TACHYCARDIA, UNSPECIFIED Status: Acute (2) UTI (urinary tract infection) Status: Acute (3) Diabetes mellitus Code(s): E11.9 - TYPE 2 DIABETES MELLITUS WITHOUT COMPLICATIONS Status: Chronic Qualifiers: Diabetes mellitus type: type 2 (4) HTN (hypertension) Code(s): I10 - ESSENTIAL (PRIMARY) HYPERTENSION Status: Chronic (5) Multiple sclerosis Code(s): G35 - MULTIPLE SCLEROSIS Status: Chronic - Plan Plan: Sepsis 2/2 UTI s/p suprapubic catheter - present on admission: tachycardia, WBC 12.5, source: UTI - s/p rocephin in the ED and IVF - UA: + nitrites, leukocytes, WBC, bacteria; Urine cx pending - Will continue rocephin and transition to PO in next day or two - Pt dry on exam, will continue mIVF - [facility] called to inform that patient is here. Patient has f/u appt next Wed Diarrhea - pt w/ increase episodes of diarrhea s/p abx - Will order stool studies: lactoferrin elevated; C diff unable to perform due to formed stool Hx of MS - aware, will obtain records. Consider steroid dose and consult to neurology. DMII - Continue home insulin regimen - mild SSI, accuchecks HTN - aware, continue home meds GERD - aware, continue home famotidine Code: DNAR DISPO: continue abx, dc pending clinical course Addendum - Attending - Attending Attestation Date/Time: 09/27/18 0271 I personally evaluated the patient and discussed the management with Dr. Chen. I agree with the History, Examination, Assessment and Plan documented above with any addition or exceptions noted below. Complicated UTI- stable for d/c. Will send with 14 days of omnicef. F/u with urology next week for change of suprapubic catheter.
[2018-09-27] MEDS: Baclofen 10 MG TAB PO SCH (08:52)
[2018-09-27] MEDS ORDERED: Non-Formulary Item 1 EACH (Insulin Detemir [Levemir] 15 UNIT) SQ SCH (09:00)
[2018-09-27] MEDS ORDERED: Magnesium Oxide 250 MG TAB PO SCH (09:00)
[2018-09-27] MEDS ORDERED: Non-Formulary Item 1 EACH (Valsartan/Hydrochlorothiazide [Valsartan-Hctz 160-25 Mg Tab] 1 PO SCH (09:00)
[2018-09-27] MEDS ORDERED: Insulin Glargine 15 UNITS in Pre-Filled Syringe SC SCH (09:00)
[2018-09-27] MEDS ORDERED: Hydrochlorothiazide 25 MG TAB PO SCH (09:00)
[2018-09-27] MEDS ORDERED: Tamsulosin HCl 0.4 MG CAP PO SCH (09:00)
[2018-09-27] MEDS ORDERED: Enoxaparin Sodium 40 MG/0.4 ML SYRINGE SC SCH (09:00)
[2018-09-27] MEDS ORDERED: Valsartan 80 MG TAB PO SCH (09:00)
[2018-09-27] MEDS ORDERED: cefTRIAXone\\ROCEPHIN 2 GM in Sodium Chloride 0.9% 100 ML IVPB SCH (09:00)
[2018-09-27 12:19] VITALS: BP 145/85; TEMP 98.3
--- NOTE | 2018-09-30 15:37 | DIS ---
DATE OF ADMISSION: 09/26/2018 DATE OF DISCHARGE: 09/27/2018 RESIDENT: Klarissa Chen MD ADMITTING ATTENDING: Joaquin Cadena MD DISCHARGE ATTENDING: Suznane Vang MD CONSULTS: PT/OT. PROCEDURES: None. PRIMARY DIAGNOSIS: Sepsis secondary to urinary tract infection status post suprapubic catheter placement. SECONDARY DIAGNOSES: Diarrhea, history of multiple sclerosis, type 2 diabetes, hypertension, gastroesophageal reflux disease. DISCHARGE MEDICATIONS: 1. Lantus 15 units subcutaneous every morning. 2. Omnicef 300 mg oral every 12 hours for a total of 2 weeks. 3. Levemir 15 units subcutaneous daily. 4. Vitamin D3 1500 mg oral daily. 5. Flomax 0.4 mg oral daily. 6. Magnesium oxide 500 mg oral daily. 7. Valsartan hydrochlorothiazide 1 each oral daily. 8. Baclofen 20 mg three times daily. DISCONTINUED MEDICATIONS: None. HISTORY OF PRESENT ILLNESS/HOSPITAL COURSE: This is a 63-year-old male who presented to the ED with a chief complaint of weakness and dizziness upon waking this morning. The patient has a past medical history significant for a neurogenic bladder with suprapubic catheter placement in July as well as diabetes type 2. The patient reports feeling bad this morning around 2:00 am, reporting weakness and dizziness. The patient also reports diarrhea 7 to 8 episodes per day and is nonbloody. The patient has a suprapubic catheter placed in July and has had normal urine output. The patient denies any dysuria or abdominal pain. Denies fever, chills, or confusion. The patient came to the ER several days ago and was given fluids and a 5-day course of Levaquin for UTI and discharged home. The patient states that he finished all antibiotics. The urine culture at that time grew Klebsiella sensitive to Rocephin. The patient endorses drinking plenty of fluids at home. The patient sees Dr. Kuhn for Urology and has an appointment next Sunday to replace current suprapubic catheter with a larger catheter. The patient reports previously doing well at home, ambulating with his walker until the episode of weakness and dizziness. The patient was given Rocephin and IV fluids in the ED. Initially on presentation, the patient had tachycardia as well as an elevated white count at 12.5. The patient remained afebrile throughout his stay. On physical exam, the suprapubic site was clean, dry, intact and nonerythematous. The patient's other labs were unremarkable. The patient had a UA that showed blood, nitrite, leukocyte esterase, bacteria, and wbc's. The patient was continued on Rocephin and transitioned to Omnicef, to be discharged on a 2-week course. The patient also had stool studies performed, which showed elevated lactate and was negative for C diff. Dr. Kuhn's office contacted to inform that patient was here if intervention needed to be performed during this hospital stay. The patient will need to follow up next week with Dr. Kuhn in his office for replacement of current catheter. On the day of discharge, the patient states that he is feeling much better and stronger and was willing to go home. The patient's white count is down trended. DISPOSITION: Stable. DISCHARGE INSTRUCTIONS: 1. Location: Home. 2. Activity: Ad song. 3. Diet: Consistent carbohydrate and heart healthy. 4. Follow up with Dr. Kuhn next Sunday. Job ID: [id number] MTDD
--- NOTE | 2018-10-03 15:25 | EKG ---
Test Reason : Blood Pressure : / mmHG Vent. Rate : 113 BPM Atrial Rate : 113 BPM P-R Int : 154 ms QRS Dur : 082 ms QT Int : 314 ms P-R-T Axes : 022 -10 006 degrees QTc Int : 430 ms Sinus tachycardia Otherwise normal ECG Confirmed by BRITTANY SOTO D.O. ([id number]), editor sound DAVID BANERJEE ([id number]) on 10/03/2018 3:24:47 PM Referred By: Confirmed By:BRITTANY SOTO D.O.
== END 2018-09-27 14:12 | disposition home or self-care (01) ==
LOC: ERS 08:23 → T4-B 12:14
PROVIDERS: ADMIT Family Medicine; ATTEND Family Medicine
DX: A41.9 Sepsis, unspecified organism (principal); N39.0 Urinary tract infection, site not specified; N31.9 Neuromuscular dysfunction of bladder, unspecified; G35 Multiple sclerosis; R19.7 Diarrhea, unspecified; G89.29 Other chronic pain; M54.9 Dorsalgia, unspecified; E11.9 Type 2 diabetes mellitus without complications; I10 Essential (primary) hypertension; K21.9 Gastro-esophageal reflux disease without esophagitis; Z87.891 Personal history of nicotine dependence; Z79.4 Long term (current) use of insulin; Z79.899 Other long term (current) drug therapy; Z66 Do not resuscitate; Z88.5 Allergy status to narcotic agent; Z91.048 Other nonmedicinal substance allergy status; Z88.8 Allergy status to other drugs, medicaments and biological substances
CPT/HCPCS: 80048; 80053; 82962 ×2; 83605; 83630; 85025 ×2; 87040; 93005; 96361 ×3; 96365; 96366; 96372; 97139 ×3; 99285; G0378 ×2; 36415; 36416; 81003; 81015; J0696; J1650; J1825; J3490

== ENCOUNTER 2018-10-09 10:07 | Emergency (ER) | payer MEDICARE, BC ==
[2018-10-09 11:30] LABS: #Eosinphils 0.1 thou/uL (0.0-0.7); #Monocytes 0.4 thou/uL (0.11-0.59); #Neutrophils 8.1 thou/uL (1.40-6.50); %Basophils 0.5 % (0.0-1.0); %Eosinophils 1.3 % (0.0-10.0); %Monocytes 4.1 % (0.0-10.0); %Neutrophils 84.1 % (42.0-75.0); Hemoglobin 13.6 g/dL (14.0-18.0); Mean Corpuscular HGB CONC 32.9 g/dL (32.0-36.0); Mean Corpuscular Hemoglobin 28.5 pg (27.0-31.0); Mean Corpuscular Volume 86.6 fL (78.0-98.0); Mean Platelet Volume 7.8 fL (7.4-10.4); Platelet Count 300 thou/uL (130-400); RBC Distribution Width 13.8 % (11.5-14.5); Red Blood Cell (RBC) Count 4.75 mill/uL (4.70-6.10); White Blood Cell (WBC) Count 9.7 thou/uL (4.8-10.8)
[2018-10-09 11:59] LABS: ALT (SGPT) 16 U/L (8-55); AST (SGOT) 14 U/L (5-34); Albumin 3.9 g/dL (3.4-4.8); Alkaline Phosphatase 75 U/L (40-150); Anion Gap 13 mmol/L (10-20); BUN (Urea Nitrogen) 17 mg/dL (8.4-25.7); Bilirubin, Total 0.3 mg/dL (0.2-1.2); Calc. Creatinine Clearance 0 mL/min (70-130); Calcium 9.9 mg/dL (7.8-10.44); Carbon Dioxide 26 mmol/L (23-31); Chloride 107 mmol/L (98-107); Estimated GFR-MDRD 70; Globulin 3.3 g/dL (2.4-3.5); Glucose 124 mg/dL (80-115); Lipase 11 U/L (8-78); Potassium 4.2 mmol/L (3.5-5.1); Protein, Total 7.2 g/dL (5.8-8.1); Sodium 142 mmol/L (136-145)
[2018-10-09 12:16] LABS: Bilirubin Negative (Negative); Blood, Urine Negative (Negative); Clarity CLEAR (Clear); Glucose, Urine (Dipstick) Negative (Negative); Leukocyte Moderate (Negative); Nitrite Negative (Negative); Protein, Urine (Dipstick) Negative (Neg-Trace); Specific Gravity, Urine 1.019 (1.002-1.036); Urobilinogen 0.2 mg/dL (0.2-1.0)
[2018-10-09 12:18] LABS: Hyaline Casts/LPF 4-6 HYALINE CAST LPF (0-3 Hyaline); Pathc Cast-AUWi Flag 0.54 (0-2.49); Squamous Epithelial 0-3 HPF (0-3)
[2018-10-09 12:23] LABS: Yeast-AUWi Flag 148.2 (0-25.0)
[2018-10-09 12:31] LABS: Bacteria/HPF Rare-Few HPF (None Seen); RBC/HPF None Seen HPF (0-3); Yeast-All Forms None Seen HPF (None Seen)
== END 2018-10-09 16:35 | disposition home or self-care (01) ==
LOC: ERS 10:07
DX: A04.72 Enterocolitis due to Clostridium difficile, not specified as recurrent (principal); E86.0 Dehydration; N39.0 Urinary tract infection, site not specified; E11.9 Type 2 diabetes mellitus without complications; E78.5 Hyperlipidemia, unspecified; I10 Essential (primary) hypertension; Z87.891 Personal history of nicotine dependence; Z79.4 Long term (current) use of insulin; Z79.899 Other long term (current) drug therapy
CPT/HCPCS: 36415; 36416; 80053; 81003; 81015; 83605; 83690; 85025; 87040; 87086; 87324; 87449; 93005; 94760; 96360

== ENCOUNTER 2018-10-30 09:01 | Emergency (ER) | payer MEDICARE, BC | END 2018-10-30 10:10 | disposition home or self-care (01) | LOC: ERS 09:01 | DX: B05.9 Measles without complication (principal); L03.114 Cellulitis of left upper limb; Z87.891 Personal history of nicotine dependence; L27.0 Generalized skin eruption due to drugs and medicaments taken internally; T36.8X5A Adverse effect of other systemic antibiotics, initial encounter | CPT/HCPCS: 99283 ==

== ENCOUNTER 2018-11-05 11:21 | Inpatient (IN) | payer MEDICARE, BC ==
[2018-11-05 12:12] LABS: #Basophils 0.1 thou/uL (0.0-0.2); #Eosinphils 0.1 thou/uL (0.0-0.7); #Lymphocytes 2.8 thou/uL (1.20-3.40); #Monocytes 0.9 thou/uL (0.11-0.59); #Neutrophils 11.6 thou/uL (1.40-6.50); %Basophils 0.6 % (0.0-1.0); %Eosinophils 0.6 % (0.0-10.0); %Lymphocytes 17.8 % (21.0-51.0); %Monocytes 5.7 % (0.0-10.0); %Neutrophils 75.3 % (42.0-75.0); Hemoglobin 15.3 g/dL (14.0-18.0); Mean Corpuscular HGB CONC 32.5 g/dL (32.0-36.0); Mean Corpuscular Hemoglobin 28.4 pg (27.0-31.0); Mean Corpuscular Volume 87.4 fL (78.0-98.0); Mean Platelet Volume 7.9 fL (7.4-10.4); Platelet Count 336 thou/uL (130-400); RBC Distribution Width 13.9 % (11.5-14.5); Red Blood Cell (RBC) Count 5.38 mill/uL (4.70-6.10); White Blood Cell (WBC) Count 15.4 thou/uL (4.8-10.8)
[2018-11-05 12:40] LABS: ALT (SGPT) 32 U/L (8-55); AST (SGOT) 10 U/L (5-34); Albumin 4.3 g/dL (3.4-4.8); Alkaline Phosphatase 79 U/L (40-150); Anion Gap 13 mmol/L (10-20); BUN (Urea Nitrogen) 33 mg/dL (8.4-25.7); Bilirubin, Total 0.3 mg/dL (0.2-1.2); Calc. Creatinine Clearance 0 mL/min (70-130); Calcium 10.3 mg/dL (7.8-10.44); Carbon Dioxide 28 mmol/L (23-31); Chloride 102 mmol/L (98-107); Estimated GFR-MDRD 60; Globulin 3.3 g/dL (2.4-3.5); Glucose 154 mg/dL (80-115); Potassium 4.1 mmol/L (3.5-5.1); Protein, Total 7.6 g/dL (5.8-8.1); Sodium 139 mmol/L (136-145)
[2018-11-05] MEDS ORDERED: cefTRIAXone\\ROCEPHIN 2 GM VIAL ONE (13:12)
[2018-11-05 14:35] LABS: Bilirubin Negative (Negative); Blood, Urine Moderate (Negative); Clarity TURBID (Clear); Glucose, Urine (Dipstick) Negative (Negative); Leukocyte Large (Negative); Nitrite Negative (Negative); Protein, Urine (Dipstick) 30 mg/dL (Neg-Trace); Specific Gravity, Urine 1.025 (1.002-1.036); Urobilinogen 0.2 mg/dL (0.2-1.0)
[2018-11-05 14:37] LABS: Bacteria/HPF None Seen HPF (None Seen); Squamous Epithelial None Seen HPF (0-3)
[2018-11-05 14:44] LABS: Pathc Cast-AUWi Flag 4.76 (0-2.49); Yeast-AUWi Flag 869.2 (0-25.0)
[2018-11-05 14:52] LABS: Hyaline Casts/LPF NONE SEEN LPF (0-3 Hyaline); Manual Microscopic Reviewed? No Path Casts Seen; RBC/HPF 0-3 HPF (0-3); Yeast-All Forms 2+ HPF (None Seen)
[2018-11-05] MEDS ORDERED: Gentamicin 80 MG/2 ML VIAL ONE (15:21)
--- NOTE | 2018-11-05 15:22 | PDOC.FPRHP ---
- History of Present Illness Chief Complaint: dizziness History of Present Illness: 63yo M with pmh of primary progressive MS presents to ED from clinic for eval of new onset dizziness. Pt reports that while at clinic this AM he had new onset of dizziness, additionally he reports that over the last few days he has had worsening double vision and blurred vision. No other new neurologic symptoms. Pt does have residual R sided weakness and neurogenic bladder related to his MS. Regarding MS pt has seen Dr. Kinsey in June 2018 and has f/u appointment coming up in mid November. He reports he has never really had a "flare" ED Course: The patient was evaluated in ED by Dr. Madrid and was given Ceftriaxone 2g, Gentamicin 1mg/kg. - Allergies/Adverse Reactions Allergies Allergy/AdvReac Type Severity Reaction Status Date / Time codeine Allergy Intermediate Rash Verified 09/26/18 12:22 adhesive Allergy Verified 09/26/18 12:22 acetaminophen [From Tylenol] AdvReac Verified 09/26/18 12:22 - Home Medications Medication Instructions Recorded Confirmed Type Cholecalciferol (Vitamin D3) 1,500 mg PO DAILY 06/04/18 11/05/18 History [Vitamin D] Insulin Detemir [Levemir] 15 unit SQ DAILY 06/04/18 11/05/18 History Tamsulosin HCl [Flomax] 0.4 mg PO DAILY #30 cap 06/09/18 11/05/18 Rx Magnesium Oxide 500 mg PO DAILY 07/02/18 11/05/18 History Valsartan/Hydrochlorothiazide 1 each PO DAILY 07/02/18 09/26/18 History [Valsartan-Hctz 160-25 mg Tab] Baclofen [Lioresal] 20 mg PO TID tab 08/01/18 11/05/18 Rx Cefdinir [Omnicef] 300 mg PO Q12HR #27 cap 09/27/18 Rx Insulin Glargine [Lantus Vial] 15 units SC QAM vial 09/27/18 Rx Nystatin [Nystatin Powder] 1 applic TOP TID 11/05/18 11/05/18 History Valsartan [Diovan] 160 mg PO DAILY 11/05/18 11/05/18 History - History PMHx: DM2, HTN, HLD, Multiple Sclerosis, BPH PSHx: L rotator cuff sx, Cholecystectomy, Suprapubic catheter, RLE surgery FHx: CKD4 (father) 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 Earl - [facility] - Review of Systems General: denies: fever/chills, fatigue Eyes: reports: vision changes. denies: eye pain ENT: denies: nasal congestion, rhinorrhea Respiratory: denies: cough, shortness of breath Cardiovascular: denies: chest pain, palpitation Gastrointestinal: denies: nausea, vomiting Genitourinary: denies: incontinence, dysuria Skin: denies: rashes, lesions Musculoskeletal: denies: pain, tenderness Neurological: reports: weakness (chronic). denies: syncope, seizure Psychological: denies: anxiety, depression - Vital signs BP: 112/67, Pulse: 92, Resp: 17, Temp: 97.9 (Oral), weight 93kg, Pain: 5, O2 sat: 95 on Room Air, Time: 11/05/2018 14:41. - Physical Exam Constitutional: NAD, awake, alert and oriented HEENT: normocephalic and atraumatic, conjunctiva clear, grossly normal hearing Neck: supple, trachea midline Chest: no-tender to palpation Heart: RRR, normal S1/S2 Lungs: CTAB, no respiratory distress Abdomen: soft, non-tender Musculoskeletal: normal tone, ROM grossly normal -Neurological: EOM exam not tolerated 2/2 to dizziness on L lateral gaze, R nystagmus noted on this exam however. +2/5 strength on R U and L extremeties, otherwise CN 2-12 intact. sensation normal. Skin: good turgor, other (peeling rash on bilateral upper extremeties) Heme/Lymphatic: no purpura, no petechia Psychiatric: normal mood and affect, good judgment and insight FMR H&P: Results - Labs Result Diagrams: 11/05/18 12:05 11/05/18 12:05 Lab results: WBC 15.4 thou/uL (4.8-10.8) H 11/05/18 12:05 Hgb 15.3 g/dL (14.0-18.0) 11/05/18 12:05 Hct 47.0 % (42.0-52.0) 11/05/18 12:05 MCV 87.4 fL (78.0-98.0) 11/05/18 12:05 Plt Count 336 thou/uL (130-400) 11/05/18 12:05 Neutrophils % 75.3 % (42.0-75.0) H 11/05/18 12:05 Sodium 139 mmol/L (136-145) 11/05/18 12:05 Potassium 4.1 mmol/L (3.5-5.1) 11/05/18 12:05 Chloride 102 mmol/L (98-107) 11/05/18 12:05 Carbon Dioxide 28 mmol/L (23-31) 11/05/18 12:05 BUN 33 mg/dL (8.4-25.7) H 11/05/18 12:05 Creatinine 1.22 mg/dL (0.7-1.3) 11/05/18 12:05 Glucose 154 mg/dL (80-115) H 11/05/18 12:05 Lactic Acid 2.2 mmol/L (0.5-2.2) 11/05/18 12:05 Calcium 10.3 mg/dL (7.8-10.44) 11/05/18 12:05 Total Bilirubin 0.3 mg/dL (0.2-1.2) 11/05/18 12:05 AST 10 U/L (5-34) 11/05/18 12:05 ALT 32 U/L (8-55) 11/05/18 12:05 Alkaline Phosphatase 79 U/L (40-150) 11/05/18 12:05 Serum Total Protein 7.6 g/dL (5.8-8.1) 11/05/18 12:05 Albumin 4.3 g/dL (3.4-4.8) 11/05/18 12:05 Urine Ketones Negative mg/dL (Negative) 11/05/18 13:56 Urine Blood Moderate (Negative) H 11/05/18 13:56 Urine Nitrite Negative (Negative) 11/05/18 13:56 Ur Leukocyte Esterase Large (Negative) H 11/05/18 13:56 Urine RBC 0-3 HPF (0-3) 11/05/18 13:56 Urine WBC Greater Than 50-TNTC HPF (0-3) H 11/05/18 13:56 Ur Squamous Epith Cells None Seen HPF (0-3) 11/05/18 13:56 Urine Bacteria None Seen HPF (None Seen) 11/05/18 13:56 FMR H&P: A/P - Problem List (1) Leukocytosis Current Visit: No Status: Acute Code(s): D72.829 - ELEVATED WHITE BLOOD CELL COUNT, UNSPECIFIED (2) UTI (urinary tract infection) Current Visit: No Status: Acute (3) Diabetes mellitus Current Visit: No Status: Chronic Code(s): E11.9 - TYPE 2 DIABETES MELLITUS WITHOUT COMPLICATIONS Qualifiers: Diabetes mellitus type: type 2 (4) HTN (hypertension) Current Visit: No Status: Chronic Code(s): I10 - ESSENTIAL (PRIMARY) HYPERTENSION (5) Multiple sclerosis Current Visit: No Status: Chronic Code(s): G35 - MULTIPLE SCLEROSIS - Plan Multiple Sclerosis Flare vs Primary Progressive MS A- Suspected flare vs. progression of MS. Consulted Dr. Kinsey, recommended stress dose steroids with solu-medrol 1g x2 days followed by medrol dose pack P- solumedrol 1g x2 days, then medrol pack -MRI brain -symptomatic control with zofran Hypotension A- report of SBP in 90s and 100s in clinic, rocephin and gent given in ED 2/2 concern for sepsis but BP wnl in ED. BP variability could be 2/2 autonomic dysfunction but sepsis 2/2 fungal sepsis unlikely. WBC elevation 15 likely 2/2 recent steroids P- will not continue ABX - monitor vitals closely -f/u BCx and UCx Yeast UTI A- probably colonization of suprapubic catheter, UA shows yeast, UCx collected P- diflucan and f/u on urine culture Rash on bilat arms A- rash developed on bilateral arms after treatment with vanc for c. diff colitis. Has improved some with prednisone P- Will continue to monitor, likely needs more time BPH -MD aware, will hold tamsulosin 2/2 possible drug side effect of dizziness DM -home insulin, ACHS accuchecks, SSI HTN -hold home BP meds Dispo: admit to medical, length of stay likely greater than 2 days VTE ppx: Lovenox FMR H&P: Upper Level - Pertinent history 63 y/o M PMHx MS, HTN, HLD, DM2 presents due to dizziness. He was being seen at [facility] and suddenly started feeling dizzy like everything was spinning and lightheadedness. He reports he has continued to have blurry vision and lightheadedness. He was found in clinic to have low blood pressures as low as 98/62. He denies any syncope, nausea, vomiting. He does report some diarrhea that started today. He was recently treated for c. diff about a month ago, but reports those symptoms resolved after treatment. He reports that he has been drinking plenty of fluids, he has to empty his suprapubic catheter about 6 times/day. Patient has history of multiple sclerosis and has been followed by Dr. Kinsey for this problem. He is due to see him in a couple of weeks. He is non- ambulatory and has very minimal function of his RUE. - Pertinent findings Vitals: BP 112/67, HR 92, RR 19, O2 sat 97% on RA, Temp 98.2 PE: Gen - alert, oriented, resting comfortably in bed on RA HEENT - MMM, EOMI, dizziness when looking to the left, with horizontal nystagmus CV - RRR, no murmurs, gallops Resp - CTAB, no wheezes Abd - soft, non-tender, non-distended Derm - Erythematous peeling rash on bilateral upper extremities Neuro - 2/5 muscle strength on bilateral lower extremities, 3/5 muscle strength on RUE, 5/5 muscle strength in LUE Lab values: WBC 15.4, UA 2+ yeast - Plan Date/Time: 11/05/18 1429 I, Lena Robert MD, PGY-2, have evaluated this patient and agree with findings/ plan as outlined by recruitment intern resident. Pertinent changes/additions are listed here. Multiple Sclerosis Flare vs Primary Progressive MS Patient with h/o MS presents with new onset blurry vision and now dizziness. Suspect this is 2/2 MS flare -Consulted Dr. Kinsey with neurology who recommended stress dose steroids with solu-medrol 1g x2 days followed by medrol dose pack Hypotension Patient given rocephin and gentamicin in the ED due to concern for sepsis. BP's were 110s-120s/60s-80s while in ED. He did not receive any fluids. This could be 2/2 autonomic dysfunction. -Cannot check orthostatic vitals due to patient neurologic status -Will continue to monitor closely and hold home BP meds, but pt normotensive in ED Leukocytosis Patient does not appear septic, and no obvious source of infection found. He chronically has leukocytosis on multiple prior admissions, likely 2/2 multiple sclerosis vs PO prednisone pt was on this past week -f/u on blood cultures and urine cultures -trend, but will likely increase due to stress dose steroids Rash Patient had rash developed on bilateral arms after treatment with vanc for c. diff colitis. Has improved some with prednisone -Will continue to monitor, likely needs more time Yeast UTI Likely 2/2 suprapubic catheter -Will give diflucan and f/u on urine culture HTN -Will hold home BP meds as pt was hypotensive Dispo: admit to medical, length of stay likely greater than 2 days VTE ppx: Lovenox Addendum - Attending - Attending Attestation Date/Time: 11/05/18 7334 I personally evaluated the patient and discussed the management with Dr. Vazquez /Yesica. I agree with the History, Examination, Assessment and Plan documented above with any addition or exceptions noted below. Patient with history of longstanding MS primary progressive subtype with R sided hemiparesis at baseline presenting from clinic with 3 days of blurry vision, and 1 day of dizziness with eye deviation. Patient reports otherwise feeling well. Vitals stable. Exam shows R gaze nystagmus, Vertigo with L gaze. PERRL. FTN testing intact L side unable to test R side. 5/5 strength LUE and LLE , 2+/5 strength RUE and RLE. Patient notes blurry vision with R eye closed, clear vision with L eye clear, showing this to be new L eye vision defect. The rest of his exam is overall benign. Labs show yeast in UA, mild leukocytosis, otherwise labs at baseline. Patient will be admitted for Primary Progressive MS with acute exacerbation, consider optic neuritis. Methylpred at 1g qday, Neurology consult. Consider MRI brain in consultation with Neurology. Continue chronic meds for chronic conditions.
[2018-11-05 17:18] LABS: Lactic Acid 1.9 mmol/L (0.5-2.2)
[2018-11-05] MEDS ORDERED: Dextrose 50% Abboject 50 ML SYRINGE SLOW IVP PRN (19:38)
[2018-11-05] MEDS ORDERED: Dextrose 5% in Water 1,000 ML IV PRN (19:38)
[2018-11-05] MEDS ORDERED: Acetaminophen 325 MG TAB PO PRN (19:38)
[2018-11-05] MEDS ORDERED: Ondansetron PF 4 MG/2 ML Vial IVP PRN (19:38)
[2018-11-05] MEDS ORDERED: Calcium Carbonate 500 MG ChewTAB PO PRN (19:38)
[2018-11-05] MEDS ORDERED: Ondansetron ODT 4 MG TAB PO PRN (19:38)
[2018-11-05] MEDS: Baclofen 10 MG TAB PO SCH (21:09)
[2018-11-05] MEDS: Nystatin Powder 15 GM BOT TOP SCH (21:09)
[2018-11-05] MEDS: methylPREDNISolone Sod Succ 1 GM in Sodium Chloride 0.9% 250 ML 250 ML IVPB SCH (21:18)
[2018-11-06] MEDS: HumaLOG 300 UNITS/3 ML VIAL SC PRN ×4 (06:23→21:23)
[2018-11-06 06:34] LABS: Anion Gap 14 mmol/L (10-20); BUN (Urea Nitrogen) 35 mg/dL (8.4-25.7); Calc. Creatinine Clearance 0 mL/min (70-130); Calcium 9.6 mg/dL (7.8-10.44); Carbon Dioxide 23 mmol/L (23-31); Chloride 101 mmol/L (98-107); Estimated GFR-MDRD 47; Glucose 344 mg/dL (80-115); Sodium 133 mmol/L (136-145)
[2018-11-06] MEDS: Baclofen 10 MG TAB PO SCH ×3 (08:00→21:21)
[2018-11-06] MEDS: Fluconazole 100 MG TAB PO SCH (08:00)
[2018-11-06] MEDS: Magnesium Oxide 250 MG TAB PO SCH (08:00)
[2018-11-06] MEDS: Enoxaparin Sodium 40 MG/0.4 ML SYRINGE SC SCH (08:01)
[2018-11-06] MEDS: Nystatin Powder 15 GM BOT TOP SCH ×3 (08:06→21:26)
[2018-11-06] MEDS: Insulin Glargine 15 UNITS in Pre-Filled Syringe 1 EACH SC SCH (08:09)
[2018-11-06] MEDS ORDERED: Promethazine 25 MG TAB PO PRN (08:31)
--- NOTE | 2018-11-06 08:35 | PDOC.FM ---
- Subjective Subjective: Pt reports continued dizziness and visual disturbance. No new problems no other complaints. - Objective Vital Signs & Weight: Vital Signs (12 hours) Temp Pulse Resp BP Pulse Ox 11/06/18 07:44 98.0 F 90 18 117/80 95 11/06/18 03:00 98.6 F 92 16 104/74 92 L 11/05/18 23:38 98.3 F 86 16 105/66 92 L Result Diagrams: 11/05/18 12:05 11/06/18 05:29 Phys Exam - Physical Examination Constitutional: NAD HEENT: moist MMs, sclera anicteric Neck: supple, full ROM Respiratory: no wheezing, clear to auscultation bilateral Cardiovascular: RRR, no significant murmur Gastrointestinal: soft, non-tender Musculoskeletal: pulses present chronic R sided weakness Psychiatric: normal affect, A&O x 3 Skin: no rash, normal turgor Dx/Plan (1) Leukocytosis Code(s): D72.829 - ELEVATED WHITE BLOOD CELL COUNT, UNSPECIFIED Status: Acute (2) UTI (urinary tract infection) Status: Acute (3) Diabetes mellitus Code(s): E11.9 - TYPE 2 DIABETES MELLITUS WITHOUT COMPLICATIONS Status: Chronic Qualifiers: Diabetes mellitus type: type 2 (4) HTN (hypertension) Code(s): I10 - ESSENTIAL (PRIMARY) HYPERTENSION Status: Chronic (5) Multiple sclerosis Code(s): G35 - MULTIPLE SCLEROSIS Status: Chronic - Plan Plan: Multiple Sclerosis Flare vs Primary Progressive MS A- Suspected flare vs. progression of MS. Consulted Dr. Kinsey, recommended stress dose steroids with solu-medrol 1g x2 days followed by medrol dose pack P- solumedrol 1g x2 days, then medrol pack -MRI brain -symptomatic control with zofran and phenergan Hypotension A- report of SBP in 90s and 100s in clinic, rocephin and gent given in ED 2/2 concern for sepsis but BP wnl in ED. BP variability could be 2/2 autonomic dysfunction but sepsis 2/2 fungal sepsis unlikely. WBC elevation 15 likely 2/2 recent steroids P- monitor vitals closely -f/u BCx and UCx Yeast UTI A- probably colonization of suprapubic catheter, UA shows yeast, UCx collected P- diflucan and f/u on urine culture Rash on bilat arms A- rash developed on bilateral arms after treatment with vanc for c. diff colitis. Has improved some with prednisone P- Will continue to monitor, likely needs more time BPH -MD aware, will hold tamsulosin 2/2 possible drug side effect of dizziness DM -home insulin, ACHS accuchecks, SSI, will likely be difficult to control while on high dose steroids HTN -hold home BP meds VTE ppx: Lovenox CODE: DNAR Addendum - Attending - Attending Attestation Date/Time: 11/06/18 1055 I personally evaluated the patient and discussed the management with Dr. Vazquez. I agree with the History, Examination, Assessment and Plan documented above with any addition or exceptions noted below. Patient overall stable and about the same. Denies new complaints. Continues to have blurred vision and dizziness. He continues on IV steroids for suspected MS flare. Neuro recs pending. Will go for MRI today. Afebrile and no evidence for infection at this time. Blood sugars out of control due to steroids and we will need to escalate his therapy for glucose mgmt.
[2018-11-06] MEDS ORDERED: Non-Formulary Item 1 EACH (Insulin Detemir [Levemir] 15 UNIT) SQ SCH (09:00)
[2018-11-06] MEDS ORDERED: Meclizine HCl 25 MG TAB PO SCH (11:30)
[2018-11-06] MEDS: Boudreaux's Butt Paste 60 GM TUBE TOP SCH (11:38)
--- NOTE | 2018-11-06 14:16 | MRI ---
BRAIN MRI WITH AND WITHOUT CONTRAST: Date: 11/06/18 HISTORY: Multiple sclerosis. Evaluate for possible acute flair. COMPARISON: 09/26/10. FINDINGS: No hemorrhage on the axial gradient echo sequence. No parenchymal mass, mass effect, or midline shift. Age-appropriate atrophy. Cortical rachel-white jacy er differentiation preserved. Ventricles and sulci are patent and symmetric. There are T2 and FLAIR white matter hyperintensities, some of which have a distribution that would be consistent with patient's history of multiple sclerosis. Additional hyperintensities may be due to c hronic small vessel ischemic change. Absent restricted diffusion. No pathologic enhancement of the br ain parenchyma. Central arterial flow-voids are maintained. Adequate aeration of the sinuses and mastoid air cells. IMPRESSION: 1. Absence of restricted diffusion. No acute infarct. No evidence of an acute demyelinating plaque. 2. Essentially stable T2 and FLAIR white matter hyperintensities. POS: [facility]
[2018-11-06] MEDS: Meclizine HCl 25 MG TAB PO SCH ×2 (15:47→21:21)
[2018-11-06] MEDS ORDERED: methylPREDNISolone Sod Succ/PF 125 MG/2 ML VIAL IVP SCH (17:05)
[2018-11-06] MEDS ORDERED: methylPREDNISolone 4 mg Tablet PO SCH (21:00)
[2018-11-06] MEDS: methylPREDNISolone Sod Succ 1 GM in Sodium Chloride 0.9% 250 ML 250 ML IVPB SCH (21:21)
[2018-11-06] MEDS ORDERED: CONFIRM ALL DAY 1 DOSES ARE TIMED FOR DAY 1 FS SCH (23:59)
[2018-11-07] MEDS: Meclizine HCl 25 MG TAB PO SCH ×3 (06:00→20:56)
[2018-11-07] MEDS: HumaLOG 300 UNITS/3 ML VIAL SC PRN ×4 (06:00→20:57)
[2018-11-07] MEDS: Fluconazole 100 MG TAB PO SCH (07:52)
[2018-11-07] MEDS: Enoxaparin Sodium 40 MG/0.4 ML SYRINGE SC SCH (07:53)
[2018-11-07] MEDS: Magnesium Oxide 250 MG TAB PO SCH (07:53)
[2018-11-07] MEDS: Baclofen 10 MG TAB PO SCH ×3 (07:53→20:56)
[2018-11-07] MEDS: Nystatin Powder 15 GM BOT TOP SCH ×3 (07:54→20:58)
[2018-11-07] MEDS ORDERED: CONFIRM ALL DAY 1 DOSES ARE TIMED FOR DAY 1 FS SCH ×2 (08:00)
[2018-11-07] MEDS ORDERED: methylPREDNISolone 4 mg Tablet PO SCH ×6 (08:00→21:00)
[2018-11-07] MEDS: Insulin Glargine 15 UNITS in Pre-Filled Syringe 1 EACH SC SCH (09:03)
[2018-11-07] MEDS: Boudreaux's Butt Paste 60 GM TUBE TOP SCH (09:04)
--- NOTE | 2018-11-07 10:56 | PDOC.FM ---
- Subjective Subjective: Pt reports continued symptoms, no improvement. No new complaitns or concerns - Objective Vital Signs & Weight: Vital Signs (12 hours) Temp Pulse Resp BP Pulse Ox 11/07/18 07:49 97.9 F 90 16 143/82 H 94 L 11/07/18 07:48 94 L I&O: 11/06/18 11/07/18 11/08/18 06:59 06:59 06:59 Intake Total 1450 Output Total 1550 Balance -100 Result Diagrams: 11/05/18 12:05 11/06/18 05:29 Phys Exam - Physical Examination Constitutional: NAD HEENT: moist MMs, sclera anicteric Neck: supple, full ROM Respiratory: no wheezing, no rales, clear to auscultation bilateral Cardiovascular: RRR, no significant murmur Gastrointestinal: soft, non-tender Musculoskeletal: no edema unchanged Psychiatric: normal affect, A&O x 3 Skin: no rash, normal turgor Dx/Plan (1) Leukocytosis Code(s): D72.829 - ELEVATED WHITE BLOOD CELL COUNT, UNSPECIFIED Status: Acute (2) UTI (urinary tract infection) Status: Acute (3) Diabetes mellitus Code(s): E11.9 - TYPE 2 DIABETES MELLITUS WITHOUT COMPLICATIONS Status: Chronic Qualifiers: Diabetes mellitus type: type 2 (4) HTN (hypertension) Code(s): I10 - ESSENTIAL (PRIMARY) HYPERTENSION Status: Chronic (5) Multiple sclerosis Code(s): G35 - MULTIPLE SCLEROSIS Status: Chronic - Plan Plan: Multiple Sclerosis Flare vs Primary Progressive MS A- Suspected flare vs. progression of MS. Consulted Dr. Kinsey, recommended stress dose steroids with solu-medrol 1g x2 days followed by medrol dose pack. MRI brain shows no new plaques P- medrol pack -f/u neuro recs -symptomatic control with zofran and phenergan and meclizine -PT/OT -CM and rehab screen for placment Hypotension A- report of SBP in 90s and 100s in clinic, rocephin and gent given in ED 2/2 concern for sepsis but BP wnl in ED. BP variability could be 2/2 autonomic dysfunction but sepsis 2/2 fungal sepsis unlikely. WBC elevation 15 likely 2/2 recent steroids P- monitor vitals closely -f/u BCx and UCx Yeast UTI A- probably colonization of suprapubic catheter, UA shows yeast, UCx collected P- diflucan and f/u on urine culture ZI A- Cr 1.2-->1.5 P- will recheck bmp after hydration DM A- uncontrolled 2/2 steroids, required 33u insuline ssi on 2nd day of hospitaliztion P- titrate up home insulin -ACHS accuchecks, SSI Rash on bilat arms A- rash developed on bilateral arms after treatment with vanc for c. diff colitis. Has improved some with prednisone P- Will continue to monitor, likely needs more time BPH -MD aware, will hold tamsulosin 2/2 possible drug side effect of dizziness HTN -hold home BP meds VTE ppx: Lovenox CODE: DNAR Addendum - Attending - Attending Attestation Date/Time: 11/07/18 8400 I personally evaluated the patient and discussed the management with Dr. Vazquez. I agree with the History, Examination, Assessment and Plan documented above with any addition or exceptions noted below. Patient continues to have dizziness and gait instability. He is interested in pursuing rehab or SNF upon discharge so we will begin that process. MRI did now show new plaques or other HEALTH ACTUARY effect that could be responsible for his symptoms. Continue on steroids and await Neurology input. Will work to get his blood sugars under better control. Anticipated this issue due to DM status and high level of steroids being given for MS flare.
[2018-11-07] MEDS ORDERED: Insulin Glargine 10 UNITS in Pre-Filled Syringe 1 EACH SC SCH (11:00)
[2018-11-07 11:38] LABS: Anion Gap 14 mmol/L (10-20); BUN (Urea Nitrogen) 42 mg/dL (8.4-25.7); Calc. Creatinine Clearance 0 mL/min (70-130); Calcium 9.8 mg/dL (7.8-10.44); Carbon Dioxide 25 mmol/L (23-31); Chloride 103 mmol/L (98-107); Estimated GFR-MDRD 51; Glucose 396 mg/dL (80-115); Potassium 4.2 mmol/L (3.5-5.1); Sodium 138 mmol/L (136-145)
[2018-11-07] MEDS: methylPREDNISolone 4 mg Tablet PO SCH ×2 (12:31→16:59)
[2018-11-07 12:44] VITALS: BMI 31.8
[2018-11-08] MEDS: Meclizine HCl 25 MG TAB PO SCH ×2 (05:40→14:36)
[2018-11-08] MEDS: HumaLOG 300 UNITS/3 ML VIAL SC PRN ×3 (05:40→16:22)
--- NOTE | 2018-11-08 07:09 | PDOC.FM ---
- Subjective Subjective: Pt reports that his dizziness has completely resolved with increased physical activity yesterday. Reports his only remaining symptom is slight blurred vision. Pt reports he feels well enough to go home and do rehab outpt. Pt still desires to set up correction inpt care but feels he can do this outpt for now. - Objective Vital Signs & Weight: Vital Signs (12 hours) Temp Pulse Resp BP Pulse Ox 11/07/18 20:11 94 L 11/07/18 19:47 97.9 F 90 18 132/87 94 L Weight Admit Weight 92.079 kg Weight 92.079 kg I&O: 11/07/18 11/08/18 11/09/18 06:59 06:59 06:59 Intake Total 1450 2600 Output Total 1550 2900 Balance -100 -300 Result Diagrams: 11/05/18 12:05 11/08/18 06:49 Phys Exam - Physical Examination Constitutional: NAD HEENT: moist MMs, sclera anicteric Neck: no JVD, supple Respiratory: no wheezing, clear to auscultation bilateral Cardiovascular: RRR, no significant murmur Gastrointestinal: soft, non-tender Musculoskeletal: pulses present Neurological: normal sensation, moves all 4 limbs Psychiatric: normal affect Skin: no rash, normal turgor Dx/Plan (1) Leukocytosis Code(s): D72.829 - ELEVATED WHITE BLOOD CELL COUNT, UNSPECIFIED Status: Acute (2) UTI (urinary tract infection) Status: Acute (3) Diabetes mellitus Code(s): E11.9 - TYPE 2 DIABETES MELLITUS WITHOUT COMPLICATIONS Status: Chronic Qualifiers: Diabetes mellitus type: type 2 (4) HTN (hypertension) Code(s): I10 - ESSENTIAL (PRIMARY) HYPERTENSION Status: Chronic (5) Multiple sclerosis Code(s): G35 - MULTIPLE SCLEROSIS Status: Chronic - Plan Plan: Multiple Sclerosis Flare vs Primary Progressive MS A- Suspected flare vs. progression of MS. Consulted Dr. Kinsey, recommended stress dose steroids with solu-medrol 1g x2 days followed by medrol dose pack. MRI brain shows no new plaques P- medrol pack -symptomatic control with zofran and phenergan and meclizine -PT/OT -likely DC today, plan for outpt arrangement of rehab and emt intermediate placement Hypotension A- rresolved, SBP in 150s-130s P- restart home antihypertensive on discharge Yeast UTI A- probably colonization of suprapubic catheter, UA shows yeast, UCx collected P- diflucan and f/u on urine culture ZI A- Cr 1.2-->1.5-> 1.4 P- BMP pending today -PO hydration DM A- uncontrolled 2/2 steroids, required 33u insuline ssi on 2nd day of hospitaliztion P- titrate up home insulin until pt DC steroids -ACHS accuchecks, SSI Rash on bilat arms A- rash developed on bilateral arms after treatment with vanc for c. diff colitis. Has improved some with prednisone P- Will continue to monitor, likely needs more time BPH -MD aware, will hold tamsulosin 2/2 possible drug side effect of dizziness HTN -home meds VTE ppx: Lovenox CODE: DNAR Addendum - Attending - Attending Attestation Date/Time: 11/08/18905 I personally evaluated the patient and discussed the management with Dr. Vazquez. I agree with the History, Examination, Assessment and Plan documented above with any addition or exceptions noted below. Patient feeling substantially better this morning. We have finally noted improvement in his suspected MS flare with the steroid burst. He reports now feeling comfortable going home, but will see if he is still interested in Rehab of some sort as it would benefit him. Further, his blood sugars are expected to be labile over the coming days due to his steroids. Discuss with CM and patient to arrange for same dispo, whether it be to stay here and transition to SNF or to go home for the time being.
[2018-11-08 07:26] LABS: Anion Gap 12 mmol/L (10-20); BUN (Urea Nitrogen) 35 mg/dL (8.4-25.7); Calc. Creatinine Clearance 95 mL/min (70-130); Calcium 10.1 mg/dL (7.8-10.44); Carbon Dioxide 28 mmol/L (23-31); Chloride 101 mmol/L (98-107); Estimated GFR-MDRD 72; Glucose 215 mg/dL (80-115); Potassium 4.3 mmol/L (3.5-5.1); Sodium 137 mmol/L (136-145)
[2018-11-08] MEDS ORDERED: methylPREDNISolone 4 mg Tablet PO SCH ×4 (08:00→21:00)
[2018-11-08] MEDS: Fluconazole 100 MG TAB PO SCH (08:39)
[2018-11-08] MEDS: Baclofen 10 MG TAB PO SCH ×2 (08:39→14:36)
[2018-11-08] MEDS: Magnesium Oxide 250 MG TAB PO SCH (08:39)
[2018-11-08] MEDS: Enoxaparin Sodium 40 MG/0.4 ML SYRINGE SC SCH (08:40)
[2018-11-08] MEDS: Nystatin Powder 15 GM BOT TOP SCH ×2 (08:41→14:36)
[2018-11-08] MEDS: Boudreaux's Butt Paste 60 GM TUBE TOP SCH (08:41)
[2018-11-08] MEDS ORDERED: Insulin Glargine 30 UNITS in Pre-Filled Syringe 1 EACH SC SCH (09:00)
[2018-11-08] MEDS: methylPREDNISolone 4 mg Tablet PO SCH ×2 (12:23→16:22)
[2018-11-08] MEDS ORDERED: Metoprolol Tartrate 50 MG TAB PO SCH (15:15)
[2018-11-08 16:30] VITALS: BP 145/80; TEMP 98
[2018-11-09] MEDS ORDERED: methylPREDNISolone 4 mg Tablet PO SCH ×3 (08:00)
[2018-11-10] MEDS ORDERED: methylPREDNISolone 4 mg Tablet PO SCH ×4 (08:00→21:00)
[2018-11-11] MEDS ORDERED: methylPREDNISolone 4 mg Tablet PO SCH ×3 (08:00)
[2018-11-12] MEDS ORDERED: methylPREDNISolone 4 mg Tablet PO SCH ×2 (08:00)
== END 2018-11-08 16:56 | disposition home health service (06) | DRG 59 ==
LOC: ERS 11:21 → T4-A 19:29
PROVIDERS: ADMIT Student in an Organized Health Care Education/Training Program; ATTEND Student in an Organized Health Care Education/Training Program
DX: G35 Multiple sclerosis (principal); N39.0 Urinary tract infection, site not specified; N17.9 Acute kidney failure, unspecified; E11.9 Type 2 diabetes mellitus without complications; I10 Essential (primary) hypertension; E78.5 Hyperlipidemia, unspecified; R21 Rash and other nonspecific skin eruption; N40.0 Benign prostatic hyperplasia without lower urinary tract symptoms; I95.9 Hypotension, unspecified; Z90.49 Acquired absence of other specified parts of digestive tract; Z87.891 Personal history of nicotine dependence
CPT/HCPCS: 36415; 36416; 70553; 80048; 80053; 81003; 81015; 83605; 84484; 85025; 87040; 87086; 93005; 96365; 96366; 96367; J0696; J1580; J1650; J1825; J2930; J7050; J8499; Q0169

== ENCOUNTER 2018-11-25 08:12 | Inpatient (IN) | payer MEDICARE, BC ==
[2018-11-25 08:31] LABS: Bilirubin Negative (Negative); Blood, Urine Large (Negative); Clarity CLOUDY (Clear); Glucose, Urine (Dipstick) Negative (Negative); Leukocyte Moderate (Negative); Nitrite Positive (Negative); Protein, Urine (Dipstick) Trace mg/dL (Neg-Trace); Specific Gravity, Urine 1.012 (1.002-1.036); Urobilinogen 0.2 mg/dL (0.2-1.0); pH, Urine 5.5 (5.0-9.0)
[2018-11-25 08:34] LABS: Pathc Cast-AUWi Flag 1.08 (0-2.49); RBC/HPF 0-3 HPF (0-3); Squamous Epithelial None Seen HPF (0-3)
[2018-11-25 08:37] LABS: Yeast-AUWi Flag 32.2 (0-25.0)
--- NOTE | 2018-11-25 08:44 | RAD ---
Chest one view HISTORY: Fever. COMPARISON: 01/22/2019. FINDINGS: Cardiac silhouette is magnified by projection. Pulmonary vasculature are accentuated by sha llow inspiration. Slight rightward rotation of the patient. No lobar consolidation or evidence of pneumothorax. Postoperative changes left shoulder. carburetor expert leads overlie the chest. IMPRESSION: No active cardiopulmonary abnormalities are demonstrated.
[2018-11-25] MEDS ORDERED: Sodium Chloride 0.9% 100 ML ONE (08:46)
[2018-11-25] MEDS ORDERED: Piperacillin/Tazobactam 4.5 GM VIAL ONE (08:46)
[2018-11-25 08:51] LABS: #Eosinphils 0.1 thou/uL (0.0-0.7); #Monocytes 0.6 thou/uL (0.11-0.59); #Neutrophils 8.9 thou/uL (1.40-6.50); %Basophils 0.1 % (0.0-1.0); %Eosinophils 1.2 % (0.0-10.0); %Lymphocytes 9.7 % (21.0-51.0); %Monocytes 5.4 % (0.0-10.0); %Neutrophils 83.5 % (42.0-75.0); Mean Corpuscular HGB CONC 33.1 g/dL (32.0-36.0); Mean Corpuscular Hemoglobin 28.8 pg (27.0-31.0); Mean Platelet Volume 7.8 fL (7.4-10.4); Platelet Count 178 thou/uL (130-400); RBC Distribution Width 13.5 % (11.5-14.5); Red Blood Cell (RBC) Count 4.86 mill/uL (4.70-6.10); White Blood Cell (WBC) Count 10.7 thou/uL (4.8-10.8)
[2018-11-25 08:52] LABS: Bacteria/HPF 2+ HPF (None Seen)
[2018-11-25] MEDS ORDERED: Clindamycin/D5W 900 mg/50 ml Premix Bag ONE ×2 (08:52→09:24)
[2018-11-25 08:53] LABS: Yeast-All Forms 2+ HPF (None Seen)
[2018-11-25 10:36] LABS: ALT (SGPT) 35 U/L (8-55); AST (SGOT) 18 U/L (5-34); Albumin 4.1 g/dL (3.4-4.8); Alkaline Phosphatase 68 U/L (40-150); Anion Gap 13 mmol/L (10-20); BUN (Urea Nitrogen) 14 mg/dL (8.4-25.7); Bilirubin, Total 0.7 mg/dL (0.2-1.2); Calc. Creatinine Clearance 0 mL/min (70-130); Calcium 10.1 mg/dL (7.8-10.44); Carbon Dioxide 28 mmol/L (23-31); Chloride 101 mmol/L (98-107); Estimated GFR-MDRD 86; Globulin 3.3 g/dL (2.4-3.5); Glucose 134 mg/dL (80-115); Potassium 4.1 mmol/L (3.5-5.1); Protein, Total 7.4 g/dL (5.8-8.1); Sodium 138 mmol/L (136-145)
--- NOTE | 2018-11-25 11:50 | PDOC.FPRHP ---
- History of Present Illness Chief Complaint: weakness,fatigue History of Present Illness: 63 yo M with PMH of MS, recently hospitalized for a flair, presents with 2 day history of worsening fatigue and generalized weakness. States he woke up on Sunday morning with a "spider bite" on his left forearm. States the area is red and is growing in size. Reports he has had loose stools 1-2 times daily for the past 3 days. Denies fever, headache, chest pain/SOB, abdominal pain, nausea/ vomiting. He also has an ulcer on his LLE for the past 2 days, and has sacral wounds. In the ED, he was tachycardic to 116. EKG was WNL. He received 2 L IV fluids, clinda and zosyn. - Allergies/Adverse Reactions Allergies Allergy/AdvReac Type Severity Reaction Status Date / Time codeine Allergy Intermediate Rash Verified 09/26/18 12:22 adhesive Allergy Verified 09/26/18 12:22 acetaminophen [From Tylenol] AdvReac Verified 09/26/18 12:22 - Home Medications Medication Instructions Recorded Confirmed Type Cholecalciferol (Vitamin D3) 1,500 mg PO DAILY 06/04/18 11/25/18 History [Vitamin D] Tamsulosin HCl [Flomax] 0.4 mg PO DAILY #30 cap 06/09/18 11/25/18 Rx Magnesium Oxide 500 mg PO DAILY 07/02/18 11/25/18 History Baclofen [Lioresal] 20 mg PO TID tab 08/01/18 11/25/18 Rx Nystatin [Nystatin Powder] 1 applic TOP TID 11/05/18 11/25/18 History Valsartan [Diovan] 160 mg PO DAILY 11/05/18 11/25/18 History Insulin Detemir [Levemir] 15 unit SQ DAILY #1 11/08/18 11/25/18 Rx Meclizine HCl [Antivert] 25 mg PO Q8HR PRN #9 tab 11/08/18 11/25/18 Rx - History PMHx: Primary progressive MS, hypertension, DM2, BPH PSHx: L rotator cuff sx, Cholecystectomy, Suprapubic catheter, RLE surgery FHx: CKD4 (father) 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 Earl - [facility] - Review of Systems General: reports: fatigue. denies: fever/chills, weight/appetite/sleep changes Eyes: reports: other (reports dizziness) ENT: denies: nasal congestion, rhinorrhea Respiratory: denies: cough, congestion, shortness of breath Cardiovascular: denies: chest pain, palpitation, edema Gastrointestinal: reports: diarrhea (Loose stools, 1-2 episodes). denies: nausea, vomiting, constipation, abdominal pain, GI bleeding, other Skin: reports: rashes (see HPI), lesions (sacral ulcer) Musculoskeletal: reports: pain, swelling Neurological: reports: weakness (generalized, and chronic weakness RLE 2/2 to MS ). denies: numbness - Vital signs BP: 105/71 HR: 100 RR: 20 Tmax: 98.8 Pox: 98% on RA Wt: 93.7 kg - Physical Exam Constitutional: NAD, well developed HEENT: normocephalic and atraumatic, PERRLA, EOMI, conjunctiva clear, grossly normal hearing, oropharynx clear, other (poor dentition, geographic tongue) Neck: supple, no LAD Heart: RRR, normal S1/S2, no murmurs/rubs/gallops, pulses present, other (Edema 2+ in RLE) Lungs: CTAB, no respiratory distress, good air movement, no rales/rhonchi, no wheezing Abdomen: soft, non-tender, bowel sounds present, other (obese) Musculoskeletal: normal structure, normal tone Neurological: other (2/5 weakness RLE, 3/5 weakness LLE) Skin: other (indurated, erythematous LUE on forearm, no palpable absess. Ulcer stage 2 LLE and over sacrum. Cap refill 4 seconds.) Heme/Lymphatic: no unusual bruising or bleeding, no purpura, no petechia Psychiatric: normal mood and affect, good judgment and insight, intact recent and remote memory FMR H&P: Results - Labs Result Diagrams: 11/25/18 08:30 11/25/18 08:30 Lab results: WBC 10.7 thou/uL (4.8-10.8) 11/25/18 08:30 Hgb 14.0 g/dL (14.0-18.0) 11/25/18 08:30 Hct 42.3 % (42.0-52.0) 11/25/18 08:30 MCV 87.0 fL (78.0-98.0) 11/25/18 08:30 Plt Count 178 thou/uL (130-400) 11/25/18 08:30 Neutrophils % 83.5 % (42.0-75.0) H 11/25/18 08:30 Sodium 138 mmol/L (136-145) 11/25/18 08:30 Potassium 4.1 mmol/L (3.5-5.1) 11/25/18 08:30 Chloride 101 mmol/L (98-107) 11/25/18 08:30 Carbon Dioxide 28 mmol/L (23-31) 11/25/18 08:30 BUN 14 mg/dL (8.4-25.7) 11/25/18 08:30 Creatinine 0.90 mg/dL (0.7-1.3) 11/25/18 08:30 Glucose 134 mg/dL (80-115) H 11/25/18 08:30 Lactic Acid 1.3 mmol/L (0.5-2.2) 11/25/18 08:30 Calcium 10.1 mg/dL (7.8-10.44) 11/25/18 08:30 Total Bilirubin 0.7 mg/dL (0.2-1.2) 11/25/18 08:30 AST 18 U/L (5-34) 11/25/18 08:30 ALT 35 U/L (8-55) 11/25/18 08:30 Alkaline Phosphatase 68 U/L (40-150) 11/25/18 08:30 Serum Total Protein 7.4 g/dL (5.8-8.1) 11/25/18 08:30 Albumin 4.1 g/dL (3.4-4.8) 11/25/18 08:30 Urine Ketones Negative mg/dL (Negative) 11/25/18 08:20 Urine Blood Large (Negative) H 11/25/18 08:20 Urine Nitrite Positive (Negative) H 11/25/18 08:20 Ur Leukocyte Esterase Moderate (Negative) H 11/25/18 08:20 Urine RBC 0-3 HPF (0-3) 11/25/18 08:20 Urine WBC Greater Than 50-TNTC HPF (0-3) H 11/25/18 08:20 Ur Squamous Epith Cells None Seen HPF (0-3) 11/25/18 08:20 Urine Bacteria 2+ HPF (None Seen) H 11/25/18 08:20 - EKG Interpretation EKG: EKG WNL - Radiology Interpretation Chest x-ray Status: image reviewed by me, report reviewed by me (No acute cardiopulmonary changes.) FMR H&P: A/P - Problem List (1) Cellulitis Current Visit: Yes Status: Acute Code(s): L03.90 - CELLULITIS, UNSPECIFIED (2) Sacral ulcer Current Visit: Yes Status: Acute Code(s): L98.429 - NON-PRESSURE CHRONIC ULCER OF BACK WITH UNSPECIFIED SEVERITY (3) BPH (benign prostatic hyperplasia) Current Visit: Yes Status: Chronic Code(s): N40.0 - BENIGN PROSTATIC HYPERPLASIA WITHOUT LOWER URINRY TRACT SYMP (4) Muscular deconditioning Current Visit: Yes Status: Acute Code(s): R29.898 - OTH SYMPTOMS AND SIGNS INVOLVING THE MUSCULOSKELETAL SYSTEM (5) Tachycardia Current Visit: No Status: Acute Code(s): R00.0 - TACHYCARDIA, UNSPECIFIED (6) Diabetes mellitus Current Visit: No Status: Chronic Code(s): E11.9 - TYPE 2 DIABETES MELLITUS WITHOUT COMPLICATIONS Qualifiers: Diabetes mellitus type: type 2 (7) Multiple sclerosis Current Visit: No Status: Chronic Code(s): G35 - MULTIPLE SCLEROSIS - Plan Cellulitis RUE -forearm, tachycardic however WBC wnl -s/p 2L IV fluids, clinda and zosyn. Will continue IV clindamycin. -case management consult: patient is unable to adequately care for himself at home, and home health providers left town. He would benefit from penitentiary placement. 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 Addendum - Attending - Attending Attestation Date/Time: 11/25/18 2175 I personally evaluated the patient and discussed the management with Dr. Chew I agree with the History, Examination, Assessment and Plan documented above with any addition or exceptions noted below. 63 yo male with Multiple Sclerosis admitted with cellulitis left distal forearm r/o sepsis initially tachycardic and hypotensive, patient recently dismissed s/ p MS flare. Patient living independently and has lost his caregivers. Patient with residual right sided hemiparesis and uses power chair he is having more trouble transferring and will benefit from casework supervisor evaluation for placement options. 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
[2018-11-25] MEDS ORDERED: Dextrose 50% Abboject 50 ML SYRINGE SLOW IVP PRN (12:01)
[2018-11-25] MEDS ORDERED: Dextrose 5% in Water 1,000 ML IV PRN (12:01)
[2018-11-25] MEDS ORDERED: Clindamycin/D5W 900 MG in Premix Bag 1 BAG IVPB SCH (14:00)
[2018-11-25] MEDS ORDERED: Enoxaparin Sodium 40 MG/0.4 ML SYRINGE SC SCH (16:38)
[2018-11-25] MEDS ORDERED: Ondansetron ODT 4 MG TAB PO PRN (16:38)
[2018-11-25] MEDS ORDERED: Ondansetron PF 4 MG/2 ML Vial IVP PRN (16:38)
[2018-11-25] MEDS: Clindamycin/D5W 900 MG in Premix Bag 1 BAG IVPB SCH (18:01)
[2018-11-25 18:45] VITALS: BMI 32.3
[2018-11-25] MEDS: Baclofen 10 MG TAB PO SCH (20:42)
[2018-11-25] MEDS: Famotidine 20 MG TAB PO SCH (20:42)
[2018-11-25] MEDS: Nystatin Powder 15 GM BOT TOP SCH (20:42)
[2018-11-25] MEDS: Insulin Regular 300 UNITS/3 ML VIAL SC PRN (20:44)
[2018-11-25] MEDS ORDERED: Meclizine HCl 25 MG TAB PO PRN (22:00)
[2018-11-25] MEDS: Ibuprofen 800 MG TAB PO PRN (22:26)
[2018-11-26] MEDS: Clindamycin/D5W 900 MG in Premix Bag 1 BAG IVPB SCH ×4 (01:08→18:50)
[2018-11-26 05:52] LABS: #Eosinphils 0.2 thou/uL (0.0-0.7); #Lymphocytes 1.2 thou/uL (1.20-3.40); #Monocytes 0.4 thou/uL (0.11-0.59); #Neutrophils 3.3 thou/uL (1.40-6.50); %Basophils 0.7 % (0.0-1.0); %Eosinophils 4.1 % (0.0-10.0); %Lymphocytes 23.1 % (21.0-51.0); %Monocytes 8.5 % (0.0-10.0); %Neutrophils 63.7 % (42.0-75.0); Mean Corpuscular HGB CONC 32.5 g/dL (32.0-36.0); Mean Corpuscular Hemoglobin 28.7 pg (27.0-31.0); Mean Corpuscular Volume 88.4 fL (78.0-98.0); Mean Platelet Volume 7.7 fL (7.4-10.4); Platelet Count 164 thou/uL (130-400); RBC Distribution Width 13.6 % (11.5-14.5); Red Blood Cell (RBC) Count 4.18 mill/uL (4.70-6.10); White Blood Cell (WBC) Count 5.2 thou/uL (4.8-10.8)
[2018-11-26 06:09] LABS: Anion Gap 10 mmol/L (10-20); BUN (Urea Nitrogen) 11 mg/dL (8.4-25.7); Calc. Creatinine Clearance 118 mL/min (70-130); Calcium 9.5 mg/dL (7.8-10.44); Carbon Dioxide 28 mmol/L (23-31); Chloride 104 mmol/L (98-107); Estimated GFR-MDRD 90; Glucose 103 mg/dL (80-115); Potassium 3.8 mmol/L (3.5-5.1); Sodium 138 mmol/L (136-145)
--- NOTE | 2018-11-26 06:53 | PDOC.FM ---
- Subjective Subjective: Patient reports he was having a lot of pain over his LUE overnight, the tramadol is helping. Otherwise he is eating/drinking well, stooling. Reports he does occasionally have some dysuria over the past 2 weeks. - Objective Vital Signs & Weight: Vital Signs (12 hours) Temp Pulse Resp BP Pulse Ox 11/26/18 04:37 98.2 F 81 16 107/74 95 11/26/18 00:30 98.3 F 93 18 90/63 95 11/25/18 20:40 93 L 11/25/18 19:50 98.5 F 107 H 18 102/70 92 L Weight Weight 93.758 kg I&O: 11/24/18 11/25/18 11/26/18 06:59 06:59 06:59 Intake Total 600 Output Total 915 Balance -315 Result Diagrams: 11/26/18 05:13 11/26/18 05:13 Phys Exam - Physical Examination Constitutional: NAD HEENT: moist MMs Respiratory: no wheezing, clear to auscultation bilateral Cardiovascular: RRR, no significant murmur Gastrointestinal: soft, non-tender, no distention, positive bowel sounds Musculoskeletal: pulses present, edema present (1+ bilat R>L) Neurological: moves all 4 limbs Weakness in RLE, chronic 2/2 MS Psychiatric: normal affect Skin: normal turgor, cap refill <2 seconds Deviation from normal: Erythema and induration over LUE Dx/Plan (1) Cellulitis Code(s): L03.90 - CELLULITIS, UNSPECIFIED Status: Acute (2) Sacral ulcer Code(s): L98.429 - NON-PRESSURE CHRONIC ULCER OF BACK WITH UNSPECIFIED SEVERITY Status: Acute (3) BPH (benign prostatic hyperplasia) Code(s): N40.0 - BENIGN PROSTATIC HYPERPLASIA WITHOUT LOWER URINRY TRACT SYMP Status: Chronic (4) Muscular deconditioning Code(s): R29.898 - OTH SYMPTOMS AND SIGNS INVOLVING THE MUSCULOSKELETAL SYSTEM Status: Acute (5) Tachycardia Code(s): R00.0 - TACHYCARDIA, UNSPECIFIED Status: Acute (6) Diabetes mellitus Code(s): E11.9 - TYPE 2 DIABETES MELLITUS WITHOUT COMPLICATIONS Status: Chronic Qualifiers: Diabetes mellitus type: type 2 (7) Multiple sclerosis Code(s): G35 - MULTIPLE SCLEROSIS Status: Chronic - Plan Plan: Cellulitis RUE -over forearm, tachycardic on admission however WBC wnl. Tachycardia is resolved this AM. -Could be developing abscess, consider ultrasound today to check for fluid collection -s/p 2L IV fluids, clinda and zosyn. Will continue IV clindamycin for total 24 hrs, plan to transition to PO clindamycin tomorrow. -tramadol PRN for pain -case management consult: patient is unable to adequately care for himself at home, and home health providers left town. He would benefit from detention placement. Deconditioning -consult PT/OT Sacral ulcer -Stage 2 -Wound care consulted Chronic urinary colonization -Pt has suprapubic cath -Plans to follow with Dr. Kuhn on MS, primary progressive -Recent flair -continue home medications DM2 -mild SSI -continue home medications -CC diet HTN -hold home medications for now, monitor BP BPH -continue home medications PCP: Gustavo Diet: CC, 1800 alejandrina DVT ppx: lovenox GI ppx: Famotidine Dispo: patient needs detention placement. Addendum - Attending - Attending Attestation Date/Time: 11/26/18 1041 I personally evaluated the patient and discussed the management with Dr. Qi Chew I agree with the History, Examination, Assessment and Plan documented above with any addition or exceptions noted below. Left arm Wound appears to be coalescing will check US for drainable abscess. Patient with suprapubic cath to be changed monthly scheduled for larger cath this will give courtesy consult to advise urologist patient admitted and any further recommendations
[2018-11-26] MEDS: Baclofen 10 MG TAB PO SCH ×3 (08:13→21:06)
[2018-11-26] MEDS: Magnesium Oxide 400 MG TAB PO SCH (08:13)
[2018-11-26] MEDS: Famotidine 20 MG TAB PO SCH ×2 (08:13→21:06)
[2018-11-26] MEDS: Enoxaparin Sodium 40 MG/0.4 ML SYRINGE SC SCH (08:14)
[2018-11-26] MEDS: Tamsulosin HCl 0.4 MG CAP PO SCH (08:14)
[2018-11-26] MEDS: Insulin Glargine 15 UNITS in Pre-Filled Syringe 1 EACH SC SCH (08:16)
[2018-11-26] MEDS: Nystatin Powder 15 GM BOT TOP SCH ×3 (08:18→21:07)
[2018-11-26] MEDS ORDERED: Non-Formulary Item 1 EACH (Insulin Detemir [Levemir] 15 UNIT) SQ SCH (09:00)
--- NOTE | 2018-11-26 13:55 | ULT ---
EXAM: US Soft Tissue Other left forearm PROVIDED CLINICAL HISTORY: Patient bit by a spider. Redness and swelling. Possible abscess collection. COMPARISON: None FINDINGS: Limited sonographic evaluation was obtained in the region of the patient's soft tissue abnormality wi th imaging obtained of the lateral aspect of the left forearm. There is generalized subcutaneous edema at site of erythema and swelling. There is a small irregular collection measuring 17 mm x 7 mm x 5 mm. Findings are worrisome for a infectious process. IMPRESSION: Subcutaneous edema with small irregular collection at site of soft tissue swelling lateral left forea rm. Findings are worrisome for infectious process given clinical history.
[2018-11-26] MEDS ORDERED: Lidocaine 1% w/Epinephrine 1:100K 20 ML VIAL ONE (17:10)
--- NOTE | 2018-11-26 17:45 | PDOC.EVN ---
Event Note - Event Note Event Note: Bedside I&D procedure note 11/26/2018 @ 1700. PRE-OP DIAGNOSIS: Subcutaneous Abscess POST-OP DIAGNOSIS: Same PROCEDURE: incision and drainage of abscess Performing Physician: Tony Chew MD, assisted by Karina RAI PROCEDURE: A timeout protocol was performed prior to initiating the procedure. The area was prepared and draped in the usual, sterile manner. The site was anesthetized with 2% lidocaine with epinephrine. A linear incision along the local skin lines was made and the material expressed. The abcess was explored and sequestered pockets were opened. Bleeding was minimal. Abscess was not packed as it was very small. The patient tolerated the procedure well without complications. Area was covered with 4x4s and curlex.
[2018-11-26] MEDS: Ibuprofen 800 MG TAB PO PRN (18:17)
[2018-11-27] MEDS: Clindamycin/D5W 900 MG in Premix Bag 1 BAG IVPB SCH ×2 (00:27→08:59)
--- NOTE | 2018-11-27 07:04 | PDOC.FM ---
- Subjective Subjective: NAEO. Patient is eating and drinking well. Pain is much improved over his forearm. Voiding and stooling well. - Objective Vital Signs & Weight: Vital Signs (12 hours) Temp Pulse Resp BP Pulse Ox 11/27/18 04:00 97.4 F L 83 18 117/78 96 11/27/18 00:00 98.2 F 101 H 18 97/67 95 11/26/18 20:00 98.2 F 117 H 18 108/71 94 L Weight Admit Weight 93.758 kg Weight 93.758 kg I&O: 11/26/18 11/27/18 11/28/18 06:59 06:59 06:59 Intake Total 600 Output Total 915 1300 Balance -315 -1300 Result Diagrams: 11/26/18 05:13 11/26/18 05:13 Phys Exam - Physical Examination Constitutional: NAD Neck: no nodes, supple Respiratory: no wheezing, clear to auscultation bilateral Cardiovascular: RRR, no significant murmur Gastrointestinal: soft, non-tender, no distention, positive bowel sounds Musculoskeletal: pulses present trace edema Psychiatric: normal affect, A&O x 3 Skin: normal turgor, cap refill <2 seconds Deviation from normal: Erythema over left forearm, mildy improved from yesterday. Incision scabbed -: over with minimal drainage. Induration present. Dx/Plan (1) Cellulitis Code(s): L03.90 - CELLULITIS, UNSPECIFIED Status: Acute (2) Sacral ulcer Code(s): L98.429 - NON-PRESSURE CHRONIC ULCER OF BACK WITH UNSPECIFIED SEVERITY Status: Acute (3) BPH (benign prostatic hyperplasia) Code(s): N40.0 - BENIGN PROSTATIC HYPERPLASIA WITHOUT LOWER URINRY TRACT SYMP Status: Chronic (4) Muscular deconditioning Code(s): R29.898 - OTH SYMPTOMS AND SIGNS INVOLVING THE MUSCULOSKELETAL SYSTEM Status: Acute (5) Tachycardia Code(s): R00.0 - TACHYCARDIA, UNSPECIFIED Status: Acute (6) Diabetes mellitus Code(s): E11.9 - TYPE 2 DIABETES MELLITUS WITHOUT COMPLICATIONS Status: Chronic Qualifiers: Diabetes mellitus type: type 2 (7) Multiple sclerosis Code(s): G35 - MULTIPLE SCLEROSIS Status: Chronic - Plan Plan: Cellulitis RUE with abscess -over forearm, tachycardic on admission however WBC wnl. Tachycardia is resolved this AM. -US showed small abscess, s/p bedside I&D on 11/27 -transition to PO clinda today -tramadol PRN for pain -case management consult: patient is unable to adequately care for himself at home He would benefit from fdc placement. Deconditioning -consult PT/OT Sacral ulcer -Wound care consulted Chronic urinary colonization -Pt has suprapubic cath -Urine culture pending MS, primary progressive -Recent flair -continue home medications DM2 -mild SSI -continue home medications -CC diet HTN -hold home medications for now, monitor BP BPH -continue home medications PCP: Gustavo Diet: CC, 1800 alejandrina DVT ppx: lovenox GI ppx: Famotidine Dispo: patient needs fdc placement, pending acceptance at [facility]/ [facility] Addendum - Attending - Attending Attestation Date/Time: 11/27/18 1112 I personally evaluated the patient and discussed the management with Dr. Chew I agree with the History, Examination, Assessment and Plan documented above with any addition or exceptions noted below.
[2018-11-27] MEDS: Baclofen 10 MG TAB PO SCH ×3 (08:59→20:28)
[2018-11-27] MEDS: Magnesium Oxide 400 MG TAB PO SCH (08:59)
[2018-11-27] MEDS: Famotidine 20 MG TAB PO SCH ×2 (08:59→20:28)
[2018-11-27] MEDS: Tamsulosin HCl 0.4 MG CAP PO SCH (08:59)
[2018-11-27] MEDS: Enoxaparin Sodium 40 MG/0.4 ML SYRINGE SC SCH (09:00)
[2018-11-27] MEDS: Nystatin Powder 15 GM BOT TOP SCH ×3 (09:00→20:28)
[2018-11-27] MEDS: Valsartan 80 MG TAB PO SCH (09:04)
[2018-11-27] MEDS: Insulin Glargine 15 UNITS in Pre-Filled Syringe 1 EACH SC SCH (09:25)
[2018-11-27] MEDS: Clindamycin 150 MG CAP PO SCH ×3 (10:49→20:28)
--- NOTE | 2018-11-27 12:50 | PQF ---
CLINICAL DOCUMENTATION IMPROVEMENT CLARIFICATION FORM: ICD-10 Updated PLEASE DO AN ADDENDUM TO THE PROGRESS NOTE WITH ANY DOCUMENTATION UPDATES OR ADDITIONS AND CARRY THROUGH TO DC SUMMARY. THANK YOU. DATE: 11/27/2018 ATTN: Dr. Chew/ Attending Dr. Chamberlain Please exercise your independent, professional judgment in responding to the clarification form. Clinical indicators are provided on the bottom of this form for your review Please check appropriate box(s): Conflicting documentation was noted in the Medical Record, please clarify if patient is being treated/monitored for: [ ] Cellulitis left distal forearm [ x ] Cellulitis RUE with abscess [ ] Other diagnosis [ ] Unable to determine For continuity of documentation, please document condition throughout progress notes and discharge summary. Thank You. CLINICAL INDICATORS - SIGNS / SYMPTOMS/ LABS H&P 11/25: (Bulmaro) admitted with cellulitis left distal forearm r/o sepsis initially tachycardic and hypotensive 11/26-11/27: Cellulitis RUE with abscess RISKS: H&P: States he woke up on Sunday morning with a "spider bite" on his left forearm. Cellulitis. MS primary progressive. HTN. DM2. BPH TREATMENT: Procedure 11/26: Incision and drainage of abscess. MAR: Order 11/25-11/27: IV Clindamycin MAR: Order 11/27: Clindamycin 300 mg po Q6h Thank you, Jessica (This form is maintained as a part of the permanent medical record) 2015 [employer]. All Rights Reserved Jessica Donald RN, BSN [email or web address] Office: [phone] [facility]
[2018-11-28] MEDS ORDERED: Clindamycin 150 MG CAP ONE (06:04)
[2018-11-28] MEDS ORDERED: Tamsulosin HCl 0.4 MG CAP ONE (07:41)
[2018-11-28] MEDS ORDERED: Baclofen 10 MG TAB ONE (07:42)
[2018-11-28] MEDS ORDERED: Enoxaparin Sodium 40 MG/0.4 ML SYRINGE ONE (07:42)
[2018-11-28] MEDS ORDERED: Magnesium Oxide 400 MG TAB PO ONE (07:43)
[2018-11-28] MEDS ORDERED: Famotidine 20 MG TAB ONE (07:45)
[2018-11-28] MEDS: Clindamycin 150 MG CAP PO SCH ×2 (09:49→10:02)
[2018-11-28] MEDS: Baclofen 10 MG TAB PO SCH (09:52)
[2018-11-28] MEDS: Tamsulosin HCl 0.4 MG CAP PO SCH (09:54)
[2018-11-28] MEDS: Enoxaparin Sodium 40 MG/0.4 ML SYRINGE SC SCH (09:54)
[2018-11-28] MEDS: Famotidine 20 MG TAB PO SCH (09:54)
[2018-11-28] MEDS: Nystatin Powder 15 GM BOT TOP SCH (09:54)
[2018-11-28] MEDS: Magnesium Oxide 400 MG TAB PO SCH (09:54)
[2018-11-28] MEDS: Valsartan 80 MG TAB PO SCH (09:55)
[2018-11-28] MEDS ORDERED: Sodium Chloride 0.9% 500 ML IV SCH (10:00)
[2018-11-28] MEDS: Insulin Glargine 15 UNITS in Pre-Filled Syringe 1 EACH SC SCH (10:01)
[2018-11-28] MEDS: Insulin Regular 300 UNITS/3 ML VIAL SC PRN (12:55)
[2018-11-28 14:50] VITALS: BP 111/71; TEMP 98.6
[2018-11-28] MEDS ORDERED: Triple Antibiotic Ointment 30 GM TUBE TOP SCH (21:00)
--- NOTE | 2018-11-30 04:19 | DIS ---
DATE OF ADMISSION: 11/25/2018 DATE OF DISCHARGE: 11/28/2018 RESIDENT: Huma Chew MD. CONSULTS: None. PROCEDURE: 1. Chest x-ray, 11/25/2018, impression; no active cardiopulmonary abnormalities are demonstrated. 2. Soft tissue ultrasound, 11/26/2018, left forearm. Impression, subcutaneous edema with small irregular collection at site of soft tissue swelling lateral left forearm. Findings are worrisome for infectious process given clinical history. 3. On 11/26/2018, bedside I and D of subcutaneous abscess. PRIMARY DIAGNOSIS: Cellulitis of the left upper extremity with abscess. SECONDARY DIAGNOSES: 1. Deconditioning. 2. Sacral ulcer. 3. Chronic urinary colonization of suprapubic catheterization. 4. MS, primary-progressive. 5. Diabetes mellitus type 2. 6. Hypertension. 7. Benign prostatic hyperplasia. DISCHARGE MEDICATIONS: 1. Clindamycin 300 mg p.o. q.6 hours for 7 days through 12/04/2018. 2. Triple antibiotic ointment, apply topically to left upper extremity twice daily. 3. Vitamin D 1500 mg p.o. daily. 4. Flomax 0.4 mg p.o. daily. 5. Magnesium oxide 500 mg p.o. daily. 6. Baclofen 20 mg p.o. t.i.d. 7. Valsartan 160 mg p.o. daily. 8. Nystatin 1 application topical 3 times daily. 9. Meclizine 25 mg p.o. q.8 hours p.r.n. for vertigo. 10. Insulin 15 units subcu daily. DISCONTINUED MEDICATIONS: None. HISTORY OF PRESENT ILLNESS/HOSPITAL COURSE: This is a 63-year-old male with past medical history of multiple sclerosis, recently hospitalized for flare recently with a 2-day history of worsening fatigue and generalized weakness. He stated he woke up 2 days prior to admission with a spider bite on his left forearm. He states the area was red and is growing in size. He also reported to have loose stools 1-2 times daily for the past 3 days. Denied fever, headache, chest pain or shortness of breath, abdominal pain, nausea, or vomiting. He also reported an ulcer on his left lower extremity for the past 2 days and a sacral ulcer. In the ED, he was tachycardic to 116. His EKG was within normal limits. He received 2 L of fluids clinda and Zosyn. The area was ultrasounded and found to have a small abscess, which was I and bed at bedside. He was continued on IV clindamycin and then switched to p.o. clindamycin prior to discharge. The area around the incision improved immensely after that I and D. The erythema and induration were also improving on discharge. The patient states that his pain was much improved. The patient was counseled that if the area of the I and D develops an eschar or a black center to follow up with his primary care doctor or doctor at the [facility] and that he may possibly need further debridements. This is discussed, because there is a possibility that he was bit by a brown recluse spider as he states there have been brown recluse spiders on his property in the past. The patient with the history of multiple sclerosis and had some deconditioning. PT and OT were consulted during his stay. The patient is unable to adequately care for himself at home and perform all his ADLs. He used to have home health. He was placed in the [facility] and he will benefit from long-term placement and care. The patient was amenable to this and was placed at [facility]. DISPOSITION: Stable. DISCHARGE INSTRUCTIONS: 1. Location: [facility]. 2. Diet: Heart healthy diet. 3. Activity: As tolerated. 4. Follow up with wound care. 5. Follow up with Dr. Vaibhav Bridges for further management of suprapubic catheter. 6. Follow up with Dr. Klarissa Chen, primary care provider within 1 week. The patient has a suprapubic catheter. His urine grew out multiple bacteria, it is thought to be chronically colonized. The patient did not have a fever during his stay and at this time this is not treated. The patient will follow up with Dr. Kuhn to replace his suprapubic catheter as he missed his appointment due to being in the hospital. Job ID: [id number]
--- NOTE | 2018-11-30 17:04 | EKG ---
Test Reason : Blood Pressure : / mmHG Vent. Rate : 116 BPM Atrial Rate : 116 BPM P-R Int : 140 ms QRS Dur : 084 ms QT Int : 316 ms P-R-T Axes : 020 -23 013 degrees QTc Int : 439 ms Sinus tachycardia with Fusion complexes Otherwise normal ECG Confirmed by LISA STUBBS DO ([id number]), supervising editor trailer JESSICA SANABRIA ([id number]) on 11/30/2018 5:04:26 PM Referred By: Confirmed By:LISA STUBBS DO
== END 2018-11-28 14:47 | DRG 581 ==
LOC: ERS 08:12 → ERHOLD 10:52 → T4-B 16:22
PROVIDERS: ADMIT Family Medicine; ATTEND Family Medicine
PROC: 0J9D0ZZ Drainage of Right Upper Arm Subcutaneous Tissue and Fascia, Open Approach (ICD-10-PCS; principal; 2018-11-26)
DX: L03.113 Cellulitis of right upper limb (principal); G35 Multiple sclerosis; L89.152 Pressure ulcer of sacral region, stage 2; I10 Essential (primary) hypertension; E11.9 Type 2 diabetes mellitus without complications; L02.413 Cutaneous abscess of right upper limb; E78.00 Pure hypercholesterolemia, unspecified; N40.0 Benign prostatic hyperplasia without lower urinary tract symptoms; Z90.49 Acquired absence of other specified parts of digestive tract; Z88.8 Allergy status to other drugs, medicaments and biological substances; Z88.5 Allergy status to narcotic agent; Z87.891 Personal history of nicotine dependence; Z88.1 Allergy status to other antibiotic agents; Z79.4 Long term (current) use of insulin; Z79.899 Other long term (current) drug therapy
CPT/HCPCS: 36415; 36416; 71045; 76999; 80048; 80053; 81003; 81015; 83605; 84484; 85025; 87040; 87070; 87077; 87086; 87186; 87205; 93005; J1650; J1815; J1825; J2001; J2543; J3490

== ENCOUNTER 2018-11-29 15:51 | Observation (INO) | payer MEDICARE, BC ==
--- NOTE | 2018-11-29 16:47 | RAD ---
XR Chest 1 View Portable HISTORY: Syncope COMPARISON: 11/25/2018 study FINDINGS: Heart size and mediastinum are within normal limits. The lungs are clear of any infiltrativ e process. Postoperative changes of the left shoulder noted. IMPRESSION: No active intrathoracic disease.
[2018-11-29 16:49] LABS: #Basophils 0.1 thou/uL (0.0-0.2); #Eosinphils 0.2 thou/uL (0.0-0.7); #Lymphocytes 1.2 thou/uL (1.20-3.40); #Monocytes 0.6 thou/uL (0.11-0.59); #Neutrophils 6.3 thou/uL (1.40-6.50); %Basophils 0.6 % (0.0-1.0); %Eosinophils 1.9 % (0.0-10.0); %Lymphocytes 14.9 % (21.0-51.0); %Neutrophils 75.5 % (42.0-75.0); Hemoglobin 14.1 g/dL (14.0-18.0); Mean Corpuscular HGB CONC 32.9 g/dL (32.0-36.0); Mean Corpuscular Hemoglobin 28.7 pg (27.0-31.0); Mean Corpuscular Volume 87.4 fL (78.0-98.0); Mean Platelet Volume 7.3 fL (7.4-10.4); Platelet Count 304 thou/uL (130-400); RBC Distribution Width 13.2 % (11.5-14.5); Red Blood Cell (RBC) Count 4.91 mill/uL (4.70-6.10); White Blood Cell (WBC) Count 8.4 thou/uL (4.8-10.8)
[2018-11-29 17:14] LABS: ALT (SGPT) 32 U/L (8-55); AST (SGOT) 14 U/L (5-34); Albumin 4.1 g/dL (3.4-4.8); Alkaline Phosphatase 71 U/L (40-150); Anion Gap 15 mmol/L (10-20); BUN (Urea Nitrogen) 20 mg/dL (8.4-25.7); Bilirubin, Total 0.2 mg/dL (0.2-1.2); CK (CPK) 71 U/L (30-200); Calc. Creatinine Clearance 0 mL/min (70-130); Calcium 9.7 mg/dL (7.8-10.44); Carbon Dioxide 26 mmol/L (23-31); Chloride 101 mmol/L (98-107); Estimated GFR-MDRD 56; Globulin 2.8 g/dL (2.4-3.5); Glucose 191 mg/dL (80-115); Potassium 4.1 mmol/L (3.5-5.1); Protein, Total 6.9 g/dL (5.8-8.1); Sodium 138 mmol/L (136-145)
[2018-11-29 20:30] LABS: Bilirubin Negative (Negative); Blood, Urine Negative (Negative); Clarity CLOUDY (Clear); Glucose, Urine (Dipstick) Negative (Negative); Leukocyte Moderate (Negative); Nitrite Negative (Negative); Protein, Urine (Dipstick) Trace mg/dL (Neg-Trace); Specific Gravity, Urine 1.018 (1.002-1.036); Urobilinogen 0.2 mg/dL (0.2-1.0); pH, Urine 5.5 (5.0-9.0)
[2018-11-29 20:32] LABS: Bacteria/HPF None Seen HPF (None Seen); Pathc Cast-AUWi Flag 8.97 (0-2.49); RBC/HPF 0-3 HPF (0-3); Yeast-AUWi Flag 127.8 (0-25.0)
[2018-11-29 20:40] LABS: Hyaline Casts/LPF 7-10 HYALINE CAST LPF (0-3 Hyaline); WBC/HPF 21-50 HPF (0-3); Yeast-All Forms 1+ HPF (None Seen)
[2018-11-29] MEDS ORDERED: Promethazine HCl 25 MG/ML VIAL ONE (20:44)
--- NOTE | 2018-11-29 21:40 | CT ---
CT PULMONARY ANGIOGRAM WITH IV CONTRAST AND 3D MIP RECONSTRUCTIONS: 11/29/18 PROVIDED CLINICAL HISTORY: Shortness of breath. FINDINGS: There is no evidence for central or segmental pulmonary embolus. No evidence for aortic dissection or aneurysm. Vascular calcification is seen. The lungs are free of significant opacity. No pleural flui d or pneumothorax apparent. The visualized upper abdomen demonstrates no acute abnormality. The osseo us structures demonstrate no concerning lytic or blastic lesions. IMPRESSION: No evidence for central or segmental pulmonary embolus. POS: DEANDRA
[2018-11-29] MEDS ORDERED: cefTRIAXone\\ROCEPHIN 1 GM VIAL ONE (22:21)
[2018-11-29] MEDS ORDERED: Acetaminophen 325 MG TAB PO PRN (23:10)
[2018-11-29] MEDS ORDERED: Promethazine 25 MG TAB PO PRN (23:10)
[2018-11-29] MEDS ORDERED: Bacteriostatic Water 30 ML VIAL FS PRN (23:15)
[2018-11-29] MEDS ORDERED: methylPREDNISolone Sod Succ/PF 125 MG/2 ML VIAL IVP SCH (23:16)
[2018-11-29] MEDS ORDERED: Meclizine HCl 25 MG TAB PO PRN (23:35)
[2018-11-29 23:36] LABS: Troponin I Less than 0.010 ng/mL (< 0.028)
--- NOTE | 2018-11-30 00:06 | PDOC.FPRHP ---
- History of Present Illness Chief Complaint: weakness History of Present Illness: HPI Pt is a 63 y/o M with MS presenting to ED for Dizziness and weakness starting today. Was discharged from hospital yesterday with cellulitis 2/2 insect bite. Pt states he began to feel worse after discharge from the hospital. Did have some SOB, disorientation, and nausea. Extensive w/u in ED including CTA chest, CXR was unremarkable. UA showed yeast and WBCs, but recent culture shows colonization as pt has a suprapubic cath. Initially also hypotensive, but improved with IVF. Also was given Rocephin in ED for UTI. Pt nausea improved with Phenergan. Has been drinking plenty of fluids per pt. Denies pain, diarrhea , chest pain. VS 103/60 - Allergies/Adverse Reactions Allergies Allergy/AdvReac Type Severity Reaction Status Date / Time codeine Allergy Intermediate Rash Verified 11/30/18 00:26 adhesive Allergy Verified 11/30/18 00:26 vancomycin Allergy Verified 11/30/18 00:26 acetaminophen [From Tylenol] AdvReac Verified 11/30/18 00:26 - Home Medications Medication Instructions Recorded Confirmed Type Cholecalciferol (Vitamin D3) 1,500 mg PO DAILY 06/04/18 11/30/18 History [Vitamin D] Tamsulosin HCl [Flomax] 0.4 mg PO DAILY #30 cap 06/09/18 11/30/18 Rx Magnesium Oxide 500 mg PO DAILY 07/02/18 11/30/18 History Baclofen [Lioresal] 20 mg PO TID tab 08/01/18 11/30/18 Rx Nystatin [Nystatin Powder] 1 applic TOP TID 11/05/18 11/30/18 History Valsartan [Diovan] 160 mg PO DAILY 11/05/18 11/30/18 History Insulin Detemir [Levemir] 15 unit SQ DAILY #1 11/08/18 11/30/18 Rx Meclizine HCl [Antivert] 25 mg PO Q8HR PRN #9 tab 11/08/18 11/30/18 Rx Clindamycin HCl [Cleocin] 300 mg PO Q6HR #28 capsule 11/28/18 11/30/18 Rx Neomy Sulf/Bacitrac Zn/Poly 1 gm TOP BID tube 11/28/18 11/30/18 Rx [Triple Antibiotic Ointment] - History PMHx: MA, suprapubic catheter, DM2 PSHx: n/a FHx:n/a Social: nonsmoker, does not drink or use illicit drugs - Review of Systems General: reports: fatigue. denies: fever/chills, weight/appetite/sleep changes Eyes: denies: eye pain, vision changes ENT: denies: nasal congestion Respiratory: reports: shortness of breath. denies: congestion Cardiovascular: denies: chest pain, palpitation, edema Gastrointestinal: reports: nausea. denies: vomiting, constipation, abdominal pain, GI bleeding Genitourinary: denies: incontinence, dysuria Skin: reports: lesions. denies: rashes Musculoskeletal: denies: pain, tenderness Neurological: reports: weakness. denies: numbness, syncope Psychological: denies: anxiety, depression - Vital signs BP 103/59, HR 89, 97% on RA, RR 22, T98.7 - Physical Exam Additional comment: PHYSICAL EXAMINATION: General: NAD, alert and oriented x3 HEENT: PERRLA, EOMI, normal sclera, oropharynx without erythema or exudate Neck: Supple. Full ROM. Heart/Cardiovascular System: No r/m/g. RRR. Cap refill < 3 seconds, good pulses in all extremities Lungs/Respiratory System: clear to auscultation bilaterally. No increased work of breathing. Room air. Abdomen/Gastro-Intestinal System: non-tender, normal bowel sounds, no masses, no organomegaly Extremities: R forearm with bandage overlying lesion. No cyanosis or edema. Neuro: No gross deficits appreciated. CN 2-12 grossly intact Psychiatry: Awake, Alert and cooperative with exam, but sleepy. Skin: No lesions, rashes, or ulcers Musculoskeletal: Full ROM, Strength 5/5 in all 4 extremities FMR H&P: Results - Labs Result Diagrams: 11/29/18 16:42 11/29/18 16:42 Lab results: WBC 8.4 thou/uL (4.8-10.8) 11/29/18 16:42 Hgb 14.1 g/dL (14.0-18.0) 11/29/18 16:42 Hct 42.9 % (42.0-52.0) 11/29/18 16:42 MCV 87.4 fL (78.0-98.0) 11/29/18 16:42 Plt Count 304 thou/uL (130-400) 11/29/18 16:42 Neutrophils % 75.5 % (42.0-75.0) H 11/29/18 16:42 Sodium 138 mmol/L (136-145) 11/29/18 16:42 Potassium 4.1 mmol/L (3.5-5.1) 11/29/18 16:42 Chloride 101 mmol/L (98-107) 11/29/18 16:42 Carbon Dioxide 26 mmol/L (23-31) 11/29/18 16:42 BUN 20 mg/dL (8.4-25.7) 11/29/18 16:42 Creatinine 1.30 mg/dL (0.7-1.3) 11/29/18 16:42 Glucose 191 mg/dL (80-115) H 11/29/18 16:42 Lactic Acid 1.2 mmol/L (0.5-2.2) 11/29/18 16:42 Calcium 9.7 mg/dL (7.8-10.44) 11/29/18 16:42 Total Bilirubin 0.2 mg/dL (0.2-1.2) 11/29/18 16:42 AST 14 U/L (5-34) 11/29/18 16:42 ALT 32 U/L (8-55) 11/29/18 16:42 Alkaline Phosphatase 71 U/L (40-150) 11/29/18 16:42 Creatine Kinase 71 U/L (30-200) 11/29/18 16:42 B-Natriuretic Peptide Less than 10.0 pg/mL (0-100) 11/29/18 16:42 Serum Total Protein 6.9 g/dL (5.8-8.1) 11/29/18 16:42 Albumin 4.1 g/dL (3.4-4.8) 11/29/18 16:42 Urine Ketones Negative mg/dL (Negative) 11/29/18 18:58 Urine Blood Negative (Negative) 11/29/18 18:58 Urine Nitrite Negative (Negative) 11/29/18 18:58 Ur Leukocyte Esterase Moderate (Negative) H 11/29/18 18:58 Urine RBC 0-3 HPF (0-3) 11/29/18 18:58 Urine WBC 21-50 HPF (0-3) H 11/29/18 18:58 Ur Squamous Epith Cells 4-6 HPF (0-3) H 11/29/18 18:58 Urine Bacteria None Seen HPF (None Seen) 11/29/18 18:58 FMR H&P: A/P - Problem List (1) Dehydration Current Visit: Yes Status: Acute Code(s): E86.0 - DEHYDRATION (2) Cellulitis Current Visit: No Status: Acute Code(s): L03.90 - CELLULITIS, UNSPECIFIED (3) Muscular deconditioning Current Visit: No Status: Acute Code(s): R29.898 - OTH SYMPTOMS AND SIGNS INVOLVING THE MUSCULOSKELETAL SYSTEM (4) Sacral ulcer Current Visit: No Status: Acute Code(s): L98.429 - NON-PRESSURE CHRONIC ULCER OF BACK WITH UNSPECIFIED SEVERITY (5) UTI (urinary tract infection) Current Visit: No Status: Acute (6) Diabetes mellitus Current Visit: No Status: Chronic Code(s): E11.9 - TYPE 2 DIABETES MELLITUS WITHOUT COMPLICATIONS Qualifiers: Diabetes mellitus type: type 2 (7) Multiple sclerosis Current Visit: No Status: Chronic Code(s): G35 - MULTIPLE SCLEROSIS - Plan Disposition/LOS: PROBLEM LISTANDPLAN: # Generalized Fatigue- Possibly 2/2 MS exacerbation vs dehydration. Will continue MIVF overnight as he received 1L NS. Also give dose of steroids in case of MS flare. No signs of infection and UA likely colonization, but did receive ceftriaxone in ED. Pt with improve. Troponins WNL. # Hypotension- Like 2/2 hypovolemia, continue IVF # UTI- S/p rocephin admin in ED. Recent culture shows colonization and doubtful current infectious process. Will await culture results and has f/u with urology. # MS- Recently hospitalized with full workup and resolution of sx. Will cover with steroids. # Cellulitis RUE Continue Clindamycin. Wound improving # Deconditioning- Consider PT/OT consult # Sacral ulcer - Stage 2; Wound care consulted # DM2- mild SSI and will continue home medications # HTN -hold home medications, may need to decrease Valsartan upon discharge # BPH- Suprapubic cath in place Fluids: NS at 100cc/hr Diet: CC Code: DNR DVT Ppx: Lmwh Dispo: Addendum - Attending - Attending Attestation Date/Time: 11/30/18 [id number] I personally evaluated the patient and discussed the management with Dr. Earl I agree with the History, Examination, Assessment and Plan documented above with any addition or exceptions noted below. Patient with suprapubic cath with colonization however patient with occasional foul urethral D/c and prostate exam very tender and boggy attempt express prostratic fluid for culture with minimal amount recovered, patient has received IV rocephin will empirically rec RX of prostatitis with levaquin which demostrates coverage for left forearm cellulitis/abscess as well.
[2018-11-30 00:14] VITALS: BMI 32.1
[2018-11-30] MEDS: Sodium Chloride 0.9% 1,000 ML IV SCH ×2 (00:49→05:54)
[2018-11-30 02:05] LABS: Troponin I Less than 0.010 ng/mL (< 0.028)
[2018-11-30] MEDS ORDERED: Clindamycin 150 MG CAP PO SCH (06:00)
[2018-11-30 07:44] VITALS: BP 108/76; TEMP 97.5
[2018-11-30] MEDS ORDERED: Baclofen 10 MG TAB PO SCH (09:00)
[2018-11-30] MEDS ORDERED: Enoxaparin Sodium 40 MG/0.4 ML SYRINGE SC SCH (09:00)
[2018-11-30] MEDS ORDERED: Tamsulosin HCl 0.4 MG CAP PO SCH (09:00)
[2018-11-30] MEDS ORDERED: Magnesium Oxide 400 MG TAB PO SCH (09:00)
[2018-11-30] MEDS ORDERED: Insulin Glargine 15 UNITS in Pre-Filled Syringe 1 EACH SC SCH (09:00)
[2018-11-30] MEDS ORDERED: Non-Formulary Item 1 EACH (Insulin Detemir [Levemir] 15 UNIT) SQ SCH (09:00)
[2018-11-30] MEDS ORDERED: Nystatin Powder 15 GM BOT TOP SCH (09:00)
--- NOTE | 2018-11-30 18:36 | DIS ---
DATE OF ADMISSION: 11/29/2018 DATE OF DISCHARGE: 11/30/2018 ADMITTING ATTENDING: Dr. Austin Chamberlain. RESIDENT: Dr. Lena Gaines. CONSULTATIONS: None. PROCEDURES AND IMAGIN. Chest x-ray with no active intrathoracic disease. 2. Chest/thorax CTA showed no evidence for central or segmental pulmonary embolus. PRIMARY DIAGNOSES: 1. Generalized fatigue likely secondary to dehydration and prostatitis. 2. Prostatitis. 3. Hypotension likely secondary to hypovolemia, now improved, status post IV fluid. 4. Multiple sclerosis. 5. Cellulitis of the right upper extremity. 6. Deconditioning. 7. Sacral ulcer. 8. Diabetes mellitus type 2. 9. Hypertension. 10. Benign prostatic hyperplasia. DISCHARGE MEDICATIONS: 1. Vitamin D3 of 1500 units p.o. daily. 2. Flomax 0.4 mg p.o. daily. 3. Magnesium oxide 500 mg p.o. daily. 4. Baclofen 20 mg p.o. t.i.d. 5. Diovan 160 mg p.o. daily. 6. Nystatin powder 1 application topically 3 times daily. 7. Meclizine 25 mg p.o. q.8 hours p.r.n. 8. Levemir 15 units subcu daily. 9. Cleocin 300 mg p.o. q.6 hours for a stop date of December 04. 10. Triple antibiotic ointment 1 g topical b.i.d. as needed. 11. Levaquin 500 mg p.o. daily x6 weeks. DISCONTINUED MEDICATIONS: None. HISTORY OF PRESENT ILLNESS/HOSPITAL COURSE: This is a 63-year-old male with a history of multiple sclerosis, who presents in with generalized fatigue and dizziness, who was found to have hypotension and possibly hypovolemic. The patient drastically improved after IV fluid. The patient had reported some foul smelling penile discharge and therefore a prostate exam was performed and found to have a boggy prostate and diagnosed with prostatitis. There was minimal discharge obtained from the penis during prostate massage, which was sent off for culture if enough obtained. We will start the patient on empiric therapy with Levaquin for 6 weeks for Prostatitis. Of note, the patient did have a recent hospitalization, in which he had a urine culture grew out Stenotrophomonas maltophilia which sensitive to Levaquin. The patient was also recently treated for a right upper extremity cellulitis, for which he is currently on clindamycin and we will complete treatment on December 04. Other medical problems were stable throughout the hospital stay and he is to be discharged back to [facility], where he recently established care. PHYSICAL EXAMINATION ON DAY OF HOSPITAL DISCHARGE: GENERAL: No acute distress. The patient is alert and oriented to person, place, and time, and conversant. MOUTH: Has moist mucous membranes. HEART: Has regular rate and rhythm with no murmurs, gallops, or rubs. LUNGS: Clear to auscultation bilaterally and with no wheezes, rales, or rhonchi. ABDOMEN: Soft, nontender with positive bowel sounds. Prostate was found to be boggy and exquisitely tender with minimal penile discharge. EXTREMITIES: The patient has no bilateral lower extremity edema. NEURO: The patient is alert and oriented to person, place, and time. The patient moves all extremities out his baseline, and is currently doing so. DISPOSITION: Stable. DISCHARGE INSTRUCTIONS: Location: [facility]. ACTIVITY: As tolerated. DIET: ADA and heart healthy. FOLLOWUP: With PCP in 1 to 2 weeks, and he also needs to follow up with Dr. Snyder for suprapubic catheter replacement upon discharge. Job ID: [id number]
== END 2018-11-30 15:23 ==
LOC: ERS 15:51 → T4-A 22:00
PROVIDERS: ADMIT Family Medicine; ATTEND Family Medicine
DX: R53.83 Other fatigue (principal); E86.0 Dehydration; N41.9 Inflammatory disease of prostate, unspecified; I95.9 Hypotension, unspecified; E86.1 Hypovolemia; G35 Multiple sclerosis; L03.113 Cellulitis of right upper limb; L98.429 Non-pressure chronic ulcer of back with unspecified severity; E11.9 Type 2 diabetes mellitus without complications; I10 Essential (primary) hypertension; N40.0 Benign prostatic hyperplasia without lower urinary tract symptoms; R29.898 Other symptoms and signs involving the musculoskeletal system; N39.0 Urinary tract infection, site not specified; E78.00 Pure hypercholesterolemia, unspecified; Z87.891 Personal history of nicotine dependence; Z88.5 Allergy status to narcotic agent; Z88.1 Allergy status to other antibiotic agents; Z88.6 Allergy status to analgesic agent; Z91.048 Other nonmedicinal substance allergy status; Z79.899 Other long term (current) drug therapy
CPT/HCPCS: 71045; 71275; 80053; 82550; 83605; 83880; 84484 ×3; 85025; 85379; 87040; 87077; 87086; 87186; 93005; 96361 ×2; 96372; 96374; 96375 ×2; 99285; G0378 ×2; 36415; 81003; 81015; J0696; J1650; J1815; J1956; J2550; J2930; Q9966

== ENCOUNTER 2019-03-16 10:17 | Inpatient (IN) | payer MEDICARE, BC, MEDICAID ==
[2019-03-16 11:11] LABS: #Eosinphils 0.1 thou/uL (0.0-0.7); #Lymphocytes 0.9 thou/uL (1.20-3.40); #Monocytes 0.7 thou/uL (0.11-0.59); #Neutrophils 13.4 thou/uL (1.40-6.50); %Basophils 0.1 % (0.0-1.0); %Eosinophils 0.4 % (0.0-10.0); %Lymphocytes 6.2 % (21.0-51.0); %Monocytes 4.4 % (0.0-10.0); %Neutrophils 88.9 % (42.0-75.0); Hemoglobin 15.5 g/dL (14.0-18.0); Mean Corpuscular HGB CONC 34.2 g/dL (32.0-36.0); Mean Corpuscular Hemoglobin 29.3 pg (27.0-31.0); Mean Corpuscular Volume 85.7 fL (78.0-98.0); Mean Platelet Volume 7.9 fL (7.4-10.4); Platelet Count 221 thou/uL (130-400); RBC Distribution Width 12.1 % (11.5-14.5); Red Blood Cell (RBC) Count 5.29 mill/uL (4.70-6.10); White Blood Cell (WBC) Count 15.1 thou/uL (4.8-10.8)
--- NOTE | 2019-03-16 11:16 | CT ---
CT HEAD WITHOUT IV CONTRAST COMPARISON: 06/20/2018 HISTORY: Dizziness and weakness TECHNIQUE: Axial CT imaging at 5 mm intervals from vertex through skull base without contrast FINDINGS: There is no evidence of an acute infarction, hemorrhage, mass effect, or midline shift. The ventricul ar system is normal in size, shape, and position. Visualized paranasal sinuses are clear. Osseous structures appear intact.There is a stable small osseous excrescence seen involving the anter ior frontal bone near the vertex, stable when compared to prior exam and also seen on a prior study in 2009 suggesting a benign finding. IMPRESSION: 1. No acute intracranial abnormality demonstrated.
[2019-03-16 12:03] LABS: Albumin 4.2 g/dL (3.4-4.8)
[2019-03-16 12:04] LABS: Chloride 103 mmol/L (98-107); Sodium 139 mmol/L (136-145)
[2019-03-16 12:05] LABS: Calcium 9.6 mg/dL (7.8-10.44); Glucose 96 mg/dL (80-115)
[2019-03-16 12:06] LABS: Globulin 3.5 g/dL (2.4-3.5); Protein, Total 7.7 g/dL (5.8-8.1)
[2019-03-16 12:07] LABS: Anion Gap 21 mmol/L (10-20); Bilirubin, Total 0.5 mg/dL (0.2-1.2); Carbon Dioxide 19 mmol/L (23-31)
[2019-03-16 12:08] LABS: Alkaline Phosphatase 78 U/L (40-110)
[2019-03-16 12:09] LABS: Calc. Creatinine Clearance 0 mL/min (70-130); Estimated GFR-MDRD 70
[2019-03-16 12:10] LABS: AST (SGOT) 16 U/L (5-34); BUN (Urea Nitrogen) 11 mg/dL (8.4-25.7)
[2019-03-16 12:11] LABS: ALT (SGPT) 16 U/L (8-55)
[2019-03-16 13:09] LABS: Bilirubin Negative (Negative); Blood, Urine Trace (Negative); Clarity Turbid (Clear); Glucose, Urine (Dipstick) Normal (Negative); Leukocyte 500 Leu/uL (Negative); Nitrite Negative (Negative); Protein, Urine (Dipstick) 70 mg/dL (Neg-Trace); Squamous Epithelial None Seen HPF (0-3); WBC/HPF Greater than 50 HPF (0-3)
[2019-03-16 13:21] LABS: Bacteria/HPF 3+ HPF (None Seen)
[2019-03-16] MEDS ORDERED: cefTRIAXone\\ROCEPHIN 2 GM VIAL ONE (15:01)
[2019-03-16] MEDS ORDERED: Meclizine HCl 25 MG TAB ONE (15:01)
[2019-03-16] MEDS ORDERED: Ibuprofen 200 MG TAB ONE (15:36)
[2019-03-16] MEDS ORDERED: Dextrose 5% in Water 1,000 ML IV PRN (17:21)
[2019-03-16] MEDS ORDERED: Dextrose 50% Abboject 50 ML SYRINGE SLOW IVP PRN (17:21)
[2019-03-16] MEDS ORDERED: HumaLOG 300 UNITS/3 ML VIAL SC PRN (17:21)
[2019-03-16 17:27] VITALS: BMI 31.6
[2019-03-16] MEDS ORDERED: Meclizine HCl 25 MG TAB PO PRN ×2 (17:27→21:13)
[2019-03-16] MEDS ORDERED: Ibuprofen 600 MG TAB PO PRN (17:27)
--- NOTE | 2019-03-16 18:20 | PDOC.FPRHP ---
- History of Present Illness Chief Complaint: Weakness History of Present Illness: Mr. Hill is a 63 y/o male with a PMH significant for multiple UTIs , previously traumatic Millan catheter placements requiring the placement of a suprapublic catheter, MS and penile cancer who presents to the ED with a CC of weakness. The patient states that he has had general feelings of malaise and weakness, with associated dizziness for several weeks now. He typically uses a wheelchair and can transfer on his own, but was so profoundly fatigued this morning that he could not even complete a transfer out of a family member's vehicle. He denied any fevers, chills or night sweats, increasing back or abdominal pain, as well as N/V/D, headaches or changes in vision. He has become increasingly unhappy with his current living situation, stating that he is living with a family member who does not have ADA compliant features to their home, and as such as not been bathing or caring for himself regularly. - Allergies/Adverse Reactions Allergies Allergy/AdvReac Type Severity Reaction Status Date / Time codeine Allergy Intermediate Rash Verified 03/16/19 17:24 adhesive Allergy Verified 03/16/19 17:24 vancomycin Allergy Verified 03/16/19 17:24 acetaminophen [From Tylenol] AdvReac Verified 03/16/19 17:24 - Home Medications Medication Instructions Recorded Confirmed Type Tamsulosin HCl [Flomax] 0.4 mg PO DAILY #30 cap 06/09/18 03/17/19 Rx Magnesium Oxide 500 mg PO DAILY 07/02/18 03/16/19 History Baclofen [Lioresal] 20 mg PO TID tab 08/01/18 03/17/19 Rx Valsartan [Diovan] 160 mg PO DAILY 11/05/18 03/16/19 History Insulin Detemir [Levemir] 15 unit SQ DAILY #1 11/08/18 03/17/19 Rx Meclizine HCl [Antivert] 25 mg PO Q8HR PRN #9 tab 11/08/18 03/17/19 Rx Imiquimod [Imiquimod 5% Cream] 1 applic TOP DAILY 03/17/19 03/17/19 History Losartan Potassium 100 mg PO DAILY 03/17/19 03/17/19 History Terbinafine HCl 250 mg PO DAILY 03/17/19 03/17/19 History - History PMHx: MS, DM2, HTN, BPH PSHx: suprapubic catheter, cholecystectomy, L rotator cuff, RLE surgery FHx: Dad CKD Social:No tobacco, alcohol or drug use - Review of Systems General: reports: fatigue. denies: fever/chills, night sweats Eyes: denies: vision changes ENT: denies: rhinorrhea Respiratory: denies: cough, congestion, shortness of breath Cardiovascular: denies: chest pain, palpitation Gastrointestinal: denies: nausea, vomiting, diarrhea, abdominal pain, GI bleeding Genitourinary: reports: other (Patient reports an penile cancer that he has been treating with an unknown cream.). denies: dysuria Skin: reports: rashes. denies: itching Musculoskeletal: reports: pain Neurological: denies: syncope, seizure - Vital signs BP: [114/72] HR: [100] RR: [20] Tmax: [98.2] Pox: [94]% on [Room] Wt: [95 kg] - Physical Exam Constitutional: NAD, awake, alert and oriented, well developed HEENT: normocephalic and atraumatic, PERRLA, EOMI, conjunctiva clear, no scleral icterus, grossly normal vision, grossly normal hearing, MMM Neck: supple, FROM, trachea midline, no LAD Chest: no-tender to palpation, no lesions Heart: RRR, normal S1/S2, no murmurs/rubs/gallops, pulses present Lungs: CTAB, no respiratory distress, good air movement, no rales/rhonchi, no wheezing, no retractions Abdomen: soft, non-tender, no masses/distention Musculoskeletal: normal structure Neurological: no focal deficit, CN II-XII intact -Skin: Multiple rashes and areas of dry skin, poor hygiene noted Heme/Lymphatic: no unusual bruising or bleeding Psychiatric: normal mood and affect, intact recent and remote memory FMR H&P: Results - Labs Result Diagrams: 03/17/19 04:22 03/17/19 04:22 Lab results: WBC 15.1 thou/uL (4.8-10.8) H 03/16/19 10:55 Hgb 15.5 g/dL (14.0-18.0) 03/16/19 10:55 Hct 45.3 % (42.0-52.0) 03/16/19 10:55 MCV 85.7 fL (78.0-98.0) 03/16/19 10:55 Plt Count 221 thou/uL (130-400) 03/16/19 10:55 Neutrophils % 88.9 % (42.0-75.0) H 03/16/19 10:55 Sodium 139 mmol/L (136-145) 03/16/19 10:55 Potassium 4.0 mmol/L (3.5-5.1) 03/16/19 10:55 Chloride 103 mmol/L (98-107) 03/16/19 10:55 Carbon Dioxide 19 mmol/L (23-31) L 03/16/19 10:55 BUN 11 mg/dL (8.4-25.7) 03/16/19 10:55 Creatinine 1.07 mg/dL (0.7-1.3) 03/16/19 10:55 Glucose 96 mg/dL (80-115) 03/16/19 10:55 Calcium 9.6 mg/dL (7.8-10.44) 03/16/19 10:55 Total Bilirubin 0.5 mg/dL (0.2-1.2) 03/16/19 10:55 AST 16 U/L (5-34) 03/16/19 10:55 ALT 16 U/L (8-55) 03/16/19 10:55 Alkaline Phosphatase 78 U/L (40-110) 03/16/19 10:55 Serum Total Protein 7.7 g/dL (5.8-8.1) 03/16/19 10:55 Albumin 4.2 g/dL (3.4-4.8) 03/16/19 10:55 Urine Ketones Greater than 150 mg/dL (Negative) A 03/16/19 12:40 Urine Blood Trace (Negative) A 03/16/19 12:40 Urine Nitrite Negative (Negative) 03/16/19 12:40 Ur Leukocyte Esterase 500 Jose/uL (Negative) A 03/16/19 12:40 Urine RBC 11-20 HPF (0-3) A 03/16/19 12:40 Urine WBC Greater than 50 HPF (0-3) A 03/16/19 12:40 Ur Squamous Epith Cells None Seen HPF (0-3) 03/16/19 12:40 Urine Bacteria 3+ HPF (None Seen) A 03/16/19 12:40 FMR H&P: A/P - Plan 1. Sepsis 2/2 UTI -Patient has extensive history of multiple UTIs with a wide variety of organisms in the past -Multi-drug resistance and colonization likely -Suprapubic catheter likely a nidus for infection -Low SES and poor hygiene likely contributing factors -WBCs: 15.1 -UA: LE, WBCs, RBCs, Bacteria -Meropenem and Linezolid initiated on 03/16 due to previous medication failures and extensive allergy list -Consider Urology consult to replace suprapubic catheter -Consider Case Management consult to aid in SNF placement or ADA compatible NH -Administer Meclizine for dizziness 2. Multiple Sclerosis -Patient suffers from chronic pain and weakness -Continue home medication regimen 3. DM2 -Continue home medication regimen Code Status: DNAR Diet: Carbohydrate Conscious Activity: Ad Janette Dispo: Patient admitted to Medical Floor for sepsis 2/2 to UTI. Extensive variety of causative organisms from previous UTIs has most likely led to considerable antibiotic resistance. Situation is compounded by extensive allergy list. Antibiotics initiated per above. Await blood and urine cultures and adjust antibiotic regimen as needed. Expected LOS > 48H. FMR H&P: Upper Level - Pertinent history 63yo male well known to our service with pmh of MS presenting with intermittent dizziness that started 2 days ago and worsened in intensity and frequency today. Also reports feeling very weak. Has noticed dark, increased particles and odor of his urine over the past 2 days. Reports this is usually how he feels when he has a UTI. Dizziness usually responds to Meclizine. He takes this at home PRN. Recently discharged from Rehab and living at home with a family member. Reports there are not proper resources in the home to properly care for him. He has not had a shower in 12 days due to this. Denies fever, chills. Reports increased redness on skin around suprapubic cath site. Reports he was recently diagnosed with penile skin cancer and has been using a cream to treat it. - Pertinent findings General: HEENT: Dry MM, neck supple CV: RRR no murmurs Pulm: CTA b/l Abdomen: suprapubic catheter with redness/irritation surrounding insertion site. Extremities: No edema : No penile lesions present or signs of infection Sepsis 2/2 UTI - Leukocytosis, tachycardia - UA c/w infection - Urine and Blood cx pending - Past Urine sensitivities very resistant, s/p Ceftriaxone x1 in ED, will start Meropenem and Linezolid until sensitivities this hospitalization - Will obtain procal - Consider discussing changing out suprapubic millan catheter with Urology tomorrow morning - mIVF LR @130 - Admit to medical Poor Living situation - Will consult CM for placement as well as PT/OT evaluation. Pt with no shower for 12 days due to no equipment available. For other chronic medical problems please refer to internal communications manager assessment and plan for details. - Plan Date/Time: 03/16/191819 I, Dilma Hough, have evaluated this patient and agree with findings/plan as outlined by internal communications manager resident. Pertinent changes/additions are listed here. Addendum - Attending - Attending Attestation Date/Time: 03/16/191950 I personally evaluated the patient and discussed the management with Dr. Manzano. I agree with the History, Examination, Assessment and Plan documented above with any addition or exceptions noted below. The patient has pmh of ms and recurrent uti's who presents with sepsis 2/2 UTI. He has a suprapubic catheter that is due to be changed later this week. He has been getting "thick stuff" out of it. Pt hasn't bathed in 12 days he states because he cannot get to the bathroom where he is living with his family. Pt is interested in placement. He has had multi-drug resistant uti's in the past and based on past sensitivities we are going to use linezolid and meropenem. Will give fluids. contact urology for suprapubic cath change tomorrow.
[2019-03-16] MEDS: Linezolid 600 MG in Premix Bag 1 BAG IVPB SCH (20:21)
[2019-03-16] MEDS: Lactated Ringer's 1,000 ML IV SCH (20:21)
[2019-03-16] MEDS: MEROPENEM 1 GM/50 ML 1 GM in Premix Bag 1 BAG IVPB SCH (22:20)
[2019-03-17] MEDS: Lactated Ringer's 1,000 ML IV SCH ×4 (02:59→17:37)
[2019-03-17 05:02] LABS: #Eosinphils 0.2 thou/uL (0.0-0.7); #Lymphocytes 1.3 thou/uL (1.20-3.40); #Monocytes 0.6 thou/uL (0.11-0.59); #Neutrophils 5.4 thou/uL (1.40-6.50); %Basophils 0.3 % (0.0-1.0); %Eosinophils 2.2 % (0.0-10.0); %Lymphocytes 17.6 % (21.0-51.0); %Neutrophils 71.9 % (42.0-75.0); Hemoglobin 14.2 g/dL (14.0-18.0); Mean Corpuscular HGB CONC 33.5 g/dL (32.0-36.0); Mean Corpuscular Hemoglobin 29.3 pg (27.0-31.0); Mean Corpuscular Volume 87.4 fL (78.0-98.0); Mean Platelet Volume 8.1 fL (7.4-10.4); Platelet Count 215 thou/uL (130-400); RBC Distribution Width 12.1 % (11.5-14.5); Red Blood Cell (RBC) Count 4.86 mill/uL (4.70-6.10); White Blood Cell (WBC) Count 7.5 thou/uL (4.8-10.8)
[2019-03-17] MEDS: MEROPENEM 1 GM/50 ML 1 GM in Premix Bag 1 BAG IVPB SCH ×3 (05:20→22:18)
[2019-03-17 05:26] LABS: ALT (SGPT) 12 U/L (8-55); AST (SGOT) 10 U/L (5-34); Albumin 3.4 g/dL (3.4-4.8); Alkaline Phosphatase 69 U/L (40-110); Anion Gap 13 mmol/L (10-20); BUN (Urea Nitrogen) 10 mg/dL (8.4-25.7); Bilirubin, Total 0.3 mg/dL (0.2-1.2); Calc. Creatinine Clearance 100 mL/min (70-130); Carbon Dioxide 24 mmol/L (23-31); Chloride 105 mmol/L (98-107); Estimated GFR-MDRD 74; Globulin 2.9 g/dL (2.4-3.5); Glucose 105 mg/dL (80-115); Potassium 3.8 mmol/L (3.5-5.1); Protein, Total 6.3 g/dL (5.8-8.1); Sodium 138 mmol/L (136-145)
--- NOTE | 2019-03-17 06:49 | PDOC.FM ---
- Subjective Subjective: NAEO. Patient resting comfortably in bed. No complaints. He is concerned about discharge planning - he has been at a [facility] but recently left the [place] bc he thought he was going to be moving in with a girlfriend. He has since been living with his sister. There are no handicap accessible features of her home and he has not been able to take a shower for a week. He would like to go back to a [place] type of facility to get better care. He is also due to change out his suprapubic catheter this Sunday. - Objective MAR Reviewed: Yes Vital Signs & Weight: Vital Signs (12 hours) Temp Pulse Resp BP Pulse Ox 03/17/19 04:00 98.2 F 83 18 117/78 95 03/17/19 00:51 97.8 F 87 16 107/64 96 03/16/19 20:00 98.1 F 102 H 16 104/64 94 L Weight Weight 94.404 kg I&O: 03/15/19 03/16/19 03/17/19 06:59 06:59 06:59 Intake Total 1834 Output Total 525 Balance 1309 Result Diagrams: 03/17/19 04:22 03/17/19 04:22 Phys Exam - Physical Examination Constitutional: NAD HEENT: PERRLA, moist MMs, sclera anicteric Neck: supple, full ROM Respiratory: clear to auscultation bilateral Cardiovascular: RRR, no significant murmur, no rub Gastrointestinal: soft, non-tender, no distention, positive bowel sounds trace edema b/l Neurological: non-focal, moves all 4 limbs Psychiatric: normal affect, A&O x 3 Skin: no rash, normal turgor, cap refill <2 seconds Dx/Plan (1) Sepsis Code(s): A41.9 - SEPSIS, UNSPECIFIED ORGANISM Status: Acute (2) UTI (urinary tract infection) Status: Acute (3) Diabetes mellitus Code(s): E11.9 - TYPE 2 DIABETES MELLITUS WITHOUT COMPLICATIONS Status: Chronic Qualifiers: Diabetes mellitus type: type 2 (4) HTN (hypertension) Code(s): I10 - ESSENTIAL (PRIMARY) HYPERTENSION Status: Chronic (5) Multiple sclerosis Code(s): G35 - MULTIPLE SCLEROSIS Status: Chronic - Plan Plan: Sepsis 2/2 UTI Patient has extensive history of multiple UTIs with a wide variety of organisms in the past. Multi-drug resistance and colonization likely. Suprapubic catheter likely a nidus for infection. - WBCs: 15.1 -> 7.5 - UA: LE, WBCs, RBCs, Bacteria - Blood and urine cx pending. - Meropenem and Linezolid initiated on 03/16 due to previous medication failures and extensive allergy list. Procal neg at 0.03. - Consider Urology consult to replace suprapubic catheter - Case Management consult to aid in SNF placement or ADA compatible NH Multiple Sclerosis - Patient suffers from chronic pain and weakness - Continue home medication regimen DM2 - Continue home medication regimen Penile Skin Cancer - Seeing food chemist for this. Will continue medication here. Poor Living Situation - CM consulted for discharge planning. Patient would like NH placement. Code Status: DNAR Diet: Carbohydrate Conscious Activity: Ad Jaentte Dispo: Expected LOS > 48H. CM consulted for discharge planning. Case discussed with Dr. Dash Addendum - Attending - Attending Attestation Date/Time: 03/17/19 1311 I personally evaluated the patient and discussed the management with Dr. Chen I agree with the History, Examination, Assessment and Plan documented above with any addition or exceptions noted below - Patient still feeling a little weak and dizzy. Afebrile VSS. A/P: 1) Sepsis secondary to UTI - patient with h/ o multiple UTIs; Continue meropenem and linezolid based on prior urine cultures and sensitivities. Culture pending. 2) Neurogenic bladder with suprapubic tube- will contact urology for possible tube change as it is due on Sunday. 3) Social - will consult case management as his current living situation is difficult as bathroom is not able to accomodate his needs. Would like placement in care facility.
[2019-03-17] MEDS: Linezolid 600 MG in Premix Bag 1 BAG IVPB SCH ×2 (08:45→20:08)
[2019-03-17] MEDS: Enoxaparin Sodium 40 MG/0.4 ML SYRINGE SC SCH (08:45)
[2019-03-17] MEDS: Baclofen 10 MG TAB PO SCH ×3 (08:46→20:07)
[2019-03-17] MEDS: Tamsulosin HCl 0.4 MG CAP PO SCH (08:46)
[2019-03-17] MEDS: Valsartan 80 MG TAB PO SCH (08:46)
[2019-03-17] MEDS: Magnesium Oxide 250 MG TAB PO SCH (08:46)
[2019-03-17] MEDS: Insulin Glargine 15 UNITS in Pre-Filled Syringe SC SCH (08:57)
[2019-03-17] MEDS ORDERED: Non-Formulary Item 1 EACH (Insulin Detemir [Levemir] 15 UNIT) SQ SCH (09:00)
[2019-03-17 17:52] LABS: Hemoglobin A1c 6.8 % (4.0-6.0)
[2019-03-18] MEDS: Lactated Ringer's 1,000 ML IV SCH (03:16)
[2019-03-18 04:34] LABS: #Eosinphils 0.2 thou/uL (0.0-0.7); #Monocytes 0.6 thou/uL (0.11-0.59); #Neutrophils 4.9 thou/uL (1.40-6.50); %Basophils 0.4 % (0.0-1.0); %Eosinophils 2.6 % (0.0-10.0); %Lymphocytes 14.9 % (21.0-51.0); %Monocytes 8.3 % (0.0-10.0); %Neutrophils 73.8 % (42.0-75.0); Hemoglobin 13.4 g/dL (14.0-18.0); Mean Corpuscular HGB CONC 34.3 g/dL (32.0-36.0); Mean Corpuscular Hemoglobin 29.6 pg (27.0-31.0); Mean Corpuscular Volume 86.3 fL (78.0-98.0); Platelet Count 195 thou/uL (130-400); RBC Distribution Width 11.8 % (11.5-14.5); Red Blood Cell (RBC) Count 4.52 mill/uL (4.70-6.10); White Blood Cell (WBC) Count 6.6 thou/uL (4.8-10.8)
[2019-03-18] MEDS ORDERED: Polyethylene Glycol 3350 17 GM Packet PO PRN (04:43)
[2019-03-18 04:52] LABS: Anion Gap 11 mmol/L (10-20); BUN (Urea Nitrogen) 9 mg/dL (8.4-25.7); Calc. Creatinine Clearance 112 mL/min (70-130); Calcium 8.8 mg/dL (7.8-10.44); Carbon Dioxide 29 mmol/L (23-31); Chloride 105 mmol/L (98-107); Estimated GFR-MDRD 84; Glucose 111 mg/dL (80-115); Potassium 3.6 mmol/L (3.5-5.1); Sodium 141 mmol/L (136-145)
[2019-03-18] MEDS: MEROPENEM 1 GM/50 ML 1 GM in Premix Bag 1 BAG IVPB SCH ×3 (05:16→21:44)
--- NOTE | 2019-03-18 07:11 | PDOC.FM ---
- Subjective Subjective: NAEO. Patient resting comfortably in bed, sitting up eating breakfast. Patient states that he feels better overall. He reports talking to case management yesterday. He is excited about the possibility of going to the facility in [place]. - Objective MAR Reviewed: Yes Vital Signs & Weight: Vital Signs (12 hours) Temp Pulse Resp BP Pulse Ox 03/17/19 20:00 98.6 F 94 16 128/79 94 L Weight Admit Weight 94.347 kg Weight 94.404 kg I&O: 03/17/19 03/18/19 03/19/19 06:59 06:59 06:59 Intake Total 1834 2090 Output Total 525 1450 Balance 1309 640 Result Diagrams: 03/18/19 04:23 03/18/19 04:23 Phys Exam - Physical Examination Constitutional: NAD HEENT: PERRLA, moist MMs, sclera anicteric Neck: supple, full ROM Respiratory: clear to auscultation bilateral Cardiovascular: RRR Gastrointestinal: soft, non-tender, positive bowel sounds suprapubic catheter in place Musculoskeletal: no edema, pulses present Neurological: non-focal, moves all 4 limbs Psychiatric: normal affect, A&O x 3 Skin: no rash, normal turgor, cap refill <2 seconds Dx/Plan (1) Sepsis Code(s): A41.9 - SEPSIS, UNSPECIFIED ORGANISM Status: Acute (2) UTI (urinary tract infection) Status: Acute (3) Diabetes mellitus Code(s): E11.9 - TYPE 2 DIABETES MELLITUS WITHOUT COMPLICATIONS Status: Chronic Qualifiers: Diabetes mellitus type: type 2 (4) HTN (hypertension) Code(s): I10 - ESSENTIAL (PRIMARY) HYPERTENSION Status: Chronic (5) Multiple sclerosis Code(s): G35 - MULTIPLE SCLEROSIS Status: Chronic - Plan Plan: Sepsis 2/2 UTI Patient has extensive history of multiple UTIs with a wide variety of organisms in the past. Multi-drug resistance and colonization likely. Suprapubic catheter likely a nidus for infection. - WBCs: 15.1 -> 6.6 - UA: LE, WBCs, RBCs, Bacteria - Urine cx: pseudomonas, Susceptible current management. Blood cx: NGTD - Meropenem and Linezolid initiated on 03/16 due to previous medication failures and extensive allergy list. Ucx came back sensitive to meropenem. Will dc linezolid. Will be adequately treated for UTI after today. Can consider giving patient oral abx through Sunday when his catheter will be changed out by urology. - Urology will see patient outpatient - Case Management consult to aid in SNF placement or ADA compatible NH - [place] facility is potential possibility for patient. Multiple Sclerosis - Patient suffers from chronic pain and weakness - Continue home medication regimen - PT/OT DM2 - Continue home medication regimen Penile Skin Cancer - Seeing muffler tender for this. Will continue medication here. Poor Living Situation - CM consulted for discharge planning. Patient would like NH placement. Code Status: DNAR Diet: Carbohydrate Conscious Activity: Ad Janette Dispo: Expected LOS > 48H. CM consulted for discharge planning. Case discussed with Dr. Dash Addendum - Attending - Attending Attestation Date/Time: 03/18/19 8224 I personally evaluated the patient and discussed the management with Dr. Chen I agree with the History, Examination, Assessment and Plan documented above with any addition or exceptions noted below - Patient without complaints. States that he is feeling better. Afebrile VSS. A/P: 1) Sepsis secondary to Pseudomonas UTI- Will de-escalate antobiotics based on sensitivities. 2) DM- stable. 3) MS- continue PT 4) D/c planning- case management working on placement.
[2019-03-18] MEDS: Magnesium Oxide 250 MG TAB PO SCH (09:16)
[2019-03-18] MEDS: Valsartan 80 MG TAB PO SCH (09:16)
[2019-03-18] MEDS: Baclofen 10 MG TAB PO SCH ×3 (09:16→20:10)
[2019-03-18] MEDS: metFORMIN 500 MG TAB PO SCH (09:16)
[2019-03-18] MEDS: Tamsulosin HCl 0.4 MG CAP PO SCH (09:16)
[2019-03-18] MEDS: Enoxaparin Sodium 40 MG/0.4 ML SYRINGE SC SCH (09:21)
[2019-03-18] MEDS: Insulin Glargine 15 UNITS in Pre-Filled Syringe SC SCH (09:21)
--- NOTE | 2019-03-18 17:18 | EKG ---
Test Reason : Blood Pressure : / mmHG Vent. Rate : 127 BPM Atrial Rate : 127 BPM P-R Int : 150 ms QRS Dur : 078 ms QT Int : 298 ms P-R-T Axes : 021 -02 -09 degrees QTc Int : 433 ms Sinus tachycardia Inferior infarct , age undetermined Cannot rule out Anterior infarct , age undetermined Abnormal ECG Confirmed by BRITTANY SOTO D.O. ([id number]), metropolitan editor JESSICA SANABRIA ([id number]) on 03/18/2019 5:18:46 PM Referred By: Confirmed By:BRITTANY SOTO D.O.
[2019-03-19] MEDS: MEROPENEM 1 GM/50 ML 1 GM in Premix Bag 1 BAG IVPB SCH ×3 (05:35→21:56)
--- NOTE | 2019-03-19 06:48 | PDOC.FM ---
- Subjective Subjective: NAEO. Patient resting comfortably in bed. States he feels better overall than on arrival. He states he hopes the [facility] facility will work. He denies any fevers/chills. - Objective MAR Reviewed: Yes Vital Signs & Weight: Vital Signs (12 hours) Temp Pulse Resp BP Pulse Ox 03/18/19 20:00 98.4 F 87 18 102/69 93 L 03/18/19 19:50 93 L Weight Admit Weight 94.347 kg Weight 94.404 kg I&O: 03/17/19 03/18/19 03/19/19 06:59 06:59 06:59 Intake Total 1834 2090 1960 Output Total 525 1450 1650 Balance 1309 640 310 Result Diagrams: 03/18/19 04:23 03/18/19 04:23 Phys Exam - Physical Examination Constitutional: NAD HEENT: moist MMs, sclera anicteric Neck: supple, full ROM Respiratory: clear to auscultation bilateral Cardiovascular: RRR, no significant murmur, no rub Gastrointestinal: soft, non-tender, no distention, positive bowel sounds suprapubic catheter in place Musculoskeletal: no edema, pulses present Neurological: non-focal, moves all 4 limbs Psychiatric: normal affect, A&O x 3 Skin: no rash, normal turgor, cap refill <2 seconds Dx/Plan (1) Sepsis Code(s): A41.9 - SEPSIS, UNSPECIFIED ORGANISM Status: Acute (2) UTI (urinary tract infection) Status: Acute (3) Diabetes mellitus Code(s): E11.9 - TYPE 2 DIABETES MELLITUS WITHOUT COMPLICATIONS Status: Chronic Qualifiers: Diabetes mellitus type: type 2 (4) HTN (hypertension) Code(s): I10 - ESSENTIAL (PRIMARY) HYPERTENSION Status: Chronic (5) Multiple sclerosis Code(s): G35 - MULTIPLE SCLEROSIS Status: Chronic - Plan Plan: Sepsis 2/2 UTI Patient has extensive history of multiple UTIs with a wide variety of organisms in the past. Multi-drug resistance and colonization likely. Suprapubic catheter likely a nidus for infection. UA: LE, WBCs, RBCs, Bacteria. - Urine cx: pseudomonas, MRSA. Blood cx: NGTD - Meropenem and Linezolid initiated on 03/16 due to previous medication failures and extensive allergy list. Ucx came back sensitive to meropenem. Linezolid discontinued yesterday but today Ucx grew out 2nd organism MRSA. Will add linezolid back on to cover for this. Will continue abx through Sunday when his catheter will be changed out by urology. - Urology will see patient outpatient - Case Management consult to aid in SNF placement or ADA compatible NH - [facility] is potential possibility for patient. Multiple Sclerosis - Patient suffers from chronic pain and weakness - Continue home medication regimen - PT/OT DM2 - Continue home medication regimen Penile Skin Cancer - Seeing department head college or university for this. Will continue medication here. Poor Living Situation - CM consulted for discharge planning. Patient would like NH placement. Code Status: DNAR Diet: CC Activity: Ad Janette Dispo: CM consulted for discharge planning. Patient ready for discharge once placement is confirmed. Case discussed with Dr. Dash Addendum - Attending - Attending Attestation Date/Time: 03/19/19 7981 I personally evaluated the patient and discussed the management with Dr. Chen I agree with the History, Examination, Assessment and Plan documented above with any addition or exceptions noted below - Patient denies complaints. Feels back to his baseline. Afebrile VSS. A/P: 1) Sepsis secondary to Pseudomonas UTI - resolved; will transition to po abx. 2) MS- continue PT. Awaiting NH placement
[2019-03-19] MEDS: metFORMIN 500 MG TAB PO SCH (08:57)
[2019-03-19] MEDS ORDERED: Linezolid 600 MG in Premix Bag 1 BAG IVPB SCH (09:00)
[2019-03-19] MEDS: Magnesium Oxide 250 MG TAB PO SCH (09:01)
[2019-03-19] MEDS: Terbinafine 250 MG TAB PO SCH (09:01)
[2019-03-19] MEDS: Losartan 25 MG TAB PO SCH (09:03)
[2019-03-19] MEDS: Baclofen 10 MG TAB PO SCH ×3 (09:04→20:15)
[2019-03-19] MEDS: Insulin Glargine 15 UNITS in Pre-Filled Syringe SC SCH (09:05)
[2019-03-19] MEDS: Tamsulosin HCl 0.4 MG CAP PO SCH (09:05)
[2019-03-19] MEDS: Enoxaparin Sodium 40 MG/0.4 ML SYRINGE SC SCH (09:05)
--- NOTE | 2019-03-19 12:54 | PQF ---
CLINICAL DOCUMENTATION IMPROVEMENT CLARIFICATION FORM: ICD-10 Updated PLEASE DO AN ADDENDUM TO THE PROGRESS NOTE WITH ANY DOCUMENTATION UPDATES OR ADDITIONS AND CARRY THROUGH TO DC SUMMARY. THANK YOU. DATE: 03/19/2019 ATTN: Dr. Chen/ Attending Dr. Dash Please exercise your independent, professional judgment in responding to the clarification form. Clinical indicators are provided on the bottom of this form for your review Please check appropriate box(es): [ x ] Sepsis due to UTI due to suprapubic catheter. [ ] Sepsis due to UTI not due to suprapubic catheter. [ ] Other diagnosis [ ] Unable to determine In addition, please specify: Present on Admission (POA): [x ] Yes [ ] No [ ] Unable to determine For continuity of documentation, please document condition throughout progress notes and discharge summary. Thank You. CLINICAL INDICATORS - SIGNS / SYMPTOMS / LABS H&P 03/19: Sepsis 2/2 UTI. Suprapubic catheter likely a nidus for infection PN 03/19: Urine cx: pseudomonas, MRSA RISKS: H&P 03/16: PMHx: MS, DM2, HTN, BPH. PSHx: suprapubic catheter. Hx of multiple UTIs with a wide variety of organisms in the past. Reports he was recently diagnosed with penile skin cancer. Sepsis 2/2 UTI. Poor living situation. TREATMENT: H&P 03/16: Meropenem and Linezolid initiated on 03/16 due to previous medication failures and extensive allergy list Thank you, Jessica (This form is maintained as a part of the permanent medical record) 2014 [employer] All Rights Reserved Jessica Donald RN, BSN [email or web address] Office: [phone] [facility]
[2019-03-19] MEDS ORDERED: IMIQUIMOD 5% TOP SCH (13:45)
[2019-03-20] MEDS: MEROPENEM 1 GM/50 ML 1 GM in Premix Bag 1 BAG IVPB SCH (05:06)
--- NOTE | 2019-03-20 06:36 | PDOC.FM ---
- Subjective Subjective: NAEO. Patient resting comfortably in bed, sitting up eating breakfast. Patient states he is tolerating PO well. He has been working with PT daily. He has no complaints or concerns. He is looking forward to getting out of the hospital. - Objective MAR Reviewed: Yes Vital Signs & Weight: Vital Signs (12 hours) Temp Pulse Resp BP Pulse Ox 03/19/19 20:00 97.8 F 84 18 109/75 94 L Weight Admit Weight 94.347 kg Weight 94.404 kg I&O: 03/18/19 03/19/19 03/20/19 06:59 06:59 06:59 Intake Total 2090 1960 500 Output Total 1450 1650 850 Balance 640 310 -350 Result Diagrams: 03/18/19 04:23 03/18/19 04:23 Phys Exam - Physical Examination Constitutional: NAD HEENT: moist MMs, sclera anicteric Neck: supple, full ROM Respiratory: clear to auscultation bilateral Cardiovascular: RRR, no significant murmur, no rub Gastrointestinal: soft, non-tender, no distention, positive bowel sounds suprapubic catheter in place Musculoskeletal: no edema, pulses present Neurological: non-focal, moves all 4 limbs Psychiatric: normal affect, A&O x 3 Skin: normal turgor, cap refill <2 seconds Deviation from normal: dry scaly rash on face mostly within the hair line, roblero and eye brows Dx/Plan (1) Sepsis Code(s): A41.9 - SEPSIS, UNSPECIFIED ORGANISM Status: Acute (2) UTI (urinary tract infection) Status: Acute (3) Diabetes mellitus Code(s): E11.9 - TYPE 2 DIABETES MELLITUS WITHOUT COMPLICATIONS Status: Chronic Qualifiers: Diabetes mellitus type: type 2 (4) HTN (hypertension) Code(s): I10 - ESSENTIAL (PRIMARY) HYPERTENSION Status: Chronic (5) Multiple sclerosis Code(s): G35 - MULTIPLE SCLEROSIS Status: Chronic - Plan Plan: Sepsis 2/2 UTI Patient has extensive history of multiple UTIs with a wide variety of organisms in the past. Multi-drug resistance and colonization likely. Suprapubic catheter likely a nidus for infection. UA: LE, WBCs, RBCs, Bacteria. - Urine cx: pseudomonas, MRSA. Blood cx: NGTD - Meropenem and Linezolid initiated on 03/16 due to previous medication failures and extensive allergy list. Ucx came back sensitive to meropenem. Linezolid discontinued. Ucx grew MRSA, but likely contaminant. Will transition to PO abx to stay on through Sunday. He is getting his catheter changed out by urology on Sunday. - Urology will see patient outpatient - Case Management consult to aid in SNF placement or ADA compatible NH - [place] facility is potential possibility for patient. Multiple Sclerosis - Patient suffers from chronic pain and weakness - Continue home medication regimen - PT/OT DM2 - Continue home medication regimen Penile Skin Cancer - Seeing acid pumper for this. Will continue medication here. Poor Living Situation - CM consulted for discharge planning. Patient would like NH placement. Code Status: DNAR Diet: CC Activity: Ad Janette Dispo: CM consulted for discharge planning. Patient ready for discharge once placement is confirmed. Case discussed with Dr. Dash Addendum - Attending - Attending Attestation Date/Time: 03/20/191958 I personally evaluated the patient and discussed the management with Dr. Chen I agree with the History, Examination, Assessment and Plan documented above with any addition or exceptions noted below- Patient wihtout complaints. Afebrile VSS. A/P: 1) Sepsis secondary to UTI- resolved; continue antibiotics. 2 ) MS- stable 3) DM- stable.. Awaiting placement.
[2019-03-20] MEDS ORDERED: Cipro 250 MG TAB PO SCH (09:00)
[2019-03-20] MEDS: Magnesium Oxide 250 MG TAB PO SCH (09:50)
[2019-03-20] MEDS: Losartan 25 MG TAB PO SCH (09:50)
[2019-03-20] MEDS: Baclofen 10 MG TAB PO SCH ×3 (09:52→20:49)
[2019-03-20] MEDS: metFORMIN 500 MG TAB PO SCH (09:52)
[2019-03-20] MEDS: Tamsulosin HCl 0.4 MG CAP PO SCH (09:53)
[2019-03-20] MEDS: Terbinafine 250 MG TAB PO SCH (09:53)
[2019-03-20] MEDS: IMIQUIMOD 5% TOP SCH (09:54)
[2019-03-20] MEDS: Enoxaparin Sodium 40 MG/0.4 ML SYRINGE SC SCH (09:55)
[2019-03-20] MEDS: Insulin Glargine 15 UNITS in Pre-Filled Syringe SC SCH (10:41)
[2019-03-20] MEDS: Cipro 250 MG TAB PO SCH ×2 (12:32→20:49)
[2019-03-21] MEDS: Cipro 250 MG TAB PO SCH (05:02)
--- NOTE | 2019-03-21 06:46 | PDOC.FM ---
- Subjective Subjective: NAEO. Patient resting comfortably in bed. No complaints or concerns. Patient is ready to go to the [place] facility. - Objective MAR Reviewed: Yes Vital Signs & Weight: Vital Signs (12 hours) Temp Pulse Resp BP Pulse Ox 03/21/19 04:32 91 03/21/19 00:38 97.9 F 99 16 121/81 95 03/20/19 19:55 97.6 F 114 H 20 108/76 93 L Weight Admit Weight 94.347 kg Weight 94.404 kg I&O: 03/19/19 03/20/19 03/21/19 06:59 06:59 06:59 Intake Total 6619 873 3864 Output Total 1650 850 Balance 310 -350 1720 Result Diagrams: 03/18/19 04:23 03/18/19 04:23 Phys Exam - Physical Examination Constitutional: NAD HEENT: moist MMs, sclera anicteric Neck: supple, full ROM Respiratory: clear to auscultation bilateral Cardiovascular: RRR, no significant murmur, no rub Gastrointestinal: soft, non-tender, no distention, positive bowel sounds suprapubic cath in place Musculoskeletal: pulses present Neurological: non-focal, moves all 4 limbs Psychiatric: normal affect, A&O x 3 Skin: no rash, normal turgor, cap refill <2 seconds Dx/Plan (1) Sepsis Code(s): A41.9 - SEPSIS, UNSPECIFIED ORGANISM Status: Acute (2) UTI (urinary tract infection) Status: Acute (3) Diabetes mellitus Code(s): E11.9 - TYPE 2 DIABETES MELLITUS WITHOUT COMPLICATIONS Status: Chronic Qualifiers: Diabetes mellitus type: type 2 (4) HTN (hypertension) Code(s): I10 - ESSENTIAL (PRIMARY) HYPERTENSION Status: Chronic (5) Multiple sclerosis Code(s): G35 - MULTIPLE SCLEROSIS Status: Chronic - Plan Plan: Sepsis 2/2 UTI Patient has extensive history of multiple UTIs with a wide variety of organisms in the past. Multi-drug resistance and colonization likely. Suprapubic catheter likely a nidus for infection. UA: LE, WBCs, RBCs, Bacteria. - Urine cx: pseudomonas, MRSA. Blood cx: NGTD - Meropenem and Linezolid initiated on 03/16 due to previous medication failures and extensive allergy list. Ucx came back sensitive to meropenem. Linezolid discontinued. Ucx grew MRSA, but likely contaminant. Will transition to PO abx. He is getting his catheter changed out by urology on Sunday. Dr. Kuhn is going to come see patient today to change it out. - Case Management consult to aid in SNF placement or ADA compatible NH - [facility]. Multiple Sclerosis - Patient suffers from chronic pain and weakness - Continue home medication regimen - PT/OT DM2 - Continue home medication regimen Penile Skin Cancer - Seeing dental cream maker for this. Will continue medication here. Poor Living Situation - CM consulted for discharge planning. Patient would like [place] placement. Code Status: DNAR Diet: CC Activity: Ad Janette Dispo: CM consulted for discharge planning. Patient ready for discharge once placement is confirmed. Likely dc today. Case discussed with Dr. Dash Addendum - Attending - Attending Attestation Date/Time: 03/21/19 0104 I personally evaluated the patient and discussed the management with Dr. Chen I agree with the History, Examination, Assessment and Plan documented above with any addition or exceptions noted below - Patient without complaints. Afebrile VSS. A/P: 1) Sepsis secondary to UTI- resolved. Continue abx for 7 day course. 2) Neurogenic bladder- suprapubic catheter change by urology; appreaciate assistance in pateitn care. 3) UTI - abx for 7 days. D/c planning- transfer to [place] today.
[2019-03-21 07:36] VITALS: BP 117/79; TEMP 98.1
[2019-03-21] MEDS: Magnesium Oxide 250 MG TAB PO SCH (09:12)
[2019-03-21] MEDS: Losartan 25 MG TAB PO SCH (09:12)
[2019-03-21] MEDS: Tamsulosin HCl 0.4 MG CAP PO SCH (09:13)
[2019-03-21] MEDS: metFORMIN 500 MG TAB PO SCH (09:13)
[2019-03-21] MEDS: Baclofen 10 MG TAB PO SCH ×2 (09:13→14:23)
[2019-03-21] MEDS: Terbinafine 250 MG TAB PO SCH (09:14)
[2019-03-21] MEDS: IMIQUIMOD 5% TOP SCH (09:14)
[2019-03-21] MEDS: Insulin Glargine 15 UNITS in Pre-Filled Syringe SC SCH (09:15)
[2019-03-21] MEDS: Enoxaparin Sodium 40 MG/0.4 ML SYRINGE SC SCH (09:23)
--- NOTE | 2019-03-21 15:55 | CON ---
DATE OF CONSULTATION: 03/21/2019 CONSULTING: Family Medicine. CONSULTED: Vaibhav Kuhn MD REASON FOR CONSULTATION: SP tube change. HISTORY OF PRESENT ILLNESS: Mr. Hill is a 63-year-old white male, who is well known to me secondary to having a suprapubic catheter with MS and paralysis of his lower extremities. He has a neurogenic bladder and is maintained with suprapubic catheterization. He is scheduled to come see me in the office next week for a suprapubic catheter change, but has been hospitalized secondary to weakness and feelings of malaise and dizziness for a few weeks. There was concern that he may have a urinary tract infection making him feel bad. I have been asked to change his catheter while on this admission rather than waiting for his current appointment coming up next week. ALLERGIES: 1. CODEINE. 2. ADHESIVE. 3. VANCOMYCIN. 4. TYLENOL. HOME MEDICATIONS: 1. Flomax. 2. Magnesium oxide. 3. Baclofen. 4. Valsartan. 5. Insulin. 6. Meclizine. 7. Imiquimod. 8. Losartan. 9. Terbinafine. PAST MEDICAL HISTORY: 1. Multiple sclerosis. 2. Type 2 diabetes. 3. Hypertension. 4. BPH. 5. Neurogenic bladder. 6. Recurrent urinary tract infections. PAST SURGICAL HISTORY: 1. Suprapubic catheter placement. 2. Cholecystectomy. 3. Left rotator cuff surgery. 4. Right lower extremity surgery. FAMILY HISTORY: Significant for chronic kidney disease. SOCIAL HISTORY: The patient denies tobacco abuse, alcohol abuse, or illicit drug use. REVIEW OF SYSTEMS: A 12-point review of system was reviewed and negative other than what was commented on the HPI. Of note, the patient did have some lesions on his penis, which was reportedly a penile cancer, which has been treated with a chemotherapeutic cream and is apparently responding, this is being handled by another doctor. PHYSICAL EXAMINATION: VITAL SIGNS: Temperature 98.1, pulse 88, respirations 16, blood pressure 117/79, and saturation 95% on room air. GENERAL: No apparent distress. Communicative and alert. HEENT: Normocephalic and atraumatic. Pupils are symmetric and round. There is a rash on the patient's face, which is diffusely erythematous, but is somewhat chronic. Trachea midline. Moist mucous membranes. CARDIOVASCULAR: Regular rate and rhythm. Normal S1 and S2. Symmetric pulses. CHEST: No increased work of breathing. Symmetric expansion. LUNGS: Clear anteriorly. ABDOMEN: Soft, nontender, and nondistended. Positive bowel sounds. SP tube in good location, draining clear yellow urine. : Circumcised penis is nonfocal with some mild bumpy lesions on the anterior aspect of the penis, which does not appear overly concerning. There is also some redness, which is probably secondary to the topical ointment. Testicles bilaterally descended, otherwise nonfocal. EXTREMITIES: No clubbing, cyanosis, or edema. Some onychomycosis present. SKIN: Warm and dry. No rashes or lesions. Good turgor. NEUROLOGIC: The patient is paraplegic. He does have use of his upper extremities. There are no cranial nerve deficits, 2 through 12. PSYCHIATRIC: Alert and oriented x3. Appropriate mood and affect. LYMPHATICS: There is no lymphadenopathy in the inguinal, supraclavicular, or cervical areas. DESCRIPTION OF PROCEDURE: The patient had a suprapubic catheter change. His old 22-Serbian catheter was removed. A new 22-Serbian catheter was placed with ease into the bladder under sterile technique. 30 mL of sterile water was placed into the balloon. Catheter was hooked up to gravity drainage and secured to his existing StatLock. ASSESSMENT AND PLAN: A 63-year-old white male with multiple sclerosis and paraplegia with neurogenic bladder with successful SP tube change today. His urinary tract infection should continue to be treated for 7 days with antibiotics to prevent relapse. He will be chronically colonized, but given his symptoms, I do think treatment is appropriate. In addition, his penile cancer is being handled by another doctor on the outpatient setting. There is nothing further I need to do, although if this progresses or does not respond to topical treatment, partial penectomy or surgical resection may be necessary. I have told the patient he can continue to follow up with me here, but should continue to definitively follow up with his other doctor who is managing his penile cancer. Job ID: [id number]
--- NOTE | 2019-03-24 19:58 | DIS ---
DATE OF ADMISSION: 03/16/2019 DATE OF DISCHARGE: 03/21/2019 RESIDENT: Klarissa Chen MD ADMITTING ATTENDING: Jacqueline Mendoza MD. DISCHARGE ATTENDING: SUDHAKAR HITCHCOCK MD CONSULTS: Urology, Dr. Kuhn. PROCEDURE: Suprapubic catheter replacement on 03/21/2019. DISCHARGE MEDICATIONS: 1. Metformin 500 mg oral every morning. 2. Cipro 250 mg oral b.i.d. 3. Flomax 0.4 mg oral daily. 4. Magnesium oxide 500 mg oral daily. 5. Baclofen 20 mg oral 3 times daily. 6. Meclizine 25 mg oral every 8 hours as needed. 7. Levemir 15 units subcutaneous daily. 8. Terbinafine 250 mg oral daily. 9. Losartan 100 mg oral daily. 10. Imiquimod one application topical daily. DISCONTINUED MEDICATIONS: Valsartan. PRIMARY DIAGNOSES: Sepsis secondary to urinary tract infection. SECONDARY DIAGNOSES: Multiple sclerosis, diabetes type 2, penile cancer. HISTORY OF PRESENT ILLNESS/HOSPITAL COURSE: This is a 63-year-old male with past medical history significant for multiple UTIs with suprapubic catheter in place, multiple sclerosis, and penile cancer, who presented to the emergency department due to a chief complaint of weakness. The patient stated that he had had general feelings of malaise and weakness as well as dizziness for a couple of weeks. His symptoms worsened, which is what brought him to the ER. The patient stated that he was so fatigued that he was unable to transfer out of a family member's vehicle when he is normally able to do this. The patient denied any fevers, chills, or night sweats or back pain. He denied any nausea, vomiting, headaches, or vision changes. The patient stated that he was previously living in a shelter and had been staying with a family member for a couple weeks. He stated that he had not been taking care of himself very well and had not had a bath within a week. The patient's vital signs were normal upon arrival at the ER. The patient has a history of drug resistance and colonization of multiple bacteria. He was taught that the suprapubic catheter could be a source of infection. The patient initially had a white blood cell count of 15.1. His UA was positive for wbc's, bacteria, and leukocytes. The patient was admitted to the medical floor to treat his UTI. The patient was started on meropenem and linezolid due to his previous medication failures and allergy list. Case Management was consulted to aid in placement for this patient. The patient's urine culture came back positive for Pseudomonas aeruginosa and MRSA. The patient was given meropenem for 4 days and switched over to ciprofloxacin. Case management was able to place the patient in a [facility]. Dr. Kuhn was consulted with Urology in order to change out the patient's suprapubic catheter. The patient has this changed out monthly and was due to have it changed out. Per Dr. Kuhn's recommendation, the patient is to continue on antibiotics for 7 days after discharge to prevent relapse. The patient's chronic conditions remain stable throughout his stay. The patient's penile cancer is being handled by a waste paper hammermill operator and he is being seen outpatient for this. DISPOSITION: Stable. DISCHARGE INSTRUCTIONS: 1. Location: [facility]. 2. Diet: Heart healthy and diabetic. 3. Activity: Ad song with fall precautions and the patient uses power wheelchair. 4. Follow up with PCP within 1-2 weeks. Follow up with Dr. Kuhn within a month. Job ID: [id number] MTDD
== END 2019-03-21 16:54 | DRG 698 ==
LOC: ERS 10:17 → T4-A 14:03
PROVIDERS: ADMIT Family Medicine; ATTEND Family Medicine
PROC: 0T2BX0Z Change Drainage Device in Bladder, External Approach (ICD-10-PCS; principal; 2019-03-21)
DX: T83.518A Infection and inflammatory reaction due to other urinary catheter, initial encounter (principal); A41.52 Sepsis due to Pseudomonas; N30.00 Acute cystitis without hematuria; Z66 Do not resuscitate; E11.9 Type 2 diabetes mellitus without complications; E78.5 Hyperlipidemia, unspecified; E78.00 Pure hypercholesterolemia, unspecified; I10 Essential (primary) hypertension; G35 Multiple sclerosis; N40.0 Benign prostatic hyperplasia without lower urinary tract symptoms; C60.9 Malignant neoplasm of penis, unspecified; N31.9 Neuromuscular dysfunction of bladder, unspecified; B96.5 Pseudomonas (aeruginosa) (mallei) (pseudomallei) as the cause of diseases classified elsewhere; B95.62 Methicillin resistant Staphylococcus aureus infection as the cause of diseases classified elsewhere; Y84.8 Other medical procedures as the cause of abnormal reaction of the patient, or of later complication, without mention of misadventure at the time of the procedure; Z90.49 Acquired absence of other specified parts of digestive tract; Z87.891 Personal history of nicotine dependence; Z88.1 Allergy status to other antibiotic agents; Z88.5 Allergy status to narcotic agent; Z79.899 Other long term (current) drug therapy; Z79.4 Long term (current) use of insulin; Z59.1 Inadequate housing
CPT/HCPCS: 36415; 36416; 70450; 80048; 80053; 81003; 81015; 83036; 84145; 85025; 87040; 87077; 87086; 87186; 93005; 96365; J0696; J1650; J1815; J2020; J2185; J8597

== ENCOUNTER 2019-06-17 10:09 | Emergency (ER) | payer MEDICARE, BC, MEDICAID ==
[2019-06-17 11:08] LABS: #Eosinphils 0.1 thou/uL (0.0-0.7); #Lymphocytes 1.4 thou/uL (1.20-3.40); #Monocytes 0.4 thou/uL (0.11-0.59); #Neutrophils 5.6 thou/uL (1.40-6.50); %Basophils 0.5 % (0.0-1.0); %Eosinophils 1.3 % (0.0-10.0); %Lymphocytes 18.8 % (21.0-51.0); %Monocytes 4.9 % (0.0-10.0); %Neutrophils 74.5 % (42.0-75.0); Hemoglobin 15.6 g/dL (14.0-18.0); Mean Corpuscular HGB CONC 34.4 g/dL (32.0-36.0); Mean Corpuscular Hemoglobin 30.1 pg (27.0-31.0); Mean Corpuscular Volume 87.6 fL (78.0-98.0); Mean Platelet Volume 7.8 fL (7.4-10.4); Platelet Count 239 thou/uL (130-400); RBC Distribution Width 12.7 % (11.5-14.5); Red Blood Cell (RBC) Count 5.17 mill/uL (4.70-6.10); White Blood Cell (WBC) Count 7.5 thou/uL (4.8-10.8)
[2019-06-17 11:24] LABS: ALT (SGPT) 30 U/L (8-55); AST (SGOT) 15 U/L (5-34); Albumin 4.2 g/dL (3.4-4.8); Alkaline Phosphatase 103 U/L (40-110); Anion Gap 10 mmol/L (10-20); BUN (Urea Nitrogen) 16 mg/dL (8.4-25.7); Bilirubin, Total 0.4 mg/dL (0.2-1.2); Calc. Creatinine Clearance 0 mL/min (70-130); Calcium 9.6 mg/dL (7.8-10.44); Carbon Dioxide 31 mmol/L (23-31); Chloride 104 mmol/L (98-107); Estimated GFR-MDRD 68; Globulin 3.3 g/dL (2.4-3.5); Glucose 165 mg/dL (80-115); Lipase 6 U/L (8-78); Protein, Total 7.5 g/dL (5.8-8.1); Sodium 141 mmol/L (136-145)
[2019-06-17 12:15] LABS: Bilirubin Negative (Negative); Blood, Urine Negative (Negative); Clarity Clear (Clear); Glucose, Urine (Dipstick) Normal (Negative); Leukocyte 500 Leu/uL (Negative); Nitrite 2+ (Negative); Protein, Urine (Dipstick) 20 mg/dL (Neg-Trace); Squamous Epithelial None Seen HPF (0-3); Urobilinogen Normal mg/dL (Less than 2); WBC/HPF Greater than 50 HPF (0-3); Yeast-Budding 1+ HPF (None Seen)
[2019-06-17 12:30] LABS: Bacteria/HPF 2+ HPF (None Seen); RBC/HPF 0-3 HPF (0-3)
--- NOTE | 2019-06-17 12:39 | CT ---
CT Abdomen Pelvis W Con History: Abdominal pain Comparison: CT abdomen and pelvis July 2018 Findings: Lung bases are clear. No pericardial effusion. Prior cholecystectomy. There is gas within the left biliary system likely sequelae of prior sphincter otomy. Liver and spleen are otherwise unremarkable. Normal small bowel rotation. Pancreas is unremarkable. Aortic contour is nonaneurysmal. Low-grade proximal small bowel mesentery root edema, unchanged, museum assistant krunal in nature. Normal location of the suprapubic catheter. No dilated loops of large or small bowel. The appendix is visualized and is normal. Celiac trunk and superior mesenteric arteries are patent. No acute osseous abnormality. The adrenal glands are normal. Impression: 1. No acute inflammatory process in the abdomen or pelvis. 2. Chronic low-grade proximal small bowel mesenteritis. 3. Gas within the left-sided intrahepatic biliary system likely sequelae of prior sphincterotomy. 4. Satisfactory location of the suprapubic catheter. No evidence for obstructive uropathy.
[2019-06-17] MEDS ORDERED: Diazepam 5 MG TAB ONE (13:57)
[2019-06-17] MEDS ORDERED: Phenazopyridine HCl 97.5 MG TABLET PO SCH (14:00)
[2019-06-17] MEDS ORDERED: Iopamidol-370 76% 500 ML 1 ML ONE (16:17)
== END 2019-06-17 15:35 ==
LOC: ERS 10:09
DX: N39.0 Urinary tract infection, site not specified (principal); E11.9 Type 2 diabetes mellitus without complications; E78.5 Hyperlipidemia, unspecified; E78.00 Pure hypercholesterolemia, unspecified; I10 Essential (primary) hypertension; Z87.891 Personal history of nicotine dependence; Z79.4 Long term (current) use of insulin; Z79.899 Other long term (current) drug therapy
CPT/HCPCS: 36415; 74177; 80053; 81003; 81015; 83690; 85025; 87077; 87086; 87186; Q9967

== ENCOUNTER 2019-07-27 15:03 | Inpatient (IN) | payer MEDICARE, BC, MEDICAID ==
[2019-07-27] MEDS ORDERED: Meclizine HCl 25 MG TAB ONE (15:47)
--- NOTE | 2019-07-27 15:59 | PDOC.FPRHP ---
- History of Present Illness Chief Complaint: Weakness, dizziness History of Present Illness: This is a 64 yo male with a pmh of DM2, HLD, MS who presents to the ER from [place] with cc of weakness and vertigo. He states that he normally transfers from his wheelchair to the toilet without any issue but this morning he was sitting on the toilet and had an episode of diarrhea. When he went to stand up, he felt that he could not. He states this is partly because of weakness but largely because of the room spinning. He reports these symptoms have happened before when he has flares of his MS. He states usually he is treated with steroids. He states that the weakness in his extremities today is near his baseline. This pt reports having chronic weakness present with his MS. Of note, he has a chronic suprapubic catheter 2/2 to his neurogenic bladder. He has chronic colonization present in his bladder. Last month his urine did grow multi drug resistant Pseudomonas and MRSA. He does not appear to be septic or actively fighting an infection. ED Course: NS 2L Rocephin 1g meclizine 25mg Phenergan 12.5 - Allergies/Adverse Reactions Allergies Allergy/AdvReac Type Severity Reaction Status Date / Time codeine Allergy Intermediate Rash Verified 03/16/19 17:24 adhesive Allergy Verified 03/16/19 17:24 vancomycin Allergy Verified 03/16/19 17:24 acetaminophen [From Tylenol] AdvReac Verified 03/16/19 17:24 - Home Medications Medication Instructions Recorded Confirmed Type Tamsulosin HCl [Flomax] 0.4 mg PO DAILY #30 cap 06/09/18 07/27/19 Rx Magnesium Oxide 500 mg PO DAILY 07/02/18 07/27/19 History Baclofen [Lioresal] 20 mg PO TID tab 08/01/18 07/27/19 Rx Insulin Detemir [Levemir] 15 unit SQ DAILY #1 11/08/18 07/27/19 Rx Meclizine HCl [Antivert] 25 mg PO Q8HR PRN #9 tab 11/08/18 07/27/19 Rx Losartan Potassium 100 mg PO DAILY 03/17/19 07/27/19 History metFORMIN [Glucophage] 500 mg PO QAM-WM #30 tab 03/19/19 07/27/19 Rx Amlodipine Besylate [amLODIPine 10 mg PO DAILY 07/27/19 07/27/19 History Besylate] Guaifenesin DM 100-10 [Robitussin 10 ml PO Q6HR PRN 07/27/19 07/27/19 History DM] Ibuprofen 400 mg PO Q6HR PRN 07/27/19 07/27/19 History Oxybutynin Chloride [Oxybutynin 15 mg PO DAILY 07/27/19 07/27/19 History Chloride ER] Polyethylene Glycol 3350 [Miralax] 1 pk PO BID 07/27/19 07/27/19 History - History PMHx: MS, DM2, HTN, BPH, recurrent UTIs, penile cancer PSHx: Suprapubic catheter, cholecystectomy FHx: Noncontributory Social: Denies JIMI - Review of Systems General: reports: fatigue. denies: fever/chills, weight/appetite/sleep changes Eyes: denies: eye pain, vision changes ENT: denies: nasal congestion, rhinorrhea Respiratory: denies: cough, congestion, shortness of breath Cardiovascular: denies: chest pain, palpitation, edema Gastrointestinal: reports: nausea, diarrhea, constipation, abdominal pain. denies: vomiting Genitourinary: reports: other (suprapubic tenderness). denies: dysuria Skin: reports: other (Penile cancer) Musculoskeletal: denies: pain, tenderness Neurological: reports: weakness (Both arms and legs, worse on the right. Can stand at baseline). denies: numbness, syncope, seizure Psychological: denies: anxiety, depression - Vital signs BP: 125/87 HR: 102 RR: 18 Tmax: 98.4 Pox: 94% on ra Wt: 81 - Physical Exam Constitutional: NAD, awake, alert and oriented, well developed HEENT: normocephalic and atraumatic, PERRLA, EOMI, grossly normal vision, grossly normal hearing, MMM Neck: FROM, trachea midline Heart: RRR, normal S1/S2, no murmurs/rubs/gallops Lungs: CTAB, no respiratory distress, good air movement, no wheezing Abdomen: soft, bowel sounds present, other (Tenderness to palpation in lower abdomen, no rebound or guarding) Musculoskeletal: other (Decreased muscle tone, RLE 2/5, RUE 3-4/5, LLE 2-3/5, LUE 4/5 Reports this is baseline) Neurological: CN II-XII intact, other (No nystagmus with exam) Skin: no jaundice, other (cap refill <3 seconds) Heme/Lymphatic: no unusual bruising or bleeding, no purpura Psychiatric: normal mood and affect, good judgment and insight FMR H&P: Results - Labs Lab results: WBC 10.0 Hgb 16.4 HCT: 52.4 Plt 326 Sodium 143 Potassium 4.3 Chloride 104 Bicarb 28 BUN 15 Cr 1.18 Glucose 172 UA dirty - Radiology Interpretation CT scan - head Status: report reviewed by me (Negative for acute intracranial processes) CT scan - abdomen Status: report reviewed by me (No intraabdominal or pelvic abnormalities) FMR H&P: A/P - Problem List (1) Constipation Current Visit: No Status: Acute Code(s): K59.00 - CONSTIPATION, UNSPECIFIED (2) Urinary retention Current Visit: No Status: Acute Code(s): R33.9 - RETENTION OF URINE, UNSPECIFIED (3) Diabetes mellitus Current Visit: No Status: Chronic Code(s): E11.9 - TYPE 2 DIABETES MELLITUS WITHOUT COMPLICATIONS Qualifiers: Diabetes mellitus type: type 2 (4) Multiple sclerosis Current Visit: No Status: Chronic Code(s): G35 - MULTIPLE SCLEROSIS - Plan MS flare -Dizziness and blurred vision likely associated with this -Starting Solumedrol 750mg IV daily, plan to transition to oral prednisone with possible taper -Consult Dr. Kinsey, neurologist in the AM -I do not believe this is a stroke. Pt has no new weakness and reports these present symptoms are likely exacerabtion of MS -Scopolamine patch and meclazine for vertigo -Alyssa maneuver attempted, however pt reports back pain and this was aborted Constipation -Miralax and senokot -Appears to have overflow diarrhea -Would consider emema Suprapublic catheter -Does not appear to have UTI at this time. If pt spikes fever, it would be prudent to obtain blood and urine cultures as well as start linezolid and meropenem based on previous urine cultures of Pseudomonas and MRSA IDDM2 -Continue home meds -Hypoglycemic protocol, SSI Penile cancer -Continue imiquimod Onychomycosis -Continue home terbinafine Code: DNAR, confirmed by me, pt decisional at the time. Prophylaxis: Lovenox Family: None at bedside Fluids: SL Diet: Regular Disposition: DC in 1-2 days PCP: Dr. Chen TAMP
[2019-07-27 16:51] LABS: Troponin I Less than 0.010 ng/mL (< 0.028)
[2019-07-27] MEDS ORDERED: Ondansetron ODT 4 MG TAB SL PRN (17:24)
[2019-07-27] MEDS ORDERED: Ondansetron PF 4 MG/2 ML Vial IVP PRN ×2 (17:24→18:17)
[2019-07-27 17:45] VITALS: BMI 33.3
[2019-07-27] MEDS ORDERED: Meclizine HCl 25 MG TAB PO PRN ×2 (18:17)
[2019-07-27] MEDS ORDERED: Dextrose 5% in Water 1,000 ML IV PRN (18:17)
[2019-07-27] MEDS ORDERED: Guaifenesin DM 100-10/5 ML UDCUP PO PRN (18:17)
[2019-07-27] MEDS ORDERED: Ondansetron ODT 4 MG TAB PO PRN (18:17)
[2019-07-27] MEDS ORDERED: Dextrose 50% Abboject 50 ML SYRINGE SLOW IVP PRN (18:17)
[2019-07-27] MEDS ORDERED: Scopolamine 1.5 mg/72 hour Patch TD SCH (18:30)
[2019-07-27 19:45] LABS: Troponin I Less than 0.010 ng/mL (< 0.028)
[2019-07-27] MEDS: Baclofen 10 MG TAB PO SCH (20:37)
[2019-07-27] MEDS: Senokot S 8.6-50 MG TAB PO SCH (20:38)
[2019-07-27] MEDS: Polyethylene Glycol 3350 17 GM Packet PO SCH (20:38)
[2019-07-27] MEDS ORDERED: SODIUM CHLORIDE 0.9% IVPB SCH (21:00)
[2019-07-27] MEDS ORDERED: METHYLPREDNISOLONE SOD SUCC IVPB SCH (21:00)
[2019-07-27] MEDS: HumaLOG 300 UNITS/3 ML VIAL SC PRN (22:14)
[2019-07-28 04:48] LABS: #Lymphocytes 0.8 thou/uL (1.20-3.40); #Monocytes 0.1 thou/uL (0.11-0.59); #Neutrophils 5.7 thou/uL (1.40-6.50); %Basophils 0.3 % (0.0-1.0); %Eosinophils 0.2 % (0.0-10.0); %Lymphocytes 11.5 % (21.0-51.0); %Monocytes 1.4 % (0.0-10.0); %Neutrophils 86.5 % (42.0-75.0); Hemoglobin 15.7 g/dL (14.0-18.0); Mean Corpuscular HGB CONC 33.6 g/dL (32.0-36.0); Mean Corpuscular Hemoglobin 29.6 pg (27.0-31.0); Mean Corpuscular Volume 88.1 fL (78.0-98.0); Mean Platelet Volume 7.8 fL (7.4-10.4); Platelet Count 285 thou/uL (130-400); RBC Distribution Width 12.2 % (11.5-14.5); Red Blood Cell (RBC) Count 5.28 mill/uL (4.70-6.10); White Blood Cell (WBC) Count 6.6 thou/uL (4.8-10.8)
[2019-07-28 05:09] LABS: ALT (SGPT) 28 U/L (8-55); AST (SGOT) 14 U/L (5-34); Albumin 4.1 g/dL (3.4-4.8); Alkaline Phosphatase 99 U/L (40-110); Anion Gap 12 mmol/L (10-20); BUN (Urea Nitrogen) 15 mg/dL (8.4-25.7); Bilirubin, Total 0.4 mg/dL (0.2-1.2); Calc. Creatinine Clearance 90 mL/min (70-130); Calcium 9.8 mg/dL (7.8-10.44); Carbon Dioxide 26 mmol/L (23-31); Chloride 105 mmol/L (98-107); Estimated GFR-MDRD 65; Globulin 3.2 g/dL (2.4-3.5); Glucose 220 mg/dL (80-115); Potassium 4.4 mmol/L (3.5-5.1); Protein, Total 7.3 g/dL (5.8-8.1); Sodium 139 mmol/L (136-145)
--- NOTE | 2019-07-28 05:57 | PDOC.FM ---
- Subjective Subjective: He has blurry vision that has been coming and going and it is a new symptom. He is wheelchair bound, but he was doing [facility] and able to get up. He has not been doing physical therapy recently. He says the dizziness is terrible. Weakness in legs has resolved - Objective MAR Reviewed: Yes Vital Signs & Weight: Vital Signs (12 hours) Temp Pulse Resp BP Pulse Ox 07/28/19 04:00 98.9 F 88 16 103/59 L 92 L 07/28/19 01:15 82 97/59 L 07/27/19 23:54 98.1 F 88 18 96/49 L 92 L 07/27/19 20:00 97.5 F L 95 15 109/64 93 L Weight Weight 96.332 kg I&O: 07/26/19 07/27/19 07/28/19 06:59 06:59 06:59 Intake Total 550 Output Total 700 Balance -150 Result Diagrams: 07/28/19 04:21 07/28/19 04:21 EKG Reviewed by me: Yes (Sinus tachycardic since 3:40 up to 120s) Phys Exam - Physical Examination Constitutional: NAD HEENT: moist MMs, oral pharynx no lesions Neck: no nodes, supple Respiratory: no wheezing, no rales, no rhonchi, clear to auscultation bilateral Cardiovascular: RRR, no significant murmur Gastrointestinal: soft, non-tender, positive bowel sounds Musculoskeletal: no edema, pulses present Neurological: normal sensation Lymphatic: no nodes Psychiatric: normal affect Skin: no rash, normal turgor Dx/Plan (1) Multiple sclerosis Code(s): G35 - MULTIPLE SCLEROSIS Status: Chronic (2) Constipation Code(s): K59.00 - CONSTIPATION, UNSPECIFIED Status: Acute (3) Diabetes mellitus Code(s): E11.9 - TYPE 2 DIABETES MELLITUS WITHOUT COMPLICATIONS Status: Chronic Qualifiers: Diabetes mellitus type: type 2 (4) Onychomycosis Code(s): B35.1 - TINEA UNGUIUM Status: Acute (5) Hx: UTI (urinary tract infection) Code(s): Z87.440 - PERSONAL HISTORY OF URINARY (TRACT) INFECTIONS Status: Acute (6) Penile cancer Status: Acute - Plan Plan: This is a 64 yo male with a pmh of DM2, HLD, MS who presents to the ER from [place] with cc of weakness and vertigo. 1. MS flare Dizziness and blurred vision likely associated with this * Starting Solumedrol 750mg IV daily, plan to transition to oral prednisone with possible taper * Consulted Neurology, Dr. Kinsey, appreciate recs. * Unlikely a stroke. Pt has no new weakness and reports these present symptoms are likely exacerabtion of MS. * Scopolamine patch and meclazine for vertigo * Alyssa maneuver attempted, however pt reports back pain and this was aborted 2. Constipation Appears to have overflow diarrhea * Miralax and senokot scheduled * Will consider enema today 3. Suprapublic catheter Does not appear to have UTI at this time. * Hx of Pseudomonas & MRSA UTI: If fevers, obtain blood and urine cultures as well as start linezolid and meropenem 4. IDDM2 * Continue home meds * Hypoglycemic protocol, SSI 5. Penile cancer * Continue imiquimod 6. Onychomycosis * Continue home terbinafine Code Status: DNAR DVT PPx: Lovenox Lines: SL Diet: Regular PCP: Dr. Chen, [facility] Disposition: Stroke Obs, will get Neurology recommendations and work with PT/ OT. LOS < 48H.
--- NOTE | 2019-07-28 06:45 | HP ---
Please see note from Dr. Cardona for which I agree. The patient was seen evaluated and discussed and examined with the resident by bedside. HISTORY OF PRESENT ILLNESS: This is a 64-year-old [facility] patient with multiple sclerosis who states about 3 to 4 times a year, has episodes of vertigo, but usually not this severe. Hit this morning, pretty severely after he had some diarrhea, could not seem to get off the toilet, and he felt extremely weak and then truly a room spinning type vertigo. Went to the emergency room in [place] and then eventually he was transferred over here. He has chronic indwelling Del Real, and so they were worried about the possibility of UTI, but he did not have fever or anything like that, just extreme vertigo, nausea, and did not actually vomit. No fever. He states basically this is not that unusual for him when he is having an MS flare-up. Does not sound like he is on chronic MS drugs that he knew of. He is diabetic. Last A1c was not bad. Sugar this morning is 172, so nothing bad as far as that goes either. PAST MEDICAL HISTORY: All per Dr. Cardona's history and physical. FAMILY HISTORY: All per Dr. Cardona's history and physical. PAST SURGICAL HISTORY: All per Dr. Cardona's history and physical. MEDICATIONS: All per Dr. Cardona's history and physical. REVIEW OF SYSTEMS: All per Dr. Cardona's history and physical. ALLERGIES: ALL PER DR. CARDONA'S HISTORY AND PHYSICAL. PHYSICAL EXAMINATION: VITAL SIGNS: Stable. No apparent distress, maybe mildly depressed affect. HEENT: ENT is within normal limits, but does seem to have a little bit of lateral nystagmus. NECK: No bruits. CHEST: Clear. HEART: Regular rate and rhythm. NEUROLOGIC: Rest of neuro exam, significant for some weakness in the extremities, and he does have 1+ pitting edema in bilateral lower extremities. IMAGING STUDIES: CT of the abdomen is benign. CT of the head was normal. X-ray looks fine otherwise. LABORATORY DATA: Labs again fairly normal. Sugar was a little bit high. Urinalysis was dirty, but again this is a chronic Del Real situation. White count was fine at 10. ASSESSMENT AND PLAN: Severe vertigo. Plan is to observe him overnight, this may be a multiple sclerosis flare-up, so steroids were given, and we will get Neurology involved, and we will continue as needed vertigo medicine. Otherwise, we will resume his home medicines. He got antibiotics in the ER, but I do not see any reason why we would be worried about that at this point, as I just think it is a chronic indwelling Del Real issue. We will watch him and see if the diarrhea worsens as well. May need to get a C diff if it does. Job ID: [id number]
[2019-07-28] MEDS: HumaLOG 300 UNITS/3 ML VIAL SC PRN ×4 (07:29→22:35)
[2019-07-28] MEDS ORDERED: Polyethylene Glycol 3350 17 GM Packet PO SCH (09:00)
[2019-07-28] MEDS ORDERED: Non-Formulary Item 1 EACH (Insulin Detemir [Levemir] 15 UNIT) SQ SCH (09:00)
[2019-07-28] MEDS ORDERED: Milk Of Magnesia 30 ML UDCUP PO PRN (09:08)
[2019-07-28] MEDS: metFORMIN 500 MG TAB PO SCH (09:57)
[2019-07-28] MEDS: Oxybutynin ER 5 MG TAB PO SCH (09:59)
[2019-07-28] MEDS: Magnesium Oxide 400 MG TAB PO SCH (10:00)
[2019-07-28] MEDS: Senokot S 8.6-50 MG TAB PO SCH ×2 (10:03→21:05)
[2019-07-28] MEDS: Losartan 25 MG TAB PO SCH (10:03)
[2019-07-28] MEDS: Baclofen 10 MG TAB PO SCH ×3 (10:03→21:05)
[2019-07-28] MEDS: Tamsulosin HCl 0.4 MG CAP PO SCH (10:03)
[2019-07-28] MEDS: Insulin Glargine 15 UNITS in Pre-Filled Syringe 1 EACH SC SCH (10:04)
[2019-07-28] MEDS: Polyethylene Glycol 3350 17 GM Packet PO SCH ×2 (10:04→21:06)
[2019-07-28] MEDS: Enoxaparin Sodium 40 MG/0.4 ML SYRINGE SC SCH (10:05)
[2019-07-28] MEDS: Amlodipine 10 MG TAB PO SCH (10:05)
--- NOTE | 2019-07-28 11:58 | PRG ---
DATE OF SERVICE: 07/28/2019 SUBJECTIVE: Mr. Hill has approximately 10-year history of multiple sclerosis. He often manifests exacerbations by profound vertigo with which he was admitted during this hospitalization. He is currently on high-dose steroids and does still has some vertigo, overall feels improved. We are also awaiting input from Dr. Kinsey, who his usual neurologist. LABORATORY DATA: His white count is normal at 6600. His hemoglobin was 15.7 with hematocrit of 46.5. Chemistries, normal. Sodium 139, potassium 4.4, chloride 105, bicarb 26, BUN 15, creatinine 1.14. Does have elevated blood glucose in the 200s. This is consistent with his type 2 diabetes as well as the fact that he is receiving high-dose steroids. Job ID: [id number]
[2019-07-28] MEDS ORDERED: Promethazine HCl 25 MG/ML VIAL IM/IV PRN (13:02)
[2019-07-28 14:05] LABS: Free T4 (Free Thyroxine) 0.91 ng/dL (0.70-1.48)
[2019-07-28] MEDS ORDERED: Magnevist 469MG/ML 20 ML VIAL ONE (14:27)
[2019-07-28] MEDS: Meclizine HCl 25 MG TAB PO SCH ×2 (14:36→21:05)
[2019-07-28] MEDS ORDERED: Promethazine HCl 25 MG in Sodium Chloride 0.9% 50 ML IVPB PRN (14:45)
[2019-07-28] MEDS ORDERED: methylPREDNISolone Sod Succ/PF 125 MG/2 ML VIAL IVP SCH (16:34)
[2019-07-28] MEDS: Ibuprofen 200 MG TAB PO PRN (18:18)
[2019-07-28] MEDS ORDERED: methylPREDNISolone Sod Succ 1,000 MG in Sodium Chloride 0.9% 250 ML 250 ML IVPB SCH (21:00)
[2019-07-29] MEDS: Meclizine HCl 25 MG TAB PO SCH ×3 (05:47→21:13)
--- NOTE | 2019-07-29 05:52 | PDOC.FM ---
- Subjective Subjective: He said his only episode of dizziness he had yesterday was when he was sat on the side of the bed with physical therapy. - Objective MAR Reviewed: Yes Vital Signs & Weight: Vital Signs (12 hours) Temp Pulse Resp BP Pulse Ox 07/29/19 04:00 98.1 F 106 H 18 113/73 91 L 07/29/19 00:00 97.7 F 81 18 108/55 L 95 07/28/19 19:03 98.4 F 103 H 20 98/80 93 L Weight Weight 96.332 kg I&O: 07/27/19 07/28/19 07/29/19 06:59 06:59 06:59 Intake Total 1050 910 Output Total 1350 1200 Balance -300 -290 Result Diagrams: 07/28/19 04:21 07/28/19 04:21 EKG Reviewed by me: Yes (Sinus rhythm, Sinus tachycardia 70-150s) Phys Exam - Physical Examination Constitutional: NAD HEENT: moist MMs, oral pharynx no lesions Neck: supple, full ROM Respiratory: no wheezing, no rales, no rhonchi, clear to auscultation bilateral Cardiovascular: RRR, no significant murmur Gastrointestinal: soft, non-tender, positive bowel sounds Musculoskeletal: no edema, pulses present Neurological: moves all 4 limbs Psychiatric: normal affect Skin: no rash, normal turgor Dx/Plan (1) Multiple sclerosis Code(s): G35 - MULTIPLE SCLEROSIS Status: Chronic (2) Constipation Code(s): K59.00 - CONSTIPATION, UNSPECIFIED Status: Acute (3) Diabetes mellitus Code(s): E11.9 - TYPE 2 DIABETES MELLITUS WITHOUT COMPLICATIONS Status: Chronic Qualifiers: Diabetes mellitus type: type 2 (4) Onychomycosis Code(s): B35.1 - TINEA UNGUIUM Status: Acute (5) Hx: UTI (urinary tract infection) Code(s): Z87.440 - PERSONAL HISTORY OF URINARY (TRACT) INFECTIONS Status: Acute (6) Penile cancer Status: Acute - Plan Plan: This is a 64 yo male with a pmh of DM2, HLD, MS who presents to the ER from [place] with cc of weakness and vertigo. 1. MS flare Dizziness and blurred vision likely associated with this * s/p Solumedrol 750mg IV x2 doses, transition to oral prednisone with possible taper * Consulted Neurology, Dr. Kinsey, appreciate recs. * Unlikely a stroke. Pt has no new weakness and reports these present symptoms are likely exacerabtion of MS. * Scopolamine patch and meclazine for vertigo * Alyssa maneuver attempted, however pt reports back pain and this was aborted * MRI pending 2. Constipation Appears to have overflow diarrhea * Miralax and senokot scheduled * Given Milk of Magnesia * Will give 1 dose of Lactulose 3. Suprapublic catheter Does not appear to have UTI at this time. * Hx of Pseudomonas & MRSA UTI: If fevers, obtain blood and urine cultures as well as start linezolid and meropenem 4. IDDM2 * Continue home meds * Hypoglycemic protocol, SSI 5. Penile cancer * Continue imiquimod 6. Onychomycosis * Continue home terbinafine Code Status: DNAR DVT PPx: Lovenox Lines: SL Diet: Regular PCP: UYEN Sosa Disposition: Stroke inpt, waiting Neurology recommendations, brain MRI. Ordered Post Acute Placement screen yesterday and PT recommends rehab. Pt is wanting to go to rehab. Will work on placement today. LOS < 48H.
[2019-07-29] MEDS: HumaLOG 300 UNITS/3 ML VIAL SC PRN ×3 (06:25→23:09)
[2019-07-29] MEDS ORDERED: Sodium Chloride 0.9% 1,000 ML IV SCH ×2 (09:00→13:00)
--- NOTE | 2019-07-29 09:24 | MRI ---
BRAIN MRI WITH AND WITHOUT CONTRAST: COMPARISON: 11/06/2017. HISTORY: Multiple sclerosis. FINDINGS: Calvarium has a normal T1 marrow signal intensity. Midline brain parenchymal structures are unremark able. No hemorrhage on the axial gradient echo sequence. No parenchymal mass, mass effect, or midline shif t. Brain volume is age appropriate. Cortical rachel-white matter differentiation is preserved. No hy drocephalus. Central arterial flow voids are maintained. Absent restricted diffusion. T2 and FLAIR white matter hyperintensities, essentially unchanged in appearance. There are no new or significant white matter hyperintensities that are appreciated. There is stable T2 hyperintensities along the right brachium pontus. Postcontrast images do not demonstrate any abnormal enhancement of the brain parenchyma. Adequate ae ration of the sinuses and mastoid air cells. IMPRESSION: 1. Absent restricted diffusion. No infarct. 2. No pathologic enhancement of the brain parenchyma. 3. Essentially stable white matter hyperintensities in the axial T2 and FLAIR sequence. Absence of restricted diffusion and enhancement does not suggest any active demyelinating plaques. POS: [facility]
[2019-07-29] MEDS: Enoxaparin Sodium 40 MG/0.4 ML SYRINGE SC SCH (10:35)
[2019-07-29] MEDS: Baclofen 10 MG TAB PO SCH ×3 (10:35→21:16)
[2019-07-29] MEDS: Polyethylene Glycol 3350 17 GM Packet PO SCH ×2 (10:35→21:14)
[2019-07-29] MEDS: metFORMIN 500 MG TAB PO SCH (10:36)
[2019-07-29] MEDS: Magnesium Oxide 400 MG TAB PO SCH (10:36)
[2019-07-29] MEDS: Losartan 25 MG TAB PO SCH (10:37)
[2019-07-29] MEDS: Tamsulosin HCl 0.4 MG CAP PO SCH (10:37)
[2019-07-29] MEDS: Amlodipine 10 MG TAB PO SCH (10:37)
[2019-07-29] MEDS: Insulin Glargine 15 UNITS in Pre-Filled Syringe 1 EACH SC SCH (10:38)
[2019-07-29] MEDS: Oxybutynin ER 5 MG TAB PO SCH (10:38)
[2019-07-29] MEDS: Senokot S 8.6-50 MG TAB PO SCH ×2 (10:38→21:13)
[2019-07-29] MEDS: Ibuprofen 200 MG TAB PO PRN ×2 (10:58→19:06)
--- NOTE | 2019-07-29 12:52 | PRG ---
DATE OF SERVICE: 07/29/2019 ADDENDUM: This is an addendum to the note of Dr. Deandre Higuera. Mr. Hill is feeling better. He still has some slight "dizziness." Dr. Kinsey has suggested we continue the intravenous Solu-Medrol and increase the dose to a gram daily. We appreciate his input. We will continue to follow with Neurology. Job ID: [id number]
[2019-07-29 16:17] LABS: Bilirubin Negative (Negative); Blood, Urine Negative (Negative); Clarity Clear (Clear); Glucose, Urine (Dipstick) Greater than 1000 mg/dL (Negative); Leukocyte 250 Leu/uL (Negative); Nitrite Negative (Negative); Protein, Urine (Dipstick) Negative (Neg-Trace); Squamous Epithelial 0-3 HPF (0-3); Urobilinogen Normal mg/dL (Less than 2)
[2019-07-29] MEDS ORDERED: Insulin Glargine 18 UNITS in Pre-Filled Syringe 1 EACH SC SCH (16:22)
[2019-07-29 16:34] LABS: Creatinine, Urine 30.93 mg/dL (63-166)
[2019-07-29 16:38] LABS: Bacteria/HPF 1+ HPF (None Seen); Yeast-Budding 1+ HPF (None Seen)
[2019-07-29 16:40] LABS: Urine Culture Reflex Yes Yes
[2019-07-29] MEDS: MEROPENEM 1 GM/50 ML 1 GM in Premix Bag 1 BAG IVPB SCH (21:14)
[2019-07-29] MEDS ORDERED: Meropenem 1 GM in Sodium Chloride 0.9% 100 ML IVPB SCH (22:00)
--- NOTE | 2019-07-29 23:17 | CON ---
DATE OF CONSULTATION: 07/29/2019 Mr. Hill has a known diagnosis of multiple sclerosis. He lives in a mcc in [place]. He developed acute severe vertigo in association with weakness that made it difficult for him to transfer. He was seen in the ER and transferred here. His MRI of the brain did not show any acute inflammation or ischemic changes. His intensity of the vertigo has diminished. He has received 2 g of Solu-Medrol since admission. He reports he is nearly back to his baseline. He feels like he is probably well enough to return to the [facility]. We will have an outpatient followup to institute further disease modifying therapy for his multiple sclerosis. Job ID: [id number]
[2019-07-30] MEDS: MEROPENEM 1 GM/50 ML 1 GM in Premix Bag 1 BAG IVPB SCH (04:57)
[2019-07-30] MEDS: Meclizine HCl 25 MG TAB PO SCH ×2 (05:34→14:23)
--- NOTE | 2019-07-30 06:02 | PDOC.FM ---
- Subjective Subjective: He is feeling well today. He does not have any dizziness and said he didn't have it yesterday during physical therapy, but more just lightheadedness. He says he has not had any bowel movement for the past couple of days. - Objective MAR Reviewed: Yes Vital Signs & Weight: Vital Signs (12 hours) Temp Pulse Resp BP Pulse Ox 07/30/19 03:10 98.4 F 91 18 135/80 92 L 07/29/19 22:59 98.1 F 94 18 104/74 94 L 07/29/19 20:00 93 L 07/29/19 19:18 97.8 F 102 H 17 120/65 93 L Weight Weight 96.332 kg I&O: 07/28/19 07/29/19 07/30/19 06:59 06:59 06:59 Intake Total 3655 794 0949 Output Total 1350 2750 1975 Balance -300 -1840 25 Result Diagrams: 07/30/19 06:39 07/30/19 06:39 EKG Reviewed by me: Yes (sinus rhythm 90-100s) Phys Exam - Physical Examination Constitutional: NAD HEENT: moist MMs, oral pharynx no lesions Neck: no nodes, supple Respiratory: no wheezing, no rales, no rhonchi, clear to auscultation bilateral Cardiovascular: RRR, no significant murmur Gastrointestinal: soft, non-tender, positive bowel sounds Musculoskeletal: no edema, pulses present Neurological: moves all 4 limbs Lymphatic: no nodes Psychiatric: normal affect Skin: no rash, normal turgor Dx/Plan (1) Multiple sclerosis Code(s): G35 - MULTIPLE SCLEROSIS Status: Chronic (2) Constipation Code(s): K59.00 - CONSTIPATION, UNSPECIFIED Status: Acute (3) Diabetes mellitus Code(s): E11.9 - TYPE 2 DIABETES MELLITUS WITHOUT COMPLICATIONS Status: Chronic Qualifiers: Diabetes mellitus type: type 2 (4) Onychomycosis Code(s): B35.1 - TINEA UNGUIUM Status: Acute (5) Hx: UTI (urinary tract infection) Code(s): Z87.440 - PERSONAL HISTORY OF URINARY (TRACT) INFECTIONS Status: Acute (6) Penile cancer Status: Acute - Plan Plan: This is a 64 yo male with a pmh of DM2, HLD, MS who presents to the ER from [place] with cc of weakness and vertigo. 1. MS flare Dizziness and blurred vision likely associated with this * s/p Solumedrol 750mg IV x2 doses, transition to oral prednisone with possible taper * Consulted Neurology, Dr. Kinsey, appreciate recs. * Unlikely a stroke. Pt has no new weakness and reports these present symptoms are likely exacerabtion of MS. * Scopolamine patch and meclazine for vertigo * Alyssa maneuver attempted, however pt reports back pain and this was aborted * MRI pending 2. Constipation Appears to have overflow diarrhea * Miralax and senokot scheduled * Given Milk of Magnesia * Will give 1 dose of Lactulose 3. Suprapublic catheter * Hx of Pseudomonas & MRSA UTI: If fevers, obtain blood and urine cultures as well as start linezolid and meropenem * UA was dirty * UCx obtained from [place] shows Pseudomonas & MRSA * He is chronically colonized and there are no signs of infection currently, so we will hold off on antibiotics for now. 4. IDDM2 * Continue home meds * Hypoglycemic protocol, SSI 5. Penile cancer * Continue imiquimod 6. Onychomycosis * Continue home terbinafine Code Status: DNAR DVT PPx: Lovenox Lines: SL Diet: Regular PCP: UYEN Sosa Disposition: Stroke inpt, will d/c today. f/u outpatient with neurology. LOS < 48H.
[2019-07-30 06:48] LABS: #Lymphocytes 1.5 thou/uL (1.20-3.40); #Monocytes 0.6 thou/uL (0.11-0.59); #Neutrophils 11.1 thou/uL (1.40-6.50); %Basophils 0.2 % (0.0-1.0); %Eosinophils 0.2 % (0.0-10.0); %Lymphocytes 11.4 % (21.0-51.0); %Monocytes 4.7 % (0.0-10.0); %Neutrophils 83.6 % (42.0-75.0); Hemoglobin 14.6 g/dL (14.0-18.0); Mean Corpuscular HGB CONC 33.1 g/dL (32.0-36.0); Mean Corpuscular Volume 87.5 fL (78.0-98.0); Mean Platelet Volume 7.5 fL (7.4-10.4); Platelet Count 269 thou/uL (130-400); RBC Distribution Width 12.2 % (11.5-14.5); Red Blood Cell (RBC) Count 5.03 mill/uL (4.70-6.10); White Blood Cell (WBC) Count 13.3 thou/uL (4.8-10.8)
[2019-07-30 07:14] LABS: ALT (SGPT) 28 U/L (8-55); AST (SGOT) 19 U/L (5-34); Albumin 3.5 g/dL (3.4-4.8); Alkaline Phosphatase 79 U/L (40-110); Anion Gap 12 mmol/L (10-20); BUN (Urea Nitrogen) 18 mg/dL (8.4-25.7); Bilirubin, Total 0.4 mg/dL (0.2-1.2); Calc. Creatinine Clearance 98 mL/min (70-130); Calcium 9.1 mg/dL (7.8-10.44); Carbon Dioxide 26 mmol/L (23-31); Chloride 106 mmol/L (98-107); Estimated GFR-MDRD 71; Globulin 2.8 g/dL (2.4-3.5); Glucose 129 mg/dL (80-115); Potassium 3.6 mmol/L (3.5-5.1); Protein, Total 6.3 g/dL (5.8-8.1); Sodium 140 mmol/L (136-145)
[2019-07-30] MEDS: Polyethylene Glycol 3350 17 GM Packet PO SCH (08:59)
[2019-07-30] MEDS: Enoxaparin Sodium 40 MG/0.4 ML SYRINGE SC SCH (09:00)
[2019-07-30] MEDS: Senokot S 8.6-50 MG TAB PO SCH (09:01)
[2019-07-30] MEDS: Losartan 25 MG TAB PO SCH (09:01)
[2019-07-30] MEDS: Tamsulosin HCl 0.4 MG CAP PO SCH (09:02)
[2019-07-30] MEDS: Oxybutynin ER 5 MG TAB PO SCH (09:02)
[2019-07-30] MEDS: Magnesium Oxide 400 MG TAB PO SCH (09:03)
[2019-07-30] MEDS: Amlodipine 10 MG TAB PO SCH (09:03)
[2019-07-30] MEDS: metFORMIN 500 MG TAB PO SCH (09:03)
[2019-07-30] MEDS: Baclofen 10 MG TAB PO SCH ×2 (09:04→14:23)
--- NOTE | 2019-07-30 11:29 | PRG ---
DATE OF SERVICE: 07/30/2019 ADDENDUM: Mr. Hill is in good spirits this morning. He is getting physical therapy and ambulating with a walker. He will be discharged later today. Job ID: [id number]
[2019-07-30 11:34] VITALS: BP 142/74; TEMP 99
[2019-07-30] MEDS: HumaLOG 300 UNITS/3 ML VIAL SC PRN (11:50)
--- NOTE | 2019-07-31 13:30 | DIS ---
DATE OF ADMISSION: 07/28/2019 DATE OF DISCHARGE: 07/30/2019 RESIDENT: Deandre Higuera MD ADMITTING ATTENDING: Andre Cat MD DISCHARGE ATTENDING: Guerrero Whitfield MD. CONSULTATIONS: Neurology, Dr. Kinsey. MRI did not show any acute inflammation or ischemic changes. The patient's vertigo has diminished. He received 2 g of Solu-Medrol since admission. He reports he is back to baseline. We will follow up with him outpatient for further disease modifying for multiple sclerosis. PROCEDURES: Brain MRI on 07/28, absent restricted diffusion. No infarct. No pathologic enhancement of brain parenchyma. Essentially stable white matter hyperintensities in the axial T2 and FLAIR sequence. Evidence of restricted diffusion and enhancement, does not suggest any active demyelinating plaque. PRIMARY DIAGNOSIS: Multiple sclerosis flare. SECONDARY DIAGNOSES: 1. Constipation. 2. Suprapubic catheter. 3. Diabetes type 2. 4. Penile cancer. 5. Onychomycosis. DISCHARGE MEDICATIONS: None. HOME MEDICATIONS: 1. Amlodipine 10 mg p.o. daily. 2. Magnesium oxide 500 mg p.o. daily. 3. Ibuprofen 400 mg p.o. p.r.n. 4. Robitussin 10 mL p.o. p.r.n. 5. MiraLAX 1 packet p.o. b.i.d. 6. Oxybutynin 15 mg p.o. daily. Tamsulosin 0.4 mg p.o. daily. 1. Meclizine 25 mg p.o. p.r.n. 2. Losartan 100 mg p.o. 3. Insulin detemir 15 units daily. 4. Baclofen 20 mg p.o. t.i.d. 5. Metformin 500 mg p.o. q.a.m. 6. Scopolamine 1.5 mg transdermal q.3 days. DISCONTINUED MEDICATIONS: 1. Glucagon dextrose 5%. 2. Humalog sliding scale. Senokot. 3. Solu-Medrol. HISTORY OF PRESENT ILLNESS: The patient is a 64-year-old male with past medical history of diabetes type 2, hyperlipidemia, MS who presents to the ER from [place] with chief complaint of weakness and vertigo. He states that he normally transfers from his wheelchair to the toilet without any issue, but this morning he was sitting on the toilet and had an episode of diarrhea. When he liked to stand and he felt that he could not. He states this is partly, because of his weakness, but largely because of the room spinning. He reports these symptoms have happened before when he had flares of MS. He states usually he is treated with steroids. He states that the weakness is in his extremities, stays near his baseline. The patient reports having chronic weakness present with his MS. Of note, he has a chronic suprapubic catheter secondary to neurogenic bladder. He had chronic colonization present in his bladder last month. His urine did grow multiple drug-resistant Pseudomonas MRSA. He does not appear to be septic or actively fighting infection. In the ED, he was given 2 L of normal saline, Rocephin, meclizine, and Phenergan. ASSESSMENT: 1. Multiple sclerosis exacerbation. 2. Dizziness and blurred vision, received 2 g of prednisone. 3. Neurology recs as noted above, unlikely stroke. The patient has no new weakness and reports present symptoms are likely exacerbations. Scopolamine and meclizine for vertigo. Alyssa maneuver attempted, but was unable to be completed due to patient's inability to tolerate procedure due to back pain. MRI as noted above. 4. Constipation. Appears to have overflow diarrhea, had scheduled MiraLAX, Senokot and milk of Mag. He was also given a dose of lactulose during his hospital stay, suprapubic catheter, history of Pseudomonas and methicillin-resistant Staphylococcus aureus, urinary tract infection. Urinalysis was dirty. Culture was obtained from [place] showed Pseudomonas and methicillin-resistant Staphylococcus aureus. The patient exhibited no signs of infection, so the patient was not treated. 5. Diabetes type 2. Continue home medications. 6. Penile cancer. Continue . 7. Onychomycosis. Continue terbinafine. DISPOSITION: Stable. DISCHARGE INSTRUCTIONS: 1. Location: Rehab at [facility]. 2. Activity: As tolerated. 3. Diet: Diabetic. 4. Follow up with Dr. Osmany Kinsey in 3 to [address] Klarissa Chen at [facility] in 7 days. Job ID: [id number]
== END 2019-07-30 15:55 | DRG 60 ==
LOC: ERS 15:03 → 2SE 16:03 → OBSVTOIN 07-28 13:37
PROVIDERS: ADMIT Family Medicine; ATTEND Family Medicine
DX: G35 Multiple sclerosis (principal); Z66 Do not resuscitate; K59.00 Constipation, unspecified; E11.9 Type 2 diabetes mellitus without complications; C60.9 Malignant neoplasm of penis, unspecified; B35.1 Tinea unguium; E78.5 Hyperlipidemia, unspecified; N31.9 Neuromuscular dysfunction of bladder, unspecified; R42 Dizziness and giddiness; R19.7 Diarrhea, unspecified; Z88.1 Allergy status to other antibiotic agents; Z88.5 Allergy status to narcotic agent; Z88.8 Allergy status to other drugs, medicaments and biological substances; Z91.048 Other nonmedicinal substance allergy status; Z79.4 Long term (current) use of insulin; Z79.899 Other long term (current) drug therapy
CPT/HCPCS: 36415; 36416; 70553; 80053; 81001; 82570; 83930; 83935; 84300; 84439; 84443; 84481; 85025; 87077; 87086; 87186; 99285; A9579; J1650; J1815; J2185; J2550; J2930; J7050; J8597

== ENCOUNTER 2019-12-19 21:38 | Inpatient (IN) | payer MEDICARE, BC, OTHER ==
[2019-12-19] MEDS ORDERED: cefTRIAXone\\ROCEPHIN 2 GM VIAL ONE (22:10)
[2019-12-19 22:45] LABS: #Basophils 0.1 thou/uL (0.0-0.2); #Eosinphils 0.1 thou/uL (0.0-0.7); #Lymphocytes 1.6 thou/uL (1.20-3.40); #Neutrophils 13.2 thou/uL (1.40-6.50); %Basophils 0.4 % (0.0-1.0); %Eosinophils 0.6 % (0.0-10.0); %Lymphocytes 9.8 % (21.0-51.0); %Monocytes 6.1 % (0.0-10.0); %Neutrophils 83.1 % (42.0-75.0); Hemoglobin 15.6 g/dL (14.0-18.0); Mean Corpuscular HGB CONC 32.5 g/dL (32.0-36.0); Mean Corpuscular Hemoglobin 28.6 pg (27.0-31.0); Mean Corpuscular Volume 88.1 fL (78.0-98.0); Mean Platelet Volume 7.7 fL (7.4-10.4); Platelet Count 260 thou/uL (130-400); RBC Distribution Width 12.4 % (11.5-14.5); Red Blood Cell (RBC) Count 5.46 mill/uL (4.70-6.10); White Blood Cell (WBC) Count 15.8 thou/uL (4.8-10.8)
[2019-12-19] MEDS ORDERED: Linezolid 600 MG in Premix Bag 1 BAG IVPB SCH (23:00)
[2019-12-19 23:05] LABS: ALT (SGPT) 16 U/L (8-55); AST (SGOT) 12 U/L (5-34); Alkaline Phosphatase 97 U/L (40-110); Anion Gap 13 mmol/L (10-20); BUN (Urea Nitrogen) 16 mg/dL (8.4-25.7); Bilirubin, Total 0.5 mg/dL (0.2-1.2); Calc. Creatinine Clearance 0 mL/min (70-130); Calcium 9.6 mg/dL (7.8-10.44); Carbon Dioxide 27 mmol/L (23-31); Chloride 103 mmol/L (98-107); Estimated GFR-MDRD 56; Globulin 3.6 g/dL (2.4-3.5); Glucose 139 mg/dL (80-115); Potassium 3.9 mmol/L (3.5-5.1); Protein, Total 7.6 g/dL (5.8-8.1); Sodium 139 mmol/L (136-145)
[2019-12-20 00:47] LABS: Bilirubin Negative (Negative); Blood, Urine Trace (Negative); Calcium Oxalate Crystals 1+ HPF (None Seen); Clarity Turbid (Clear); Glucose, Urine (Dipstick) Normal (Negative); Ketone, Urine 10 mg/dL (Negative); Leukocyte 500 Leu/uL (Negative); Nitrite Negative (Negative); Protein, Urine (Dipstick) 50 mg/dL (Neg-Trace); Specific Gravity, Urine 1.024 (1.002-1.036); Squamous Epithelial None Seen HPF (0-3); Urobilinogen Normal mg/dL (Less than 2); WBC/HPF Greater than 50 HPF (0-3); pH, Urine 7.5 (5.0-9.0)
[2019-12-20 00:55] LABS: Bacteria/HPF 1+ HPF (None Seen)
--- NOTE | 2019-12-20 01:54 | PDOC.FPRHP ---
- History of Present Illness Chief Complaint: Not Feeling Good History of Present Illness: Patient is a 64 y/o male with a PMH significant for MS, HTN, DM2 and an indwelling suprapubic catheter secondary to Neurogenic Bladder who presents to the ED because he has not been feeling well for 2-3 days. Patient has a Hx of multiple UTIs in the past, and the patient feels like this is similar in nature. Patient states that he has had subjective fevers, general malaise, nausea, ABD pain and tenderness at his catheter site. Although he denies a change in his urine output, patient states that his suprapbic catheter most likely needs to be changed because of accumulating crust/urinary debris. ED Course: While in the ED, BCx and UCx were drawn, and the patient was given Linezolid 600 mg in addition to 2L NS. - Allergies/Adverse Reactions Allergies Allergy/AdvReac Type Severity Reaction Status Date / Time codeine Allergy Intermediate Rash Verified 12/20/19 03:27 adhesive Allergy Verified 12/20/19 03:27 vancomycin Allergy Verified 12/20/19 03:27 acetaminophen [From Tylenol] AdvReac Verified 12/20/19 03:27 - Home Medications Medication Instructions Recorded Confirmed Type Baclofen [Lioresal] 20 mg PO TID tab 08/01/18 12/20/19 Rx Insulin Detemir [Levemir] 15 unit SQ DAILY #1 11/08/18 12/20/19 Rx metFORMIN [Glucophage] 500 mg PO QAM-WM #30 tab 03/19/19 12/20/19 Rx Amlodipine Besylate [amLODIPine 10 mg PO DAILY 07/27/19 12/20/19 History Besylate] Polyethylene Glycol 3350 [Miralax] 1 pk PO BID 07/27/19 12/20/19 History Ibuprofen [Motrin IB] 400 mg PO Q6H PRN tab 09/18/19 12/20/19 Rx Losartan Potassium [Cozaar] 100 mg PO DAILY tab 09/18/19 12/20/19 Rx Magnesium Oxide 500 mg PO QAM tab 09/18/19 12/20/19 Rx Meclizine HCl [Antivert] 25 mg PO Q8H PRN tab 09/18/19 12/20/19 Rx Ondansetron [Zofran ODT] 4 mg PO Q6H PRN tab 09/18/19 12/20/19 Rx Tamsulosin HCl [Flomax] 0.4 mg PO QAM cap 09/18/19 12/20/19 Rx Loperamide HCl [Imodium A-D] 2 mg PO Q6HR PRN 12/20/19 12/20/19 History Oxybutynin Chloride [Oxybutynin 15 mg PO DAILY 12/20/19 12/20/19 History Chloride ER] Scopolamine 1.5 mg TOP 12/20/19 History guaiFENesin [Guaifenesin] 10 ml PO Q6HR PRN 12/20/19 12/20/19 History - History PMHx: MS, HTN, DM2, Neurogenic Bladder w/ Suprapubic Catheter PSHx: Left Rotator Cuff Repair, Tib-Fib ORIF, Cholecystectomy FHx: Father (Renal Failure) Social: Remote Tobacco, EtOH, IV Drug Abuse - patient states that he has been abstinent since 1995. Allergies: Vancomycin, Codeine, Adhesive Tape, Tylenol Code: DNAR - Review of Systems General: reports: weight/appetite/sleep changes (5 LBS Weight Gain), fatigue. denies: fever/chills Eyes: denies: vision changes ENT: denies: nasal congestion, rhinorrhea Respiratory: denies: cough, congestion, shortness of breath Cardiovascular: denies: chest pain, palpitation, edema Gastrointestinal: reports: nausea, abdominal pain, other (See HPI). denies: diarrhea, constipation Genitourinary: reports: incontinence Skin: reports: rashes, other (Sacral Ulcers) Musculoskeletal: reports: pain, stiffness Neurological: reports: weakness - Vital signs BP: [109/72] HR: [99] RR: [20] Tmax: [] Pox: [95]% on [Room] Wt: [101 kg] - Physical Exam Constitutional: NAD, awake, alert and oriented HEENT: normocephalic and atraumatic, PERRLA, EOMI, conjunctiva clear, no scleral icterus, grossly normal vision, grossly normal hearing, normal nasal mucosa, MMM, oropharynx clear, other (Poor dentition) Neck: supple, FROM, trachea midline, no LAD Chest: no-tender to palpation, no lesions Heart: RRR, normal S1/S2, no murmurs/rubs/gallops, pulses present, other ( Dependent edema of LEs) Lungs: CTAB, no respiratory distress, good air movement, no rales/rhonchi, no wheezing, no retractions Abdomen: soft, bowel sounds present, no masses/distention, other (Mild erythema at catheter site with diffuse TTP) FMR H&P: Results - Labs Result Diagrams: 12/20/19 07:25 12/20/19 07:25 Lab results: WBC 15.8 thou/uL (4.8-10.8) H 12/19/19 22:34 Hgb 15.6 g/dL (14.0-18.0) 12/19/19 22:34 Hct 48.1 % (42.0-52.0) 12/19/19 22:34 MCV 88.1 fL (78.0-98.0) 12/19/19 22:34 Plt Count 260 thou/uL (130-400) 12/19/19 22:34 Neutrophils % 83.1 % (42.0-75.0) H 12/19/19 22:34 Sodium 139 mmol/L (136-145) 12/19/19 22:34 Potassium 3.9 mmol/L (3.5-5.1) 12/19/19 22:34 Chloride 103 mmol/L (98-107) 12/19/19 22:34 Carbon Dioxide 27 mmol/L (23-31) 12/19/19 22:34 BUN 16 mg/dL (8.4-25.7) 12/19/19 22:34 Creatinine 1.30 mg/dL (0.7-1.3) 12/19/19 22:34 Glucose 139 mg/dL (80-115) H 12/19/19 22:34 Lactic Acid 1.2 mmol/L (0.5-2.2) 12/19/19 22:44 Calcium 9.6 mg/dL (7.8-10.44) 12/19/19 22:34 Total Bilirubin 0.5 mg/dL (0.2-1.2) 12/19/19 22:34 AST 12 U/L (5-34) 12/19/19 22:34 ALT 16 U/L (8-55) 12/19/19 22:34 Alkaline Phosphatase 97 U/L (40-110) 12/19/19 22:34 Serum Total Protein 7.6 g/dL (5.8-8.1) 12/19/19 22:34 Albumin 4.0 g/dL (3.4-4.8) 12/19/19 22:34 Urine Ketones 10 mg/dL (Negative) A 12/19/19 00:24 Urine Blood Trace (Negative) A 12/19/19 00:24 Urine Nitrite Negative (Negative) 12/19/19 00:24 Ur Leukocyte Esterase 500 Jose/uL (Negative) A 12/19/19 00:24 Urine RBC 7-10 HPF (0-3) A 12/19/19 00:24 Urine WBC Greater than 50 HPF (0-3) A 12/19/19 00:24 Ur Squamous Epith Cells None Seen HPF (0-3) 12/19/19 00:24 Urine Bacteria 1+ HPF (None Seen) A 12/19/19 00:24 FMR H&P: A/P - Problem List (1) Sepsis Current Visit: No Status: Acute Code(s): A41.9 - SEPSIS, UNSPECIFIED ORGANISM Qualifiers: Sepsis type: sepsis due to unspecified organism Sepsis acute organ dysfunction status: without acute organ dysfunction Qualified Code(s): A41.9 - Sepsis, unspecified organism (2) UTI (urinary tract infection) Current Visit: No Status: Chronic Qualifiers: Urinary tract infection type: catheter-associated UTI Indwelling urinary catheter type: cystostomy catheter Encounter type: initial encounter Qualified Code(s): T83.510A - Infection and inflammatory reaction due to cystostomy catheter, initial encounter; N39.0 - Urinary tract infection, site not specified (3) Urinary retention Current Visit: No Status: Chronic Code(s): R33.9 - RETENTION OF URINE, UNSPECIFIED (4) Diabetes mellitus Current Visit: No Status: Chronic Code(s): E11.9 - TYPE 2 DIABETES MELLITUS WITHOUT COMPLICATIONS Qualifiers: Diabetes mellitus type: type 2 (5) HTN (hypertension) Current Visit: No Status: Chronic Code(s): I10 - ESSENTIAL (PRIMARY) HYPERTENSION (6) Multiple sclerosis Current Visit: No Status: Chronic Code(s): G35 - MULTIPLE SCLEROSIS - Plan Patient is a 64 y/o male with a complex PMH who presents to the ED for evaluation of suspected UTI. # Sepsis, likely 2/2 to CAUTI -Patient meets Sepsis Criteria based on WBCs and tachycardia -Patient is afebrile and likely colonized at baseline, but symptomatic with ABD pain, catheter site skin changes and malaise -s/p 2L NS and Linezolid in ED - will continue Linezolid with Cefepime for Pseudomonas coverage -UA: Leuk Esterase, RBCs, WBCs, Bacteria, Ca Oxalate Crystals -Will consider Urology consult if catheter requires replacement -UCx: Pending -BCx: Pending -Will consult ID based on cultures and sensitivities # DM2 -POC Glucose: 139 on admission -ACHS Accuchecks -Mild SSI -Hypoglycemia Protocol # MS -Stable - will continue home medication regimen # HTN -Stable - will continue home medication regimen PCP: UYEN John Code: DNAR Diet: CC Activity: Strict Bed Rest VTE PPx: Lovenox 40 mg SC Daily Dispo: Patient is currently stable and admitted to the Oncology Floor for ongoing treatment of Sepsis 2/2 CAUTI. Will continue ABx and await labs as per above. Expected LOS > 48H. FMR H&P: Upper Level - Plan Date/Time: 12/20/19 014 I, [], have evaluated this patient and agree with findings/plan as outlined by rn internal medicine resident. Pertinent changes/additions are listed here. Addendum - Attending - Attending Attestation Date/Time: 12/20/19 6647 I personally evaluated the patient and discussed the management with Dr. Manzano. I agree with the History, Examination, Assessment and Plan documented above with any addition or exceptions noted below. Patient with chronic indwelling suprapubic catheter here with increasing redness and purulence surrounding the catheter as well as bladder pain. UA concerning for UTI though colonization could also be possible. He has no s/sx of systemic infection at this time other than mildly elevated WBC. We will continue abx and await cultures. Therapy services. Other medical conditions as above.
[2019-12-20 03:25] VITALS: BMI 35.0
[2019-12-20] MEDS ORDERED: Dextrose 5% in Water 1,000 ML IV PRN (03:51)
[2019-12-20] MEDS ORDERED: HumaLOG 300 UNITS/3 ML VIAL SC PRN (03:51)
[2019-12-20] MEDS ORDERED: Dextrose 50% Abboject 50 ML SYRINGE SLOW IVP PRN (03:51)
[2019-12-20] MEDS ORDERED: Ondansetron ODT 4 MG TAB PO PRN ×2 (03:51→06:00)
[2019-12-20] MEDS: Sodium Chloride 0.9% 1,000 ML IV SCH ×3 (04:37→18:08)
[2019-12-20] MEDS ORDERED: Diabetic Tussin 200 MG/10 ML UDCUP PO PRN (06:00)
[2019-12-20] MEDS ORDERED: Meclizine HCl 25 MG TAB PO PRN (06:00)
[2019-12-20] MEDS: Cefepime 1 GM in Sodium Chloride 0.9% 100 ML IVPB SCH (06:35)
[2019-12-20] MEDS: Scopolamine 1.5 mg/72 hour Patch TOP SCH (06:48)
[2019-12-20 07:37] LABS: #Eosinphils 0.1 thou/uL (0.0-0.7); #Lymphocytes 1.7 thou/uL (1.20-3.40); #Monocytes 0.7 thou/uL (0.11-0.59); #Neutrophils 7.2 thou/uL (1.40-6.50); %Basophils 0.3 % (0.0-1.0); %Eosinophils 1.3 % (0.0-10.0); %Lymphocytes 17.4 % (21.0-51.0); %Monocytes 7.1 % (0.0-10.0); Hemoglobin 13.5 g/dL (14.0-18.0); Mean Corpuscular HGB CONC 33.3 g/dL (32.0-36.0); Mean Corpuscular Hemoglobin 29.9 pg (27.0-31.0); Mean Corpuscular Volume 89.9 fL (78.0-98.0); Mean Platelet Volume 7.5 fL (7.4-10.4); Platelet Count 205 thou/uL (130-400); RBC Distribution Width 12.2 % (11.5-14.5); White Blood Cell (WBC) Count 9.7 thou/uL (4.8-10.8)
[2019-12-20 07:55] LABS: ALT (SGPT) 10 U/L (8-55); AST (SGOT) 8 U/L (5-34); Albumin 3.2 g/dL (3.4-4.8); Alkaline Phosphatase 70 U/L (40-110); Anion Gap 10 mmol/L (10-20); BUN (Urea Nitrogen) 12 mg/dL (8.4-25.7); Bilirubin, Total 0.6 mg/dL (0.2-1.2); Calc. Creatinine Clearance 114 mL/min (70-130); Calcium 8.3 mg/dL (7.8-10.44); Carbon Dioxide 25 mmol/L (23-31); Chloride 108 mmol/L (98-107); Estimated GFR-MDRD 80; Globulin 2.7 g/dL (2.4-3.5); Glucose 120 mg/dL (80-115); Potassium 3.7 mmol/L (3.5-5.1); Protein, Total 5.9 g/dL (5.8-8.1); Sodium 139 mmol/L (136-145)
[2019-12-20] MEDS: Polyethylene Glycol 3350 17 GM Packet PO SCH ×2 (08:05→19:58)
[2019-12-20] MEDS: metFORMIN 500 MG TAB PO SCH (08:06)
[2019-12-20] MEDS: Amlodipine 10 MG TAB PO SCH (08:06)
[2019-12-20] MEDS: Tamsulosin HCl 0.4 MG CAP PO SCH (08:06)
[2019-12-20] MEDS: Losartan 25 MG TAB PO SCH (08:06)
[2019-12-20] MEDS: Baclofen 10 MG TAB PO SCH ×3 (08:06→19:58)
[2019-12-20] MEDS: Magnesium Oxide 250 MG TAB PO SCH (08:06)
[2019-12-20] MEDS: Enoxaparin Sodium 40 MG/0.4 ML SYRINGE SC SCH (08:07)
[2019-12-20] MEDS: Insulin Glargine 15 UNITS in Pre-Filled Syringe 1 EACH SC SCH (08:07)
--- NOTE | 2019-12-20 08:30 | PDOC.FM ---
- Subjective Subjective: Patient is a 64 y/o male with a PMH significant for MS, HTN, DM2 and an indwelling suprapubic catheter secondary to Neurogenic Bladder who presented with sepsis 2/2 CAUTI. Today, patient is resting comfortably in bed. He endorses a slight headache, but states he is doing better overall. He has a good appetite. Denies CP, SOB, fever, chills, N/V, changes in bowel habits, increased pain around catheter site , hematuria. - Objective MAR Reviewed: Yes Vital Signs & Weight: Vital Signs (12 hours) Temp Pulse Resp BP Pulse Ox 12/20/19 03:50 97 12/20/19 03:32 97.9 F 89 18 136/74 97 Weight Weight 101.5 kg I&O: 12/19/19 12/20/19 12/21/19 06:59 06:59 06:59 Intake Total 769 Output Total 650 Balance 119 Result Diagrams: 12/20/19 07:25 12/20/19 07:25 Phys Exam - Physical Examination Constitutional: NAD HEENT: sclera anicteric Neck: supple, full ROM Respiratory: no wheezing, clear to auscultation bilateral Cardiovascular: RRR, no significant murmur Gastrointestinal: soft, no distention, positive bowel sounds patient had diffuse tenderness and guarding to palpation Musculoskeletal: pulses present 1+pitting edema bilaterally Neurological: moves all 4 limbs Psychiatric: normal affect, A&O x 3 Skin: normal turgor Deviation from normal: redness and induration around suprapubic cathether site and pus Dx/Plan - Plan Plan: Sepsis, likely 2/2 to CAUTI -Patient meets Sepsis Criteria based on WBCs and tachycardia -Patient is afebrile and likely colonized at baseline, but symptomatic with ABD pain, catheter site skin changes and malaise -s/p 2L NS and Linezolid in ED - will continue Linezolid with Cefepime for Pseudomonas coverage -UA: Leuk Esterase, RBCs, WBCs, Bacteria, Ca Oxalate Crystals -Will consult Urology as catheter is supposed to be changed 12/24 -UCx: Pending -BCx: Pending -Will consult ID based on cultures and sensitivities -200mL/hr IVF DM2 -POC Glucose: 139 on admission -ACHS Accuchecks -Mild SSI -Hypoglycemia Protocol MS -Stable - will continue home medication regimen -PT/OT consult HTN -Stable - will continue home medication regimen ZI, resolved on admission, Cr was 1.3 -Cr today is .95, on IVF -will continue to monitor PCP: UYEN - Dr. John Code: DNAR Diet: CC IVF: 200mL/hr Activity: Strict Bed Rest VTE PPx: Lovenox 40 mg SC Daily Dispo: Patient is currently stable and admitted to the Oncology Floor for ongoing treatment of Sepsis 2/2 CAUTI. Will continue ABx and await labs as per above. Expected LOS > 48H. Addendum - Attending - Attending Attestation Date/Time: 12/20/19 1021 I personally evaluated the patient and discussed the management with Dr. Kam. I agree with the History, Examination, Assessment and Plan documented above with any addition or exceptions noted below. See H&P addendum for full attending details for 12/20/2019.
[2019-12-20] MEDS ORDERED: Oxybutynin ER 5 MG TAB PO SCH (09:00)
[2019-12-20] MEDS ORDERED: Non-Formulary Item 1 EACH (Insulin Detemir [Levemir] 15 UNIT) SQ SCH (09:00)
[2019-12-20] MEDS: Linezolid 600 MG in Premix Bag 1 BAG IVPB SCH (12:09)
[2019-12-20] MEDS ORDERED: Linezolid 600 MG in Syringe 0 ML IVPB SCH (13:00)
[2019-12-20] MEDS: Ibuprofen 200 MG TAB PO PRN (14:08)
[2019-12-21] MEDS: Linezolid 600 MG in Premix Bag 1 BAG IVPB SCH (00:02)
[2019-12-21] MEDS: Sodium Chloride 0.9% 1,000 ML IV SCH ×3 (04:13→21:14)
[2019-12-21] MEDS: Cefepime 1 GM in Sodium Chloride 0.9% 100 ML IVPB SCH (05:42)
--- NOTE | 2019-12-21 05:55 | PDOC.FM ---
- Subjective Subjective: Patient is a 64 y/o male with a PMH significant for MS, HTN, DM2 and an indwelling suprapubic catheter secondary to Neurogenic Bladder who presented with sepsis 2/2 CAUTI. Patient is, overall, doing better today. He states his bladder spasms are really bothering him. He endorses the same mild abdominal pain as yesterday that does not bother him unless palpated, and his back still hurts. His DIEGO from yesterday has improved. He has not had a BM. Tolerating PO without difficulty. He denies any fever, chills, SOB, CP, hematuria. - Objective MAR Reviewed: Yes Vital Signs & Weight: Vital Signs (12 hours) Temp Pulse Resp BP Pulse Ox 12/21/19 00:05 98.4 F 74 16 100/62 92 L 12/20/19 20:00 98.8 F 82 18 114/58 L 95 Weight Admit Weight 101.151 kg Weight 101.5 kg I&O: 12/19/19 12/20/19 12/21/19 06:59 06:59 06:59 Intake Total 2419 Output Total 4050 Balance -1631 Result Diagrams: 12/20/19 07:25 12/20/19 07:25 Phys Exam - Physical Examination Constitutional: NAD HEENT: sclera anicteric Neck: supple, full ROM Respiratory: no wheezing, no rales, clear to auscultation bilateral Cardiovascular: RRR, no significant murmur Gastrointestinal: soft, no distention, positive bowel sounds tender to palpation in the epigastric, LUQ, LLQ Musculoskeletal: no edema, pulses present Neurological: moves all 4 limbs patient is experiencing bladder spasms during exam Psychiatric: normal affect, A&O x 3 Skin: normal turgor Deviation from normal: site of suprapubic catheter insertion is covered Dx/Plan - Plan Plan: Sepsis, likely 2/2 to CAUTI -Patient meets Sepsis Criteria based on WBCs and tachycardia -Patient is afebrile and likely colonized at baseline, but symptomatic with ABD pain, catheter site skin changes and malaise -s/p 2L NS and Linezolid in ED - will continue Linezolid with Cefepime for Pseudomonas coverage -UA: Leuk Esterase, RBCs, WBCs, Bacteria, Ca Oxalate Crystals -Will consult Urologist, Dr. Hattie, as catheter is supposed to be changed 12/24 -UCx: Prelim Proteus -BCx: Prelim 1 of 2 cultures positive for S. Epidermidis, likely contaminant -Will consult ID based on cultures and sensitivities -125mL/hr IVF Bladder Spasms -patient on home Oxybutynin 15mg XL -patient complaining about increasing intensity and frequency of spasms -will increase to 20mg XL DM2 -POC Glucose: 139 on admission -ACHS Accuchecks -Mild SSI -Hypoglycemia Protocol MS -Stable - will continue home medication regimen -PT/OT consult HTN -Stable - will continue home medication regimen ZI, resolved on admission, Cr was 1.3 -patient on MIVF -will continue to monitor PCP: UYEN - Dr. John Code: DNAR Diet: CC IVF: 125mL/hr Activity: Strict Bed Rest VTE PPx: Lovenox 40 mg SC Daily Dispo: Patient is currently stable and admitted to the Oncology Floor for ongoing treatment of Sepsis 2/2 CAUTI. Will continue ABx and await labs as per above. Expected LOS > 48H. Addendum - Attending - Attending Attestation Date/Time: 12/21/19 1217 I personally evaluated the patient and discussed the management with Dr. Kam. I agree with the History, Examination, Assessment and Plan documented above with any addition or exceptions noted below. Patient reports some improvement. Continue treatment for UTI associated with chronic indwelling suprapubic catheter. Plans to consult Urology tomorrow for possible exchange and further recs. This appears to be Proteus and will await sensitivities to narrow our spectrum of therapy.
[2019-12-21] MEDS: Insulin Glargine 15 UNITS in Pre-Filled Syringe 1 EACH SC SCH (08:28)
[2019-12-21] MEDS: Enoxaparin Sodium 40 MG/0.4 ML SYRINGE SC SCH (08:28)
[2019-12-21] MEDS: Polyethylene Glycol 3350 17 GM Packet PO SCH ×2 (08:28→21:14)
[2019-12-21] MEDS: Magnesium Oxide 250 MG TAB PO SCH (08:29)
[2019-12-21] MEDS: Oxybutynin ER 5 MG TAB PO SCH (08:29)
[2019-12-21] MEDS: Losartan 25 MG TAB PO SCH (08:30)
[2019-12-21] MEDS: Docusate 100 MG CAP PO SCH ×2 (08:30→21:14)
[2019-12-21] MEDS: Baclofen 10 MG TAB PO SCH ×3 (08:30→21:14)
[2019-12-21] MEDS: Tamsulosin HCl 0.4 MG CAP PO SCH (08:30)
[2019-12-21] MEDS: metFORMIN 500 MG TAB PO SCH (08:30)
[2019-12-21] MEDS: Amlodipine 10 MG TAB PO SCH (08:30)
[2019-12-21 10:22] LABS: #Eosinphils 0.2 thou/uL (0.0-0.7); #Monocytes 0.4 thou/uL (0.11-0.59); #Neutrophils 4.3 thou/uL (1.40-6.50); %Basophils 0.4 % (0.0-1.0); %Eosinophils 3.5 % (0.0-10.0); %Lymphocytes 16.8 % (21.0-51.0); %Monocytes 6.2 % (0.0-10.0); %Neutrophils 73.2 % (42.0-75.0); Hemoglobin 14.3 g/dL (14.0-18.0); Mean Corpuscular HGB CONC 33.2 g/dL (32.0-36.0); Mean Corpuscular Volume 87.2 fL (78.0-98.0); Mean Platelet Volume 8.2 fL (7.4-10.4); Platelet Count 214 thou/uL (130-400); Red Blood Cell (RBC) Count 4.93 mill/uL (4.70-6.10); White Blood Cell (WBC) Count 5.9 thou/uL (4.8-10.8)
[2019-12-21 10:27] LABS: Anion Gap 14 mmol/L (10-20); BUN (Urea Nitrogen) 10 mg/dL (8.4-25.7); Calc. Creatinine Clearance 113 mL/min (70-130); Carbon Dioxide 23 mmol/L (23-31); Chloride 108 mmol/L (98-107); Estimated GFR-MDRD 79; Glucose 165 mg/dL (80-115); Potassium 4.5 mmol/L (3.5-5.1); Sodium 140 mmol/L (136-145)
[2019-12-21] MEDS: Sulfameth/Trimethoprim DS 800-160mg TAB PO SCH ×2 (11:16→21:14)
[2019-12-21] MEDS: Ibuprofen 200 MG TAB PO PRN (11:53)
[2019-12-22] MEDS: Sodium Chloride 0.9% 1,000 ML IV SCH ×2 (05:10→11:47)
[2019-12-22 06:06] LABS: #Eosinphils 0.2 thou/uL (0.0-0.7); #Monocytes 0.4 thou/uL (0.11-0.59); #Neutrophils 3.2 thou/uL (1.40-6.50); %Basophils 0.9 % (0.0-1.0); %Eosinophils 3.6 % (0.0-10.0); %Monocytes 8.9 % (0.0-10.0); %Neutrophils 65.7 % (42.0-75.0); Hemoglobin 14.1 g/dL (14.0-18.0); Mean Corpuscular HGB CONC 34.1 g/dL (32.0-36.0); Mean Corpuscular Volume 87.9 fL (78.0-98.0); Mean Platelet Volume 7.6 fL (7.4-10.4); Platelet Count 217 thou/uL (130-400); Red Blood Cell (RBC) Count 4.69 mill/uL (4.70-6.10); White Blood Cell (WBC) Count 4.9 thou/uL (4.8-10.8)
[2019-12-22 06:27] LABS: Anion Gap 11 mmol/L (10-20); BUN (Urea Nitrogen) 11 mg/dL (8.4-25.7); Calc. Creatinine Clearance 118 mL/min (70-130); Calcium 8.5 mg/dL (7.8-10.44); Carbon Dioxide 25 mmol/L (23-31); Chloride 106 mmol/L (98-107); Estimated GFR-MDRD 83; Glucose 98 mg/dL (80-115); Sodium 138 mmol/L (136-145)
[2019-12-22] MEDS: metFORMIN 500 MG TAB PO SCH (08:16)
[2019-12-22] MEDS: Sulfameth/Trimethoprim DS 800-160mg TAB PO SCH ×2 (08:17→21:07)
[2019-12-22] MEDS: Magnesium Oxide 250 MG TAB PO SCH (08:17)
[2019-12-22] MEDS: Losartan 25 MG TAB PO SCH (08:17)
[2019-12-22] MEDS: Oxybutynin ER 5 MG TAB PO SCH (08:18)
[2019-12-22] MEDS: Amlodipine 10 MG TAB PO SCH (08:18)
[2019-12-22] MEDS: Baclofen 10 MG TAB PO SCH ×3 (08:18→21:07)
[2019-12-22] MEDS: Docusate 100 MG CAP PO SCH ×3 (08:18→21:07)
[2019-12-22] MEDS: Tamsulosin HCl 0.4 MG CAP PO SCH (08:18)
[2019-12-22] MEDS: Enoxaparin Sodium 40 MG/0.4 ML SYRINGE SC SCH (08:19)
[2019-12-22] MEDS: Polyethylene Glycol 3350 17 GM Packet PO SCH ×3 (08:19→21:07)
[2019-12-22] MEDS: Insulin Glargine 15 UNITS in Pre-Filled Syringe 1 EACH SC SCH (10:11)
--- NOTE | 2019-12-22 14:55 | PDOC.FM ---
- Subjective Subjective: No acute overnight events. States his abdominal pain from yesterday has improved after having 3 BMs yesterday. Still has some mild back pain but reports it feels better when he is up working with PT. Denies any chest pain, headaches, SOB, abdominal pain, diarrhea, constipation, edema. - Objective Vital Signs & Weight: Vital Signs (12 hours) Temp Pulse Resp BP Pulse Ox 12/22/19 08:20 98.2 F 87 18 133/76 96 12/22/19 08:18 98 Weight Admit Weight 101.151 kg Weight 101.5 kg I&O: 12/21/19 12/22/19 12/23/19 06:59 06:59 06:59 Intake Total 2419 5194 978 Output Total 1150 4800 Balance -2131 367 978 Result Diagrams: 12/22/19 05:46 12/22/19 05:46 Phys Exam - Physical Examination Constitutional: NAD HEENT: moist MMs poor dentition Neck: supple Respiratory: no wheezing, no rales, no rhonchi Cardiovascular: RRR, no significant murmur Gastrointestinal: soft, non-tender, no distention, positive bowel sounds suprapubic catheter in place, covered by dressing Musculoskeletal: no edema, pulses present Psychiatric: normal affect, A&O x 3 Skin: no rash Dx/Plan (1) Diabetes mellitus Code(s): E11.9 - TYPE 2 DIABETES MELLITUS WITHOUT COMPLICATIONS Status: Chronic Qualifiers: Diabetes mellitus type: type 2 (2) HTN (hypertension) Code(s): I10 - ESSENTIAL (PRIMARY) HYPERTENSION Status: Chronic (3) Sepsis Code(s): A41.9 - SEPSIS, UNSPECIFIED ORGANISM Status: Acute Qualifiers: Sepsis type: sepsis due to unspecified organism Sepsis acute organ dysfunction status: without acute organ dysfunction Qualified Code(s): A41.9 - Sepsis, unspecified organism (4) UTI (urinary tract infection) Status: Acute Qualifiers: Urinary tract infection type: catheter-associated UTI Indwelling urinary catheter type: cystostomy catheter - Plan Plan: Sepsis, likely 2/2 to CAUTI, resolved Was meeting sepsis criteria based on WBCs, tachycardia. Fluid bolus, linezolid, cefepime started. Urine cx positive for protues, citrobacter sensitive to bactrim, abx de- escalated. Urologist, Dr. Taylor aware. -Continue bactrim for 10 total days abx (to finish 12/29) -Will dc IVF today -Changed suprapubic catheter today DM2 -POC Glucose: 139 on admission -ACHS Accuchecks -Mild SSI -Hypoglycemia Protocol MS -Stable - will continue home medication regimen -PT/OT consult HTN -Stable - will continue home medication regimen ZI, resolved on admission, Cr was 1.3 -discontinue IVF today -will continue to monitor PCP: UYEN - Dr. John Code: DNAR Diet: CC IVF: SL Activity: Strict Bed Rest VTE PPx: Lovenox 40 mg SC Daily Dispo: Discharge to previous assisted, [facility]. Addendum - Attending - Attending Attestation Date/Time: 12/22/19 8750 I personally evaluated the patient and discussed the management with Dr. Yeboah. I agree with the History, Examination, Assessment and Plan documented above with any addition or exceptions noted below. Exchanged suprapubic cath per Urology recs today. PT/OT recommend SNF placement. Will see if he can receive that at current facility. If not will placed order for SNF today. He is medically stable for d/c at any time.
[2019-12-22] MEDS: Ibuprofen 200 MG TAB PO PRN (19:23)
--- NOTE | 2019-12-23 05:29 | PDOC.FM ---
- Subjective Subjective: No acute overnight events. Only c/o some bladder spasms after catheter change yesterday. Expresses concern regarding ability to transfer to toilet upon discharge, will be going to SNF. Denies headache, chest pain, SOB, abdominal pain, leaking from catheter site. - Objective Vital Signs & Weight: Vital Signs (12 hours) Temp Pulse Resp BP Pulse Ox 12/22/19 19:35 98.4 F 97 16 123/83 96 Weight Admit Weight 101.151 kg Weight 101.5 kg I&O: 12/21/19 12/22/19 12/23/19 06:59 06:59 06:59 Intake Total 2419 5160 2454 Output Total 4550 4800 2300 Balance -2131 367 154 Result Diagrams: 12/23/19 07:39 12/23/19 07:20 Phys Exam - Physical Examination Constitutional: NAD HEENT: moist MMs Neck: supple Respiratory: no wheezing, no rales, no rhonchi, clear to auscultation bilateral Cardiovascular: RRR, no significant murmur, no rub Gastrointestinal: soft, non-tender, no distention, positive bowel sounds dressing over suprapubic cath clean, dry, intact Musculoskeletal: pulses present mild non-pitting edema bilaterally Psychiatric: normal affect, A&O x 3 Skin: no rash Dx/Plan (1) Diabetes mellitus Code(s): E11.9 - TYPE 2 DIABETES MELLITUS WITHOUT COMPLICATIONS Status: Chronic Qualifiers: Diabetes mellitus type: type 2 (2) HTN (hypertension) Code(s): I10 - ESSENTIAL (PRIMARY) HYPERTENSION Status: Chronic (3) Sepsis Code(s): A41.9 - SEPSIS, UNSPECIFIED ORGANISM Status: Acute Qualifiers: Sepsis type: sepsis due to unspecified organism Sepsis acute organ dysfunction status: without acute organ dysfunction Qualified Code(s): A41.9 - Sepsis, unspecified organism (4) UTI (urinary tract infection) Status: Acute Qualifiers: Urinary tract infection type: catheter-associated UTI Indwelling urinary catheter type: cystostomy catheter - Plan Plan: Sepsis, likely 2/2 to CAUTI, resolved Was meeting sepsis criteria based on WBCs, tachycardia. Fluid bolus, linezolid, cefepime started. Urine cx positive for proteus, citrobacter sensitive to bactrim, abx de- escalated. Urologist, Dr. Taylor aware. -Continue bactrim for 10 total days abx (to finish 12/29) -Changed suprapubic catheter 12/21 -Balanced I/O since catheter change DM2 -POC Glucose: 139 on admission -ACHS Accuchecks -Mild SSI -Hypoglycemia Protocol MS -Stable - will continue home medication regimen -PT/OT consult HTN -Stable - will continue home medication regimen ZI, resolved on admission, Cr was 1.3 -discontinue IVF -will continue to monitor PCP: UYEN - Dr. John Code: DNAR Diet: CC IVF: SL Activity: Strict Bed Rest VTE PPx: Lovenox 40 mg SC Daily Dispo: Discharge to SNF at [facility] today when bed available Addendum - Attending - Attending Attestation Date/Time: 12/23/19 8503 I personally evaluated the patient and discussed the management with Dr. Yeboah I agree with the History, Examination, Assessment and Plan documented above with any addition or exceptions noted below. D/C snf today.
[2019-12-23] MEDS: Scopolamine 1.5 mg/72 hour Patch TOP SCH (05:58)
[2019-12-23 07:48] LABS: Anion Gap 16 mmol/L (10-20); BUN (Urea Nitrogen) 11 mg/dL (8.4-25.7); Calc. Creatinine Clearance 102 mL/min (70-130); Calcium 9.2 mg/dL (7.8-10.44); Carbon Dioxide 21 mmol/L (23-31); Chloride 107 mmol/L (98-107); Estimated GFR-MDRD 71; Glucose 101 mg/dL (80-115); Potassium 5.3 mmol/L (3.5-5.1); Sodium 139 mmol/L (136-145)
[2019-12-23 07:50] LABS: #Eosinphils 0.2 thou/uL (0.0-0.7); #Lymphocytes 1.1 thou/uL (1.20-3.40); #Monocytes 0.3 thou/uL (0.11-0.59); #Neutrophils 2.7 thou/uL (1.40-6.50); %Basophils 0.7 % (0.0-1.0); %Eosinophils 3.7 % (0.0-10.0); %Lymphocytes 26.1 % (21.0-51.0); %Monocytes 7.8 % (0.0-10.0); %Neutrophils 61.7 % (42.0-75.0); Hemoglobin 15.1 g/dL (14.0-18.0); Mean Corpuscular HGB CONC 33.1 g/dL (32.0-36.0); Mean Corpuscular Hemoglobin 29.4 pg (27.0-31.0); Mean Corpuscular Volume 88.7 fL (78.0-98.0); Mean Platelet Volume 7.1 fL (7.4-10.4); Platelet Count 234 thou/uL (130-400); RBC Distribution Width 11.9 % (11.5-14.5); Red Blood Cell (RBC) Count 5.16 mill/uL (4.70-6.10); White Blood Cell (WBC) Count 4.4 thou/uL (4.8-10.8)
[2019-12-23 08:16] VITALS: BP 145/66; TEMP 97.7
[2019-12-23] MEDS: Polyethylene Glycol 3350 17 GM Packet PO SCH ×2 (08:38→08:50)
[2019-12-23] MEDS: Enoxaparin Sodium 40 MG/0.4 ML SYRINGE SC SCH (08:40)
[2019-12-23] MEDS: Tamsulosin HCl 0.4 MG CAP PO SCH (08:41)
[2019-12-23] MEDS: Baclofen 10 MG TAB PO SCH ×2 (08:41→15:45)
[2019-12-23] MEDS: Docusate 100 MG CAP PO SCH ×2 (08:41→08:50)
[2019-12-23] MEDS: Losartan 25 MG TAB PO SCH (08:41)
[2019-12-23] MEDS: metFORMIN 500 MG TAB PO SCH (08:41)
[2019-12-23] MEDS: Sulfameth/Trimethoprim DS 800-160mg TAB PO SCH (08:41)
[2019-12-23] MEDS: Magnesium Oxide 250 MG TAB PO SCH (08:42)
[2019-12-23] MEDS: Amlodipine 10 MG TAB PO SCH (08:42)
[2019-12-23] MEDS: Insulin Glargine 15 UNITS in Pre-Filled Syringe 1 EACH SC SCH (08:42)
[2019-12-23] MEDS: Oxybutynin ER 5 MG TAB PO SCH (08:43)
[2019-12-23] MEDS: Ibuprofen 200 MG TAB PO PRN (14:03)
--- NOTE | 2019-12-24 02:34 | DIS ---
DATE OF ADMISSION: 12/20/2019 DATE OF DISCHARGE: 12/23/2019 RESIDENT: Xiomy Yeboah DO ADMITTING ATTENDING: Shawn Craig MD DISCHARGE ATTENDING: Jordi Dinh MD CONSULTS: Urology. PROCEDURES: Suprapubic catheter change. PRIMARY DIAGNOSIS: Sepsis secondary to catheter associated urinary tract infection. SECONDARY DIAGNOSES: 1. Type 2 diabetes. 2. Multiple sclerosis. 3. Hypertension. DISCHARGE MEDICATIONS: 1. Baclofen 20 mg t.i.d. 2. Levemir 15 units subcu daily. 3. Metformin 500 mg q.a.m. with meal. 4. Amlodipine 10 mg daily. 5. MiraLAX one pack b.i.d. 6. Ibuprofen 400 mg q.6 hour p.r.n. 7. Losartan 100 mg p.o. daily. 8. Magnesium oxide 500 mg q.a.m. 9. Zofran 4 mg q.6 hour p.r.n. 10. Tamsulosin 0.4 mg q.a.m. 11. Guaifenesin 100 mg/5 mL, 10 mL q.6 hour p.r.n. 12. Scopolamine patch 1.5 mg. 13. Oxybutynin ER 15 mg p.o. daily. 14. Loperamide 2 mg q.6 hours p.r.n. 15. Bactrim one tablet b.i.d., to be completed on 12/30/2019. DISCONTINUED MEDICATIONS: None. HOSPITAL COURSE: This 64-year-old male, with past medical history of MS, hypertension, type 2 diabetes, and an indwelling suprapubic catheter secondary to neurogenic bladder, was brought to the ED via EMS from [facility] for symptoms of UTI. Upon presentation, he complained of malaise, abdominal pain at the catheter site, subjective fevers, and excessive debris in his catheter. In the ED, blood cultures and urine cultures were collected prior to administration of Linezolid 600 mg and a 2 L normal saline bolus. Cefepime was added upon admission for pseudomonas coverage. After 3 days of broad-spectrum antibiotics, urine culture was positive for E coli, sensitive to Bactrim and he was switched to oral therapy with Bactrim, to be completed on December 29. Upon admission, he also had an ZI, which resolved with IV fluid resuscitation and was not present upon discharge. Urology, Dr. Kuhn, was made of aware of his admission. His suprapubic catheter was changed on December 21 using a Blue 22-Divehi catheter. Oxybutynin was increased from 15 mg to 20 mg during admission due to complaint of worsening bladder spasm. Other chronic problems remained well controlled throughout the admission. He did experience some deconditioning during admission with decreased ability to be transferred compared with before admission. He was seen and evaluated by PT and OT and discharged to SNF per their recommendations for reconditioning. Patient needs followup when suprapubic catheter will need to be replaced in whether or not increase his oxybutynin dose and whether it will be appropriate to remove . DISPOSITION: Stable. DISCHARGE INSTRUCTIONS: Location: SNF at [facility]. Diet: Diabetic, carb consistent. Activity: As tolerated. Followup: Follow up with primary care physician within [address] Klarissa Chen with [facility]. Job ID: [id number]
== END 2019-12-23 17:15 | DRG 698 ==
LOC: ERS 21:38 → ONC 12-20 01:30
PROVIDERS: ADMIT Student in an Organized Health Care Education/Training Program; ATTEND Student in an Organized Health Care Education/Training Program
PROC: 0T29X0Z Change Drainage Device in Ureter, External Approach (ICD-10-PCS; principal; 2019-12-20)
DX: T83.510A Infection and inflammatory reaction due to cystostomy catheter, initial encounter (principal); A41.9 Sepsis, unspecified organism; N39.0 Urinary tract infection, site not specified; N17.9 Acute kidney failure, unspecified; Z66 Do not resuscitate; Y84.6 Urinary catheterization as the cause of abnormal reaction of the patient, or of later complication, without mention of misadventure at the time of the procedure; N40.0 Benign prostatic hyperplasia without lower urinary tract symptoms; E11.9 Type 2 diabetes mellitus without complications; E78.5 Hyperlipidemia, unspecified; E78.00 Pure hypercholesterolemia, unspecified; I10 Essential (primary) hypertension; C43.9 Malignant melanoma of skin, unspecified; G35 Multiple sclerosis; N31.9 Neuromuscular dysfunction of bladder, unspecified; N32.89 Other specified disorders of bladder; Z90.49 Acquired absence of other specified parts of digestive tract; Z87.891 Personal history of nicotine dependence; Z88.1 Allergy status to other antibiotic agents; Z88.5 Allergy status to narcotic agent; Z79.4 Long term (current) use of insulin; Z79.899 Other long term (current) drug therapy
CPT/HCPCS: 36415; 36416; 80048; 80053; 81003; 81015; 83605; 83690; 84145; 85025; 87040; 87077; 87086; 87149; 87186; J0692; J0696; J1650; J1815; J2020; J3490

== ENCOUNTER 2020-03-06 16:31 | Emergency (ER) | payer MEDICARE, BC, OTHER ==
[2020-03-06] MEDS ORDERED: Lidocaine Viscous Sol 2% 15 ml UD Cup ONE (16:59)
[2020-03-06] MEDS ORDERED: Mag-Al 1200 mg/1200 mg/30 ML UDCUP ONE (16:59)
[2020-03-06 17:32] LABS: #Eosinphils 0.1 thou/uL (0.0-0.7); #Lymphocytes 1.3 thou/uL (1.20-3.40); #Monocytes 0.5 thou/uL (0.11-0.59); #Neutrophils 7.5 thou/uL (1.40-6.50); %Basophils 0.3 % (0.0-1.0); %Eosinophils 1.3 % (0.0-10.0); %Lymphocytes 13.3 % (21.0-51.0); %Monocytes 5.3 % (0.0-10.0); %Neutrophils 79.7 % (42.0-75.0); Hemoglobin 15.1 g/dL (14.0-18.0); Mean Corpuscular HGB CONC 33.7 g/dL (32.0-36.0); Mean Corpuscular Hemoglobin 29.8 pg (27.0-31.0); Mean Corpuscular Volume 88.5 fL (78.0-98.0); Mean Platelet Volume 7.6 fL (7.4-10.4); Platelet Count 276 thou/uL (130-400); RBC Distribution Width 12.8 % (11.5-14.5); Red Blood Cell (RBC) Count 5.08 mill/uL (4.70-6.10); White Blood Cell (WBC) Count 9.4 thou/uL (4.8-10.8)
--- NOTE | 2020-03-06 17:46 | RAD ---
RADIOGRAPH CHEST 1 VIEW: DATE: 03/06/2020 HISTORY: 64-year-old male with globus sensation. FINDINGS: There are no airspace densities, pulmonary edema, pneumothorax, or cardiomegaly. The lateral costophr enic angles are sharp. No radiopaque foreign body identified. IMPRESSION: No acute cardiopulmonary findings.
[2020-03-06 17:56] LABS: ALT (SGPT) 25 U/L (8-55); AST (SGOT) 16 U/L (5-34); Albumin 4.1 g/dL (3.4-4.8); Alkaline Phosphatase 95 U/L (40-110); Anion Gap 13 mmol/L (10-20); BUN (Urea Nitrogen) 17 mg/dL (8.4-25.7); Bilirubin, Total 0.3 mg/dL (0.2-1.2); Calc. Creatinine Clearance 0 mL/min (70-130); Calcium 9.9 mg/dL (7.8-10.44); Carbon Dioxide 30 mmol/L (23-31); Chloride 102 mmol/L (98-107); Estimated GFR-MDRD 71; Globulin 3.3 g/dL (2.4-3.5); Glucose 130 mg/dL (80-115); Potassium 4.1 mmol/L (3.5-5.1); Protein, Total 7.4 g/dL (5.8-8.1); Sodium 141 mmol/L (136-145)
--- NOTE | 2020-03-06 18:36 | RAD ---
TO VIEWS OF THE NECK SOFT TISSUES: 03/06/20 INDICATION: History of sore throat and feeling like something was stuck in the throat for two days. FINDINGS: The visualized soft tissues of the neck appear within normal limits. Prevertebral soft tissues are n ormal appearing. No radiopaque foreign body is evident. IMPRESSION: Normal. POS: BH
[2020-03-06] MEDS ORDERED: Ibuprofen 200 MG TAB ONE (18:58)
== END 2020-03-06 19:12 ==
LOC: ERS 16:31
DX: F45.8 Other somatoform disorders (principal); J02.9 Acute pharyngitis, unspecified; E11.9 Type 2 diabetes mellitus without complications; E78.5 Hyperlipidemia, unspecified; E78.00 Pure hypercholesterolemia, unspecified; I10 Essential (primary) hypertension; F17.210 Nicotine dependence, cigarettes, uncomplicated; Z79.4 Long term (current) use of insulin; Z79.899 Other long term (current) drug therapy
CPT/HCPCS: 36415; 70360; 71045; 80053; 85025

== ENCOUNTER 2020-03-26 17:04 | Inpatient (IN) | payer MEDICARE, BC, MEDICAID, OTHER ==
[2020-03-26 17:55] LABS: #Basophils 0.1 thou/uL (0.0-0.2); #Eosinphils 0.2 thou/uL (0.0-0.7); #Lymphocytes 1.6 thou/uL (1.20-3.40); #Monocytes 0.7 thou/uL (0.11-0.59); #Neutrophils 9.5 thou/uL (1.40-6.50); %Basophils 0.5 % (0.0-1.0); %Eosinophils 1.8 % (0.0-10.0); %Lymphocytes 13.1 % (21.0-51.0); %Monocytes 5.9 % (0.0-10.0); %Neutrophils 78.7 % (42.0-75.0); Hemoglobin 15.3 g/dL (14.0-18.0); Mean Corpuscular HGB CONC 33.8 g/dL (32.0-36.0); Mean Corpuscular Hemoglobin 29.9 pg (27.0-31.0); Mean Corpuscular Volume 88.5 fL (78.0-98.0); Mean Platelet Volume 7.7 fL (7.4-10.4); Platelet Count 319 thou/uL (130-400); Red Blood Cell (RBC) Count 5.12 mill/uL (4.70-6.10); White Blood Cell (WBC) Count 12.1 thou/uL (4.8-10.8)
[2020-03-26 18:16] LABS: ALT (SGPT) 16 U/L (8-55); AST (SGOT) 13 U/L (5-34); Alkaline Phosphatase 88 U/L (40-110); Anion Gap 10 mmol/L (10-20); BUN (Urea Nitrogen) 15 mg/dL (8.4-25.7); Bilirubin, Total 0.5 mg/dL (0.2-1.2); Calc. Creatinine Clearance 0 mL/min (70-130); Calcium 9.4 mg/dL (7.8-10.44); Carbon Dioxide 27 mmol/L (23-31); Chloride 106 mmol/L (98-107); Estimated GFR-MDRD 76; Globulin 3.6 g/dL (2.4-3.5); Glucose 134 mg/dL (80-115); Protein, Total 7.6 g/dL (5.8-8.1); Sodium 139 mmol/L (136-145)
[2020-03-26 18:21] LABS: Bacteria/HPF 3+ HPF (None Seen); Bilirubin Negative (Negative); Clarity Turbid (Clear); Glucose, Urine (Dipstick) Normal (Negative); Ketone, Urine Negative (Negative); Leukocyte 500 Leu/uL (Negative); Nitrite 2+ (Negative); Protein, Urine (Dipstick) 50 mg/dL (Neg-Trace); Specific Gravity, Urine 1.021 (1.002-1.036); Squamous Epithelial 0-3 HPF (0-3); Urobilinogen Normal mg/dL (Less than 2); WBC/HPF Greater than 50 HPF (0-3)
[2020-03-26 18:28] LABS: Blood, Urine Trace (Negative)
--- NOTE | 2020-03-26 18:32 | ULT ---
RIGHT LOWER EXTREMITY VENOUS DUPLEX EXAM: 03/26/20 Deep veins of the right lower extremity evaluated with ultrasound and Doppler including color Doppler and spectral analysis with compression. INDICATIONS: Right lower extremity pain and edema. FINDINGS: Deep veins of the right lower extremity demonstrate normal blood flow and compression. No evidence of DVT. IMPRESSION: No evidence of right lower extremity DVT. POS: AGW
[2020-03-26] MEDS ORDERED: Cefepime 2 GM VIAL ONE (19:23)
--- NOTE | 2020-03-26 19:39 | PDOC.FPRHP ---
- History of Present Illness Chief Complaint: dizziness, severe DIEGO History of Present Illness: Mr. Hill is a 64M who presented to the ED after calling EMS from [facility] d/t dizziness, weakness, and diarrhea that started today. At about noon, he started having dizziness, severe DIEGO, multiple episodes of diarrhea over a 3hr period, and weakness such that he could not transfer to his wheelchair. He also endorses nausea and back pain. He has a hx of MS with neurogrnic bladder and permanent suprapubic catheter. He is chronically colonized. His millan was last changed at the end of Feb and is typically changed once per month. He has had multiple UTIs and states the first sx for him is foul-smelling urine which he first noticed wks ago. He states he notified his nurses but they did not do anything about it. Then, he states the urine in his millan tube was so dark and "full of gunk" that he could not see through it. His UCx from his most recent UTI grew Proteus resistant to Ciprofloxacin and Macrobid, as well as puente- sensitive Citrobacter. He has an allergy to Vancomycin that appears to be a diffuse rash. He is also complaining of a rash with severe itching in his groin and what he thinks are ulcers on his bottom that he says are also itchy. He has also had worsening R leg edema over the past month which he does not usually have. Due to his MS he has no sensation in his R LE. He also endorses polyuria because he has hardly drunk anything since Sunday but his millan bag has continued to fill up. Baseline: can dress self, can use bathroom by self, transfer to and from lift chair to wheelchair ED Course: 2L NS bolus, 2g Cefepime - Allergies/Adverse Reactions Allergies Allergy/AdvReac Type Severity Reaction Status Date / Time codeine Allergy Intermediate Rash Verified 12/20/19 13:23 adhesive Allergy Verified 12/20/19 13:23 vancomycin Allergy Verified 12/20/19 13:23 acetaminophen [From Tylenol] AdvReac Verified 12/20/19 13:23 - Home Medications Medication Instructions Recorded Confirmed Type Baclofen [Lioresal] 20 mg PO TID tab 08/01/18 03/26/20 Rx Insulin Detemir [Levemir] 15 unit SQ DAILY #1 11/08/18 03/26/20 Rx metFORMIN [Glucophage] 500 mg PO QAM-WM #30 tab 03/19/19 03/26/20 Rx Amlodipine Besylate [amLODIPine 10 mg PO DAILY 07/27/19 03/26/20 History Besylate] Polyethylene Glycol 3350 [Miralax] 1 pk PO BID 07/27/19 03/26/20 History Ibuprofen [Motrin IB] 400 mg PO Q6H PRN tab 09/18/19 03/26/20 Rx Losartan Potassium [Cozaar] 100 mg PO DAILY tab 09/18/19 03/26/20 Rx Magnesium Oxide 500 mg PO QAM tab 09/18/19 03/26/20 Rx Meclizine HCl [Antivert] 25 mg PO Q8H PRN tab 09/18/19 03/26/20 Rx Ondansetron [Zofran ODT] 4 mg PO Q6H PRN tab 09/18/19 03/26/20 Rx Tamsulosin HCl [Flomax] 0.4 mg PO QAM cap 09/18/19 03/26/20 Rx Loperamide HCl [Imodium A-D] 2 mg PO Q6HR PRN 12/20/19 03/26/20 History Oxybutynin Chloride [Oxybutynin 10 mg PO BID 12/20/19 03/27/20 History Chloride ER] Scopolamine 1.5 mg TOP Q3DAYS 12/20/19 03/26/20 History guaiFENesin [Guaifenesin] 10 ml PO Q6HR PRN 12/20/19 03/26/20 History Sulfamethoxazole/Trimethoprim 1 tab PO BID #17 tab 12/22/19 03/26/20 Rx [Bactrim DS] Ascorbic Acid [Vitamin C] 1 tab PO BID 03/27/20 03/27/20 History Magnesium Oxide [Mag-Oxide] 2 tab PO DAILY 03/27/20 03/27/20 History Nystatin 1 applic TOP BID 03/27/20 03/27/20 History - History PMHx: MS, T2DM, HTN, skin cancer of unknown kind PSHx: suprapubic catheter placement, rods/screws in R LE, L rotator cuff sx, L eye sx, cholecystectomy FHx: Brother has pacemaker, Dad had CKD5. No lung disease. Social: Has lived at [facility] for the past 4mo No tob/drugs/EtOH since 24yrs ago - Review of Systems General: reports: weight/appetite/sleep changes. denies: fever/chills, night sweats Eyes: denies: vision changes ENT: denies: nasal congestion, rhinorrhea Respiratory: denies: cough, shortness of breath Cardiovascular: reports: edema (R leg, increased over 1mo), orthopnea. denies: chest pain, palpitation Gastrointestinal: reports: nausea (with laying flat), diarrhea, abdominal pain. denies: vomiting Genitourinary: reports: polyuria. denies: dysuria (neurogenic bladder) Skin: reports: rashes (in groin), lesions (Bed sores on bottom), itching (in groin) Musculoskeletal: reports: swelling (R LE), arthritis/arthralgias (of L leg/knee) Neurological: reports: weakness. denies: syncope, seizure - Vital signs BP: 144/83 HR: 111 RR: 18 Pox: 95% on RA Wt: 100kg - Physical Exam Constitutional: NAD, awake, alert and oriented, well developed (Obese) HEENT: normocephalic and atraumatic, grossly normal vision, grossly normal hearing Neck: supple, FROM Chest: no-tender to palpation, no lesions Heart: RRR, normal S1/S2, no murmurs/rubs/gallops, pulses present (1+ radial b/l, 1+ L dp. R dp not appreciable) Lungs: CTAB, no respiratory distress Abdomen: soft, bowel sounds present -Abdomen: Extremely tender to palpation on entire L side of abdomen. No rebound tenderness or guarding. Musculoskeletal: normal structure, normal tone -Musculoskeletal: Limited movement and sensation of R UE and LE, c/w hx of MS -Neurological: Minimal movement and sensation of R UE and LE, nml for him. Strength 5/5 in R hand, but significantly less than in L hand. States he is unable to feel R LE at all. Virtually no flexion ability of R foot. -Skin: Significant rash of groin and buttocks. Erythematous, edematous, convalescing with satellite lesions, concentrated in intertriginous areas covered by his diaper. Heme/Lymphatic: no purpura, no petechia Psychiatric: normal mood and affect, good judgment and insight, intact recent and remote memory FMR H&P: Results - Labs Result Diagrams: 03/27/20 00:02 03/26/20 17:42 Lab results: WBC 12.1 thou/uL (4.8-10.8) H 03/26/20 17:42 Hgb 15.3 g/dL (14.0-18.0) 03/26/20 17:42 Hct 45.3 % (42.0-52.0) 03/26/20 17:42 MCV 88.5 fL (78.0-98.0) 03/26/20 17:42 Plt Count 319 thou/uL (130-400) 03/26/20 17:42 Neutrophils % 78.7 % (42.0-75.0) H 03/26/20 17:42 Sodium 139 mmol/L (136-145) 03/26/20 17:42 Potassium 4.0 mmol/L (3.5-5.1) 03/26/20 17:42 Chloride 106 mmol/L (98-107) 03/26/20 17:42 Carbon Dioxide 27 mmol/L (23-31) 03/26/20 17:42 BUN 15 mg/dL (8.4-25.7) 03/26/20 17:42 Creatinine 0.99 mg/dL (0.7-1.3) 03/26/20 17:42 Glucose 134 mg/dL (80-115) H 03/26/20 17:42 Lactic Acid 1.4 mmol/L (0.5-2.2) 03/26/20 17:42 Calcium 9.4 mg/dL (7.8-10.44) 03/26/20 17:42 Total Bilirubin 0.5 mg/dL (0.2-1.2) 03/26/20 17:42 AST 13 U/L (5-34) 03/26/20 17:42 ALT 16 U/L (8-55) 03/26/20 17:42 Alkaline Phosphatase 88 U/L (40-110) 03/26/20 17:42 Serum Total Protein 7.6 g/dL (5.8-8.1) 03/26/20 17:42 Albumin 4.0 g/dL (3.4-4.8) 03/26/20 17:42 Urine Ketones Negative mg/dL (Negative) 03/26/20 17:29 Urine Blood Trace (Negative) A 03/26/20 17:29 Urine Nitrite 2+ (Negative) A 03/26/20 17:29 Ur Leukocyte Esterase 500 Jose/uL (Negative) A 03/26/20 17:29 Urine RBC 7-10 HPF (0-3) A 03/26/20 17:29 Urine WBC Greater than 50 HPF (0-3) A 03/26/20 17:29 Ur Squamous Epith Cells 0-3 HPF (0-3) 03/26/20 17:29 Urine Bacteria 3+ HPF (None Seen) A 03/26/20 17:29 FMR H&P: A/P - Plan Sepsis 2/2 CAUTI - Has MS with neurogenic bladder and permanent suprapubic catheter, therefore chronically colonized - SIRS: tachycardia, WBC 12 with 78% PMNs - UA pos for leuks, nitrites, bacteria, protein, cells, crystals - On Cefepime (03/26). Not on Vancomycin d/t allergy - Received 2L NS bolus in ED - UCx, BCx pending - Will obtain CT abd/pelvis w and wo contrast d/t back pain - Urology (Hattie) consulted from the ED. Will see him in am. Recommended leaving millan as long as it is draining. Appreciate further recs. - Continue home meds for neurogenic bladder Neida of intertriginous regions - In groin and gluteal cleft - Nystatin cream Paronychia - Of L pinky finger - Ordered warm baths MS - Minimal movement and sensation of R side - Wound care consulted to eval for skin breakdown - Continue home meds Diarrhea - Pt states he had 5 BMs with the consistency of water today - Check for CDiff T2DM - ACHS checks - Hypoglycemia potocol in place - Continue home meds HTN - MD aware - Continue home meds Dispo: Medical inpt, LOS >24h IVF: N/A Diet: CC 2000cal DVT Ppx: Teresa 40 GI Ppx: N/A Abx: Cefepime, Bactrim PCP: UYEN Chen Code: DNAR FMR H&P: Upper Level - Plan Date/Time: 03/26/201937 Tony Lundberg MD, have evaluated this patient and agree with findings/plan as outlined by industrial engineering intern resident. Pertinent changes/additions are listed here. HPI: 64 you M with PMH of MS, neurogenic bladder, with suprapubic catheter presents for weakness, dizziness, headache, and diarrhea that started earlier today. Patient reports he was concerned that he was getting a UTI starting two weeks ago as his millan output was very foul smelling. He started feeling bad with the aforementioned symptoms this morning and called EMS from [facility]. Reports his headache is now resolved, denies chest pain/palpitations. Reports brown watery stools that started this afternoon, with constipation prior for the past few days. ED: WBC 12.1, tachycardic. 2L NS and cefepime. Dr. Kuhn was consulted, reports will see patient tomorrow. Vitals: 97.6, P 111, R 18, 95% on RA, 144/83 Physical Exam: General: Male in NAD, lying in bed Cardiac: RRR, no murmur Lungs: BCTA Abdomen: Diffuse TTP, worse in midepigastric region and Left side of abdomen. No guarding or rebound tenderness. Ext: 2+ edema, nonpitting in RLE up to knee. Trace pitting edema LLE A/P: Sepsis 2/2 CAUTI -WBC 12, tachycardic. UA shows likely infection vs colonization -Hx Citrobacter (pansensitive except to floroquinolones and nitrofurantoin) and Proteus (pansensitive) - Blood and urine cultures collected, 2 G cefepime given along with 2L NS bolus -Urology, Dr. Kuhn consulted from ED, will see tomorrow. Appreciate recs -Considering millan change, last changed end of February. As long as millan is draining, does not need to be changed tonight -Continue cefepime -CT abd/pelv w and w/o: No hydronephrosis or urinary calculus, bladder collapse around suprapubic catheter. Moderate edema in fat around both kidneys is typically benign. Correlate clinically Abdominal pain with diarrhea/constipation -CT of abdomen, w and w/o contrast- [facility] reading: no acute findings as above. Awaiting official rads read. -C dif pending -Lipase pending T2DM -Resume home insulin -SSI with accuchecks Swelling RLE -US negative for DVT Candidal skin infection -nystatin cream topically HTN -resume home medications Paronychia L pinky -warm water soaks Diet: CC DVT ppx: lovenox PCP: Gustavo Code: DNAR Dispo: Admit to medical inpt, LOS >48 hours, pending results of cultures and urology recs. Tony Chew MD PGY3 Addendum - Attending - Attending Attestation Date/Time: 03/27/20 [id number] I personally evaluated the patient and discussed the management with Dr. Cervantes I agree with the History, Examination, Assessment and Plan documented above with any addition or exceptions noted below.
[2020-03-26 22:22] VITALS: BMI 33.5
[2020-03-26] MEDS ORDERED: Calcium Carbonate 500 MG ChewTAB PO PRN (23:51)
[2020-03-26] MEDS ORDERED: Dextrose 5% in Water 1,000 ML IV PRN (23:51)
[2020-03-26] MEDS ORDERED: Dextrose 50% Abboject 50 ML SYRINGE SLOW IVP PRN (23:51)
[2020-03-26] MEDS ORDERED: HumaLOG 300 UNITS/3 ML VIAL SC PRN (23:51)
[2020-03-26] MEDS ORDERED: Ondansetron PF 4 MG/2 ML Vial IVP PRN (23:51)
[2020-03-26] MEDS ORDERED: Ondansetron ODT 4 MG TAB PO PRN (23:51)
[2020-03-27 00:17] LABS: #Eosinphils 0.2 thou/uL (0.0-0.7); #Lymphocytes 1.4 thou/uL (1.20-3.40); #Monocytes 0.6 thou/uL (0.11-0.59); #Neutrophils 6.7 thou/uL (1.40-6.50); %Basophils 0.4 % (0.0-1.0); %Eosinophils 1.8 % (0.0-10.0); %Monocytes 7.1 % (0.0-10.0); %Neutrophils 74.8 % (42.0-75.0); Hemoglobin 13.2 g/dL (14.0-18.0); Mean Corpuscular Hemoglobin 30.8 pg (27.0-31.0); Mean Corpuscular Volume 87.8 fL (78.0-98.0); Mean Platelet Volume 7.6 fL (7.4-10.4); Platelet Count 255 thou/uL (130-400); RBC Distribution Width 12.7 % (11.5-14.5); Red Blood Cell (RBC) Count 4.29 mill/uL (4.70-6.10); White Blood Cell (WBC) Count 8.9 thou/uL (4.8-10.8)
[2020-03-27] MEDS ORDERED: Promethazine 25 MG TAB PO PRN (01:28)
[2020-03-27] MEDS ORDERED: Diabetic Tussin 200 MG/10 ML UDCUP PO PRN (03:17)
[2020-03-27] MEDS ORDERED: Meclizine HCl 25 MG TAB PO PRN (03:17)
--- NOTE | 2020-03-27 05:46 | PDOC.FM ---
- Subjective Subjective: Patient had 3 loose bowel movements yesterday, but none now. He felt nauseous earlier but that has improved. He has left sided abdominal pain he complains of and a rash in his groin. - Objective MAR Reviewed: Yes Vital Signs & Weight: Vital Signs (12 hours) Temp Pulse Resp BP Pulse Ox 03/27/20 04:00 98.0 F 96 18 115/75 93 L 03/27/20 00:00 98.0 F 101 H 18 127/68 93 L 03/26/20 22:07 97.6 F 111 H 18 144/83 H 95 03/26/20 21:15 95 Weight Weight 100.244 kg I&O: 03/25/20 03/26/20 03/27/20 06:59 06:59 06:59 Output Total 1000 Balance -1000 Result Diagrams: 03/27/20 00:02 03/26/20 17:42 Phys Exam - Physical Examination Constitutional: NAD HEENT: moist MMs, sclera anicteric Neck: no nodes, supple Respiratory: no wheezing, no rales, no rhonchi, clear to auscultation bilateral Cardiovascular: RRR, no significant murmur TTP on LLQ and folliculitis Musculoskeletal: pulses present 1+ edema, right leg largerly than left Neurological: moves all 4 limbs Lymphatic: no nodes Psychiatric: normal affect Skin: no rash, normal turgor Dx/Plan (1) Catheter-associated urinary tract infection Code(s): T83.511A - I/I REACT D/T INDWELLING URETHRAL CATHETER, INIT; N39.0 - URINARY TRACT INFECTION, SITE NOT SPECIFIED Status: Acute (2) Tinea cruris Code(s): B35.6 - TINEA CRURIS Status: Acute (3) Paronychia Code(s): ULF7005 - Status: Acute (4) Neurogenic bladder Code(s): N31.9 - NEUROMUSCULAR DYSFUNCTION OF BLADDER, UNSPECIFIED Status: Acute (5) History of skin cancer Code(s): Z85.828 - PERSONAL HISTORY OF OTHER MALIGNANT NEOPLASM OF SKIN Status: Acute (6) Sepsis Code(s): A41.9 - SEPSIS, UNSPECIFIED ORGANISM Status: Acute Qualifiers: Sepsis type: sepsis due to unspecified organism Sepsis acute organ dysfunction status: without acute organ dysfunction Qualified Code(s): A41.9 - Sepsis, unspecified organism (7) Diabetes mellitus Code(s): E11.9 - TYPE 2 DIABETES MELLITUS WITHOUT COMPLICATIONS Status: Chronic Qualifiers: Diabetes mellitus type: type 2 (8) HTN (hypertension) Code(s): I10 - ESSENTIAL (PRIMARY) HYPERTENSION Status: Chronic (9) Multiple sclerosis Code(s): G35 - MULTIPLE SCLEROSIS Status: Chronic - Plan Plan: 64 you M with PMH of MS, neurogenic bladder, with suprapubic catheter presents for weakness, dizziness, headache, and diarrhea that started earlier today. 1. Sepsis 2/2 CAUTI -WBC 12 > 8.9, tachycardic. UA shows likely infection vs colonization -Hx Citrobacter (pansensitive except to floroquinolones and nitrofurantoin) and Proteus (pansensitive) - Blood and urine cultures collected, 2 G cefepime given along with 2L NS bolus -Urology, Dr. Kuhn consulted from ED, will see tomorrow. Appreciate recs -Considering millan change, last changed end of February. As long as millan is draining, does not need to be changed tonight -Continue cefepime -CT abd/pelv w and w/o: No hydronephrosis or urinary calculus, bladder collapse around suprapubic catheter. Moderate edema in fat around both kidneys is typically benign. 2. Abdominal pain with diarrhea/constipation -CT of abdomen, w and w/o contrast- [facility] reading: no acute findings as above. Awaiting official rads read. -C dif: pending -Lipase: pending 3. T2DM -Resume home insulin -SSI with accuchecks 4. Swelling RLE -US negative for DVT Candidal skin infection -nystatin cream topically 5. HTN -resume home medications 6. Paronychia L pinky -warm water soaks 7. Tinea Cruris -See wound note photo -Nystatin cram Diet: CC DVT ppx: lovenox PCP: Gustavo Code: DNAR Dispo: Treat with IV Abx due to sepsis from CAUTI. Await blood and urine cultures although improving clinically. Will treat fungal infection and treat c hronic diseases. Urology will come by today. Will monitor chronic diseases. Addendum - Attending - Attending Attestation Date/Time: 03/27/20 [id number] I personally evaluated the patient and discussed the management with Dr. Higuera I agree with the History, Examination, Assessment and Plan documented above with any addition or exceptions noted below. Appreciate recommendations from Urology.
[2020-03-27] MEDS: Cefepime 2 GM in Sodium Chloride 0.9% 100 ML IVPB SCH ×2 (08:35→19:38)
[2020-03-27] MEDS: metFORMIN 500 MG TAB PO SCH (08:37)
[2020-03-27] MEDS: Ascorbic Acid 500 mg Chewable Tablet PO SCH ×2 (08:37→19:38)
[2020-03-27] MEDS: Amlodipine 10 MG TAB PO SCH (08:37)
[2020-03-27] MEDS: Baclofen 10 MG TAB PO SCH ×3 (08:37→19:39)
[2020-03-27] MEDS: Losartan 25 MG TAB PO SCH (08:38)
[2020-03-27] MEDS: Enoxaparin Sodium 40 MG/0.4 ML SYRINGE SC SCH (08:39)
[2020-03-27] MEDS: Scopolamine 1.5 mg/72 hour Patch TOP SCH (08:40)
[2020-03-27] MEDS ORDERED: Clotrimazole 1 % Cream 30 GM TUBE TOP SCH (09:00)
[2020-03-27] MEDS ORDERED: Nystatin Cream 30 GM TUBE TOP SCH (09:00)
[2020-03-27] MEDS ORDERED: Tamsulosin HCl 0.4 MG CAP PO SCH (09:00)
[2020-03-27] MEDS ORDERED: Nystatin Cream 15 GM TUBE TOP SCH ×2 (09:00)
[2020-03-27] MEDS ORDERED: Sulfameth/Trimethoprim DS 800-160mg TAB PO SCH (09:00)
--- NOTE | 2020-03-27 09:30 | CT ---
PRELIMINARY REPORT/DIRECT RADIOLOGY/EMERGENCY AFTER HOURS PROCEDURE: Addendum: Correction to the original report. The examination was performed with and without contrast. Normal enhancement of the right and left renal cortex. No definite acute abnormality of the solid o rgans are vasculature. Addendum electronically signed by Ector Butler MD on March 27, 2020 2:43:[address] abdomen and pelvis without contrast: Comparison: 06/17/2019 Findings: No significant abnormality in the lung bases. Absent gallbladder. No biliary obstruction. N o hydronephrosis or symptomatic urinary calculus. Mild edema in the fat around both kidneys. The angela d organs are otherwise unremarkable within the limits of a noncontrast study. No aortic aneurysm. Normal appendix. No bowel obstruction, free fluid, free air, abscess or diverticulitis. The urinary b ladder is collapsed around a suprapubic catheter. Normal prostate gland. Fusion of the sacroiliac fabi nts. Degenerative change in the lower lumbar spine. No evidence of critical spinal canal narrowing. I mpression: No hydronephrosis or symptomatic urinary calculus. The urinary bladder is collapsed around a suprapubic catheter. Moderate edema in the fat around both kidneys is typically benign. Correlate clinically for any evidence of pyelonephritis. ELECTRONICALLY SIGNED BY: Ector Butler MD Mar 27, 2020 2:25:36 AM CDT FINAL REPORT CT ABDOMEN AND PELVIS WITH AND WITHOUT IV CONTRAST: INDICATION: Abdominal pain and back pain. FINDINGS: There is no urinary tract calculus or obstruction. Liver, spleen, and pancreas are unremarkable. No evidence of acute process. I am in agreement with the preliminary report. POS: AGW
[2020-03-27] MEDS ORDERED: Iopamidol 370 76% 100 ML VIAL ONE (09:54)
[2020-03-27] MEDS: Insulin Glargine 15 UNITS in Pre-Filled Syringe 1 EACH SC SCH (10:52)
[2020-03-27] MEDS: Magnesium Oxide 250 MG TAB PO SCH (10:52)
[2020-03-27] MEDS: Oxybutynin ER 5 MG TAB PO SCH ×2 (10:53→19:39)
--- NOTE | 2020-03-27 13:44 | CON ---
DATE OF CONSULTATION: 03/27/2020 CONSULTING: Family Medicine. REASON FOR CONSULTATION: Urosepsis secondary to indwelling suprapubic catheter. HISTORY OF PRESENT ILLNESS: Mr. Hill is a 64-year-old male with multiple sclerosis and neurogenic bladder with permanent suprapubic catheter, which I have been managing for several years. He states he was in his normal order of affairs at his fci. He states his fci is having significant problems with staff as multiple CNAs have quit. They are severely understaffed and he has been left in multiple instances without food or water. He states he has not been drinking nearly enough fluids because nobody will bring it to him. He states he has had minimal fluid intake since Sunday and he had noticed his urine was getting increasingly more cloudy and turbid as well as foul smelling. By Sunday, the patient stated that he started feeling unwell, was having cramps, generalized malaise with extremely foul-smelling odor in the urine. He felt like he was developing a urinary tract infection as he was also becoming increasingly weak. He notified the staff at [facility] where he was told we will monitor it and see if it gets better by itself. When the patient began feeling worse, he eventually called 911 who picked him up and took him to the emergency room where he was evaluated, found to have an infection, and admitted to the Family Medicine Service. He states he is feeling much better after receiving IV hydration in the emergency room. He has also been started on cefepime. His urine has already started to clear up. His suprapubic catheter was flushed per my instructions in the emergency room and found to irrigate easily and without problems and has been draining well since then. The last catheter change was towards the end of February in our office. It has been draining well for the last 2 weeks. ALLERGIES: 1. CODEINE. 2. ADHESIVES. 3. VANCOMYCIN. 4. TYLENOL. HOME MEDICATIONS: 1. Baclofen. 2. Levemir insulin. 3. Metformin. 4. Amlodipine. 5. MiraLAX. 6. Ibuprofen. 7. Losartan. 8. Magnesium oxide. 9. Meclizine. 10. Zofran. 11. Flomax. 12. Loperamide. 13. Oxybutynin extended release 10 mg. 14. Scopolamine patch. 15. Guaifenesin. 16. Bactrim. 17. Vitamin C. 18. Nystatin cream. PAST MEDICAL HISTORY: 1. Multiple sclerosis. 2. Diabetes mellitus, type 2. 3. Hypertension. 4. History of skin cancer. 5. Neurogenic bladder. 6. Muscle spasms. PAST SURGICAL HISTORY: 1. Suprapubic catheter placement. 2. Right lower extremity orthopedic surgeries. 3. Left rotator cuff surgery. 4. Left eye surgery. 5. Cholecystectomy. FAMILY HISTORY: Significant for chronic kidney disease and cardiovascular disease. No significant history of MS. SOCIAL HISTORY: The patient has lived at [facility] for the past 4 months. He denies tobacco, illicit drugs, or alcohol abuse. He states that his living situation has been declining at [facility] and he feels that he is not being cared for adequately. REVIEW OF SYSTEMS: A 12-point review of systems reviewed with the patient and negative other than what was commented on the HPI above. The patient also reports just starting to have diarrhea in the past 24 to 48 hours as well as having some lower extremity swelling. PHYSICAL EXAMINATION: VITAL SIGNS: Temperature 98.4, pulse 110, respirations 20, blood pressure 100/67, and saturations 93% on room air. GENERAL: No apparent distress. Communicative and alert. Answering questions appropriately. Morbidly obese. HEENT: Normocephalic and atraumatic. Pupils are symmetric and round. Sclerae nonicteric. Trachea midline. CARDIOVASCULAR: Sinus tachycardia. Normal S1 and S2. Symmetric pulses. CHEST: Nonlabored breathing. Symmetric expansion of lungs. Decreased breath sounds, but otherwise clear. ABDOMEN: Soft, obese. Difficult to palpate internal organs. Nontender and nondistended. Suprapubic catheter in good location without surrounding cellulitis. Urine is now nearly completely clear with minimal amount of sediment. No palpable hernias. GENITOURINARY: The patient has circumcised penis without lesions. There is nystatin cream around the patient's intertriginous regions and scrotum and penis. There does appear to be resolving fungal infection. The patient has recently had a bowel movement, which is currently being cleaned up by the nursing staff. EXTREMITIES: [id number] right lower extremity edema, 1+ left lower extremity edema. No evidence of cellulitis, onychomycosis of the lower extremity nails. No clubbing or cyanosis. NEUROLOGIC: Cranial nerves 2 through 12 grossly intact. There is significant lower extremity weakness secondary to the patient's MS. He also has mild right-sided weakness with good left-sided coordination and strength of his upper extremity. MUSCULOSKELETAL: No obvious joint deformity or joint erythema noted. PSYCHIATRIC: Alert and oriented x3. Appropriate mood and affect. LABORATORY EVALUATION: Full set of labs are in the [employer] system, which I have reviewed. Of note, the patient's white count is decreased to 8.9 from 12.1. Creatinine is 0.99. Urine culture is growing gram-negative rods currently. CT from 03/27/2020, which I have reviewed myself, demonstrates no evidence of hydronephrosis, urinary tract calculi, or urinary retention. The bladder does appear to be fully drained with a suprapubic catheter in good location. ASSESSMENT AND PLAN: A 64-year-old white male with diabetes and multiple sclerosis with urinary tract infection, which was most likely precipitated by dehydration. He does seem to have significant problems at his fci at [facility] as they were severely understaffed and this is causing medical complications in their attendance. I would give strong consideration for having the patient see a community case manager for possibility of transferring to a different facility if this is possible to avoid further problems with this individual in the future. I do feel that his urinary tract infection likely occurred due to extremely poor urine output and heavy colonization of the bladder, which subsequently became infected. He has already been hydrated and his urine looks much clear with hydration and antibiotics. I would recommend 7-day course of antibiotics for a complicated urinary tract infection. There is no need to change his suprapubic catheter currently. He is scheduled for another suprapubic tube change in our office towards the end of March, which he can keep that appointment. His diarrhea may or may not be contributing to the patient's current symptoms and this is currently being worked up by the family medicine team, which I would agree with. From my standpoint, other than his antibiotic usage and hydration, there is nothing further from a urologic standpoint that needs to be done on this admission. I recommend continuing his antibiotics for 7 days. Once cultures are finalized, he can be transitioned to oral antibiotics. Remainder of medical workup by family medicine team. I will sign off currently, but please re-consult if there are any further or new questions. The patient should keep suprapubic tube change appointment with us towards the end of the month. On an additional note, the patient is currently taking tamsulosin, which is completely unnecessary given that he has a suprapubic catheter. I would recommend discontinuation of tamsulosin, but the patient should remain on his oxybutynin extended release secondary to relatively good control of his bladder spasms. Job ID: [id number]
[2020-03-27 15:47] LABS: SARS-CoV-2 MS2 Positive; SARS-CoV-2 N Gene Negative; SARS-CoV-2 S Gene Negative; SARS-CoV-2 by NAA Not Detected (NotDetected); SARS-CoV-2 orf1ab Negative
[2020-03-27] MEDS: HumaLOG 300 UNITS/3 ML VIAL SC PRN (18:43)
[2020-03-27] MEDS: Ibuprofen 600 MG TAB PO PRN (22:38)
--- NOTE | 2020-03-28 05:32 | PDOC.FM ---
- Subjective Subjective: He is doing well this morning. His left finger hurts when it touches something. He would like to talk to case management to see about placement other places other than [facility]. He has a connection with his roommate at the care home and he is worried about him. - Objective MAR Reviewed: Yes Vital Signs & Weight: Vital Signs (12 hours) Temp Pulse Resp BP Pulse Ox 03/28/20 04:00 98.4 F 91 20 114/76 94 L 03/28/20 00:00 98.1 F 97 20 107/73 94 L 03/27/20 19:47 98.6 F 107 H 20 106/66 92 L Weight Admit Weight 100.244 kg Weight 100.244 kg I&O: 03/26/20 03/27/20 03/28/20 06:59 06:59 06:59 Intake Total 1470 Output Total 1000 Balance -1000 1470 Result Diagrams: 03/27/20 00:02 03/26/20 17:42 Phys Exam - Physical Examination Constitutional: NAD HEENT: moist MMs, sclera anicteric Neck: no nodes, supple Respiratory: no wheezing, no rales, no rhonchi, clear to auscultation bilateral Cardiovascular: RRR, no significant murmur, no rub Gastrointestinal: soft, non-tender, positive bowel sounds Musculoskeletal: pulses present 1+ edema Neurological: moves all 4 limbs Lymphatic: no nodes Psychiatric: normal affect Deviation from normal: redness of right finger Dx/Plan (1) Catheter-associated urinary tract infection Code(s): T83.511A - I/I REACT D/T INDWELLING URETHRAL CATHETER, INIT; N39.0 - URINARY TRACT INFECTION, SITE NOT SPECIFIED Status: Acute (2) Tinea cruris Code(s): B35.6 - TINEA CRURIS Status: Acute (3) Paronychia Code(s): OUI0814 - Status: Acute (4) Neurogenic bladder Code(s): N31.9 - NEUROMUSCULAR DYSFUNCTION OF BLADDER, UNSPECIFIED Status: Acute (5) History of skin cancer Code(s): Z85.828 - PERSONAL HISTORY OF OTHER MALIGNANT NEOPLASM OF SKIN Status : Acute (6) Sepsis Code(s): A41.9 - SEPSIS, UNSPECIFIED ORGANISM Status: Acute Qualifiers: Sepsis type: sepsis due to unspecified organism Sepsis acute organ dysfunction status: without acute organ dysfunction Qualified Code(s): A41.9 - Sepsis, unspecified organism (7) Diabetes mellitus Code(s): E11.9 - TYPE 2 DIABETES MELLITUS WITHOUT COMPLICATIONS Status: [employer] Qualifiers: Diabetes mellitus type: type 2 (8) HTN (hypertension) Code(s): I10 - ESSENTIAL (PRIMARY) HYPERTENSION Status: Chronic (9) Multiple sclerosis Code(s): G35 - MULTIPLE SCLEROSIS Status: Chronic - Plan Plan: 64 you M with PMH of MS, neurogenic bladder, with suprapubic catheter presents for weakness, dizziness, headache, and diarrhea that started earlier today. 1. Sepsis 2/2 CAUTI -WBC 12 > 8.9, tachycardic. UA shows likely infection vs colonization -Hx Citrobacter (pansensitive except to floroquinolones and nitrofurantoin) and Proteus (pansensitive) - Blood and urine cultures collected, 2 G cefepime given along with 2L NS bolus -Urology, Dr. Kuhn consulted from ED, will see tomorrow. Appreciate recs -Considering millan change, last changed end of February. As long as millan is draining, does not need to be changed tonight -Continue cefepime -CT abd/pelv w and w/o: No hydronephrosis or urinary calculus, bladder collapse around suprapubic catheter. Moderate edema in fat around both kidneys is typically benign. 2. Abdominal pain with diarrhea/constipation -CT of abdomen, w and w/o contrast- [facility] reading: no acute findings as above. Awaiting official rads read. -C dif: negative -Lipase: wnl 3. T2DM -Resume home insulin -SSI with accuchecks 4. Swelling RLE -US negative for DVT Candidal skin infection -nystatin cream topically 5. HTN -resume home medications 6. Paronychia L pinky -warm water soaks -I&D tomorrow 7. Tinea Cruris -See wound note photo -Nystatin cram Diet: CC DVT ppx: lovenox PCP: Gustavo Code: DNAR Dispo: Treat with IV Abx due to sepsis from CAUTI. Await blood and urine cultures although improving clinically. Will treat fungal infection and treat chronic diseases. Urology came by and recommended d/c of tamusulosin, 7 days of antibiotics, and follow up for appointment. On rounds today, we tried to do a I&D of the paronchyia on the left pinky, but he was in too much pain, so digital block is needed. Addendum - Attending - Attending Attestation Date/Time: 03/28/20 4543 I personally evaluated the patient and discussed the management with Dr. Higuera I agree with the History, Examination, Assessment and Plan documented above with any addition or exceptions noted below. Unable to drain paronychia at bedside through manipulation of cuticle with 18 gu at bedside.
[2020-03-28] MEDS: Cefepime 2 GM in Sodium Chloride 0.9% 100 ML IVPB SCH ×2 (09:56→20:30)
[2020-03-28] MEDS: Insulin Glargine 15 UNITS in Pre-Filled Syringe 1 EACH SC SCH (09:59)
[2020-03-28] MEDS: Clotrimazole 1 % Cream 30 GM TUBE TOP SCH (10:00)
[2020-03-28] MEDS: Enoxaparin Sodium 40 MG/0.4 ML SYRINGE SC SCH (10:01)
[2020-03-28] MEDS: Baclofen 10 MG TAB PO SCH ×3 (10:02→20:30)
[2020-03-28] MEDS: metFORMIN 500 MG TAB PO SCH (10:02)
[2020-03-28] MEDS: Ascorbic Acid 500 mg Chewable Tablet PO SCH ×2 (10:05→20:30)
[2020-03-28] MEDS: Losartan 25 MG TAB PO SCH (10:05)
[2020-03-28] MEDS: Amlodipine 10 MG TAB PO SCH (10:06)
[2020-03-28] MEDS: Magnesium Oxide 250 MG TAB PO SCH (10:06)
[2020-03-28] MEDS: Oxybutynin ER 5 MG TAB PO SCH ×2 (10:06→20:30)
[2020-03-28] MEDS: hydrOXYzine 10 MG TAB PO SCH ×3 (10:06→20:30)
[2020-03-28] MEDS: Ibuprofen 600 MG TAB PO PRN (10:14)
[2020-03-28] MEDS: HumaLOG 300 UNITS/3 ML VIAL SC PRN (12:04)
--- NOTE | 2020-03-29 06:15 | PDOC.FM ---
- Subjective Subjective: Pt awake and alert. States his pain in L 5th digit is much improved after soaking it. He voices concern of transferring to different NH due to concern for his roommate. Diarrhea has resolved. No N/V, pain. - Objective Vital Signs & Weight: Vital Signs (12 hours) Temp Pulse Resp BP Pulse Ox 03/28/20 23:52 98.0 F 81 20 115/73 93 L 03/28/20 19:26 98.9 F 101 H 20 98/67 94 L Weight Admit Weight 100.244 kg Weight 100.244 kg I&O: 03/27/20 03/28/20 03/29/20 06:59 06:59 06:59 Intake Total 1470 860 Output Total 1000 1100 900 Balance -1000 370 -40 Result Diagrams: 03/27/20 00:02 03/26/20 17:42 Phys Exam - Physical Examination Constitutional: NAD HEENT: moist MMs, sclera anicteric Neck: supple, full ROM Respiratory: no wheezing, clear to auscultation bilateral Cardiovascular: RRR, no significant murmur Gastrointestinal: soft, non-tender, no distention Musculoskeletal: no edema, pulses present Neurological: non-focal, normal sensation Psychiatric: normal affect, A&O x 3 Deviation from normal: L 5th finger:circumferential erythema, nontender to palpation Dx/Plan - Plan Plan: 64 you M with PMH of MS, neurogenic bladder, with suprapubic catheter presents for weakness, dizziness, headache, and diarrhea 1. Sepsis 2/2 CAUTI -hx of MS, neurogenic bladder, suprapubic cath -Hx Citrobacter (pansensitive except to floroquinolones and nitrofurantoin) and Proteus (pansensitive) -UCx: gm neg rods, pending sensitivities -Urology, Dr. Kuhn consulted: advised 7 day course abx, has outpatient appt for catheter change, discontinue tamsulosin -Continue cefepime -case management consulted for possible NH change 2. Abdominal pain with diarrhea/constipation -CT of abdomen: no acute findings -C dif: negative -Lipase: wnl 3. T2DM -Resume home insulin, will adjust as needed -SSI with accuchecks 4. Swelling RLE -US negative for DVT -Candidal skin infection -nystatin cream topically 5. HTN -resume home medications 6. Paronychia L 5th finger -warm water soaks -consider I&D if no improvement with soaking 7. Tinea Cruris -See wound note photo -Nystatin cream Diet: CC DVT ppx: lovenox PCP: Gustavo Code: DNAR Dispo: Stable,on IV Abx due to sepsis from CAUTI.Pending UCx sensitivities and CM placement, LOS >48hrs
[2020-03-29] MEDS: Cefepime 2 GM in Sodium Chloride 0.9% 100 ML IVPB SCH ×2 (08:13→23:35)
[2020-03-29] MEDS: Insulin Glargine 15 UNITS in Pre-Filled Syringe 1 EACH SC SCH (08:14)
[2020-03-29] MEDS: Clotrimazole 1 % Cream 30 GM TUBE TOP SCH (08:14)
[2020-03-29] MEDS: Baclofen 10 MG TAB PO SCH ×3 (08:15→21:50)
[2020-03-29] MEDS: Magnesium Oxide 250 MG TAB PO SCH (08:16)
[2020-03-29] MEDS: metFORMIN 500 MG TAB PO SCH (08:16)
[2020-03-29] MEDS: Ascorbic Acid 500 mg Chewable Tablet PO SCH ×2 (08:16→21:50)
[2020-03-29] MEDS: Losartan 25 MG TAB PO SCH ×2 (08:16→11:25)
[2020-03-29] MEDS: Amlodipine 10 MG TAB PO SCH ×2 (08:16→11:32)
[2020-03-29] MEDS: hydrOXYzine 10 MG TAB PO SCH ×3 (08:17→21:52)
[2020-03-29] MEDS: Enoxaparin Sodium 40 MG/0.4 ML SYRINGE SC SCH (08:17)
[2020-03-29] MEDS: Oxybutynin ER 5 MG TAB PO SCH ×2 (08:17→21:50)
[2020-03-29] MEDS: HumaLOG 300 UNITS/3 ML VIAL SC PRN ×2 (11:32→18:34)
--- NOTE | 2020-03-30 06:29 | PDOC.FM ---
- Subjective Subjective: Pt resting comfortably. States he has not had a bowel movement in a couple of days and uses miralax at home. Pain in L pinky is much better. Tolerating meals, no complaints of pain. - Objective Vital Signs & Weight: Vital Signs (12 hours) Temp Pulse Resp BP Pulse Ox 03/30/20 04:00 97.9 F 90 20 97/64 93 L 03/30/20 00:00 97.9 F 91 20 104/66 92 L 03/29/20 19:35 97.9 F 102 H 20 100/68 94 L Weight Admit Weight 100.244 kg Weight 100.244 kg I&O: 03/28/20 03/29/20 03/30/20 06:59 06:59 06:59 Intake Total 5482 156 0840 Output Total 5861 756 0672 Balance 523 -94 -478 Result Diagrams: 03/27/20 00:02 03/26/20 17:42 Phys Exam - Physical Examination Constitutional: NAD HEENT: moist MMs, sclera anicteric Neck: supple, full ROM Respiratory: no wheezing, clear to auscultation bilateral Cardiovascular: RRR, no significant murmur Gastrointestinal: soft, non-tender, no distention Musculoskeletal: no edema, pulses present decreased motor UE and LE Psychiatric: normal affect, A&O x 3 Skin: cap refill <2 seconds Deviation from normal: L 5th finger distal erythema, nontender Dx/Plan - Plan Plan: 64 you M with PMH of MS, neurogenic bladder, with suprapubic catheter presents for weakness, dizziness, headache, and diarrhea 1. Sepsis 2/2 CAUTI -hx of MS, neurogenic bladder, suprapubic cath -UCx: citrobacter sensitive to bactrim, will send home with rx -Urology, Dr. Kuhn: 7 day course abx, has outpatient appt for catheter change -stop IV cefepime, start oral bactrim -case management consulted for possible NH change 2. Abdominal pain with diarrhea/constipation -CT of abdomen: no acute findings -C dif: negative 3. T2DM -Resume home insulin, will adjust as needed -SSI with accuchecks 4. Swelling RLE -US negative for DVT -Candidal skin infection -nystatin cream topically 5. HTN -resume home medications 6. Paronychia L 5th finger -warm water soaks -consider I&D if no improvement with soaking 7. Tinea Cruris -See wound note photo -Nystatin cream Diet: CC DVT ppx: lovenox PCP: Gustavo Code: DNAR Dispo: Stable for discharge, pending CM placement
[2020-03-30] MEDS ORDERED: Insulin Glargine 17 UNITS in Pre-Filled Syringe 1 EACH SC SCH (09:00)
[2020-03-30] MEDS: Scopolamine 1.5 mg/72 hour Patch TOP SCH (09:04)
[2020-03-30] MEDS: Losartan 25 MG TAB PO SCH (09:04)
[2020-03-30] MEDS: Sulfameth/Trimethoprim DS 800-160mg TAB PO SCH (09:04)
[2020-03-30] MEDS: Ascorbic Acid 500 mg Chewable Tablet PO SCH (09:05)
[2020-03-30] MEDS: metFORMIN 500 MG TAB PO SCH (09:06)
[2020-03-30] MEDS: Baclofen 10 MG TAB PO SCH ×2 (09:06→14:20)
[2020-03-30] MEDS: Enoxaparin Sodium 40 MG/0.4 ML SYRINGE SC SCH (09:07)
[2020-03-30] MEDS: Clotrimazole 1 % Cream 30 GM TUBE TOP SCH (09:07)
[2020-03-30] MEDS: Magnesium Oxide 250 MG TAB PO SCH (09:20)
[2020-03-30] MEDS: hydrOXYzine 10 MG TAB PO SCH ×2 (09:20→14:22)
[2020-03-30] MEDS: Cefepime 2 GM in Sodium Chloride 0.9% 100 ML IVPB SCH (10:11)
[2020-03-30] MEDS: Amlodipine 10 MG TAB PO SCH (11:06)
[2020-03-30] MEDS: Oxybutynin ER 5 MG TAB PO SCH (11:06)
[2020-03-30 14:23] VITALS: BP 103/71; TEMP 98
[2020-03-30] MEDS: Ibuprofen 600 MG TAB PO PRN (18:17)
--- NOTE | 2020-04-02 13:23 | DIS ---
DATE OF ADMISSION: 03/26/2020 DATE OF DISCHARGE: 03/30/2020 RESIDENT: April Gallo MD, PGY-1. ADMITTING ATTENDING: Austin Chamberlain MD. DISCHARGE ATTENDING: Tobin Hare MD. CONSULTS: Urology, Dr. Kuhn. PROCEDURES: No procedures. PRIMARY DIAGNOSIS: Sepsis secondary to catheter-associated urinary tract infection. SECONDARY DIAGNOSES: 1. Diarrhea. 2. Type 2 diabetes. 3. Swelling, right lower extremity. 4. Hypertension. 5. Paronychia, left fifth finger. 6. Tinea cruris. DISCHARGE MEDICATIONS: 1. Amlodipine 10 mg daily. 2. Baclofen 20 mg t.i.d. 3. Guaifenesin 10 mL p.o. q.6 hours as needed. 4. Losartan 100 mg daily. 5. Magnesium oxide 500 mg daily. 6. Meclizine 25 mg q.8 hours as needed. 7. Metformin 500 daily. 8. Oxybutynin 10 mg b.i.d. 9. Scopolamine patch 1.5 mg q.3 days. 10. Ibuprofen 400 mg q.6 hours. as needed. 11. Levemir 15 units daily. 12. Imodium 2 mg q.6 hours as needed. 13. Nystatin cream b.i.d. 14. Zofran 4 mg q.6 hours as needed. 15. MiraLAX 1 pack b.i.d. 16. Bactrim DS 1 tab b.i.d. DISCONTINUED MEDICATIONS: None. HPI: The patient is a 64-year-old male with history of multiple sclerosis, neurogenic bladder, and indwelling suprapubic catheter, who presented to the ED from his [facility] with diarrhea, headache, and pain. He has a history of UTIs secondary to his suprapubic catheter. Also complained of poor treatment in [facility] setting, not able to get adequate hydration or not getting help with [place] as needed. In the ED, he was found to meet all criteria for sepsis secondary to UTI. Was started on IV cefepime. Urine cultures grew citrobacter which was same organism as in the past. Dr. Kuhn saw him during this stay and stated that he was safe to discharge home on oral antibiotics once sensitivities came back and that he was to keep his appointment to get his catheter changed in the end of March. While in hospital, also found to have paronychia of left pinky finger. Attempted bedside I and D and also used warm water soaks with resolution. Urine sensitivity showed that organism was sensitive to Bactrim, so the patient was switched over from IV to oral antibiotics and stable to discharge. DISCHARGE LOCATION: To [facility]. DIET: diabetic - consistent carb. ACTIVITY: As tolerated. FOLLOWUP: Follow up with urology, Dr. Kuhn and PCP. Job ID: [id number] [facility]
== END 2020-03-30 19:04 | DRG 698 ==
LOC: ERS 17:04 → T4-B 19:18
PROVIDERS: ADMIT Family Medicine; ATTEND Family Medicine
DX: T83.518A Infection and inflammatory reaction due to other urinary catheter, initial encounter (principal); A41.9 Sepsis, unspecified organism; N39.0 Urinary tract infection, site not specified; Z20.828 Contact with and (suspected) exposure to other viral communicable diseases; Z66 Do not resuscitate; Y84.6 Urinary catheterization as the cause of abnormal reaction of the patient, or of later complication, without mention of misadventure at the time of the procedure; E11.9 Type 2 diabetes mellitus without complications; B37.2 Candidiasis of skin and nail; I10 Essential (primary) hypertension; G35 Multiple sclerosis; L03.012 Cellulitis of left finger; R19.7 Diarrhea, unspecified; K59.00 Constipation, unspecified; N31.9 Neuromuscular dysfunction of bladder, unspecified; B35.6 Tinea cruris; E86.0 Dehydration; E66.01 Morbid (severe) obesity due to excess calories; Z68.33 Body mass index [BMI] 33.0-33.9, adult; Z85.828 Personal history of other malignant neoplasm of skin; Z88.1 Allergy status to other antibiotic agents; Z88.5 Allergy status to narcotic agent; Z88.8 Allergy status to other drugs, medicaments and biological substances; Z91.048 Other nonmedicinal substance allergy status; Z79.899 Other long term (current) drug therapy; Z79.4 Long term (current) use of insulin
CPT/HCPCS: 36415; 36416; 74178; 80053; 81003; 81015; 83605; 83690; 85025; 87040; 87077; 87086; 87149; 87186; 87324; 87449; 87493; 87635; 96365; 96366; J0692; J1650; J1815; J3490; Q0169; Q9967; U0003

== ENCOUNTER 2020-04-07 11:04 | Emergency (ER) | payer MEDICARE, BC, MEDICAID ==
[2020-04-07 13:25] LABS: #Basophils 0.1 thou/uL (0.0-0.2); #Eosinphils 0.1 thou/uL (0.0-0.7); #Lymphocytes 1.3 thou/uL (1.20-3.40); #Monocytes 0.5 thou/uL (0.11-0.59); #Neutrophils 3.7 thou/uL (1.40-6.50); %Basophils 1.5 % (0.0-1.0); %Eosinophils 1.6 % (0.0-10.0); %Lymphocytes 23.3 % (21.0-51.0); %Monocytes 9.4 % (0.0-10.0); %Neutrophils 64.2 % (42.0-75.0); Hemoglobin 15.1 g/dL (14.0-18.0); Mean Corpuscular Hemoglobin 28.9 pg (27.0-31.0); Mean Corpuscular Volume 90.2 fL (78.0-98.0); Mean Platelet Volume 7.7 fL (7.4-10.4); Platelet Count 274 thou/uL (130-400); RBC Distribution Width 13.1 % (11.5-14.5); Red Blood Cell (RBC) Count 5.24 mill/uL (4.70-6.10); White Blood Cell (WBC) Count 5.7 thou/uL (4.8-10.8)
[2020-04-07 14:34] LABS: ALT (SGPT) 36 U/L (8-55); AST (SGOT) 17 U/L (5-34); Albumin 4.3 g/dL (3.4-4.8); Alkaline Phosphatase 99 U/L (40-110); Anion Gap 15 mmol/L (10-20); BUN (Urea Nitrogen) 21 mg/dL (8.4-25.7); Bilirubin, Total 0.2 mg/dL (0.2-1.2); Calc. Creatinine Clearance 0 mL/min (70-130); Calcium 9.3 mg/dL (7.8-10.44); Carbon Dioxide 25 mmol/L (23-31); Chloride 105 mmol/L (98-107); Estimated GFR-MDRD 70; Globulin 3.3 g/dL (2.4-3.5); Glucose 122 mg/dL (80-115); Potassium 4.1 mmol/L (3.5-5.1); Protein, Total 7.6 g/dL (5.8-8.1); Sodium 141 mmol/L (136-145)
== END 2020-04-07 16:04 | disposition home or self-care (01) ==
LOC: ERS 11:04
DX: G35 Multiple sclerosis (principal); E86.0 Dehydration; R82.79 Other abnormal findings on microbiological examination of urine; N40.0 Benign prostatic hyperplasia without lower urinary tract symptoms; E11.9 Type 2 diabetes mellitus without complications; E78.5 Hyperlipidemia, unspecified; E78.00 Pure hypercholesterolemia, unspecified; I10 Essential (primary) hypertension; Z87.891 Personal history of nicotine dependence; Z79.899 Other long term (current) drug therapy; Z79.4 Long term (current) use of insulin
CPT/HCPCS: 36415; 80053; 83605; 85025; 87040; 99285

== ENCOUNTER 2020-04-14 09:11 | Inpatient (IN) | payer MEDICARE, BC, MEDICAID ==
[2020-04-14] MEDS ORDERED: Lorazepam 2 MG/ML VIAL ONE (09:52)
[2020-04-14] MEDS ORDERED: Azithromycin 500 MG VIAL ONE (09:54)
[2020-04-14] MEDS ORDERED: Ketorolac Tromethamine 30 MG/ML VIAL ONE (09:54)
[2020-04-14] MEDS ORDERED: cefTRIAXone\\ROCEPHIN 2 GM VIAL ONE (09:54)
[2020-04-14] MEDS ORDERED: Ondansetron PF 4 MG/2 ML Vial ONE (09:59)
[2020-04-14 10:00] LABS: #Basophils 0.1 thou/uL (0.0-0.2); #Lymphocytes 0.5 thou/uL (1.20-3.40); #Monocytes 0.3 thou/uL (0.11-0.59); #Neutrophils 7.1 thou/uL (1.40-6.50); %Basophils 0.9 % (0.0-1.0); %Eosinophils 0.1 % (0.0-10.0); %Lymphocytes 6.6 % (21.0-51.0); %Monocytes 3.2 % (0.0-10.0); %Neutrophils 89.2 % (42.0-75.0); Mean Corpuscular HGB CONC 33.4 g/dL (32.0-36.0); Mean Corpuscular Hemoglobin 29.6 pg (27.0-31.0); Mean Corpuscular Volume 88.7 fL (78.0-98.0); Mean Platelet Volume 7.8 fL (7.4-10.4); Platelet Count 217 thou/uL (130-400); RBC Distribution Width 12.8 % (11.5-14.5); Red Blood Cell (RBC) Count 5.41 mill/uL (4.70-6.10); White Blood Cell (WBC) Count 7.9 thou/uL (4.8-10.8)
[2020-04-14 10:28] LABS: ALT (SGPT) 30 U/L (8-55); AST (SGOT) 38 U/L (5-34); Albumin 3.5 g/dL (3.4-4.8); Alkaline Phosphatase 55 U/L (40-110); Anion Gap 20 mmol/L (10-20); BUN (Urea Nitrogen) 32 mg/dL (8.4-25.7); Bilirubin, Total 0.4 mg/dL (0.2-1.2); Calc. Creatinine Clearance 0 mL/min (70-130); Calcium 8.7 mg/dL (7.8-10.44); Carbon Dioxide 22 mmol/L (23-31); Chloride 101 mmol/L (98-107); Estimated GFR-MDRD 55; Globulin 3.3 g/dL (2.4-3.5); Glucose 181 mg/dL (80-115); Potassium 5.2 mmol/L (3.5-5.1); Protein, Total 6.8 g/dL (5.8-8.1); Sodium 138 mmol/L (136-145)
--- NOTE | 2020-04-14 10:34 | RAD ---
PORTABLE CHEST: DATE: 04/14/2020 COMPARISON: 04/09/2020 exam. HISTORY: Shortness of breath. COVID-positive last . FINDINGS: There has been development of significant infiltrative lung changes since the prior examination, more prominent consolidation in the left mid lung field. IMPRESSION: Multifocal pneumonia consistent with COVID. POS: JAYLON
[2020-04-14] MEDS ORDERED: Promethazine HCl 25 MG/ML VIAL ONE (10:59)
[2020-04-14 11:07] LABS: Bilirubin Negative (Negative); Clarity Turbid (Clear); Glucose, Urine (Dipstick) Normal (Negative); Ketone, Urine 10 mg/dL (Negative); Leukocyte 500 Leu/uL (Negative); Nitrite Negative (Negative); Protein, Urine (Dipstick) 70 mg/dL (Neg-Trace); Specific Gravity, Urine 1.024 (1.002-1.036); Squamous Epithelial None Seen HPF (0-3); Urobilinogen Normal mg/dL (Less than 2); WBC/HPF 21-50 HPF (0-3); Yeast-Budding 2+ HPF (None Seen); Yeast-Hyphae 1+ HPF (None Seen)
[2020-04-14 11:15] LABS: Bacteria/HPF 1+ HPF (None Seen)
[2020-04-14 11:19] LABS: Blood, Urine Small (Negative)
--- NOTE | 2020-04-14 11:37 | CT ---
CT arteriogram chest with IV contrast and 3-D imaging HISTORY: Dyspnea. COVID pneumonia. COMPARISON: 11/29/2018. FINDINGS: There is good contrast opacification of the central pulmonary arteries and the thoracic aor ta with bovine origin of the great vessels at the aortic arch. No pleural fluid or pneumothorax evident. There are dense multifocal central and peripheral infiltrates involving each lobe. Reactive appearing mediastinal lymph nodes are present, including a 1.2 cm right suprahilar lymph nod e and a left prevascular lymph node just anterior to the common carotid artery. Postoperative changes left shoulder partially visualized. IMPRESSION : No evidence of pulmonary embolus. Multifocal pneumonia. Peripheral components consistent with COVID pneumonitis. The reactive mediastin al lymph nodes and Central infiltrates could reflect a secondary infectious process.
--- NOTE | 2020-04-14 13:13 | PDOC.FPRHP ---
- History of Present Illness Chief Complaint: SOB, weak History of Present Illness: 64 yo M with advanced multiple sclerosis brought by EMS from [place] after weakness and hypoxia. He tested positive for COVID 04/10 and there are several patient at the [place] also positive. He had been doing well not requiring oxygen until today when he was getting transferred when he all of a sudden felt SOB. Per ERMD he was 75% on RA and started on HFNC 60L/89% FiO2. He was tachycardic and tachypneic with a UA suspicious for infection so was treated as sepsis and given 1L bolus and 2 g of rocephin and 6mg decadron. Of note he has a suprapubic catheter for chronic urinary retention from his MS. - Allergies/Adverse Reactions Allergies Allergy/AdvReac Type Severity Reaction Status Date / Time codeine Allergy Intermediate Rash Verified 04/14/20 18:15 adhesive Allergy Verified 04/14/20 18:15 vancomycin Allergy Verified 04/14/20 18:15 acetaminophen [From Tylenol] AdvReac Verified 04/14/20 18:15 - Home Medications Medication Instructions Recorded Confirmed Type Baclofen [Lioresal] 20 mg PO TID tab 08/01/18 04/14/20 Rx metFORMIN [Glucophage] 500 mg PO QAM-WM #30 tab 03/19/19 04/14/20 Rx Amlodipine Besylate [amLODIPine 10 mg PO DAILY 07/27/19 04/14/20 History Besylate] Polyethylene Glycol 3350 [Miralax] 1 pk PO DAILY PRN 07/27/19 04/14/20 History Ibuprofen [Motrin IB] 400 mg PO Q6H PRN tab 09/18/19 04/14/20 Rx Losartan Potassium [Cozaar] 100 mg PO DAILY tab 09/18/19 04/14/20 Rx Ondansetron [Zofran ODT] 4 mg PO Q6H PRN tab 09/18/19 04/14/20 Rx Loperamide HCl [Imodium A-D] 2 mg PO Q6HR PRN 12/20/19 04/14/20 History Oxybutynin Chloride [Oxybutynin 10 mg PO BID 12/20/19 04/14/20 History Chloride ER] Scopolamine 1.5 mg TOP Q3DAYS 12/20/19 04/14/20 History guaiFENesin [Guaifenesin] 10 ml PO Q6HR PRN 12/20/19 04/14/20 History Ascorbic Acid [Vitamin C] 1 tab PO BID 03/27/20 04/14/20 History Magnesium Oxide [Mag-Oxide] 2 tab PO DAILY 03/27/20 04/14/20 History Doxycycline [Vibramycin] 100 mg PO BID 04/14/20 04/14/20 History Insulin Glargine [Lantus] 15 units SC DAILY 04/14/20 04/14/20 History Meclizine HCl [Antivert] 25 mg PO Q8H PRN 04/14/20 04/14/20 History Metoclopramide HCl [Reglan] 10 mg PO Q6HR PRN 04/14/20 04/14/20 History Triamcinolone Acetonide [Kenalog 1 applic TOP BID 04/14/20 04/14/20 History 0.1% Cream] Zinc Oxide [Zinc Oxide Ointment] 1 applic TOP Q8HR PRN 04/14/20 04/14/20 History - History PMHx: MS with extreme physical deconditioning, T2DM, HTN, skin cancer of unknown kind PSHx: suprapubic catheter placement, rods/screws in R LE, L rotator cuff sx, L eye sx, cholecystectomy FHx: Brother has pacemaker, Dad had CKD5. No lung disease. Social: Has lived at [facility] No tob/drugs/EtOH since 24yrs ago - Review of Systems General: denies: fever/chills, weight/appetite/sleep changes Eyes: denies: eye pain, vision changes ENT: denies: nasal congestion, rhinorrhea Respiratory: reports: cough, shortness of breath. denies: congestion Cardiovascular: denies: chest pain, palpitation, edema Gastrointestinal: denies: nausea, vomiting, diarrhea, abdominal pain Skin: reports: lesions Musculoskeletal: reports: pain, arthritis/arthralgias, other (paralysis of LE). denies: swelling Neurological: reports: weakness. denies: seizure - Vital signs BP: [106/60] HR: [110] RR: [28] Tmax: [98.8] Pox: [93]% on [hfnc] Wt: [94kg] - Physical Exam Constitutional: NAD, awake, alert and oriented -Constitutional: mildly dysnpeic with talking HEENT: normocephalic and atraumatic, PERRLA, normal nasal mucosa, MMM Neck: supple, FROM, trachea midline -Heart: tachycardic -Lungs: no respiratory distress but dyspneic with talking Abdomen: soft, non-tender, no masses/distention -Abdomen: suprapubic catheter present -Musculoskeletal: decreased tone in upper & lower extremities 2/5 strength in upper extremities 1/5 strength in lower extremities Skin: capillary refill <2 seconds -Skin: purpura Psychiatric: normal mood and affect, good judgment and insight, intact recent and remote memory FMR H&P: Results - Labs Result Diagrams: 04/14/20 09:44 04/14/20 09:44 Lab results: WBC 7.9 thou/uL (4.8-10.8) 04/14/20 09:44 Hgb 16.0 g/dL (14.0-18.0) 04/14/20 09:44 Hct 48.0 % (42.0-52.0) 04/14/20 09:44 MCV 88.7 fL (78.0-98.0) 04/14/20 09:44 Plt Count 217 thou/uL (130-400) 04/14/20 09:44 Neutrophils % 89.2 % (42.0-75.0) H 04/14/20 09:44 Sodium 138 mmol/L (136-145) 04/14/20 09:44 Potassium 5.2 mmol/L (3.5-5.1) H 04/14/20 09:44 Chloride 101 mmol/L (98-107) 04/14/20 09:44 Carbon Dioxide 22 mmol/L (23-31) L 04/14/20 09:44 BUN 32 mg/dL (8.4-25.7) H 04/14/20 09:44 Creatinine 1.32 mg/dL (0.7-1.3) H 04/14/20 09:44 Glucose 181 mg/dL (80-115) H 04/14/20 09:44 Lactic Acid 1.5 mmol/L (0.5-2.2) 04/14/20 09:44 Calcium 8.7 mg/dL (7.8-10.44) 04/14/20 09:44 Total Bilirubin 0.4 mg/dL (0.2-1.2) 04/14/20 09:44 AST 38 U/L (5-34) H 04/14/20 09:44 ALT 30 U/L (8-55) 04/14/20 09:44 Alkaline Phosphatase 55 U/L (40-110) 04/14/20 09:44 C-Reactive Protein 23.93 mg/dL (= or < 0.5) H 04/14/20 09:44 Serum Total Protein 6.8 g/dL (5.8-8.1) 04/14/20 09:44 Albumin 3.5 g/dL (3.4-4.8) 04/14/20 09:44 Urine Ketones 10 mg/dL (Negative) A 04/14/20 10:15 Urine Blood Small (Negative) A 04/14/20 10:15 Urine Nitrite Negative (Negative) 04/14/20 10:15 Ur Leukocyte Esterase 500 Jose/uL (Negative) A 04/14/20 10:15 Urine RBC 11-20 HPF (0-3) A 04/14/20 10:15 Urine WBC 21-50 HPF (0-3) A 04/14/20 10:15 Ur Squamous Epith Cells None Seen HPF (0-3) 04/14/20 10:15 Urine Bacteria 1+ HPF (None Seen) A 04/14/20 10:15 - EKG Interpretation EKG: sinus tachycardia with prematur supraventricular complexes with occasional PVCs - Radiology Interpretation CT scan - chest Status: image reviewed by me, report reviewed by me Additional comment: neg for PE, multifocal PNA Chest x-ray Status: image reviewed by me, report reviewed by me Additional comment: multifocal PNA FMR H&P: A/P - Plan Disposition/LOS: #Acute hypoxic respiratory failure 2/2 COVID PNA -Positive 04/10 at group home, day 5 of illness -On HFNC, 60 L/89% FiO2, non hypoxic at rest but dyspneic with talking -Decadron, convalescent plasma -Ddimer elevated, CTA negative for PE but with multifocal PNA -May be possible candidate for remdesivir, can discuss with pulm/ID tomorrow pending clinical course overnight #Neurogenic bladder with chronic suprapubic catheter -In place due to chronic retention from M.S. -Patient called sepsis 2/2 UTI in Er, given 2g rocephin. However, afebrile, no WBC, urine sample was from chronic in dwelling catheter -Will not continue abx, pending UCx/Bcx. #ZI -Elevated Cr from baseline -IVF, repeat in AM #DM2 -Hold metformin, sliding scale #Advanced M.S. -Pt with weakness, stable Admit #HTN -Stable, continue home meds Admit: Covid unit/Inpt dvt ppx: heparin diet: hh/cc code: DNR/DNI FMR H&P: Upper Level - Plan Date/Time: 04/14/20 1313 I, [], have evaluated this patient and agree with findings/plan as outlined by international controller resident. Pertinent changes/additions are listed here. Addendum - Attending - Attending Attestation Date/Time: 04/14/201917 I personally evaluated the patient and discussed the management with Dr. Ortiz I agree with the History, Examination, Assessment and Plan documented above with any addition or exceptions noted below -64 yo M with advanced multiple sclerosis brought by EMS from [place] after weakness and hypoxia. He tested positive for COVID 04/10 and there are several patient at the [place] also positive. He had been doing well not requiring oxygen until today when he was getting transferred when he all of a sudden felt SOB. Per ERMD he was 75% on RA and started on HFNC 60L/89% FiO2. He was tachycardic and tachypneic with a UA suspicious for infection so was treated as sepsis and given 1L bolus and 2 g of rocephin and 6mg decadron. Of note he has a suprapubic catheter for chronic urinary retention from his MS. Patient had been recently hospitalized for sepsis secondary to complicated UTI and has just finished a course of abx. PMH/PSH/Meds/SH reviewed and agree with resident's documentation. Afebrile P110 BP 139/78 RR32 87% O2 sat. Exam repeated by me and significant for tachypnea with difficulty speaking secondary to SOB, tachycardia Labs: WBC=7.9, H/H=16/48, Qii=040, Jt=731, K=5.2, Wx=239, CO2=22, BUN/Cr=32/1.32, Vyqd=671, D-dimer=0.73. CTA - no PE; multifocal bilateral pneumonia. A/P: 1) Acute hypoxic resp failure secondary to COVID pneumonia- patient with significant WOB/SOB and low O2 sat despite max HFNC, and ABG with pO2=49 on max HFNC- patient does not desire intubation but will give trial of BiPap. Plan to transfer to [facility] for BiPap. Will start on decadron and convalescent plasma. Will discuss with ID/pulm regarding if he is a candidate for remdesivir. Will check inflammatory markers. 2) Chronic indwelling suprapubic catheter- recently treated for UTI; will reculture and hold abx for now, 3) MS- patient bed bound with significant muscle weakness which will also affect his pulmonary status. Overall poor prognosis. .
[2020-04-14] MEDS ORDERED: Iopamidol-370 76% 500 ML 1 ML ONE (13:31)
[2020-04-14] MEDS ORDERED: Dexamethasone 10 MG/ML VIAL ONE (14:30)
[2020-04-14] MEDS ORDERED: Ondansetron ODT 4 MG TAB SL PRN (16:30)
[2020-04-14] MEDS ORDERED: Sodium Chloride 0.9% 1,000 ML IV SCH (16:30)
[2020-04-14] MEDS ORDERED: Acetaminophen 325 MG TAB PO PRN (16:30)
[2020-04-14] MEDS ORDERED: Ondansetron PF 4 MG/2 ML Vial IVP PRN (16:30)
[2020-04-14] MEDS ORDERED: Dextrose 5% in Water 1,000 ML IV PRN (17:14)
[2020-04-14] MEDS ORDERED: Dextrose 50% Abboject 50 ML SYRINGE SLOW IVP PRN (17:14)
[2020-04-14] MEDS ORDERED: HumaLOG 300 UNITS/3 ML VIAL SC PRN ×2 (17:14)
[2020-04-14 17:15] LABS: Actual Bicarbonate (HCO3a) 24.2 mEq/L (22-28); Base Excess (BEa) 0.5 mEq/L (-2.0 to +3.0); CO2 Tension 36.3 mmHg (35.0-45.0); Calcium, Ionized (arterial) 1.14 mmol/L (1.12-1.30); Carboxyhemoglobin (COHb) 0.3 gm% (0.0-3.0); Hemoglobin (Hb) 14.2 g/dL (14.0-18.0); Potassium - ABG Lab 4.54 mmol/L (3.70-5.30); pH, Arterial 7.44 (7.35-7.45)
[2020-04-14 17:16] LABS: O2 Tension (PaO2), arterial 48.6 mmHg (> 80.0)
[2020-04-14 17:17] LABS: ALV-art Gradient 547.725 mmHg (0-20); Puncture Site RRA
[2020-04-14] MEDS: Lactated Ringer's 1,000 ML IV SCH (17:57)
--- NOTE | 2020-04-14 19:20 | PDOC.BPN ---
- Brief Progress Note After discussion with Dr. Dash decision was made to move patient to IMCU in order to start Bipap since ABG showed hypoxemia despite being on 60L HFNC for a few hours at this point. In addition, he was dyspneic with talking and at rest upon assessment so will do better in intermediate care unit.
[2020-04-14 19:40] VITALS: BP 127/67
[2020-04-14] MEDS ORDERED: Enoxaparin Sodium 40 MG/0.4 ML SYRINGE SC SCH (21:00)
[2020-04-14] MEDS ORDERED: Lorazepam 2 MG/ML VIAL SLOW IVP PRN (21:43)
[2020-04-14] MEDS ORDERED: Morphine 2 MG/ML VIAL SLOW IVP PRN (21:43)
[2020-04-14] MEDS: Heparin 5,000 UNITS/ML VIAL SC SCH (22:20)
[2020-04-14 23:13] VITALS: BMI 32.5
[2020-04-15] MEDS ORDERED: Diabetic Tussin 200 MG/10 ML UDCUP PO PRN ×2 (00:25→18:30)
[2020-04-15] MEDS ORDERED: Loperamide HCl 2 MG CAP PO PRN (00:34)
[2020-04-15 03:56] LABS: #Lymphocytes 0.5 thou/uL (1.20-3.40); #Monocytes 0.2 thou/uL (0.11-0.59); #Neutrophils 6.4 thou/uL (1.40-6.50); %Eosinophils 0.4 % (0.0-10.0); %Lymphocytes 6.5 % (21.0-51.0); %Monocytes 3.3 % (0.0-10.0); %Neutrophils 89.8 % (42.0-75.0); Hemoglobin 13.8 g/dL (14.0-18.0); Mean Corpuscular HGB CONC 33.8 g/dL (32.0-36.0); Mean Corpuscular Hemoglobin 29.9 pg (27.0-31.0); Mean Corpuscular Volume 88.3 fL (78.0-98.0); Mean Platelet Volume 7.6 fL (7.4-10.4); Platelet Count 222 thou/uL (130-400); RBC Distribution Width 12.7 % (11.5-14.5); White Blood Cell (WBC) Count 7.1 thou/uL (4.8-10.8)
[2020-04-15 04:19] LABS: ALT (SGPT) 22 U/L (8-55); AST (SGOT) 21 U/L (5-34); Albumin 2.9 g/dL (3.4-4.8); Alkaline Phosphatase 46 U/L (40-110); Anion Gap 10 mmol/L (10-20); BUN (Urea Nitrogen) 22 mg/dL (8.4-25.7); Bilirubin, Total 0.3 mg/dL (0.2-1.2); Calc. Creatinine Clearance 103 mL/min (70-130); Calcium 8.5 mg/dL (7.8-10.44); Carbon Dioxide 26 mmol/L (23-31); Chloride 102 mmol/L (98-107); Estimated GFR-MDRD 77; Globulin 3.1 g/dL (2.4-3.5); Glucose 232 mg/dL (80-115); Potassium 4.4 mmol/L (3.5-5.1); Sodium 134 mmol/L (136-145)
--- NOTE | 2020-04-15 05:36 | PDOC.FM ---
- Subjective Subjective: Patient struggling with the BiPAP this morning. Had discussion that we can try to add some medications to make him more comfortable on the BiPAP. Patient agreeable, continues to state he does not want intubation. Discussed that if he does not tolerate the BiPAP, we can move him back to NC with medications to make him comfortable, but he may pass away. Patient agreeable. - Objective Vital Signs & Weight: Vital Signs (12 hours) Temp Pulse Resp BP Pulse Ox 04/15/20 04:24 102 H 29 H 89 L 04/14/20 20:12 98.6 F 100 22 H 127/67 96 04/14/20 20:00 88 L 04/14/20 19:39 98.6 F 97 22 H 127/67 93 L Weight Weight 94.347 kg Most Recent Monitor Data Heart Rate from ECG 106 NIBP 138/74 NIBP BP-Mean 95 Respiration from ECG 37 SpO2 82 Result Diagrams: 04/15/20 03:40 04/15/20 03:40 Phys Exam - Physical Examination mild-moderate respiratory distress HEENT: moist MMs Neck: supple, full ROM Respiratory: clear to auscultation bilateral Cardiovascular: RRR, no significant murmur Gastrointestinal: soft, no distention Musculoskeletal: no edema decreased strength BLE and BUE decreased strength BLE and BUE Psychiatric: normal affect Skin: no rash Dx/Plan (1) Pneumonia due to COVID-19 virus Code(s): U07.1 - COVID-19; J12.89 - OTHER VIRAL PNEUMONIA Status: Acute (2) Acute respiratory failure with hypoxia Code(s): J96.01 - ACUTE RESPIRATORY FAILURE WITH HYPOXIA Status: Acute (3) BPH (benign prostatic hyperplasia) Code(s): N40.0 - BENIGN PROSTATIC HYPERPLASIA WITHOUT LOWER URINRY TRACT SYMP Status: Chronic (4) Diabetes mellitus Code(s): E11.9 - TYPE 2 DIABETES MELLITUS WITHOUT COMPLICATIONS Status: Chronic Qualifiers: Diabetes mellitus type: type 2 (5) HTN (hypertension) Code(s): I10 - ESSENTIAL (PRIMARY) HYPERTENSION Status: Chronic (6) Multiple sclerosis Code(s): G35 - MULTIPLE SCLEROSIS Status: Chronic (7) Urinary retention Code(s): R33.9 - RETENTION OF URINE, UNSPECIFIED Status: Chronic - Plan Plan: #Acute hypoxic respiratory failure 2/2 COVID PNA -Positive 04/10 at senior living, day 6 of illness -Transitioned from HFNC to BiPAP overnight; will trial ativan and morphine to make patient more comfortable on BiPAP -Decadron, convalescent plasma -Ddimer elevated, CTA negative for PE but with multifocal PNA -Consult pulmonology today, appreciate recs; consider remdesivir #Neurogenic bladder with chronic suprapubic catheter -In place due to chronic retention from M.S. -Patient called sepsis 2/2 UTI in Er, given 2g rocephin. However, afebrile, no WBC, urine sample was from chronic in dwelling catheter -ABX not continued -Pending UCx/Bcx. -Will reach out to Dr. Kuhn to discuss #ZI, resolved -Elevated Cr from baseline on admission -Cr/GFR back at baseline #DM2 -Hold metformin, sliding scale #Advanced M.S. -Pt with weakness, stable Admit #HTN -Stable, continue home meds dvt ppx: heparin diet: hh/cc code: DNR/DNI Dispo: admitted to [facility] on BiPAP. Guarded status. Patient does not want intubation, will continue medications to make patient comfortable on BiPAP for now. Addendum - Attending - Attending Attestation Date/Time: 04/15/20 [id number] I personally evaluated the patient and discussed the management with Dr. Gutierrez I agree with the History, Examination, Assessment and Plan documented above with any addition or exceptions noted below - Patient tachypneic, restless. Does not wish to contiue with BiPap. Discussed options for care including transitioning to HFNC and palliative/comfort care. Patient wishes to do this and understands ramifications of decision. Declines intubation. Afebrile [id number] 86% on Bipap A/P: 1) Acute hypoxic resp failure secondary to COVID pneumonia - Morphine and ativan adjusted for air hunger. Will transition back to HFNC. Palliative consult placed. Will consider hospice. Family updated by nursing. 2) MS- severe deconditioning secondary to neuromuscular disorder 3) Suprapubic catheter - stable
[2020-04-15] MEDS ORDERED: REMDESIVIR (EUA) 200 MG in Sodium Chloride 0.9% 250 ML 210 ML IV SCH (06:00)
[2020-04-15] MEDS: Lactated Ringer's 1,000 ML IV SCH ×3 (06:22→18:24)
[2020-04-15] MEDS ORDERED: metFORMIN 500 MG TAB PO SCH (08:00)
[2020-04-15] MEDS ORDERED: Oxybutynin 5 MG TAB PO SCH (09:00)
[2020-04-15] MEDS ORDERED: Dexamethasone 4 mg/ml Vial SLOW IVP SCH (09:00)
[2020-04-15] MEDS ORDERED: Insulin Glargine 15 UNITS in Pre-Filled Syringe 1 EACH SC SCH (09:00)
[2020-04-15] MEDS ORDERED: FLU VACC QS2020-21(6MOS UP)/PF 60 MCG/0.5 ML SYRINGE IM ONE (09:00)
[2020-04-15] MEDS ORDERED: Scopolamine 1.5 mg/72 hour Patch TOP SCH (09:00)
[2020-04-15] MEDS ORDERED: Prevnar 13-Val Conj/PF 0.5 ML SYRINGE IM ONE (09:00)
[2020-04-15] MEDS ORDERED: Amlodipine 10 MG TAB PO SCH (09:00)
[2020-04-15] MEDS ORDERED: Losartan 25 MG TAB PO SCH (09:00)
[2020-04-15] MEDS ORDERED: Insulin Glargine 16 UNITS in Pre-Filled Syringe 1 EACH SC SCH (09:00)
[2020-04-15] MEDS ORDERED: Ascorbic Acid 500 mg Chewable Tablet PO SCH (09:00)
[2020-04-15] MEDS ORDERED: Magnesium Oxide 400 MG TAB PO SCH (09:00)
[2020-04-15] MEDS ORDERED: Lorazepam 2 MG/ML VIAL SLOW IVP PRN ×3 (09:42→14:04)
[2020-04-15] MEDS: Baclofen 10 MG TAB PO SCH ×2 (10:58→17:00)
[2020-04-15] MEDS ORDERED: Cefepime 1 GM in Sodium Chloride 0.9% 100 ML IVPB SCH (11:00)
[2020-04-15] MEDS: Heparin 5,000 UNITS/ML VIAL SC SCH (11:04)
[2020-04-15] MEDS: methylPREDNISolone Sod Succ 40 MG VIAL IVP SCH ×2 (11:16→17:00)
[2020-04-15] MEDS ORDERED: Morphine 4 MG/ML VIAL SLOW IVP PRN (12:19)
--- NOTE | 2020-04-15 12:20 | CON ---
DATE OF CONSULTATION: HISTORY OF PRESENT ILLNESS: Osbaldo Hill is a 64-year-old gentleman admitted with acute respiratory failure. He apparently was diagnosed to have lopez positive pneumonia. he has progressive respiratory failure. He says he did not want to be intubated, I personally asked him that. He has cough, which is nonproductive. PAST MEDICAL HISTORY: Otherwise, pertinent for; 1. COPD. 2. Diabetes. 3. Hypertension. 4. Apparently, multiple sclerosis. 5. BPH. PAST SURGICAL HISTORY: Previous suprapubic gallbladder, eye surgery. SOCIAL HISTORY: Lives in a correction. Former tobacco abuse. Former substance abuse. MEDICATIONS: [facility]DC medications include; 1. Scopolamine 1.5. 2. Reglan 10. 3. Oxybutynin. 4. Metformin 500. 5. Losartan 100. 6. Lantus 15 units. 7. Cozaar 100. 8. Ibuprofen. 9. Amlodipine 10. ALLERGIES: CODEINE, ADHESIVES, VANCOMYCIN. PHYSICAL EXAMINATION: VITAL SIGNS: On BiPAP, 100%, sats 85%. His pulse is 80, blood pressure CHEST: Rhonchi, crackles. CARDIAC: Normal S1, S2. No gallops. ABDOMEN: No masses. DIAGNOSTIC AND LABORATORY DATA: X-ray shows dense infiltrate. CT scan shows bilateral pulmonary infiltrates. BUN and creatinine were elevated, now back to normal. His additional lab shows white count 7000, H and H unremarkable. Lytes are normal. Glucose 203. Liver function so far is normal. IMPRESSION AND PLAN: 1. Lopez positive pneumonia, respiratory failure, bilateral pneumonia. 2. Underlying multiple sclerosis, hypertension, diabetes, COPD. Zyvox and Maxipime are ordered. Await repeat serology. He may be a candidate for remdesivir, convalescent plasma since he has not received any. His prognosis remains grave. Once again, I have discussed with the patient, he does want to be intubated. TIME SPENT: 45 minutes of critical care time. Job ID: [id number]
--- NOTE | 2020-04-15 13:59 | PDOC.PALCO ---
Palliative Care Consult - Consult Details Requesting Physician: Dr Gutierrez Reason for Consult: goals of care, complex decision-making - Pertinent HPI 64 year old male who is a senior care resident of a local prison secondary to progressive Multiple Sclerosis and need for assistance with ADL's. He contracted Covid at facility and presented to the emergency room yesterday for progressing weakness and hypoxia. On presentation was tachycardic and 89% on hi flow O2. Also suspected for UTI. Admitted to IMCU for higher level of care and medical management. - Pertinent PMH Multiple Sclerosis, Hypertension, DM II - Social History Smoking Status: Never smoker Smoking: no tobacco exposure Alcohol Use: none Drug Use History: none Living Situation: prison resident - Medications MAR Reviewed: Yes - Allergies Allergies/Adverse Reactions: Allergies Allergy/AdvReac Type Severity Reaction Status Date / Time codeine Allergy Intermediate Rash Verified 04/14/20 18:15 adhesive Allergy Verified 04/14/20 18:15 vancomycin Allergy Verified 04/14/20 18:15 acetaminophen [From Tylenol] AdvReac Verified 04/14/20 18:15 - Subjective Bipap, respiratory distress. Patient does not desire to be intubated secondary to respiratory distress. - ROS Constitutional: alert, weakness ENT: dry mouth Respiratory: shortness of breath, shortness of breath with extertion Cardiology: light headedness Gastrointestinal: constipation Genitourinary: other Neurological: numbness Psychological: anxiety - Objective Vital Signs: Vital Signs - Most Recent Temp Pulse Resp BP Pulse Ox 98.6 F 126 H 43 H 127/67 86 L 04/14/20 20:12 04/15/20 13:51 04/15/20 13:51 04/14/20 20:12 04/15/20 13:51 Palliative Performance Scale: 20 - Physical Exam Constitutional: ill appearing, mild distress HEENT: EOMI, moist MMs, sclera anicteric Respiratory: accessory muscle use, diminished lung sound, labored respirations, tachypnea Gastrointestinal: incontinent Genitourinary: suprapubic catheter Musculoskeletal: diffuse muscle atrophy, muscle wasting Deviation from normal: weakness secodnary to progressive multiple sclerosis Skin: cap refill <2 seconds, fragile Psychiatric: A&O x 3 - Problem List (1) Acute respiratory failure due to COVID-19 Code(s): U07.1 - COVID-19; J96.00 - ACUTE RESPIRATORY FAILURE, UNSP W HYPOXIA OR HYPERCAPNIA Current Visit: Yes Status: Acute (2) Acute respiratory failure with hypoxia Code(s): J96.01 - ACUTE RESPIRATORY FAILURE WITH HYPOXIA Current Visit: Yes Status: Acute (3) Pneumonia due to COVID-19 virus Code(s): U07.1 - COVID-19; J12.89 - OTHER VIRAL PNEUMONIA Current Visit: Yes Status: Acute (4) Catheter-associated urinary tract infection Code(s): T83.511A - I/I REACT D/T INDWELLING URETHRAL CATHETER, INIT; N39.0 - URINARY TRACT INFECTION, SITE NOT SPECIFIED Current Visit: No Status: Acute (5) Muscular deconditioning Code(s): R29.898 - OTH SYMPTOMS AND SIGNS INVOLVING THE MUSCULOSKELETAL SYSTEM Current Visit: No Status: Acute (6) HTN (hypertension) Code(s): I10 - ESSENTIAL (PRIMARY) HYPERTENSION Current Visit: No Status: Chronic (7) Multiple sclerosis Code(s): G35 - MULTIPLE SCLEROSIS Current Visit: No Status: Chronic - Plan/Recommendations Plan: Requesting to transition to Hospice to manage his symptoms. Does not desire to be intubated. Confirmed resuscitation status, Mr Hill understanding of impact of Coordinated care with Brandi NELSON, she sent referral for hospice. Emotional support, therapeutic listening. Communicated with Dr Odell and Dr Dash [50] minutes spent on this encounter with >50% of the time in counseling and coordination of care. Thank you for this very appropriate consult.
[2020-04-15 14:47] LABS: SARS-CoV-2 MS2 Positive; SARS-CoV-2 N Gene Positive; SARS-CoV-2 S Gene Positive; SARS-CoV-2 by NAA DETECTED (NotDetected); SARS-CoV-2 orf1ab Positive
[2020-04-15 16:45] VITALS: TEMP 100.7
[2020-04-15] MEDS ORDERED: Mometasone 200 MCG/Formoterol 5 MCG 120 PUFF INHALER INH SCH (18:30)
[2020-04-15] MEDS ORDERED: Linezolid 600 MG TAB PO SCH (21:00)
[2020-04-15] MEDS ORDERED: Enoxaparin Sodium 40 MG/0.4 ML SYRINGE SC SCH (21:00)
[2020-04-16] MEDS ORDERED: REMDESIVIR (EUA) 100 MG in Sodium Chloride 0.9% 250 ML 230 ML IV SCH (11:00)
--- NOTE | 2020-04-16 11:43 | PQF ---
CLINICAL DOCUMENTATION CLARIFICATION FORM: Dear : Farnaz Dash MD Date / Time: 04/16/2020 Please exercise your independent, professional judgment in responding to the clarification form. Clinical indicators are provided on the bottom of this form for your review Please check appropriate box(es): [ ] Sepsis due to: Due to: [ ] Device (please specify) [ ] Implant [ ] Graft [ ] Infusion Due to: [ ] Procedure (please specify) [ ] Severe sepsis with associated acute organ dysfunction: [ ] Acute Respiratory Failure [ ] Acute Kidney injury w/o ATN [ ] Acute Kidney Injury w ATN [ ] Encephalopathy (metabolic) (septic) [ ] Disseminated Intravascular Coagulopathy (DIC) [ ] Hepatic Failure [ ] Additional/Other: please specify: [ ] Septic Shock [ ] Localized infection without sepsis [ ] SIRS due to non-infectious process (please specify etiology) [ ] with organ dysfunction [ ] without organ dysfunction [ ] Other diagnosis (Please specify if any) [ ] Unable to determine In addition, please specify: Present on Admission (POA): [ ] Yes [ ] No [ ] Unable to determine Physician Signature: Date/Time: For continuity of documentation, please document condition throughout progress notes and discharge summary. Thank You. To be completed by CDI/Coding staff for physician review: Present Clinical Indicators - Signs / Symptoms / Labs Results and Location in Medical Record [ ] Altered mental status, increased confusion, obtunded [x] Fever or hypothermia (<96.8 F/36 C or > 100.4 F/38C) Temp-100.3 Vitals on 04/15 [x] Respiratory rate >20/min, hypoxemia, and or hypercapnia RR-43 - Vitals on 04/15 [x] Patient called sepsis 2/2 UTI In ER, given 2g rocephin Family PN on 04/15 [x] Met criteria for sepsis with tachycardia, tachypnea. H&P on 04/14 [x] Covid 19, PNA ED provider report on 04/14 [x] Heart Rate/Tachycardia (>90 bpm), SBP<100mmHg HR-126 vitals on 04/15 [x] Acute kidney injury, Acute hypoxic respiratory failure H&P on 04/14 [ ] Metabolic acidosis Lactic Acid >2mmol/L OR 36mg/dL, [x] Oliguria , increase BUN/Cr, decreased GFR, elevated liver enzymes Cr 1.32 Laboratory on 04/14 [ ] Coag abnormalities, thrombocytopenia plts <100k [ ] Shock-hypotension resistant to IV fluid boluses [ ] WBC count (>12,000/mm^4 or <4000/mm^3 or 70% neuts, 10% bands) [ ] Hyperglycemia in absence of diabetes mellitus [ ] Positive blood cultures Present Risk Factors Results and Location in Medical Record [ ] Infection/Bacteremia [x] Covid 19, PNA ED provider report on 04/14 [ ] Surgery / surgical instrumentation / trauma Ruptured/perforated bowel, ruptured appendix [ ] Immunosuppression [ ] Advancing Age Present Treatments Results and Location in Medical Record [ ] Initiation Sepsis Protocol ICU [ ] Daily CBC, blood/sputum/wound cx [ ] ID Consult [x] Azithromcyin 500 mg Medication on 04/14 [x] Rocephin 2gm Medication on 04/14 [ ] Vasopressors, meds [ ] Consultants; ID, GI, Pulmonary, Hematology CDS/Migratory Game Bird Biologist Signature: AAS Phone #: Date/Time: 04/16/2020 This is a permanent part of the Medical Record [facility]
--- NOTE | 2020-04-16 13:56 | DIS ---
DATE OF ADMISSION: 04/14/2020 DATE OF DISCHARGE: 04/15/2020 RESIDENT: Anu Gutierrez MD. ADMITTING ATTENDING: Farnaz Dash MD. DISCHARGE ATTENDING: Farnaz Dash MD. CONSULTS: Palliative Care, Pulmonology (Dr. Valle), Case Management. PROCEDURES: None. PRIMARY DIAGNOSES: Acute hypoxic respiratory failure due to COVID pneumonia, acute kidney injury. SECONDARY DIAGNOSES: Neurogenic bladder with chronic suprapubic catheter, type 2 diabetes, advanced multiple sclerosis, hypertension. DISCHARGE MEDICATIONS: 1. 4 mg IV morphine q.4 p.r.n. 2. 1 mg morphine IV q.1 p.r.n. 3. 2 mg of Ativan IV q. 2 p.r.n. Discontinued medications 1. Vitamin C. 2. Amlodipine. 3. Tylenol p.r.n. 4. Baclofen. 5. 6 mg Decadron IV daily. 6. Lovenox 40 b.i.d. 7. Lantus 15 units q.a.m. 8. DuoNebs. 9. Linezolid 600 mg p.o. q.12. 10. Loperamide 10 mg p.o. q.6 hours p.r.n. 11. Losartan. 12. Magnesium oxide. 13. Dulera 2 puffs inhaled b.i.d. 14. MiraLAX p.r.n. 15. Remdesivir. 16. Scopolamine patch. 17. Zinc oxide. 18. Robitussin. 19. Metformin. HISTORY OF PRESENT ILLNESS/HOSPITAL COURSE: The patient is a 64-year-old male with a past medical history of advanced multiple sclerosis who was brought in to the hospital by EMS from his intermediate after weakness and hypoxia. He had reportedly tested positive for COVID pneumonia on April 10 and he had been doing well without oxygen requirement until the day of admission when he was found to be 75% on room air. He was started on high-flow nasal cannula upon admission and started on Decadron and a unit of convalescent plasma was ordered. The patient was also started on remdesivir. Pulmonology did consult on the patient and suspected possible advanced infection based on some positive blood cultures a few weeks prior. Additional antibiotics were added to the patient's regimen. Dr. Kuhn was consulted as patient had planned to have his suprapubic catheter replaced last week, but this was not achieved and it was determined that this is not necessary at this time. The patient was admitted with ZI, which improved with fluids. Over the course of 24 hours since the day of admission, the patient had stated firmly that he wanted to try BiPAP with medications to make him comfortable, but if he could not be comfortable on BiPAP, then he wished to go back to high flow with medications for comfort, knowing that he would likely pass away. Unfortunately, this did occur in the afternoon on 04/15/20 and it was determined that the patient would like to go on to hospice and be made comfortable. Palliative Care assisted with helping the patient choose a hospice company and the patient was discharged to hospice on the evening of 04/15/2020. DISPOSITION: Admitted to inpatient hospice with comfort care measures. DISCHARGE INSTRUCTIONS: 1. Location: As above. 2. Diet: None. 3. Activity: Comfort care. 4. Followup: N/A. Job ID: [id number] MTDD
--- NOTE | 2020-04-17 13:13 | EKG ---
Test Reason : Blood Pressure : / mmHG Vent. Rate : 126 BPM Atrial Rate : 126 BPM P-R Int : 132 ms QRS Dur : 080 ms QT Int : 300 ms P-R-T Axes : 024 018 -09 degrees QTc Int : 434 ms Sinus tachycardia with Premature supraventricular complexes with occasional Premature ventricular com plexes and Fusion complexes Otherwise normal ECG Confirmed by LISA STUBBS DO ([id number]), art editor JESSICA SANABRIA ([id number]) on 04/17/2020 1:13:30 PM Referred By: Confirmed By:LISA STUBBS DO
[2020-04-19] MEDS ORDERED: Ascorbic Acid 500 mg Chewable Tablet PO SCH (09:00)
== END 2020-04-15 18:30 | disposition hospice, inpatient (51) | DRG 177 ==
LOC: ERS 09:11 → 2SW 13:35 → IMCU/EMU 21:20
PROVIDERS: ADMIT Family Medicine; ATTEND Family Medicine
PROC: XW033E5 Introduction of Remdesivir Anti-infective into Peripheral Vein, Percutaneous Approach, New Technology Group 5 (ICD-10-PCS; principal; 2020-04-15)
DX: U07.1 COVID-19 (principal); J12.89 Other viral pneumonia; J96.01 Acute respiratory failure with hypoxia; N17.9 Acute kidney failure, unspecified; N39.0 Urinary tract infection, site not specified; E11.9 Type 2 diabetes mellitus without complications; I10 Essential (primary) hypertension; E87.5 Hyperkalemia; G35 Multiple sclerosis; R33.9 Retention of urine, unspecified; Z66 Do not resuscitate; N31.9 Neuromuscular dysfunction of bladder, unspecified; R29.898 Other symptoms and signs involving the musculoskeletal system; E78.00 Pure hypercholesterolemia, unspecified; N40.0 Benign prostatic hyperplasia without lower urinary tract symptoms; Z88.6 Allergy status to analgesic agent; Z90.49 Acquired absence of other specified parts of digestive tract; Z88.8 Allergy status to other drugs, medicaments and biological substances; Z88.1 Allergy status to other antibiotic agents; Z79.899 Other long term (current) drug therapy; Z79.51 Long term (current) use of inhaled steroids; Z79.4 Long term (current) use of insulin
CPT/HCPCS: 36415; 36416; 71045; 71275; 80053; 81003; 81015; 82728; 82805; 83605; 83615; 84145; 84484; 85025; 85379; 85652; 86140; 86850; 86900; 86901; 87040; 87077; 87086; 87149; 87186; 87635; 93005; 94640; 94660; 94760; J0456; J0692; J0696; J1100; J1644; J1815; J1885; J2060; J2270; J2405; J2550; J2920; J3490; J7620; Q9967; U0003

== ENCOUNTER 2020-04-15 18:47 | Inpatient (IN) | payer OTHER ==
[2020-04-15] MEDS ORDERED: Lorazepam 2 MG/ML VIAL ONE (19:14)
[2020-04-15] MEDS ORDERED: Morphine 4 MG/ML VIAL ONE (21:23)
[2020-04-15] MEDS ORDERED: Loperamide HCl 2 MG CAP PO PRN (22:30)
[2020-04-15] MEDS ORDERED: Ondansetron ODT 4 MG TAB SL PRN (22:30)
[2020-04-15] MEDS ORDERED: Morphine 2 MG/ML VIAL SLOW IVP PRN (22:32)
[2020-04-15] MEDS ORDERED: Senokot 8.6 MG TAB PO PRN (22:33)
[2020-04-15] MEDS ORDERED: Lorazepam 2 MG/ML VIAL SLOW IVP PRN (22:35)
[2020-04-15] MEDS ORDERED: Zinc Oxide 20% Oint 30 GM TUBE TOP PRN (22:38)
[2020-04-15] MEDS: Lorazepam 2 MG/ML VIAL SLOW IVP SCH (22:39)
[2020-04-15] MEDS ORDERED: Morphine 4 MG/ML VIAL SLOW IVP SCH (22:45)
[2020-04-15] MEDS ORDERED: Lactated Ringer's 1,000 ML IV SCH (22:45)
[2020-04-16] MEDS: Morphine 4 MG/ML VIAL SLOW IVP SCH ×3 (00:51→09:38)
[2020-04-16 01:40] VITALS: BMI 32.5
[2020-04-16] MEDS: Lorazepam 2 MG/ML VIAL SLOW IVP SCH ×3 (02:55→09:46)
[2020-04-16 05:01] VITALS: BP 127/68
[2020-04-16] MEDS ORDERED: Polyethylene Glycol 3350 17 GM Packet PO SCH (09:00)
[2020-04-16 10:11] VITALS: TEMP 100.4
[2020-04-16] MEDS ORDERED: Morphine 4 MG/ML VIAL SLOW IVP SCH (13:30)
[2020-04-18] MEDS ORDERED: Scopolamine 1.5 mg/72 hour Patch TOP SCH (09:00)
== END 2020-04-16 11:16 | disposition expired | DRG 951 ==
LOC: IMCU/EMU 18:47
PROVIDERS: ADMIT Internal Medicine; ATTEND Internal Medicine
DX: Z51.5 Encounter for palliative care (principal); J96.01 Acute respiratory failure with hypoxia; U07.1 COVID-19; J12.89 Other viral pneumonia; N17.9 Acute kidney failure, unspecified; Z88.1 Allergy status to other antibiotic agents; Z88.5 Allergy status to narcotic agent; Z79.4 Long term (current) use of insulin; Z79.899 Other long term (current) drug therapy; E11.9 Type 2 diabetes mellitus without complications; I10 Essential (primary) hypertension; Z85.828 Personal history of other malignant neoplasm of skin; Z90.49 Acquired absence of other specified parts of digestive tract; N31.9 Neuromuscular dysfunction of bladder, unspecified; Z66 Do not resuscitate; G35 Multiple sclerosis; Z74.01 Bed confinement status
CPT/HCPCS: J2060; J2270